=== PATIENT | female | born 2000 | race Caucasian/White ===

== ENCOUNTER 2024-10-23 00:52 | Emergency (ER) | payer SELFPAY ==
[2024-10-23] VITALS (8 sets, daily range): BP systolic 108–129; BP diastolic 62–83; PULSE 82–109; RESP 16–17; TEMP 37.4; O2SAT 95–100; BMI 38.4
--- NOTE | 2024-10-23 01:46 | CTR_ITS ---
PROCEDURE INFORMATION: Exam: CT Abdomen And Pelvis With Contrast Exam date and time: 10/23/2024 2:48 AM Age: 24 years old Clinical indication: Abdominal pain; Localized; Right lower quadrant (rlq); Additional info: Rlq pain TECHNIQUE: Imaging protocol: Computed tomography of the abdomen and pelvis with contrast. Radiation optimization: All CT scans at this facility use at least one of these dose optimization techniques: automated exposure control; mA and/or kV adjustment per patient size (includes targeted exams where dose is matched to clinical indication); or iterative reconstruction. Contrast material: OMNI 350; Contrast volume: 100 ml; Contrast route: INTRAVENOUS (IV); COMPARISON: No relevant prior studies available. RADIATION DOSE METRICS: Total DLP (mGy-cm): 1215.9 FINDINGS: Lungs: Mild probable atelectasis in the lower lungs. No pleural fluid. Liver: Unremarkable. Gallbladder and biliary ducts: Prior cholecystectomy, no significant biliary tree dilation. Pancreas: Unremarkable. Spleen: Unremarkable. Adrenal glands: Unremarkable. Kidneys and ureters: Several generally subcentimeter cysts suspected in the left kidney, although these are generally too small to accurately characterize by CT. If there is clinical concern for pyelonephritis, areas of focal infection might be considered. No hydronephrosis of either kidney. No visible ureteral calculus. No perinephric fluid. Stomach and bowel: Several proximal small bowel loops fluid-filled, but not abnormally distended. The overall appearance is not suggestive of significant small bowel obstruction at this time. This appearance could be secondary to some form of gastroenteritis. Please correlate clinically. However, if there is clinical suspicion for small bowel obstruction, follow-up may be helpful to exclude progression. No significant bowel distention. There are no CT findings to suggest diverticulitis. Appendix: The appendix is visualized and appears normal. Intraperitoneal space: No free intraperitoneal air, or ascites. Vasculature: No evidence for abdominal aortic aneurysm. Lymph nodes: No retroperitoneal adenopathy. Urinary bladder: No visible calculus in the bladder. Reproductive: Essentially unremarkable for age. Bones/joints: No significant acute finding. Soft tissues: No significant acute finding. CT/CT abdomen pelvis w con* [id number] IMPRESSION: 1. Normal appendix. 2. No free air or significant bowel distention. 3. Several proximal small bowel loops fluid-filled, but not abnormally distended. This appearance could be secondary to some form of gastroenteritis. See above discussion. 4. Several generally subcentimeter cysts suspected in the left kidney, see above discussion. 5. Other findings discussed above. COMMENTS: Consistent with the [employer]'s Incidental Findings Committee white paper (J Am Diann Radiol 2018): Any incidental renal lesion less than 1 cm or classified as too small to characterize, or any incidental cystic renal lesion characterized as simple-appearing, is likely benign. No follow-up imaging is recommended for these lesions per consensus recommendations based on imaging criteria.
[2024-10-23 01:53] LABS: Basophils # 0.1 10^3/uL (0.0-0.1); Basophils % 0.5 %; Eosinophils # 0.6 10^3/uL (0.0-0.8); Eosinophils % 5.6 %; Hematocrit 37.6 % (36-47); Lymphocytes # 1.8 10^3/uL (0.8-4.8); Lymphocytes % 15.9 %; Mean Corpuscular HGB Conc 31.9 g/dL (30-55); Mean Corpuscular Hemoglobin 28.2 pg (27-33); Mean Corpuscular Volume 88.5 fl (85-98); Mean Platelet Volume 10.4 fL (7.4-10.4); Monocytes # 0.8 10^3/uL (0.2-0.9); Monocytes % 7.1 %; Neutrophils % 70.6 %; Nucleated Red Blood Cells % 0 %; Platelet Count 343 10^3/cmm (157-399); Red Blood Count 4.25 10^6/uL (3.85-5.65); Red Cell Distribution Width 13.2 % (12.1-15.1); White Blood Count 11.35 10^3/uL (3.29-11.43)
[2024-10-23 01:58] LABS: HCG, Serum Qual Negative (Negative)
[2024-10-23] MEDS: iohexol 350 mg/mL 500 mL Btl (per mL) IV (02:00)
[2024-10-23 02:04] LABS: Alanine Aminotransferase 12 U/L (0-33); Albumin Level 3.5 g/dL (3.5-5.2); Alkaline Phosphatase 62 U/L (35-105); Aspartate Amino Transferase 25 U/L (0-32); Blood Urea Nitrogen 12 mg/dL (6-20); Calcium 8.4 mg/dL (8.5-10.5); Carbon Dioxide 22 mmol/L (22-29); Chloride 106 mmol/L (98-107); Creatinine Clr Calc Pharmacy 169.9942; Globulin 2.5 g/dL (1.3-4.6); Glomerular Filtration Rate 102.8 mL/min (90-130); Glucose 110 mg/dL (65-115); Osmolality Calculated 286 mOsm/kg (285-295); Sodium 138 mmol/L (136-145); Total Bilirubin 0.2 mg/dL (0.15-1.2)
[2024-10-23] MEDS: morphine 4 mg/mL SDV 1 mL IVP (02:10)
[2024-10-23] MEDS: levETIRAcetam 2,000 MG/200 ML PREMIX 400 MG IV (02:10)
[2024-10-23] MEDS: ondansetron 2 mg/ML SDV 2 mL 4 MG IVP (02:10)
[2024-10-23] MEDS: sodium chloride 0.9% 1,000 ML 999 ML IV (02:10)
[2024-10-23 02:19] LABS: Bilirubin Urine Negative (Negative); Blood Urine Negative (Negative); Glucose Urine UA Negative (Normal); Ketones Urine Negative (Negative); Leukocyte Esterase Urine Negative (Negative); Nitrate Urine Negative (Negative); Protein Urine Negative (Negative); Specific Gravity, Urine 1.019 (1.005-1.030); Urine Appearance Clear (CLEAR); Urine Color Yellow (Yellow)
[2024-10-23 02:24] LABS: Bacteria Urine None Seen /hpf; Hyaline Casts Urine 0.81 /lpf; RBC Urine 0-2 /hpf (0-2); Squamous Epithelial Cell Urine 0-5 /hpf (0-5); WBC Urine 0-5 /hpf (0-5)
[2024-10-23] MEDS: LORazepam 1 MG/0.5 ML injection 4 MG (02:37)
--- NOTE | 2024-10-23 02:51 | ED_ITS ---
HPI - Seizure 2 General: Chief Complaint: Seizure Stated Complaint: possible seizures Time Seen by Provider: 10/23/24 01:07 History of Present Illness: HPI Narrative: Pt with history of seizures presented after having a seizure while sleeping. Pt does not recall the onset but reports awakening with severe abdominal pain localized to the right lower quadrant and right ear pain. The abdominal pain began just before the seizure and has persisted since. Pt has a history of seizures diagnosed in [place], previously evaluated with EEG, and is prescribed Keppra 750 mg BID but has not taken it for about a month due to medications being left in [place]. Pt denies prior history of kidney stones or appendicitis. Fiance reports pt was unresponsive for nearly 20 minutes, with violent shaking starting about 10 minutes in, and noted abnormal breathing and perioral cyanosis. No mention of recent fever, trauma, or other acute symptoms. No known . Related Data Previous Rx's ?Medication ?Instructions ?Recorded levetiracetam 750 mg tablet 750 mg PO BID 2 weeks #180 tabs 10/23/24 (Keppra) Allergies Allergy/AdvReac Type Severity Reaction Status Date / Time No Known Allergies Allergy Verified 10/23/24 01:10 Physical Exam 2 Const: COMMON NORMALS: no acute distress, patient oriented x3 and alert HENMT: COMMON NORMALS: normocephalic and atraumatic HEAD & SCALP: n ormocephalic and atraumatic Eye: COMMON NORMALS: Equal, round and reactive pupils present, EOMs intact bilaterally and no scleral icterus PUPIL: Yes Equal, round and reactive pupils present Resp: COMMON NORMALS: normal respiratory effort and No retractions Cardio: COMMON NORMALS: regular rate, regular rhythm and No murmurs present (Cardio) RATE: regular rate RHYTHM: regular rhythm GI: OTHER: Mild right lower quadrant tenderness to palpation. Normal bowel sounds. Neuro: COMMON NORMALS: patient oriented x3 SENSORIUM/ORIENTATION: Yes alert Skin: COMMON NORMALS: no rashes or lesions noted GENERAL SKIN EXAM: no rashes or lesions noted Course 2 Vital Signs: Vital signs: Vital Signs Temperature 99.3 F 10/23/24 01:05 Pulse Rate 82 10/23/24 04:49 Respiratory Rate 16 10/23/24 04:49 Blood Pressure 114/83 10/23/24 04:49 Pulse Oximetry 97 10/23/24 04:49 Oxygen Delivery Me thod Room Air 10/23/24 01:05 MDM - Seizure MDM Narrative Medical decision making narrative: In summary, patient is a 24-year-old female seen for seizure-like activity. She states that she had EEG [place] epilepsy [place] and that she has not had her Keppra for at least several weeks. states that she shook for several minutes and was unresponsive for up to 20 minutes. Lactic acid is not elevated. CT abdomen does not show evidence of appendicitis or other acute abnormality. Laboratory evaluation is reassuring. She was given a loading dose of 2 g of Keppra as well as 4 mg of Ativan after which no further seizure activity was noted. She will be prescribed her 750 mg twice daily dosing Keppra and discharged in stable and improved condition with plans to establish care so that she can get her prescriptions filled on a more normal basis. Lab Data 10/23/24 01:16 10/23/24 01:16 Labs: Radiology Impressions Abdomen/Pelvis CT 10/23/24 01:46 IMPRESSION: 1. Normal appendix. 2. No free air or significant bowel distention. 3. Several proximal small bowel loops fluid-filled, but not abnormally distended. This appearance could be secondary to some form of gastroenteritis. See above discussion. 4. Several generally subcentimeter cysts suspected in the left kidney, see above discussion. 5. Other findings discussed above. COMMENTS: Consistent with the [employer]'s Incidental Findings Committee white paper (J Am Diann Radiol 2018): Any incidental renal lesion less than 1 cm or classified as too small to characterize, or any incidental cystic renal lesion characterized as simple-appearing, is likely benign. No follow-up imaging is recommended for these lesions per consensus recommendations based on imaging criteria. Laboratory Results WBC 11.35 10^3/uL (3.29-11.43) 10/23/24 01:16 RBC 4.25 10^6/uL (3.85-5.65) 10/23/24 01:16 Hgb 12.00 g/dL (11.27-16.99) 10/23/24 01:16 Hct 37.6 % (36-47) 10/23/24 01:16 MCV 88.5 fl (85-98) 10/23/24 01:16 MCH 28.2 pg (27-33) 10/23/24 01:16 MCHC 31.9 g/dL (30-55) 10/23/24 01:16 RDW 13.2 % (12.1-15.1) 10/23/24 01:16 Plt Count 343 10^3/cmm (157-399) 10/23/24 01:16 MPV 10.4 fL (7.4-10.4) 10/23/24 01:16 Neut % (Auto) 70.6 % 10/23/24 01:16 Lymph % (Auto) 15.9 % 10/23/24 01:16 Mccreary % (Auto) 7.1 % 10/23/24 01:16 Eos % (Auto) 5.6 % 10/23/24 01:16 Baso % (Auto) 0.5 % 10/23/24 01:16 Neut # (Auto) 8.00 10^3/uL (1.8-7.7) H 10/23/24 01:16 Lymph # (Auto) 1.8 10^3/uL (0.8-4.8) 10/23/24 01:16 Mccreary # (Auto) 0.8 10^3/uL (0.2-0.9) 10/23/24 01:16 Eos # (Auto) 0.6 10^3/uL (0.0-0.8) 10/23/24 01:16 Baso # (Auto) 0.1 10^3/uL (0.0-0.1) 10/23/24 01:16 Nucleated RBC % (auto) 0 % 10/23/24 01:16 Nucleated RBCs # 0.0 /100WBC 10/23/24 01:16 Sodium 138 mmol/L (136-145) 10/23/24 01:16 Potassium 4.0 mmol/L (3.5-5.1) 10/23/24 01:16 Chloride 106 mmol/L (98-107) 10/23/24 01:16 Carbon Dioxide 22 mmol/L (22-29) 10/23/24 01:16 Anion Gap 14.0 (5-19) 10/23/24 01:16 BUN 12 mg/dL (6-20) 10/23/24 01:16 Creatinine 0.7 mg/dL (0.5-0.9) 10/23/24 01:16 GFR Calculation 102.8 mL/min (90-130) 10/23/24 01:16 Glucose 110 mg/dL (65-115) 10/23/24 01:16 Calculated Osmolality 286 mOsm/kg (285-295) 10/23/24 01:16 Lactic Acid 1.4 mmol/L (0.5-2.2) 10/23/24 01:16 Calcium 8.4 mg/dL (8.5-10.5) L 10/23/24 01:16 Total Bilirubin 0.2 mg/dL (0.15-1.2) 10/23/24 01:16 AST 25 U/L (0-32) 10/23/24 01:16 ALT 12 U/L (0-33) 10/23/24 01:16 Alkaline Phosphatase 62 U/L (35-105) 10/23/24 01:16 Total Protein 6.0 g/dL (6.6-8.7) L 10/23/24 01:16 Albumin 3.5 g/dL (3.5-5.2) 10/23/24 01:16 Globulin 2.5 g/dL (1.3-4.6) 10/23/24 01:16 HCG, Qual Negative (Negative) 10/23/24 01:16 Urine Color Yellow (Yellow) 10/23/24 02:12 Urine Appearance Clear (CLEAR) 10/23/24 02:12 Urine pH 6.0 (5-7) 10/23/24 02:12 Ur Specific [place] 1.019 (1.005-1.030) 10/23/24 02:12 Urine Protein Negative (Negative) 10/23/24 02:12 Urine Glucose (UA) Negative (Normal) 10/23/24 02:12 Urine Ketones Negative (Negative) 10/23/24 02:12 Urine Blood Negative (Negative) 10/23/24 02:12 Urine Nitrate Negative (Negative) 10/23/24 02:12 Urine Bilirubin Negative (Negative) 10/23/24 02:12 Urine Urobilinogen 1.0 mg/dL (Negative) 10/23/24 02:12 Ur Leukocyte Esterase Negative (Negative) 10/23/24 02:12 Urine RBC 0-2 /hpf (0-2) 10/23/24 02:12 Urine WBC 0-5 /hpf (0-5) 10/23/24 02:12 Ur Squamous Epith Cells 0-5 /hpf (0-5) 10/23/24 02:12 Amorphous Sediment Not Reportable 10/23/24 02:12 Urine Bacteria None seen /hpf (NONE) 10/23/24 02:12 Hyaline Casts 0.81 /lpf 10/23/24 02:12 All radiology interpretation(s) finalized by discharge Discharge Plan Discharge Patient Disposition: Home Condition: Stable Prescriptions: New levetiracetam [Keppra] 750 mg tablet 750 mg PO BID 14 Days Qty: 180 0RF Discharge Orders: Discharge ED (Routine); Ordered 10/23/24 Ordered By: Erick Shankar Patient Instructions: Epilepsy (ED) Activity Restrictions/Additional Instructions: Please obtain a primary care doctor so that you can get further refills of your medications when needed. I prescribed a 3-month supply of your Keppra to hopefully keep you from having seizures before you can establish care here. Print Language: Croatian Coding Level of Care Code ED Public Health Program Manager for Shona Cody
[2024-10-23 03:32] LABS: Lactic Sepsis W/Reflex 1.4 mmol/L (0.5-2.2)
== END 2024-10-23 04:56 | disposition home or self-care (01) ==
PROVIDERS: Emergency Provider Student in an Organized Health Care Education/Training Program
DX: G40.909 Epilepsy, unspecified, not intractable, without status epilepticus (principal)
CPT/HCPCS: 36415; 74177; 80053; 81001; 83605; 84703; 85025; 96361; 96365; 96375; 99285; J1953; J2060; J2270; J2405; J7030

== ENCOUNTER 2024-11-17 22:07 | Emergency (ER) | payer SELFPAY ==
--- OUTSIDE RECORDS SUMMARY | 2024-11-13 00:54 | XMS_ITS | Encounter Summary ---
Author Organization [employer] Address [address] [place] [address] Care Team Providers Care Asw/Asuw Tactical Air Controller Name Role Phone Fantasma Brewer DO Primary Care Provider Reason for Visit * Reason Comments Seizures * Auth/Cert (Routine) Specialty Diagnoses / Procedures Referred By Ron zeng Referred To Contact Diagnoses ED Procedures ED Referral ID Status Reason Start Date Expiration Date Visits Re quested Visits Authorized [id number] 1 1 Encounter Details Date Type Department Care Team (Late st Contact Info) Description 11/13/2024 12:54 AM CDT - 11/13/2024 4:08 AM CDT Emergency [facility] [place] [address] [place] [address] Jose Eduardo Martinez, DO [address] [place] [address] Breakthrough seizure (Primary Dx) Discharge Disposition: Home or Self-Care Social History Tobacco Use Types Packs/Day Years Used Date Smoking Tobacco: Never Passive Smoke Exposure: Never Smokeless Tobacco: Never Alcohol Use Standard Drinks/Week Comments Never 0 (1 standard drink = 0.6 oz pur e alcohol) [facility] Utilities Answer Date Recorded In the past 12 months has e electric, gas, oil, or water company threatened to shut off services in your home? No 05/13/2024 PHQ-2 Answer Date Recorded PHQ-2 Total Score 0 07/08/2024 Hunger Vital Sign Answer Date Recorded Within the past 12 months, y ou worried that your food would run out before you got the money to buy more. Never true 05/13/20 24 Within the past 12 months, t he food you bought just didn't last and you didn't have money to get more. Never true 05/13/2024 [facility] - Transportation Answer Date Record ed In the past 12 months, has l ack of reliable transportation kept you from medical appointments, meetings, work or from getting things needed for daily living? No 05/13/2024 [facility] - Personal Safety Answer Date Recor ded How often does anyone, dennis bond family and friends, physically hurt you? Never 05/13/2024 How often does anyone, dennis bond family and friends, insult or talk down to you? Never 05/13/2024 How often does anyone, dennis bond family and friends, threaten you with harm? Never 05/13/2024 How often does anyone, dennis bond family and friends, scream or curse at you? Never 05/13/2024 [facility] - Inadequate Housing Answer Date Re corded What is your living situation today? I have a [facility] place to live 05/13/2024 Housing Problems Not on file 05/13/2024 Comments No Sex and Gender Information Value Date Recorded Sex Assigned at Not on file Legal Sex Female 9:57 AM TRANSMISSION REPAIRER Gender Identity Not on file Sexual Orientation Not on file documented as of this encounter Last Filed Vital Signs Vital Sign Reading Time Taken Comments Blood Pressure 116/69 11/13/2024 3:30 AM CDT Pulse 88 11/13/2024 3:30 AM CDT Temperature 37.4 C (99.3 F) 11/13/2024 1:00 AM CDT Respiratory Rate 27 11/13/2024 3:30 AM CDT Oxygen Saturation 99% 11/13/2024 3:30 AM CDT Inhaled Oxygen Concentration - - Weight 122 kg (268 lb) 11/13/2024 1:00 AM CDT Height 175.3 cm (5' 9 ) 11/13/2024 1:00 AM CDT Body Mass Index 39.58 11/13/2024 1:00 AM CDT documented in this encounter Functional Status * Is the person deaf or does he/she have serious difficulty hearing? Answer Date of Assessment Author No 05/13/2024 11:15 PM TRANSMISSION REPAIRER * Is this person blind or does he/she have serious difficulty seeing even when wearing glasses? Answer Date of Assessment Author No 05/13/2024 11:15 PM TRANSMISSION REPAIRER * Does this person have serious difficulty walking or climbing stairs? Answer Date of Assessment Author No 05/13/2024 11:15 PM TRANSMISSION REPAIRER * Does this person have difficulty dressing or bathing? Answer Date of Assessment Author No 05/13/2024 11:15 PM TRANSMISSION REPAIRER * Because of a physical, mental, or emotional condition, does this person have difficulty doing errands alone such as visiting a doctor's office or shopping? Answer Date of Assessment Author No 05/13/2024 11:15 PM TRANSMISSION REPAIRER documented as of this encounter Mental Status * Because of a physical, mental, or emotional condition, does this person have serious difficulty concentrating, remembering, or making decisions? Answer Entry Date Author No 05/13/2024 11:15 PM TRANSMISSION REPAIRER documented in this encounter Discharge Instructions * Discharge Instructions* Jose Eduardo Martinez DO - 11/13/2024 3:50 AM CDT Take your Topamax as prescribed by your neurologist. Please contact your neurologist to inform her of most recent ED visit. Thank you for choosing us for your emergency medical care. During your visit to the emergency department today, we have addressed emergency medical conditions. Each and every time you visit the emergency department we strongly encourage you to follow-up with your primary care physician at their next available appointment. Often times when visiting the emergency department your condition can worsen following discharge, if worsening occurs we ask that you return to immediately for reevaluation. Also, following an emergency department visit your symptoms can remain concerning, if your symptoms continue to be concerning please return for reevaluation. * Attachments The following attachments cannot be sent through Care Everywhere. * Epilepsy [id number] ([place] Island[place]) documented in this encounter Medications at Time of Discharge aluminum-magnesium hydroxide-simethicon e (Maalox) 200-200-20 MG/5ML suspension Take 30 mL by mouth. 07/05/2024 amitriptyline (Elavil) 25 MG tabletIndications:Ot her chronic pancreatitis Take 1 tablet (25 mg) by mouth nightly. 30 tablet 5 07/08/2024 HYDROcodone-acetamin ophen (Wellfleet) 10-325 MG per tablet Take 1 tablet by mouth every 4 (four) hours as needed. 07/03/2024 ondansetron ODT (Zofran-ODT) 4 MG disintegrating tablet 06/18/2024 oxyCODONE-acetaminop hen (Percocet) 5-325 MG per tablet Take 1 tablet by mouth every 6 (six) hours as needed. 05/26/2024 pantoprazole (Protonix) 20 MG EC tablet Take 1 tablet (20 mg) by mouth. 07/05/2024 polyethylene glycol (Miralax) 17 GM/SCOOP powderIndications:Ot her constipation Take 17 g by mouth daily. 30 packet 5 07/08/2024 Vit-Fe Fumarate-FA ( VITAMIN PO) Take by mouth. senna (Senokot) 8.6 MG tablet Take 1 tablet (8.6 mg) by mouth. 07/04/2024 documented as of this encounter ED Notes * Jose Eduardo Martinez DO - 11/13/2024 2:07 AM CDTAssociated Order(s): ECG 12 lead Assessment Assessment Final diagnoses: Breakthrough seizure Plan Emergency Department Decision Date/Time: 11/13/2024 3:50 AM Disposition: Discharge Comment: None ED Prescriptions None Fantasma Brewer DO [address] [facility] [address] [facility] [place] [address] [facility] [address] Go to If symptoms worsen Subjective Reason for Visit Chief Complaint Patient presents with Seizures HPI Patient is a 24-year-old female with past medical history of of epilepsy who presents to the ED accompanied by father and spouse for evaluation of seizures. Initially the patient's reports they were recently on their honeymoon in [place] and were driving back to [place] to pickler helper her father. He reports that on the way down here the patient told him she was getting sleepy so she was going to take a nap. He reports that upon arrival to her father's house the patient was not able to be aroused and her eyes seem like they are rolled into the back of her head. Patient reports this is what some of her seizures look like so he brought her to the ED for evaluation. He is unsure of how long the seizure activity went on for. Upon arrival to ED patient was unconscious sitting up in the front seat of their vehicle and myself and nursing staff had to assist her back to ER room on a gurney.Symptoms are severe in severity modified time. No other complaints Problem List does not have any pertinent problems on file. History History reviewed. No pertinent past medical history. Past Surgical History: Procedure Laterality Date SECTION - LD N/A 12/27/2021 Performed by Raghu Gayle MD at [facility] Social History Tobacco Use Smoking status: Never Passive exposure: Never Smokeless tobacco: Never Vaping Use Vaping status: Never Used Substance and Sexual Activity Alcohol use: Never Drug use: Never Sexual activity: Yes Partners: Male control/protection: None Family History Problem Relation Age of Onset No Known Problems Paternal Grandfather No Known Problems Paternal Grandmother No Known Problems Maternal Grandmother No Known Problems Maternal Grandfather Diabetes Father No Known Problems Mother No Known Problems Brother No Known Problems Sister No Known Problems Other Patient's Medications New Prescriptions No medications on file Previous Medications ALUMINUM-MAGNESIUM HYDROXIDE-SIMETHICONE (MAALOX) 200-200-20 MG/5ML SUSPENSION Take 30 mL by mouth. AMITRIPTYLINE (ELAVIL) 25 MG TABLET Take 1 tablet (25 mg) by mouth nightly. HYDROCODONE-ACETAMINOPHEN (NORCO) 10-325 MG PER TABLET Take 1 tablet by mouth every 4 (four) hours as needed. ONDANSETRON ODT (ZOFRAN-ODT) 4 MG DISINTEGRATING TABLET OXYCODONE-ACETAMINOPHEN (PERCOCET) 5-325 MG PER TABLET Take 1 tablet by mouth every 6 (six) hours as needed. PANTOPRAZOLE (PROTONIX) 20 MG EC TABLET Take 1 tablet (20 mg) by mouth. POLYETHYLENE GLYCOL (MIRALAX) 17 GM/SCOOP POWDER Take 17 g by mouth daily. VIT-FE FUMARATE-FA ( VITAMIN PO) Take by mouth. SENNA (SENOKOT) 8.6 MG TABLET Take 1 tablet (8.6 mg) by mouth. Modified Medications No medications on file Discontinued Medications No medications on file Review of Systems Review of Systems Unable to perform ROS: Patient unresponsive Objective Physical Exam ED Triage Vitals: Temp: 37.4 ??C (99.3 ??F) Pulse: 97 Resp: 18 BP: 130/86 SpO2: 98 % Temp src: Oral Heart Rate Source: Monitor Patient Position: (not recorded) BP Location: (not recorded) FiO2 (%): (not recorded) (11/13/24 0100) Physical Exam Vitals and nursing note reviewed. Constitutional: General: She is not in acute distress. HENT: Head: Normocephalic and atraumatic. Right Ear: Tympanic membrane, ear canal and external ear normal. Left Ear: Tympanic membrane, ear canal and external ear normal. Nose: Nose normal. Mouth/Throat: Mouth: Mucous membranes are moist. Pharynx: Oropharynx is clear. Comments: No oral lacerations or pooling of secretions noted, no perioral cyanosis Eyes: Pupils: Pupils are equal, round, and reactive to light. Cardiovascular: Rate and Rhythm: Normal rate and regular rhythm. Pulses: Normal pulses. Heart sounds: Normal heart sounds. Pulmonary: Effort: Pulmonary effort is normal. No respiratory distress. Breath sounds: Normal breath sounds. Abdominal: General: There is no distension. Palpations: Abdomen is soft. Hernia: No hernia is present. Musculoskeletal: General: No deformity or signs of injury. Cervical back: Normal range of motion and neck supple. Right lower leg: No edema. Left lower leg: No edema. Skin: General: Skin is warm and dry. Capillary Refill: Capillary refill takes less than 2 seconds. Findings: No bruising or rash. Neurological: Mental Status: She is unresponsive. GCS: GCS eye subscore is 3. GCS verbal subscore is 1. GCS motor subscore is 2. Orders Placed This Encounter Procedures Blood Culture SARS-CoV-2/FLU/RSV Cepheid RT-PCR Detection X-ray chest 1 view Urinalysis, Culture if Indicated Urine Urine Toxicology Screen Oxycodone Screen, Urine Fentanyl Screen, Urine CBC Blood gas, venous Comprehensive Metabolic Panel Lipase Lactic Acid, Plasma Ethanol, Serum Acetaminophen Level Lactic Acid, Plasma Non-Indwelling Urinary Catheter Insertion POC Glucometer Glucose ECG 12 lead Labs Reviewed URINE TOXICOLOGY SCREEN - Abnormal; Notable for the following components: Result Value Urine THC Screen Positive (*) All other components within normal limits Narrative: Urine Drug Screen specimen was not collected by any chain of custody procedure; The results have not been confirmed and are intended for medical use only. CBC - Abnormal; Notable for the following components: Absolute Eosinophils 0.655 (*) All other components within normal limits BLOOD GAS, VENOUS - Abnormal; Notable for the following components: Venous pO2 59.1 (*) All other components within normal limits COMPREHENSIVE METABOLIC PANEL - Abnormal; Notable for the following components: Glucose Level 114 (*) All other components within normal limits Narrative: Total Bilirubin: A metabolite of Naproxen, O-desmethylnaproxen, has been shown to interfere with the Faisal-Tarun method for measuring Total Bilirubin. Samples from patients who have taken Naproxen have shown spurious elevation in Total Bilirubin levels. (Alexa et al, J. Clin Biochem 42, 129-131). The eGFR is based on the CKD-EPI 1 equation. To calculate the new eGFR from previous Creatinine or Cystatin C results, go to https://www.kidney.org/professionals/kdoqi/gfr%5Fcalculator LACTIC ACID, PLASMA - Abnormal; Notable for the following components: Lactic Acid 2.94 (*) All other components within normal limits ACETAMINOPHEN LEVEL - Abnormal; Notable for the following components: Acetaminophen Level <3.0 (*) All other components within normal limits SARS-COV-2/FLU/RSV CEPHEID RT-PCR DETECTION - Normal Narrative: This test was performed using [employer] GeneXpert??. The Xpert Xpress SARS-CoV-2/Flu/RSV Plus test is a rapid, multiplexed real-time RT-PCR test intended for the simultaneous qualitative detection and differentiation of SARS-CoV-2, influenza A, influenza B, and respiratory syncytial virus (RSV) viral RNA in either nasopharyngeal swab or nasal swab spe cimens collected from individuals suspected of respiratory viral infection consistent with COVID-19by their healthcare provider. Clinical signs and symptoms of respiratory viral infection due to SARS-CoV-2, influenza, and RSV can be similar. Negative results do not preclude SARS-CoV-2, influenza A virus, influenza B virus and/or RSV infection and should not be used as the sole basis for treatment or other patient management decisions. Negative results must be combined with clinical observations, patient history, and/or epidemiological i nformation. URINE - Normal Narrative: hCG is not usually detected in healthy men and healthy non- women. However, hCG levels in will usually exceed 25 mIU/mL two to three days prior to the first missed menstrual period. OXYCODONE SCREEN, URINE - Normal Narrative: Urine Drug Screen specimen was not collected by any chain of custody procedure; The results have not been confirmed and are intended for medical use only. FENTANYL SCREEN, URINE - Normal Narrative: Urine Drug Screen specimen was not collected by any chain of custody procedure; The results have not been confirmed and are intended for medical use only. LIPASE - Normal ETHANOL - Normal Narrative: Ethanol Normal: Negative = 0 mg/dL Toxic: 50-100 mg/dL Depression of FOLLOW UP CLERK: Greater than 100 mg/dL Fatalities Reported: Greater than 400 mg/dL Interpret with caution. Elevated lactic acid concentration and lactate dehydrogenase activity may falsely elevate enzymatically determined ethanol levels. BLOOD CULTURE BLOOD CULTURE URINALYSIS PRN CULTURE IF INDICATED Narrative: Consider positive bilirubin results as presumptive positive. Consider confirmation by serum bilirubin if clinically indicated. LACTIC ACID, PLASMA POC GLUCOMETER GLUCOSE (RALS) Narrative: Reliability of glucose meter testing is questionable in patients with compromised peripheral blood flow. Examples include but are not limited to severe edema at collection site, heart failure, hypothermia, on two or more vasopressors, hematocrit <20% or >70%, peripheral circulatory disease, severe hypotension, shock, hyperosmolar-hyperglycemia (with or without ketosis), and severe dehydration. Venous glucose testing by the laboratory should be considered if clinically indicated Procedures ECG 12 lead Date/Time: 11/13/2024 2:15 AM Performed by: Jose Eduardo Martinez DO Authorized by: Jose Eduardo Martinez DO ECG interpreted by ED Physician in the absence of a burlap worker: yes Rate: ECG rate: 101 ECG rate assessment: tachycardic Rhythm: Rhythm: sinus tachycardia Comments: EKG was interpreted by me in the absence of a burlap worker. EKG reveals sinus tachycardia rhythm with a rate of 101. MT 149. QRS 77. QTC 468. No significant ST abnormalities. No evidence of delta wave or WPW. ED Course MDM Medical Decision Making Amount and/or Complexity of Data Reviewed Labs: ordered. Radiology: ordered and independent interpretation performed. ECG/medicine tests: ordered and independent interpretation performed. Risk Prescription drug management. Patient taken to exam room and a safety net was established. An appropriate safety net was put in place. Vital signs obtained and reviewed. Nursing notes reviewed. A detailed history and physical exam was performed by myself and documented above. I considered a broad differential diagnosis to include but is not limited to epileptic seizure, nonepileptic seizure, ingestion, electrolyte abnormality. Once patient was taken to room 11 she was placed on our monitors and was satting 100% with normal blood pressure and was afebrile. IV access was established and patient was still unresponsive with eyes rolling into the back of her head. Patient was then given 4 mg of IV Ativan. Fingerstick was obtained prior to this and was 99. Shortly after patient received the Ativan nursing staff was collecting labs and patient was swabbed for COVID, flu and RSV. Upon swabbing patient she immediately reached up and grabbed at the swab. I then said her name to which she responded to. I asked her what had happened inpatient immediately started talking about the events leading up to her seizure this evening. Reports that they are getting ready to drive to [place] to pickler helper her father. Reports she felt like she was going to have a seizure due to some flashing lights and then does not remember anythingelse. Patient also reports she was quite tired so she was planning on taking a nap. Patient has no obvious postictal period. She is alert and oriented and has no focal neurologic deficits. Lab work was obtained and CBC is unremarkable. Metabolic panel is unremarkable. Lipase is normal. Serum drug screen is negative. Urine toxicology screen is only positive for THC. Urinalysis is negative for any signs of infection or . She is negative for COVID, flu and RSV. VBG reveals a pH of 7.36 and a CO2 of 44. Chest x-ray interpreted by myself reveals no acute cardiopulmonary process. Lactic acid is 2.94 which is consistent with her seizure activity. Patient was given a liter of fluids. I asked patient what she is currently taking for seizure medications and she reports that she is currently not on any medications. Reports she had a seizure on the fourth of this month and was taken to an ER in [place] and believes that the IV Keppra put her back into a seizure. Reports that when she talked to her neurologist about this her neurologist wanted to discontinue the Keppra and only take Top amax. Patient reports that due to her honeymoon she has not been able to pickler helper the Topamax prescription. I reviewed several notes from patient's neurologist and it seems that patient has had several seizure workups in the past. There were several EEGs that were negative for any epileptic activityand there was also willing EEG that did confirm some epileptic activity. 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 I do have high suspicion that this was a nonepileptic seizure as patient immediately came to and couldremember all the events leading up to her presentation today. Patient has been observed in the ED for prolonged period of time and has not had any continued seizure-like activity. Reports she does have close follow-up with her neurologist. Her repeat lactic acid is down to 1.09. Patient has been observed in the ED for 3 hours with no continued seizure-like activity. At this time I do not believe further workup is necessary at this time. I have stressed the importance of patient picking up her Topamax prescription. I have discussed symptomatic treatment at home as well as the need for follow-up with PCP. Return precautions are given. The patient voices understanding and is agreeable to plan.They will be discharged in stable condition with strict return precautions. Total critical care time spent evaluating, managing and providing care to a critically ill patient was in the excess of greater than 30 minutes. This included direct patient care at bedside as well as reviewing test results, discussing the case with consultants, and documenting the patient's chart and excludes all separately billable procedures. The high probability of clinical significant, life threatening deterioration, the patient required my highest level of preparedness to intervene emergently and I personally spent this critical care time directly with and personally managing the patient. The critical care time included obtaining a history; examining the patient; pulse oximetry; ordering and reviewing studies; arranging urgent treatment with development of a management plan; evaluation of the patient's response to treatment; frequent reassessments; and discussion with other providers including several transfer centers. This critical care time was performed to assess and manage the high probability of imminent life-threatening deterioration that could result in multiorgan failure. It was exclusive of separately billable procedures and treating of other patients. Jose Eduardo Martinez DO 11/13/24 0352 documented in this encounter Plan of Treatment Pending Results Name Type Priority Associated Diagnoses Date /Time Blood Culture Microbiology STAT 1:14 AM CDT Blood Culture Microbiology STAT 3:05 AM CDT documented as of this encounter Procedures Procedure Name Priority Date/Time Associated Diagnosis Comments BLOOD CULTURE STAT 11/13/2024 3:05 AM CDT LACTIC ACID, PLASMA STAT 11/13/2024 3 :05 AM CDT XR CHEST 1 VW STAT 11/13/2024 1:30 AM CDT ECG 12-LEAD STAT 11/13/2024 1:19 AM CDT BLOOD CULTURE STAT 11/13/2024 1:14 AM CDT CBC STAT 11/13/2024 1:14 AM CDT LIPASE STAT 11/13/2024 1:14 AM CDT LACTIC ACID, PLASMA STAT 11/13/2024 1 :14 AM CDT BLOOD GAS, VENOUS STAT 11/13/2024 1:1 4 AM CDT ETHANOL STAT 11/13/2024 1:14 AM CDT ACETAMINOPHEN LEVEL STAT 11/13/2024 1 :14 AM CDT COMPREHENSIVE METABOLIC PANEL STAT 11/13/2024 1:14 AM CDT SARS-COV-2/FLU/RSV CEPHEID RT-PCR DETECTION STAT 11/13/2024 1:13 AM CDT FENTANYL SCREEN, URINE STAT 1:10 AM CDT OXYCODONE SCREEN, URINE STAT 11/13/2024 1:10 AM CDT URINALYSIS PRN CULTURE IF INDICATED STAT 11/13/2024 1:10 AM CDT URINE TOXICOLOGY SCREEN STAT 11/13/2024 1:10 AM CDT URINE STAT 11/13/2024 1:10 AM CDT POC GLUCOMETER GLUCOSE (RALS) STAT 11/13/2024 12:55 AM CDT documented in this encounter Results * Lactic Acid, Plasma (11/13/2024 3:05 AM CDT) Lactic Acid 1.09 0.50 - 2.20 mmol/L 11/13/2024 3:25 AM CDT [facility] Lactic Acid (Conv) 11/13/2024 3:25 AM CDT [facility] Blood Venous blood specimen / Unknown Venipuncture / Unknown 11/13/2024 3:05 AM CDT 11/13/2024 3:07 AM CDT us Jose Eduardo Martinez DO LAB BLOOD ORDERABLES Final Re sult [address], [place] [address] * X-ray chest 1 view (11/13/2024 1:30 AM CDT) Anatomical Region Laterality Modality Body, Chest, Lung Digital Radiog moustapha 11/13/2024 10:0 5 AM CDT Impressions 11/13/2024 10:08 AM CDT No acute cardiopulmonary findings. All reports both verbal and nonverbal are conducted in the Central Time zone unless otherwise specified. By Mariano Doe D.O. (Radiologist) Electronically signed by MARIANO DOE D.O. 11/13/2024 - 10:05:29 [id number] R:bxw: T:bxw ([id number]) Narrative 11/13/2024 10:08 AM CDT Date of Exam: 11/13/2024 (Received on: 11/13/2024 1:31:24 AM) Reason for Exam: Status epilepticus EXAM: CHEST ONE VIEW . AP Chest COMPARISON: None FINDINGS: Heart size and pulmonary vasculature are within normal limits. The lungs are clear and without evidence of pneumonia, atelectasis or effusions. No acute bony or soft tissue findings. Procedure Note Mariano Doe DO - 11/13/2024 Date of Exam: 11/13/2024 (Received on: 11/13/2024 1:31:24 AM) Reason for Exam: Status epilepticus EXAM: CHEST ONE VIEW . AP Chest COMPARISON: None FINDINGS: Heart size and pulmonary vasculature are within normal limits.The lungs are clear and without evidence of pneumonia, atelectasis or effusions. Noacute bony or soft tissue findings. IMPRESSION: No acute cardiopulmonary findings. All reports both verbal and nonverbal are conducted in the Central Time[place] unless otherwise specified. By Mariano Doe D.O. (Radiologist) Electronically signed by MARIANO DOE D.O. 11/13/2024 - 10:05:29 [id number] R:bxw: T:bxw ([id number]) Jose Eduardo Martinez DO IMG DIAGNOSTIC IMAGING ORDERA BLES Final Result * ECG 12 lead (11/13/2024 1:19 AM CDT) Heart Rate ECG 101 bpm TRACEMASTER RR Interval ECG 592 ms TRACEMASTER Atrial Rate ECG 102 ms TRACEMASTER MT Interval 149 ms TRACEMASTER P Duration 103 ms TRACEMASTER P Horizontal Second [place]a ECG 21 deg TRACEMASTER P Front Second [place]a ECG 22 deg TRACEMASTER Q Onset ECG 505 ms TRACEMASTER QRSD Interval 77 ms TRACEMASTER QT Interval 360 ms TRACEMASTER QTcB ECG 468 ms TRACEMASTER QTcF ECG 428 ms TRACEMASTER QRS Horizontal Second [place]a ECG -9 deg TRACEMASTER QRS Second [place]a ECG 63 deg TRACEMASTER I-40 Horizontal Second [place]a ECG 83 deg TRACEMASTER I-40 Front Second [place]a ECG -32 deg TRACEMASTER T-40 Horizontal Second [place]a ECG -16 deg TRACEMASTER T-40 Front Second [place] ECG 76 deg TRACEMASTER T Horizontal Second [place]a ECG 12 deg TRACEMASTER T Wave Second [place]a [address] Horizontal Second [place]a ECG [address] Front Second [place] ECG 39 deg TRACEMASTER 11/13/2024 1:19 AM CDT Impressions TRACEMASTER - 11/13/2024 7:51 AM CDT - OTHERWISE NORMAL ECG - Sinus tachycardia Narrative Procedure Note Sudhakar Guallpa MD - 11/13/2024 IMPRESSION: - OTHERWISE NORMAL ECG - Sinus tachycardia Jose Eduardo Martinez DO ECG ORDERABLES Final Result Performing Organization Address City/[facility]/ZIP Co de Phone Number TRACEMASTER * (ABNORMAL) Acetaminophen Level (11/13/2024 1:14 AM CDT) Acetaminophen Level <3.0(L) 10.0 - 30.0 mcg/mL 11/13/2024 1:42 AM CDT [facility] Blood Venous blood specimen / Unknown Venipuncture / Unknown 11/13/2024 1:14 AM CDT 11/13/2024 1:21 AM CDT Jose Eduardo Martinez DO LAB BLOOD [place] [address] * Ethanol, Serum (11/13/2024 1:14 AM CDT) Ethanol, Serum <10 <=10 mg/dL 11/13/2024 1:42 AM CDT [facility] Blood Venous blood specimen / Unknown Venipuncture / Unknown 11/13/2024 1:14 AM CDT 11/13/2024 1:21 AM CDT Narrative [facility] - 11/13/2024 1:42 AM CDT Ethanol Normal: Negative = 0 mg/dL Toxic: 50-100 mg/dL Depression of FOLLOW UP CLERK: Greater than 100 mg/dL Fatalities Reported: Greater than 400 mg/dL Interpret with caution. Elevated lactic acid concentration and lactate dehydrogenase activity may falsely elevate enzymatically determined ethanol levels. Jose Eduardo Martinez DO LAB BLOOD ORDERABLES Final Re sult Performing Organization Address [facility]/[place] [address] * (ABNORMAL) Lactic Acid, Plasma (11/13/2024 1:14 AM CDT) Lactic Acid 2.94(H) 0.50 - 2.20 mmol/L 11/13/2024 1:42 AM CDT [facility] Lactic Acid (Conv) 11/13/2024 1:42 AM CDT [facility] Blood Venous blood specimen / Unknown Venipuncture / Unknown 11/13/2024 1:14 AM CDT 11/13/2024 1:21 AM CDT Jose Eduardo Martinez DO LAB BLOOD ORDERABLES Final Re sult Performing Organization Address [facility] [place] [address] * Lipase (11/13/2024 1:14 AM CDT) Lipase Level 15 7 - 60 units/L 11/13/2024 1:42 AM CDT [facility] Blood Venous blood specimen / Unknown Venipuncture / Unknown 11/13/2024 1:14 AM CDT 11/13/2024 1:21 AM CDT Result [facility] Jose Eduardo Martinez DO LAB BLOOD ORDERABLES Final Re sult Performing Organization Address City/[facility] [place] [address] * (ABNORMAL) Comprehensive Metabolic Panel (11/13/2024 1:14 AM CDT) Glucose Level 114(H) 65 - 99 mg/dL 11/13/2024 1:42 AM CDT [facility] Sodium 139 135 - 146 mmol/L 11/13/2024 1:42 AM [facility] Potassium, Serum 3.6 3.5 - 5.3 mmol/L 11/13/2024 1:42 AM [facility] Chloride 108 98 - 110 mmol/L 11/13/2024 1:42 AM [facility] Carbon Dioxide Level 22 18 - 30 mmol/L 11/13/2024 1:42 AM [facility] Anion Gap-Calculated 9 4 - 16 mmol/L 11/13/2024 1:42 AM [facility] Calcium Level 8.7 8.5 - 10.4 mg/dL 11/13/2024 1:42 AM [facility] Blood Urea Nitrogen 11 7 - 25 mg/dL 11/13/2024 1:42 AM [facility] Creatinine 0.80 0.50 - 1.10 mg/dL 11/13/2024 1:42 AM [facility] eGFR (Lab Calc) >60 mL/min/1.73 m2 11/13/2024 1:42 AM [facility] BUN/Creatinine Ratio 13.8 6.0 - 25.0 (calc) 11/13/2024 1:42 AM [facility] Protein Total 6.5 6.0 - 8.3 g/dL 11/13/2024 1:42 AM [facility] Albumin Level 3.3 3.2 - 5.0 g/dL 11/13/2024 1:42 AM [facility] BKR ALBUMIN/GLOBULIN (G/G RATIO) IN SER/PLAS 1.0 0.8 - 2.0 ratio 11/13/2024 1:42 AM [facility] ALKALINE PHOSPHATASE (U/L) IN SER/PLAS 69 20 - 125 U/L 11/13/2024 1:42 AM [facility] AST (SGOT) 22 11 - 34 U/L 11/13/2024 1:42 AM [facility] Comment:Interpret results wi th caution. Hemolyzed samples may cause interference with the assay. ALT (SGPT) 11 7 - 34 U/L 11/13/2024 1:42 AM CDT [facility] Bilirubin, Total 0.3 0.2 - 1.3 mg/dL 11/13/2024 1:42 AM CDT [facility] MDRD GFR, Calculated 11/13/2024 1:42 AM T [facility] Osmolality (Calculated) 288.3 273.0 - 304.0 MOSMOL 11/13/2024 1:42 AM CDT [facility] Blood Venous blood specimen / Unknown Venipuncture / Unknown 11/13/2024 1:14 AM CDT 11/13/2024 1:21 AM CDT Narrative [facility] - 11/13/2024 1:42 AM CDT Total Bilirubin: A metabolite of Naproxen, O-desmethylnaproxen, has been shown to interfere with the Jendrassik-Grof method for measuring Total Bilirubin. Samples from patients who have taken Naproxen have shown spurious elevation in Total Bilirubin levels. (Alexa et al, J. Clin Biochem 42, 129-131). The eGFR is based on the CKD-EPI 2020 equation. To calculate the new eGFR from previous Creatinine or Cystatin C results, go to https://www.kidney.org/professionals/kdoqi/gfr%5Fcalculator us Jose Eduardo Martinez DO LAB BLOOD ORDERABLES Final Re sult [address] [address] * (ABNORMAL) Blood gas, venous (11/13/2024 1:14 AM CDT) Venous pH 7.36 7.36 - 7.46 pH 11/13/2024 1:27 AM CDT [facility] Venous pCO2 44 35 - 48 mmHg 11/13/2024 1:27 AM CDT [facility] Venous pO2 59.1(H) 30.0 - 50.0 mmHg 11/13/2024 1:27 AM CDT [facility] Venous HCO3 24 22 - 28 mEq/L 11/13/2024 1:27 AM CDT [facility] Venous TCO2 26 24 - 30 mEq/L 11/13/2024 1:27 AM T [facility] Venous Base Excess -0.7 -2.0 - 2.0 mmol/L 11/13/2024 1:27 AM [facility] Venous O2 Saturation 89.3 % 11/13/2024 1:27 AM T [facility] Patient Temperature 98.6 DegC 11/13/2024 1:27 AM T [facility] O2 Admin 21.0 11/13/2024 1:27 AM [facility] Blood Venous blood specimen / Unknown Venipuncture / Unknown 11/13/2024 1:14 AM CDT 11/13/2024 1:21 AM CDT us Jose Eduardo Martinez DO LAB BLOOD ORDERABLES Final Re sult [address], [place] [address] * (ABNORMAL) CBC (11/13/2024 1:14 AM CDT) WBC 10.5 3.8 - 10.8 X 10*3/uL 11/13/2024 1:28 AM [facility] Red Blood Cell Count 4.43 3.80 - 5.10 X 10*6/uL 11/13/2024 1:28 AM [facility] Hemoglobin 13.3 11.7 - 15.5 g/dL 11/13/2024 1:28 AM [facility] HEMATOCRIT 38.2 35.0 - 45.0 % 11/13/2024 1:28 AM [facility] Mean Cell Volume 86.1 80.0 - 100.0 fL 11/13/2024 1:28 AM [facility] MCH 29.9 27.0 - 33.0 pg 11/13/2024 1:28 AM [facility] MCHC 34.8 32.0 - 36.0 g/dL 11/13/2024 1:28 AM [facility] RDW 13.9 11.0 - 15.0 % 11/13/2024 1:28 AM [facility] PLT 305 140 - 400 X 10*3/uL 11/13/2024 1:28 AM [facility] Mean Platelet Volume 8.3 7.5 - 11.5 fL 11/13/2024 1:28 AM [facility] Reviewed Differential Not Indicated 11/13/2024 1:28 AM [facility] Neutrophils 61.0 % 11/13/2024 1:28 AM [facility] Lymphocytes 23.7 % 11/13/2024 1:28 AM [facility] Monocytes 8.3 % 11/13/2024 1:28 AM [facility] Eosinophils 6.2 % 11/13/2024 1:28 AM [facility] Basophils 0.8 % 11/13/2024 1:28 AM [facility] Nucleated RBC 11/13/2024 1:28 AM [facility] Absolute Neutrophils 6.426 1.500 - 7.800 X 10*3/uL 11/13/2024 1:28 AM [facility] Absolute Lymphocytes 2.502 0.850 - 3.900 X 10*3/uL 11/13/2024 1:28 AM [facility] Absolute Monocytes 0.879 0.200 - 0.950 X 10*3/uL 11/13/2024 1:28 AM [facility] Absolute Eosinophils 0.655(H) 0.015 - 0.500 X 10*3/uL 11/13/2024 1:28 AM [facility] Absolute Basophils 0.081 0.000 - 0.200 X 10*3/uL 11/13/2024 1:28 AM [facility] Absolute Nucleated RBC 11/13/2024 1:28 AM [facility] Blood Venous blood specimen / Unknown Venipuncture / Unknown 11/13/2024 1:14 AM CDT 11/13/2024 1:21 AM CDT Jose Eduardo Martinez DO LAB BLOOD ORDERABLES Final Re sult [facility] [address], [place] [address] * SARS-CoV-2/FLU/RSV Cepheid RT-PCR Detection (11/13/2024 1:13 AM CDT) SARS-CoV-2 Cepheid GeneXpert RT-PCR Detection Negative Negative 11/13/2024 2:01 AM CDT [facility] Flu A Cepheid RT PCR Detection Negative Negative 11/13/2024 2:01 AM CDT [facility] Flu B Cepheid RT PCR Detection Negative Negative 11/13/2024 2:01 AM CDT [facility] RSV Cepheid RT PCR Detection Negative Negative 11/13/2024 2:01 AM CDT [facility] Swab Nasal structure / Unknown 11/13/2024 1:13 AM CDT 11/13/2024 1:15 AM CDT Narrative [facility] - 11/13/2024 2:01 AM CDT This test was performed using Cepheid GeneXpert . The Xpert Xpress SARS-CoV-2/Flu/RSV Plus test is a rapid, multiplexed real-time RT-PCR test intended for the simultaneous qualitative detection and differentiation of SARS-CoV-2, influenza A, influenza B, and respiratory syncytial virus (RSV) viral RNA in either nasopharyngeal swab or nasal swab specimens collected from individuals suspected of respiratory viral infection consistent with COVID-19 by their healthcare provider. Clinical signs and symptoms of respiratory viral infection due to SARS-CoV-2, influenza, and RSV can be similar. Negative results do not preclude SARS-CoV-2, influenza A virus, influenza B virus and/or RSV infection and should not be used as the sole basis for treatment or other patient management decisions. Negative results must be combined with clinical observations, patient history, and/or epidemiological information. Jose Eduardo Martinez DO LAB MICROBIOLOGY - GENERAL OR DERABLES Final Result Performing Organization Address City/[facility]/ZIP Co de Phone Number [facility] [address], [place] [address] * Fentanyl Screen, Urine (11/13/2024 1:10 AM CDT) Urine Fentanyl Screen Negative Negative 11/13/2024 1:37 AM CDT [facility] Urine Entire urinary tract proper / Unknown Collection / Unknown 11/13/2024 1:10 AM CDT 11/13/2024 1:13 AM CDT [facility] [place] 11/13/2024 1:37 AM CDT Urine Drug Screen specimen was not collected by any chain of custody procedure; The results have not been confirmed and are intended for medical use only. Jose Eduardo Martinez DO LAB URINE ORDERABLES Final Re sult Performing Organization Address [facility] [place] [address] * Oxycodone Screen, Urine (11/13/2024 1:10 AM CDT) Urine Oxycodone Screen Negative Negative 11/13/2024 1:37 AM CDT [facility] Urine Entire urinary tract proper / Unknown Collection / Unknown 11/13/2024 1:10 AM CDT 11/13/2024 1:13 AM CDT [facility] [place] 11/13/2024 1:37 AM CDT Urine Drug Screen specimen was not collected by any chain of custody procedure; The results have not been confirmed and are intended for medical use only. Jose Eduardo Martinez DO LAB URINE ORDERABLES Final Re sult Performing Organization Address [facility] [place] [address] * (ABNORMAL) Urine Toxicology Screen (11/13/2024 1:10 AM CDT) Amphetamine Screen Urine Negative Negative 11/13/2024 1:34 AM CDT [facility] Urine Barbiturates Screen Negative Negative 11/13/2024 1:34 AM CDT [facility] Urine Benzodiazepine Screen Negative Negative 11/13/2024 1:34 AM CDT [facility] Urine Cocaine Screen Negative Negative 11/13/2024 1:34 AM CDT [facility] Urine Methadone Negative Negative 1:34 AM CDT [facility] Urine Opiates Screen Negative Negative 11/13/2024 1:34 AM CDT [facility] Urine Phencyclidine (PCP) Screen Negative Negative 11/13/2024 1:34 AM CDT [facility] Urine THC Screen Positive(A) Negative 025 1:34 AM CDT [facility] U Specific [place] 1.025 <=1.005 - 1.030 11/13/2024 1:34 AM CDT [facility] Entire urinary tract proper / Unknown 11/13/2024 1:10 AM CDT 11/13/2024 1:13 AM CDT [facility] [place] 11/13/2024 1:34 AM CDT Urine Drug Screen specimen was not collected by any chain of custody procedure; The results have not been confirmed and are intended for medical use only. Jose Eduardo Martinez DO LAB URINE ORDERABLES Final Re sult Performing Organization Address [facility] [place] [address] * Urine (11/13/2024 1:10 AM CDT) hCG, Qual Urine Negative Negative 11/13/2024 1:22 AM CDT [facility] Urine Entire urinary tract proper / Unknown Collection / Unknown 11/13/2024 1:10 AM CDT 11/13/2024 1:13 AM CDT [facility] [place] 11/13/2024 1:22 AM CDT hCG is not usually detected in healthy men and healthy non- women. However, hCG levels in will usually exceed 25 mIU/mL two to three days prior to the first missed menstrual period. Jose Eduardo Martinez DO LAB URINE ORDERABLES Final Re sult Performing Organization Address [facility] Co de Phone Number [place] [phone] * Urinalysis, Culture if Indicated (11/13/2024 1:10 AM CDT) Urine Color Straw Yellow, Light Yellow, Straw, Pale Yellow, Dark yellow, DKYELLOW, DARK YELLO 11/13/2024 1:27 AM CDT [facility] Urine Clarity Clear Clear 11/13/2024 1:27 AM T [facility] Urine pH 6.0 5.0, 5.5, 6.0, 6.5, 7.0, 7.5, 8.0 11/13/2024 1:27 AM T [facility] U Specific [place] 1.025 <=1.005 - 1.030 11/13/2024 1:27 AM T [facility] U Glucose Negative Negative 11/13/2024 1:27 AM T [facility] U Protein Negative Negative 11/13/2024 1:27 AM T [facility] U Bilirubin Negative Negative 11/13/2024 1:27 AM T [facility] U Leukocyte Esterase Negative Negative 11/13/2024 1:27 AM T [facility] U Ketone Negative Negative 11/13/2024 1:27 AM T [facility] U Blood Negative Negative 11/13/2024 1:27 AM T [facility] U Nitrite Negative Negative 11/13/2024 1:27 AM [facility] Urine Urobilinogen 0.2 0.2 mg/dL mg/dL 11/13/2024 1:27 AM [facility] Urine Comment 11/13/2024 1:27 AM [facility] Urine Entire urinary tract proper / Unknown Collection / Unknown 11/13/2024 1:10 AM CDT 11/13/2024 1:13 AM CDT [facility] [place] 11/13/2024 1:27 AM CDT Consider positive bilirubin results as presumptive positive. Consider confirmation by serum bilirubin if clinically indicated. us Jose Eduardo Martinez DO LAB URINE ORDERABLES Final Re sult [facility] [address], [place] [address] * POC Glucometer Glucose (11/13/2024 12:55 AM CDT) Glucometer Glucose 99 65-99 mg/dL mg/dL 11/13/2024 12:59 AM CDT [facility] POC Employee ID [id number] 12:59 AM CDT [facility] Location SAL-ED 11/13/2024 12:59 AM CDT [facility] Blood 11/13/2024 12:5 5 AM CDT 11/13/2024 12:59 AM CDT Narrative [facility] - 11/13/2024 12:59 AM CDT Reliability of glucose meter testing is questionable in patients with compromised peripheral blood flow. Examples include but are not limited to severe edema at collection site, heart failure, hypothermia, on two or more vasopressors, hematocrit <20% or >70%, peripheral circulatory disease, severe hypotension, shock, hyperosmolar-hyperglycemia (with or without ketosis), and severe dehydration. Venous glucose testing by the laboratory should be considered if clinically indicated Jose Eduardo Martinez DO LAB POINT OF CARE TEST ORDERA BLES Final Result [address], [place] [address] documented in this encounter Visit Diagnoses Diagnosis Breakthrough seizure- Primary documented in this encounter Administered Medications Inactive Administered Medications - up to 3 most recent administrations Medication Order MAR Action Action Date Dose Rate Site LORazepam (Ativan) 2 MG/ML injection - ADS Override Pull Starting on Mon11/13/24 at 0054, For 1 dose, Created by cabinet override LORazepam (Ativan) injection 4 mg 4 mg, Intravenous, Once, On Mon11/13/24 at 0115, For 1 dose, When using via IV route of administration, dilute with equal volume of compatible diluent. If giving by IV route, do not exceed 2 mg/min or 0.05 mg/kg over 2 to 5 minutes. Given 11/13/2024 12:58 AM CDT 4 mg sodium chloride 0.9 % bolus 1,000 mL 1,000 mL, Intravenous, at 999 mL/hr, Administer over 1.001 Hours, Once, On Mon11/13/24 at 0215, For 1 dose New Bag 11/13/2024 2:08 AM CDT 1,000 mL 999 mL/hr topiramate (Topamax) tablet 100 mg 100 mg, Oral, Once, On Mon11/13/24 at 0345, For 1 dose, RN Administration: Do not crush, split, or open on nursing unit. Contact pharmacy if patient unable to take solid oral dosage form without manipulation by nurse. RN Administration PPE: Single-glove RN Disposal PPE: Red bin/infectious waste Given 11/13/2024 3:58 AM CDT 100 mg documented in this encounter Active and Recently Administered Medications Times are shown in CDT. Scheduled Medication Order 11/11/2024 11/12/2024 11/13/2024 LORazepam (Ativan) injection 4 mg (COMPLETED) 4 mg, Intravenous, Once, On Mon11/13/24 at 0115, For 1 dose, When using via IV route of administration, dilute with equal volume of compatible diluent. If giving by IV route, do not exceed 2 mg/min or 0.05 mg/kg over 2 to 5 minutes. 0058 (Given - Provid er: Robina Cordova RN) sodium chloride 0.9 % bolus 1,000 mL (COMPLETED) 1,000 mL, Intravenous, at 999 mL/hr, Administer over 1.001 Hours, Once, On Mon11/13/24 at 0215, For 1 dose 0208 (New Bag - Prov ider: Nydia Grider RN)[id number] (Stopped - Provider: Nydia Grider RN) topiramate (Topamax) tablet 100 mg (COMPLETED) 100 mg, Oral, Once, On Mon11/13/24 at 0345, For 1 dose, RN Administration: Do not crush, split, or open on nursing unit. Contact pharmacy if patient unable to take solid oral dosage form without manipulation by nurse. RN Administration PPE: Single-glove RN Disposal PPE: Red bin/infectious waste [id number] (Given - Provid er: Robina Cordova RN) documented in this encounter Additional Health Concerns Infection Onset Date Last Indicated Resolved Time MRSA Comment:Added from external infection. Source: [facility]. 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
[2024-11-17 22:08] VITALS: BP 132/83; PULSE 80; RESP 16; TEMP 36.9; O2SAT 98; BMI 38.4
--- OUTSIDE RECORDS SUMMARY | 2024-11-17 22:17 | XMS_ITS | Encounter Summary ---
Author Organization [facility] [place] [address] [place] [address] Care Team Providers Care Supervisor Paint Department Name Role Phone Osman Fantasma Reeder DO Primary Care Provider Encounter Details Date Type Department Care Team (Late st Contact Info) Description 09/18/2023 Scanned Document [facility] [place] [address] [place] [address] [place] [id number] [address] [place] [address] Social History Tobacco Use Types Packs/Day Years Used Date Smoking Tobacco: Never Smokeless Tobacco: Never Alcohol Use Standard Drinks/Week Comments Never 0 (1 standard drink = 0.6 oz pur e alcohol) PHQ-2 Answer Date Recorded PHQ-9 Total Score 0 08/24/2023 Comments No Sex and Gender Information Value Date Recorded Sex Assigned at Not on file Legal Sex Female 9:57 AM [employer] Gender Identity Not on file Sexual Orientation Not on file documented as of this encounter Functional Status * Is the person deaf or does he/she have serious difficulty hearing? Answer Date of Assessment Author No 12/26/2021 8:15 PM CDT * Is this person blind or does he/she have serious difficulty seeing even when wearing glasses? Answer Date of Assessment Author No 12/26/2021 8:15 PM CDT * Does this person have serious difficulty walking or climbing stairs? Answer Date of Assessment Author No 12/26/2021 8:15 PM CDT * Does this person have difficulty dressing or bathing? Answer Date of Assessment Author No 12/26/2021 8:15 PM CDT * Because of a physical, mental, or emotional condition, does this person have difficulty doing errands alone such as visiting a doctor's office or shopping? Answer Date of Assessment Author No 12/26/2021 8:15 PM CDT documented as of this encounter Mental Status * Because of a physical, mental, or emotional condition, does this person have serious difficulty concentrating, remembering, or making decisions? Answer Entry Date Author No 12/26/2021 8:15 PM CDT documented in this encounter Plan of Treatment Not on file documented as of this encounter Visit Diagnoses Not on filedocumented in this encounter Additional Health Concerns Infection Onset Date Last Indicated Resolved Time MRSA Comment:Added from external infection. Source: [facility]. 05/15/2024 Novel Coronavirus (rule out) 05/27/2024 05/27/2024 05/27/2024 5:09 PM [employer] Novel Coronavirus (rule out) 11/13/2024 11/13/2024 11/13/2024 2:01 AM CDT documented as of this encounter Care Teams Supervisor Paint Department Relationship Specialty Start Date End Date Fantasma Brewer DO [address] [place] [id number] PCP - General Family Medicine 08/24/23 documented as of this encounter
--- OUTSIDE RECORDS SUMMARY | 2024-11-17 22:17 | XMS_ITS | Clinical Summary ---
Author Organization [facility] Address [address] [place] [address] Care Team Providers Care Medicaid Service Coordinator Name Role Phone Osman Fantasma Reeder DO Primary Care Provider Allergies Active Allergy Reactions Criticality Noted Date Comments Cinnamon Flavoring Agent (Non-Screening) Swelling Medium 12/26/2021 Patient states she does not have anaphylactic reaction, swells around the lips Medications Vit-Fe Fumarate-FA ( VITAMIN PO) Take by mouth. Active HYDROcodone-acetami nophen ([place]) 10-325 MG per tablet Take 1 tablet by mouth every 4 (four) hours as needed. 5 Active oxyCODONE-acetamino phen (Percocet) 5-325 MG per tablet Take 1 tablet by mouth every 6 (six) hours as needed. 5 Active aluminum-magnesium hydroxide-simethico ne (Maalox) 200-200-20 MG/5ML suspension Take 30 mL by mouth. 5 Active ondansetron ODT (Zofran-ODT) 4 MG disintegrating tablet 5 Active pantoprazole (Protonix) 20 MG EC tablet Take 1 tablet (20 mg) by mouth. 5 07/05/19 26 Active senna (Senokot) 8.6 MG tablet Take 1 tablet (8.6 mg) by mouth. 5 Active amitriptyline (Elavil) 25 MG tabletIndications:O ther chronic pancreatitis Take 1 tablet (25 mg) by mouth nightly. 30 tablet 5 5 Active polyethylene glycol (Miralax) 17 GM/SCOOP powderIndications:O ther constipation Take 17 g by mouth daily. 30 packet 5 5 Active Active Problems Problem Noted Date Diagnosed Date Marijuana use 11/13/2024 Convulsive disorder 11/13/2024 Pure hypercholesterolemia 08/25/2023 Resolved Problems Problem Noted Date Diagnosed Date Resolved Date Hypokalemia 05/14/2024 05/15/2024 Assessment & Plan (05/15/2024 3:45 PM SUPPLY CHAIN DIRECTOR): Replaced Assessment & Plan (05/15/2024 8:31 AM SUPPLY CHAIN DIRECTOR): Replaced Assessment & Plan (05/14/2024 1:35 PM SUPPLY CHAIN DIRECTOR): Replaced Chest pain 05/14/2024 05/15/2024 Assessment & Plan (05/15/2024 3:45 PM SUPPLY CHAIN DIRECTOR): Presumed referred pancreatitis pain EKG benign Serial trops negative + PPI Assessment & Plan (05/15/2024 8:32 AM SUPPLY CHAIN DIRECTOR): Presumed referred pancreatitis pain EKG benign Serial trops negative + PPI Assessment & Plan (05/14/2024 1:54 PM SUPPLY CHAIN DIRECTOR): Presumed referred pancreatitis pain EKG benign Serial trops + PPI S/P section 12/28/2021 022 Arrest of descent, delivered , current hospitalization 12/26/2021 01/19/2022 Overview (12/27/2021): Added automatically from request for surgery [id number] Rubella non-immune status, antepartum 2021 01/19/2022 Normal in third trimester 08/12/2021 01/19/2022 Maternal obesity affecting p regnancy, antepartum 08/12/2021 01/19/2022 Encounters Date Type Department Care Team Description 11/13/2024 12:54 AM CDT - 11/13/2024 4:08 AM CDT [facility] [place] [address] [place] [address] Jose Eduardo Martinez DO Breakthrough seizure (Primary Dx) Discharge Disposition: Home or Self-Care 11/13/2024 Travel from Last 3 Months Immunizations Immunization Administration Dates Next Due DTaP 10/14/2004, 2,03/16/2001,02/08,2000 FLUZONE, AFLURIA, FLUARIXA, FLUARIX 6MTHS & OLDER 07/07/2024 HPV 9-valent 03/21/2019,02/06/2019 Hep A, 2 Dose 04/10/2003,10/01/2002 Hep B / HiB 03/16/2001,2000 Hep B, Adolescent or Pediatric 2000 Hib (HbOC) 02/08/2001 Hib (PRP-OMP) 04/09/2002 IPV 10/14/2004, 1,02/08/2001,11/29 Influenza, Unspecified 04/11/2005,04/10/2003, MMR 10/14/2004,2001 Meningococcal B 03/21/2019,02/06/2019 Meningococcal Conjugate 02/06/2019 Pneumococcal Conjugate, 7-valent 2001,01/21 Tdap 03/22/2019,08/02/2013 Varicella 02/06/2019,2001 Family History Medical History Relation Name Comments No Known Problems Brother Diabetes Father No Known Problems Maternal Grandfather No Known Problems Maternal Grandmother No Known Problems Mother No Known Problems Other No Known Problems Paternal Grandfather No Known Problems Paternal Grandmother No Known Problems Sister Relation Name Status Comments Brother Father Maternal Grandfather Maternal Grandmother Mother Other Paternal Grandfather Paternal Grandmother Sister Social History Tobacco Use Types Packs/Day Years Used Date Smoking Tobacco: Never Passive Smoke Exposure: Never Smokeless Tobacco: Never Tobacco Cessation:Counseling Given: Not Answered Alcohol Use Standard Drinks/Week Comments Never 0 (1 standard drink = 0.6 oz pur e alcohol) [facility] Utilities Answer Date Recorded In the past 12 months has th e electric, gas, oil, or water [employer] threatened to shut off services in your [...] money to get more. Never true 05/13/2024 [facility] - Transportation Answer Date Record ed In the past 12 months, has l ack of reliable transportation kept you from medical appointments, meetings, work or from getting things needed for daily living? No 05/13/2024 [facility] - Personal Safety Answer Date Recor [...] scream or curse at you? Never 05/13/2024 [facility] - Inadequate Housing Answer Date Re corded What is your living situation today? I have a [facility] place to live 05/13/2024 Housing Problems Not on file 05/13/2024 Comments No Sex and Gender Information Value Date Recorded Sex Assigned at Not on file Legal Sex Female 9:57 AM SUPPLY CHAIN DIRECTOR Gender Identity Not on file Sexual Orientation Not on file Last Filed Vital Signs Vital Sign Reading [...] Mass Index 39.58 11/13/2024 1:00 AM CDT Plan of Treatment Health Maintenance Due Date Last Done Comments [facility] Screen Ages 17+ 05/22/2024 04/29/2024, 04/29/2024 Pap Smear Age 21+ 08/12/2024 08/12/2021 Pneumococcal Vaccine: Pediatrics (0-5 Years) and At-Risk Patients (6-64 Years) Aged Out 2001, 02/08/2001 No longer eligibl e based on patient's age to complete this topic Influenza Vaccine Completed 07/07/2024, , 04/10/2003, Additional history exists Procedures Procedure Name Priority Date/Time Associated Diagnosis Comments LACTIC ACID, PLASMA STAT 11/13/2024 3 :05 AM CDT BLOOD CULTURE STAT 11/13/2024 3:05 AM CDT XR CHEST 1 VW STAT 11/13/2024 1:30 AM CDT ECG 12-LEAD STAT 11/13/2024 1:19 AM CDT ACETAMINOPHEN LEVEL STAT 11/13/2024 1 :14 AM CDT ETHANOL STAT 11/13/2024 1:14 AM CDT LACTIC ACID, PLASMA STAT 11/13/2024 1 :14 AM CDT LIPASE STAT 11/13/2024 1:14 AM CDT COMPREHENSIVE METABOLIC PANEL STAT 11/13/2024 1:14 AM CDT BLOOD GAS, VENOUS STAT 11/13/2024 1:1 4 AM CDT CBC STAT 11/13/2024 1:14 AM CDT BLOOD CULTURE STAT 11/13/2024 1:14 AM CDT SARS-COV-2/FLU/RSV CEPHEID RT-PCR DETECTION STAT 11/13/2024 1:13 AM CDT FENTANYL SCREEN, URINE STAT 1:10 AM CDT OXYCODONE SCREEN, URINE STAT 11/13/2024 1:10 AM CDT URINE TOXICOLOGY SCREEN STAT 11/13/2024 1:10 AM CDT URINE STAT 11/13/2024 1:10 AM CDT URINALYSIS PRN CULTURE IF INDICATED STAT 11/13/2024 1:10 AM CDT POC GLUCOMETER GLUCOSE (RALS) STAT 11/13/2024 12:55 AM CDT [facility] SCREENING Routine 04/29/2024 2:35 PM SUPPLY CHAIN DIRECTOR THINPREP PAP Routine 08/12/2021 1:46 PM CDT from Last 3 Months or Most Recently Relevant to Health Maintenance Results * Lactic Acid, Plasma (11/13/2024 3:05 AM CDT) Lactic Acid 1.09 0.50 - 2.20 mmol/L 11/13/2024 3:25 AM CDT [facility] Lactic Acid (Conv) 11/13/2024 3:25 AM CDT [facility] Blood Venous blood specimen / Unknown Venipuncture / Unknown 11/13/2024 3:05 AM CDT 11/13/2024 3:07 AM CDT us Jose Eduardo Martinez DO LAB BLOOD ORDERABLES Final Re sult [facility] [address] [facility], [place] [address] * X-ray chest 1 view (11/13/2024 1:30 [...] D.O. 11/13/2024 - 10:05:29 L:521 R:bxw: T:bxw ([id number]) Narrative 11/13/2024 10:08 AM CDT Date of [...] D.O. 11/13/2024 - 10:05:29 L:521 R:bxw: T:bxw ([id number]) us Jose Eduardo Martinez DO IMG DIAGNOSTIC IMAGING ORDERA BLES Final Result * ECG 12 lead (11/13/2024 1:19 AM CDT) Heart Rate ECG 101 bpm TRACEMASTER RR Interval ECG 592 ms TRACEMASTER Atrial Rate ECG 102 ms TRACEMASTER DC Interval 149 ms TRACEMASTER P Duration 103 ms TRACEMASTER P Horizontal [place] ECG 21 deg TRACEMASTER P Front [place] ECG 22 deg TRACEMASTER Q Onset ECG 505 ms TRACEMASTER QRSD Interval 77 ms TRACEMASTER QT Interval 360 ms TRACEMASTER QTcB ECG 468 ms TRACEMASTER QTcF ECG 428 ms TRACEMASTER QRS Horizontal [place] ECG -9 deg TRACEMASTER QRS [place] ECG 63 deg TRACEMASTER I-40 Horizontal [place] ECG 83 deg TRACEMASTER I-40 Front [place] ECG -32 deg TRACEMASTER T-40 Horizontal [place] ECG -16 deg TRACEMASTER T-40 Front [place] ECG 76 deg TRACEMASTER T Horizontal [place] ECG 12 deg TRACEMASTER T Wave [place] [address] Horizontal [place] ECG [address] Front [place] ECG 39 deg TRACEMASTER 11/13/2024 1:19 AM CDT Impressions TRACEMASTER - 11/13/2024 7:51 AM CDT - OTHERWISE NORMAL ECG - Sinus tachycardia Narrative Procedure Note Sudhakar Guallpa MD - 11/13/2024 IMPRESSION: - OTHERWISE NORMAL ECG - Sinus tachycardia us Jose Eduardo Martinez DO ECG ORDERABLES Final Result TRACEMASTER * (ABNORMAL) CBC (11/13/2024 1:14 AM CDT) WBC 10.5 3.8 - 10.8 X 10*3/uL 11/13/2024 1:28 AM CDT [facility] Red Blood Cell Count 4.43 3.80 - 5.10 X 10*6/uL 11/13/2024 1:28 AM CDT [facility] Hemoglobin 13.3 11.7 - 15.5 g/dL 11/13/2024 1:28 AM CDT [facility] HEMATOCRIT 38.2 35.0 - 45.0 % 11/13/2024 1:28 AM CDT [facility] Mean Cell Volume 86.1 80.0 - 100.0 fL 11/13/2024 1:28 AM [facility] MCH 29.9 27.0 - 33.0 pg 11/13/2024 1:28 AM [facility] MCHC 34.8 32.0 - 36.0 g/dL 11/13/2024 1:28 AM [facility] RDW 13.9 11.0 - 15.0 % 11/13/2024 1:28 AM [facility] PLT 305 140 - 400 X 10*3/uL 11/13/2024 1:28 AM [facility] Mean Platelet Volume 8.3 7.5 - 11.5 fL 11/13/2024 1:28 AM [facility] Reviewed Differential Not Indicated 11/13/2024 1:28 AM [facility] Neutrophils 61.0 % 11/13/2024 1:28 AM [facility] Lymphocytes 23.7 % 11/13/2024 1:28 AM [facility] Monocytes 8.3 % 11/13/2024 1:28 AM [facility] Eosinophils 6.2 % 11/13/2024 1:28 AM [facility] Basophils 0.8 % 11/13/2024 1:28 AM [facility] Nucleated RBC 11/13/2024 1:28 AM [facility] Absolute Neutrophils 6.426 1.500 - 7.800 X 10*3/uL 11/13/2024 1:28 AM [facility] Absolute Lymphocytes 2.502 0.850 - 3.900 X 10*3/uL 11/13/2024 1:28 AM [facility] Absolute Monocytes 0.879 0.200 - 0.950 X 10*3/uL 11/13/2024 1:28 AM [facility] Absolute Eosinophils 0.655(H) 0.015 - 0.500 X 10*3/uL 11/13/2024 1:28 AM [facility] Absolute Basophils 0.081 0.000 - 0.200 X 10*3/uL 11/13/2024 1:28 AM [facility] Absolute Nucleated RBC 11/13/2024 1:28 AM [facility] Blood Venous blood specimen / Unknown Venipuncture / Unknown 11/13/2024 1:14 AM CDT 11/13/2024 1:21 AM CDT Jose Eduardo Martinez DO LAB BLOOD ORDERABLES Final Re sult Performing Organization Address [facility]/ZIP Co de Phone Number [facility] [address] [place] [address] * Lipase (11/13/2024 1:14 AM CDT) Lipase Level 15 7 - 60 units/L 11/13/2024 1:42 AM CDT [facility] Blood Venous blood specimen / Unknown Venipuncture / Unknown 11/13/2024 1:14 AM CDT 11/13/2024 1:21 AM CDT Jose Eduardo Martinez DO LAB BLOOD ORDERABLES Final Re sult Performing Organization Address [facility] Co de Phone Number [facility] [address] [place] [address] * (ABNORMAL) Lactic Acid, Plasma (11/13/2024 1:14 AM CDT) Lactic Acid 2.94(H) 0.50 - 2.20 mmol/L 11/13/2024 1:42 AM CDT [facility] Lactic Acid (Conv) 11/13/2024 1:42 AM CDT [facility] Blood Venous blood specimen / Unknown Venipuncture / Unknown 11/13/2024 1:14 AM CDT 11/13/2024 1:21 AM CDT us Jose Eduardo Martinez DO LAB BLOOD ORDERABLES Final Re sult Performing Organization Address City/[facility]/ZIP Co de Phone Number [facility] [address] [place] [address] * (ABNORMAL) Blood gas, venous (11/13/2024 1:14 AM CDT) Venous pH 7.36 7.36 - 7.46 pH 11/13/2024 1:27 AM CDT [facility] Venous pCO2 44 35 - 48 mmHg 11/13/2024 1:27 AM CDT [facility] Venous pO2 59.1(H) 30.0 - 50.0 mmHg 11/13/2024 1:27 AM CDT [facility] Venous HCO3 24 22 - 28 mEq/L 11/13/2024 1:27 AM CDT [facility] Venous TCO2 26 24 - 30 mEq/L 11/13/2024 1:27 AM CDT [facility] Venous Base Excess -0.7 -2.0 - 2.0 mmol/L 11/13/2024 1:27 AM CDT [facility] Venous O2 Saturation 89.3 % 11/13/2024 1:27 AM CDT [facility] Patient Temperature 98.6 DegC 11/13/2024 1:27 AM CDT [facility] O2 Admin 21.0 11/13/2024 1:27 AM CDT [facility] Blood Venous blood specimen / Unknown Venipuncture / Unknown 11/13/2024 1:14 AM CDT 11/13/2024 1:21 AM CDT us Jose Eduardo Martinez DO LAB BLOOD ORDERABLES Final Re sult [address] [address] * Ethanol, Serum (11/13/2024 1:14 AM CDT) Ethanol, Serum <10 <=10 mg/dL 11/13/2024 1:42 AM CDT [facility] Blood Venous blood specimen / Unknown Venipuncture / Unknown 11/13/2024 1:14 AM CDT 11/13/2024 1:21 AM CDT Narrative [facility] - 11/13/2024 1:42 AM CDT Ethanol Normal: Negative = 0 mg/dL Toxic: 50-100 mg/dL Depression of SUPERVISOR [employer]ODUCTION MANAGING: Greater than 100 mg/dL Fatalities Reported: Greater than 400 mg/dL Interpret with caution. Elevated lactic acid concentration and lactate dehydrogenase activity may falsely elevate enzymatically determined ethanol levels. Jose Eduardo Martinez DO LAB BLOOD ORDERABLES Final Re sult Performing Organization Address [facility] [place] [address] * (ABNORMAL) Acetaminophen Level (11/13/2024 1:14 AM CDT) Acetaminophen Level <3.0(L) 10.0 - 30.0 mcg/mL 11/13/2024 1:42 AM CDT [facility] Blood Venous blood specimen / Unknown Venipuncture / Unknown 11/13/2024 1:14 AM CDT 11/13/2024 1:21 AM CDT Jose Eduardo Matrinez DO LAB BLOOD ORDERABLES Final Re sult Performing Organization Address [facility] [place] [address] * (ABNORMAL) Comprehensive Metabolic Panel (11/13/2024 1:14 AM CDT) Glucose Level 114(H) 65 - 99 mg/dL 11/13/2024 1:42 AM T [facility] Sodium 139 135 - 146 mmol/L 11/13/2024 1:42 AM [facility] Potassium, Serum 3.6 3.5 - 5.3 mmol/L 11/13/2024 1:42 AM T [facility] Chloride 108 98 - 110 mmol/L 11/13/2024 1:42 AM T [facility] Carbon Dioxide Level 22 18 - 30 mmol/L 11/13/2024 1:42 AM [facility] Anion Gap-Calculated 9 4 - 16 mmol/L 11/13/2024 1:42 AM [facility] Calcium Level 8.7 8.5 - 10.4 mg/dL 11/13/2024 1:42 AM T [facility] Blood Urea Nitrogen 11 7 - 25 mg/dL 11/13/2024 1:42 AM [facility] Creatinine 0.80 0.50 - 1.10 mg/dL 11/13/2024 1:42 AM [facility] eGFR (Lab Calc) >60 mL/min/1.73 m2 11/13/2024 1:42 AM [facility] BUN/Creatinine Ratio 13.8 6.0 - 25.0 (calc) 11/13/2024 1:42 AM [facility] Protein Total 6.5 6.0 - 8.3 g/dL 11/13/2024 1:42 AM [facility] Albumin Level 3.3 3.2 - 5.0 g/dL 11/13/2024 1:42 AM [facility] BKR ALBUMIN/GLOBULIN (G/G RATIO) IN SER/PLAS 1.0 0.8 - 2.0 ratio 11/13/2024 1:42 AM [facility] ALKALINE PHOSPHATASE (U/L) IN SER/PLAS 69 20 - 125 U/L 11/13/2024 1:42 AM [facility] AST (SGOT) 22 11 - 34 U/L 11/13/2024 1:42 AM [facility] Comment:Interpret results wi th caution. Hemolyzed samples may cause interference with the assay. ALT (SGPT) 11 7 - 34 U/L 11/13/2024 1:42 AM [facility] Bilirubin, Total 0.3 0.2 - 1.3 mg/dL 11/13/2024 1:42 AM [facility] MDRD GFR, Calculated 11/13/2024 1:42 AM [facility] Osmolality (Calculated) 288.3 273.0 - 304.0 MOSMOL 11/13/2024 1:42 AM [facility] Blood Venous blood specimen / Unknown Venipuncture / Unknown 11/13/2024 1:14 AM CDT 11/13/2024 1:21 AM [facility] - 11/13/2024 1:42 AM [facility] Total Bilirubin: A metabolite of Naproxen, O-desmethylnaproxen, [...] DO LAB BLOOD ORDERABLES Final Re sult [address], [place] [address] * SARS-CoV-2/FLU/RSV Cepheid RT-PCR Detection (11/13/2024 1:13 AM CDT) [facility] SARS-CoV-2 Cepheid GeneXpert RT-PCR Detection Negative Negative 11/13/2024 2:01 AM CDT [facility] Flu A Cepheid RT PCR Detection Negative Negative 11/13/2024 2:01 AM CDT [facility] Flu B Cepheid RT PCR Detection Negative Negative 11/13/2024 2:01 AM CDT [facility] RSV Cepheid RT PCR Detection Negative Negative 11/13/2024 2:01 AM CDT [facility] Swab Nasal structure / Unknown 11/13/2024 1:13 AM CDT 11/13/2024 1:15 AM CDT [facility] [place] 11/13/2024 2:01 AM CDT This test was performed using CepAccentid GeneXpert . The Xpert Xpress SARS-CoV-2/Flu/RSV Plus [...] clinical observations, patient history, and/or epidemiological information. us Jose Eduardo Martinez DO LAB MICROBIOLOGY - GENERAL OR DERABLES Final Result Performing Organization Address [facility] [place] [address] * Fentanyl Screen, Urine (11/13/2024 1:10 AM CDT) Urine Fentanyl Screen Negative Negative 11/13/2024 1:37 AM CDT [facility] Urine Entire urinary tract proper / Unknown Collection / Unknown 11/13/2024 1:10 AM CDT 11/13/2024 1:13 AM CDT [facility] - 11/13/2024 1:37 AM CDT Urine Drug Screen specimen was not collected by any chain of custody procedure; The results have not been confirmed and are intended for medical use only. Jose Eduardo Martinez DO LAB URINE ORDERABLES Final Re sult Performing Organization Address [facility] [place] [address] * Oxycodone Screen, Urine (11/13/2024 1:10 AM CDT) Urine Oxycodone Screen Negative Negative 11/13/2024 1:37 AM CDT [facility] Urine Entire urinary tract proper / Unknown Collection / Unknown 11/13/2024 1:10 AM CDT 11/13/2024 1:13 AM CDT [facility] - 11/13/2024 1:37 AM CDT Urine Drug Screen specimen was not collected by any chain of custody procedure; The results have not been confirmed and are intended for medical use only. Jose Eduardo Martinez DO LAB URINE ORDERABLES Final Re sult [facility] [address], [place] [address] * Urinalysis, Culture if Indicated (11/13/2024 1:10 AM CDT) Urine Color Straw Yellow, Light Yellow, Straw, Pale Yellow, Dark yellow, DKYELLOW, DARK YELLO 11/13/2024 1:27 AM CDT [facility] Urine Clarity Clear Clear 11/13/2024 1:27 AM CDT [facility] Urine pH 6.0 5.0, 5.5, 6.0, 6.5, 7.0, 7.5, 8.0 11/13/2024 1:27 AM CDT [facility] U Specific [place] 1.025 <=1.005 - 1.030 11/13/2024 1:27 AM CDT [facility] U Glucose Negative Negative 11/13/2024 1:27 AM CDT [facility] U Protein Negative Negative 11/13/2024 1:27 AM T [facility] U Bilirubin Negative Negative 11/13/2024 1:27 AM CDT [facility] U Leukocyte Esterase Negative Negative 11/13/2024 1:27 AM T [facility] U Ketone Negative Negative 11/13/2024 1:27 AM CDT [facility] U Blood Negative Negative 11/13/2024 1:27 AM CDT [facility] U Nitrite Negative Negative 11/13/2024 1:27 AM T [facility] Urine Urobilinogen 0.2 0.2 mg/dL mg/dL 11/13/2024 1:27 AM T [facility] Urine Comment 11/13/2024 1:27 AM [facility] Urine Entire urinary tract proper / Unknown Collection / Unknown 11/13/2024 1:10 AM CDT 11/13/2024 1:13 AM CDT [facility] [place] 11/13/2024 1:27 AM CDT Consider positive bilirubin results as presumptive positive. Consider confirmation by serum bilirubin if clinically indicated. us Jose Eduardo Martinez DO LAB URINE ORDERABLES Final Re sult [facility] [address], [place] [address] * (ABNORMAL) Urine Toxicology Screen (11/13/2024 1:10 AM CDT) Amphetamine Screen Urine Negative Negative 11/13/2024 1:34 AM CDT [facility] Urine Barbiturates Screen Negative Negative 11/13/2024 1:34 AM CDT [facility] Urine Benzodiazepine Screen Negative Negative 11/13/2024 1:34 AM CDT [facility] Urine Cocaine Screen Negative Negative 11/13/2024 1:34 AM CDT [facility] Urine Methadone Negative Negative 1:34 AM CDT [facility] Urine Opiates Screen Negative Negative 11/13/2024 1:34 AM CDT [facility] Urine Phencyclidine (PCP) Screen Negative Negative 11/13/2024 1:34 AM CDT [facility] Urine THC Screen Positive(A) Negative 025 1:34 AM CDT [facility] U Specific [place] 1.025 <=1.005 - 1.030 11/13/2024 1:34 AM CDT [facility] Entire urinary tract proper / Unknown 11/13/2024 1:10 AM CDT 11/13/2024 1:13 AM CDT Narrative [facility] - 11/13/2024 1:34 AM CDT Urine Drug Screen specimen was not collected by any chain of custody procedure; The results have not been confirmed and are intended for medical use only. Jose Eduardo Martinez DO LAB URINE ORDERABLES Final Re sult [facility] [address] [place] [address] * Urine (11/13/2024 1:10 AM CDT) hCG, Qual Urine Negative Negative 11/13/2024 1:22 AM CDT [facility] Urine Entire urinary tract proper / Unknown Collection / Unknown 11/13/2024 1:10 AM CDT 11/13/2024 1:13 AM CDT [facility] - 11/13/2024 1:22 AM CDT hCG is not usually detected in healthy men and healthy non- women. However, hCG levels in will usually exceed 25 mIU/mL two to three days prior to the first missed menstrual period. us Jose Eduardo Martinez DO LAB URINE ORDERABLES Final Re sult Performing Organization Address [facility] [place] [address] * POC Glucometer Glucose (11/13/2024 12:55 AM CDT) [facility] Signature Glucometer Glucose 99 65-99 mg/dL mg/dL 11/13/2024 12:59 AM CDT [facility] POC Employee ID [id number] 12:59 AM CDT [facility] Location SAL-ED 11/13/2024 12:59 AM CDT [facility] Blood 11/13/2024 12:5 5 AM CDT 11/13/2024 12:59 AM CDT [facility] [place] 11/13/2024 12:59 AM CDT Reliability of [...] laboratory should be considered if clinically indicated us Jose Eduardo Martinez DO LAB POINT OF CARE TEST ORDERA BLES Final Result Performing Organization Address [facility] [place] [address] * [facility] [place]note 2] Adult Behavioral Health Screening (04/29/2024 2:35 PM SUPPLY CHAIN DIRECTOR) Fantasma Brewer [facility] al Result * Thinprep Pap (08/12/2021 1:46 PM CDT) Clinical Information: [facility] Comment:None given Lmp: [facility] Comment:[id number] Prev. Pap: [facility]osti [facility] Comment:None given Prev. Bx: [facility] Comment:None given Source [facility] Comment:Cervix Statement of Adequacy: [facility] Comment: Satisfactory for evaluation. Endocervical/transformation zone component present. PAP Interpretation D [facility] Comment:Negative for intraep ithelial lesion or malignancy. Comment [facility] Comment: This Pap test has been evaluated with computer assisted technology. Renal Case Manager: Di agnostic [facility] Comment: MAYITO TOVAR(ASCP) CT Screening Location: [facility] [address], [address] [place] [address] Review Renal Case Manager: [facility] Comment: CHRISTIANO, CT(ASCP) CT Screening Location: [facility] [address], Suite [facility], [place] [address] Comment [facility] Comment: EXPLANATORY NOTE: The Pap is a screening test for cervical cancer. It is not a diagnostic test and is subject to false negative and false positive results. It is most reliable when a satisfactory sample, regularly obtained, is submitted with relevant clinical findings and history, and when the Pap result is evaluated along with historic and current clinical information. 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 [facility]. 05/15/2024 Insurance CHOICE Advance Directives For more information, please contact: [phone] * Full Code (Latest Code Status on File) Date Activated Date Inactivated Comments 05/13/2024 11:24 PM 05/16/2024 2:35 AM Code stat us decision was made by the capacitated patient. The patient would want to be intubated to prevent arrest. The patient would want all resuscitative interventions in case of arrest. * Full Code Date Activated Date Inactivated Comments 12/26/2021 7:29 PM 12/30/2021 11:56 PM Care Teams Medicaid Service Coordinator Relationship Specialty Start Date End Date Fantasma Brewer DO [address] [place] [id number] PCP - General Family Medicine 08/24/23
--- OUTSIDE RECORDS SUMMARY | 2024-11-17 22:17 | XMS_ITS | Encounter Summary ---
Author Organization [employer] [facility] Address [address] [place] [address] Care Team Providers Care Acoustic Sensor Operator Name Role Phone Fantasma Brewer DO Primary Care Provider Encounter Details Date Type Department Care Team (Late st Contact Info) Description 06/14/2024 Scanned Document [facility] [address] [place] [phone] Fantasma Brewer DO [address] [place] [phone] Social History Tobacco Use Types Packs/Day Years Used Date Smoking Tobacco: Never Passive Smoke Exposure: Never Smokeless Tobacco: Never Alcohol Use Standard Drinks/Week Comments Never 0 (1 standard drink = 0.6 oz pur e alcohol) [facility] Utilities Answer Date Recorded In the past 12 months has e [employer], gas, oil, or water [employer] threatened to shut off services in your home? No 05/13/2024 PHQ-2 Answer Date Recorded PHQ-2 Total Score 0 04/29/2024 Hunger Vital Sign Answer Date Recorded Within the past 12 months, y ou worried that your food would run out before you got the money to buy more. Never true 05/13/20 24 Within the past 12 months, t he food you bought just didn't last and you didn't have money to get more. Never true 05/13/2024 [facility] - Transportation Answer Date Record ed In the past 12 months, has l ack of reliable transportation kept you from medical appointments, meetings, work or from getting things needed for daily living? No 05/13/2024 [facility] - Personal Safety Answer Date Recor ded [...] scream or curse at you? Never 05/13/2024 [facility] - Inadequate Housing Answer Date Re corded What is your living situation today? I have a [facility] place to live 05/13/2024 Housing Problems Not on file 05/13/2024 Comments No Sex and Gender Information Value Date Recorded Sex Assigned at Not on file Legal Sex Female 9:57 AM [employer]QU[employer]MENT Gender Identity Not on file Sexual Orientation Not on file documented as of this encounter Functional Status * Is the person deaf or does he/she have serious difficulty hearing? Answer Date of Assessment Author No 05/13/2024 11:15 PM [employer]QUIPMENT * Is this person blind or does he/she have serious difficulty seeing even when wearing glasses? Answer Date of Assessment Author No 05/13/2024 11:15 PM [employer] EQUIPMENT * Does this person have serious difficulty walking or climbing stairs? Answer Date of Assessment Author No 05/13/2024 11:15 PM [employer] EQU[employer]MENT * Does this person have difficulty dressing or bathing? Answer Date of Assessment Author No 05/13/2024 11:15 PM [employer] EQU[employer]MENT * Because of a physical, mental, or emotional condition, does this person have difficulty doing errands alone such as visiting a doctor's office or shopping? Answer Date of Assessment Author No 05/13/2024 11:15 PM [employer] EQU[employer]MENT documented as of this encounter Mental Status * Because of a physical, mental, or emotional condition, does this person have serious difficulty concentrating, remembering, or making decisions? Answer Entry Date Author No 05/13/2024 11:15 PM [employer]CH[employer] EQUIPMENT documented in this encounter Plan of Treatment Not on file documented as of this encounter Visit Diagnoses Not on filedocumented in this encounter Additional Health Concerns Infection Onset Date Last Indicated Resolved Time MRSA Comment:Added from external infection. Source: [facility]. 05/15/2024 Novel Coronavirus (rule out) 11/13/2024 11/13/2024 11/13/2024 2:01 AM CDT documented as of this encounter Care Teams Acoustic Sensor Operator Relationship Specialty Start Date End Date Fantasma Brewer DO [address] [place] [phone] PCP - General Family Medicine 08/24/23 documented as of this encounter
--- OUTSIDE RECORDS SUMMARY | 2024-11-17 22:17 | XMS_ITS | Encounter Summary ---
Author Organization [facility] Address [address] [place] [address] Care Team Providers Care Upper Cutter Name Role Phone Varinder Brewer DO Primary Care Provider Unava ilable Reason for Visit * Reason Onset Date Comments Medication Refill 09/20/2024 Encounter Details Date Type Department Care Team (Late st Contact Info) Description 09/20/2024 Refill [facility] [place] [address] [place] [id number] Kim Carbone, CHA Social History Tobacco Use Types Packs/Day Years Used Date Smoking Tobacco: Some Days Cigarettes Passive Smoke Exposure: Past Smokeless Tobacco: Never Comments:Smokes cigarettes, 1 pk every 2 weeks. Alcohol Use Standard Drinks/Week Comments Not Currently 0 (1 standard drink = 0.6 oz pur e alcohol) [facility] Utilities Answer Date Recorded In the past 12 months has [employer], gas, oil, or water [employer] threatened to shut off services in your home? No 08/06/2024 Hunger Vital Sign Answer Date Recorded Within the past 12 months, y ou worried that your food would run out before you got the money to buy more. Never true 08/07/19 25 Within the past 12 months, t he food you bought just didn't last and you didn't have money to get more. Never true 08/06/2024 [facility] - Transportation Answer Date Re corded In the past 12 months, has l ack of transportation kept you from medical appointments or from getting medications? No 07/20 In the past 12 months, has l ack of transportation kept you from meetings, work, or from getting things needed for daily living? No 08/06/2024 Housing Stability Vital Sign Answer Vicente e Recorded In the last 12 months, was t here a time when you were not able to pay the mortgage or rent on time? No 08/06/2024 In the past 12 months, how m any times have you moved where you were living? 0 08/06/2024 At any time in the past 12 m [facility], were you homeless or living in a [facility] (including now)? No 08/06/2024 Comments No Sex and Gender Information Value Date Recorded Sex Assigned at Not on file Legal Sex Female 8:11 AM CDT Gender Identity Not on file Sexual Orientation Not on file documented as of this encounter Plan of Treatment Not on file documented as of this encounter Goals Goal Patient Goal Type Associated Problems Recent Progress Patient-Stated? Author Blood Pressure - Daily Monitoring Care Plan HYPERTENSION No Marybeth Davis MD documented as of this encounter Visit Diagnoses Not on filedocumented in this encounter Additional Health Concerns Active Problems Noted Date Diagnosed Date HYPERTENSION 07/24/2024 documented as of this encounter Care Teams Upper Cutter Relationship Specialty Start Date End Date Varinder Brewer DO [address] [place], [place] [phone] PCP - General Surgery General 07/06/24 documented as of this encounter
--- OUTSIDE RECORDS SUMMARY | 2024-11-17 22:18 | XMS_ITS | Encounter Summary ---
Author Organization [facility] Address [address] [place] [address] Care Team Providers Care Garnett Mechanic Name Role Phone Varinder Brewer DO Primary Care Provider Unava ilable Reason for Visit * Reason Onset Date Comments Advice Only 07/04/2024 Needing to sched [facility] follow up Encounter Details Date Type Department Care Team (Late st Contact Info) Description 07/04/2024 Telephone [facility] [address], [address] [place] [address] Amber Dale MD [address] [facility], [address] [place] [address] Advice Only (Needing to schedule hospital follow up ) Social History Tobacco Use Types Packs/Day Years Used Date Smoking Tobacco: Former Cigarettes Smokeless Tobacco: Never Alcohol Use Standard Drinks/Week Comments Never 0 (1 standard drink = 0.6 oz pur e alcohol) [facility] Utilities Answer Date Recorded In the past 12 months has th e electric, gas, oil, or water company threatened to shut off services in your home? No 07/06/2024 Hunger Vital Sign Answer Date Recorded Within the past 12 months, y ou worried that your food would run out before you got the money to buy more. Never true 07/06/19 25 Within the past 12 months, t he food you bought just didn't last and you didn't have money to get more. Never true 07/06/2024 [facility] - Transportation Answer Date Re corded In the past 12 months, has l ack of transportation kept you from medical appointments or from getting medications? No 06/22 In the past 12 months, has l ack of transportation kept you from meetings, work, or from getting things needed for daily living? No 07/06/2024 Housing Stability Vital Sign Answer Vicente e Recorded In the last 12 months, was t here a time when you were not able to pay the mortgage or rent on time? No 07/06/2024 In the past 12 months, how m any times have you moved where you were living? 0 07/06/2024 At any time in the past [facility], were you homeless or living in a [facility] (including now)? No 07/06/2024 Comments No Sex and Gender Information Value Date Recorded Sex Assigned at Not on file Legal Sex Female 8:11 AM CDT Gender Identity Not on file Sexual Orientation Not on file documented as of this encounter Miscellaneous Notes * Telephone Encounter - Romi Shaffer - 07/04/2024 9:16 AM CST Patient called and is requesting to schedule hospital follow up appointment. PUNCHER documented in this encounter Plan of Treatment Not on file documented as of this encounter Visit Diagnoses Not on filedocumented in this encounter Additional Health Concerns Infection Onset Date Last Indicated Resolved Time COVID 07/08/2024 07/08/2024 07/08/2024 11:3 4 PM [facility] PUNCHER Potential Prion/CJD Comment:07/16/24: Dr. Rollins stated no concern for CJD. 07/15/2024 07/15/2024 07/17/2024 8:[address] documented as of this encounter Care Teams Garnett Mechanic Relationship Specialty Start Date End Date Varinder Brewer DO [address] [place], [place] [phone] PCP - General Surgery General 07/06/24 documented as of this encounter
--- OUTSIDE RECORDS SUMMARY | 2024-11-17 22:18 | XMS_ITS | Encounter Summary ---
Author Organization [employer] Address [address] [place] [address] Care Team Providers Care Podiatry Professor Name Role Phone Osman Fantasma Reeder DO Primary Care Provider Encounter Details Date Type Department Care Team (Latest Contact Info) Description 11/13/2024 Travel Social History Tobacco Use Types Packs/Day Years Used Date Smoking Tobacco: Never Passive Smoke Exposure: Never Smokeless Tobacco: Never Alcohol Use Standard Drinks/Week Comments Never 0 (1 standard drink = 0.6 oz pur e alcohol) [facility] Utilities Answer Date Recorded In the [...] money to get more. Never true 05/13/2024 [facility] - Transportation Answer Date Record ed In the past 12 months, has l ack of reliable transportation kept you from medical appointments, meetings, work or from getting things needed for daily living? No 05/13/2024 [facility] - Personal Safety Answer Date Recor ded How often does anyone, inclu ding family and friends, physically hurt you? Never 05/13/2024 How often does anyone, inclu ding family and friends, insult or talk down to you? Never 05/13/2024 How often does anyone, dennis bond family and friends, threaten you with harm? Never 05/13/2024 How often does anyone, dennis bond family and friends, scream or curse at you? Never 05/13/2024 [facility] - Inadequate Housing Answer Date Re corded What is your living situation today? I have a [facility] place to live 05/13/2024 Housing Problems Not on file 05/13/2024 Comments No Sex and Gender Information Value Date Recorded Sex Assigned at Not on file Legal Sex Female 9:57 AM MACHINE SNELLER Gender Identity Not on file Sexual Orientation Not on file documented as of this encounter Functional Status * Is the person deaf or does he/she have serious difficulty hearing? Answer Date of Assessment Author No 05/13/2024 11:15 PM MACHINE SNELLER * Is this person blind or does he/she have serious difficulty seeing even when wearing glasses? Answer Date of Assessment Author No 05/13/2024 11:15 PM MACHINE SNELLER * Does this person have serious difficulty walking or climbing stairs? Answer Date of Assessment Author No 05/13/2024 11:15 PM MACHINE SNELLER * Does this person have difficulty dressing or bathing? Answer Date of Assessment Author No 05/13/2024 11:15 PM MACHINE SNELLER * Because of a physical, mental, or emotional condition, does this person have difficulty doing errands alone such as visiting a doctor's office or shopping? Answer Date of Assessment Author No 05/13/2024 11:15 PM MACHINE SNELLER documented as of this encounter Mental Status * Because of a physical, mental, or emotional condition, does this person have serious difficulty concentrating, remembering, or making decisions? Answer Entry Date Author No 05/13/2024 11:15 PM MACHINE SNELLER documented in this encounter Plan of Treatment Not on file documented as of this encounter Visit Diagnoses Not on filedocumented in this encounter Additional Health Concerns Infection Onset Date Last Indicated Resolved Time MRSA Comment:Added from external infection. Source: [facility]. 05/15/2024 Novel Coronavirus (rule out) 11/13/2024 11/13/2024 11/13/2024 2:01 AM CDT documented as of this encounter Care Teams Podiatry Professor Relationship Specialty Start Date End Date Fantasma Brewer DO [address] [place] [address] [place] [id number] PCP - General Family Medicine 08/24/23 documented as of this encounter
--- OUTSIDE RECORDS SUMMARY | 2024-11-17 22:18 | XMS_ITS | Encounter Summary ---
Author Organization [facility] Address [address] [place] [address] Care Team Providers Care Barrel Scraper Name Role Phone Fantasma Brewer DO Primary Care Provider Encounter Details Date Type Department Care Team (Late st Contact Info) Description 08/08/2024 Telephone [facility] [place] [address] [place] [phone] Fantasma Brewer DO [address] [place] [phone] Social History Tobacco Use Types Packs/Day Years Used Date Smoking Tobacco: Never Passive Smoke Exposure: Never Smokeless Tobacco: Never Alcohol Use Standard Drinks/Week Comments Never 0 (1 standard drink = 0.6 oz pur e alcohol) [facility] Utilities Answer Date Recorded In the past 12 months has e [employer], gas, oil, or water [employer] threatened to shut off services in your [...] money to get more. Never true 05/13/[address] [facility] - Transportation Answer Date Record ed In the past 12 months, has l ack of reliable transportation kept you from medical appointments, meetings, work or from getting things needed for daily living? No 05/13/2024 [facility] - Personal Safety Answer Date Recor ded [...] scream or curse at you? Never 05/13/2024 [facility] - Inadequate Housing Answer Date Re corded What is your living situation today? I have a [facility] place to live 05/13/2024 Housing Problems Not on file 05/13/2024 Comments No Sex and Gender Information Value Date Recorded Sex Assigned at Not on file Legal Sex Female 9:57 AM SOCIAL WORK SUPERVISOR Gender Identity Not on file Sexual Orientation Not on file documented as of this encounter Functional Status * Is the person deaf or does he/she have serious difficulty hearing? Answer Date of Assessment Author No 05/13/2024 11:15 PM SOCIAL WORK SUPERVISOR * Is this person blind or does he/she have serious difficulty seeing even when wearing glasses? Answer Date of Assessment Author No 05/13/2024 11:15 PM SOCIAL WORK SUPERVISOR * Does this person have serious difficulty walking or climbing stairs? Answer Date of Assessment Author No 05/13/2024 11:15 PM SOCIAL WORK SUPERVISOR * Does this person have difficulty dressing or bathing? Answer Date of Assessment Author No 05/13/2024 11:15 PM SOCIAL WORK SUPERVISOR * Because of a physical, mental, or emotional condition, does this person have difficulty doing errands alone such as visiting a doctor's office or shopping? Answer Date of Assessment Author No 05/13/2024 11:15 PM SOCIAL WORK SUPERVISOR documented as of this encounter Mental Status * Because of a physical, mental, or emotional condition, does this person have serious difficulty concentrating, remembering, or making decisions? Answer Entry Date Author No 05/13/2024 11:15 PM SOCIAL WORK SUPERVISOR documented in this encounter Miscellaneous Notes * Telephone Encounter - Lupe Price - 08/08/2024 4:34 PM CDT Patient called stating that she can't come to the appointment on 08/13/2024. [facility]. She asked questions about her lab work from there and I explained that she would have to talk to them since they are the ones that done the orders. documented in this encounter Plan of Treatment Not on file documented as of this encounter Visit Diagnoses Not on filedocumented in this encounter Additional Health Concerns Infection Onset Date Last Indicated Resolved Time MRSA Comment:Added from external infection. Source: [facility]. 05/15/2024 Novel Coronavirus (rule out) 11/13/2024 11/13/2024 11/13/2024 2:01 AM CDT documented as of this encounter Care Teams Barrel Scraper Relationship Specialty Start Date End Date Fantasma Brewer DO [address] [place] [phone] PCP - General Family Medicine 08/24/23 documented as of this encounter
--- OUTSIDE RECORDS SUMMARY | 2024-11-17 22:18 | XMS_ITS | Clinical Summary ---
Author Organization [facility] Address [address] [place] [address] Care Team Providers Care Scrap Sorter Name Role Phone Varinder Brewer DO Primary Care Provider Unava ilable Allergies Active Allergy Reactions Criticality Noted Date Comments Cinnamon Flavoring Agent (Non-Screening) Swelling Medium 12/26/2021 Patient states she does not have anaphylactic reaction, swells around the lips Medications colestipol (COLESTID) 1 g tabletIndications:D iarrhea, unspecified type Take 1 tablet (1 g total) by mouth every 1 (one) day for 30 days 30 tablet 5 Active ketOROlac (TORADOL) 10 MG tablet Take 1 tablet (10 mg total) by mouth every 6 (six) hours as needed 15 tablet 5 Active ondansetron (ZOFRAN-ODT) 4 mg disintegrating tablet Take 1 tablet (4 mg total) by mouth every 8 (eight) hours as needed 12 tablet 5 Active Active Problems Problem Noted Date Diagnosed Date Respiratory failure ([facility], [facility]) Epigastric pain 07/10/2024 Resolved Problems Problem Noted Date Diagnosed Date Resolved Date Status epilepticus ([facility], [facility]) 07/25/2024 07/28/2024 Hypercalcemia 07/22/2024 07/24/2024 Hypoglycemic coma, non-diabetic ([facility]) 07/10/2024 07/19/2024 Seizure ([facility], HHS/HCC) 07/08/2024 0 07/19/2024 Altered mental status, unspe cified altered mental status type 07/06/2024 07/07/2024 Pancreatitis (HHS/HCC) 06/19/202407/10 Acute pancreatitis (HHS/HCC) 06/18/2024 07/10/2024 Encounters Date Type Department Care Team Description 10/20/2024 Results Follow-Up [facility] [address] [facility] [place] [address] Amber Dale MD NM Gastric Emptying Solid Phase 10/17/2024 8:17 AM CDT - 10/17/2024 11:59 PM CDT Hospital Encounter [facility] Nuclear Medicine [address] [place] [address] Amber Dale MD Discharge Disposition: Still a Patient 10/17/2024 8:17 AM CDT - 10/17/2024 11:59 PM CDT Hospital Encounter [facility] Nuclear Medicine [address] [place] [address] Amber Dale MD Discharge Disposition: Still a Patient 10/17/2024 8:17 AM CDT - 10/17/2024 11:59 PM CDT Hospital Encounter [facility] Nuclear Medicine [address] [place] [address] Amber Dale MD Discharge Disposition: Still a Patient 10/17/2024 8:17 AM CDT - 10/17/2024 11:59 PM CDT Hospital Encounter [facility] Nuclear Medicine [address] [place] [phone] Amber Dale MD Abdominal pain, unspecified abdominal location; Bloating Discharge Disposition: Still a Patient 10/14/2024 10:54 PM CDT - 10/15/2024 2:42 AM CDT Emergency [facility] Trauma Emergency [address] [place] [address] Marshal Davey DO Breakthrough seizure (CMS/HCC, HHS/HCC) (Primary Dx); Pancreatic cyst (HHS/HCC); Headache; Abdominal pain Discharge Disposition: Home or Self Care 10/07/2024 9:10 PM CDT - 10/08/2024 6:29 AM CDT Emergency [facility] Trauma Emergency [address] [place] [address] Discharge Disposition: LWBS 10/07/2024 Refill [facility] [address] [facility] [address], [address] [place] [address] [phone] [place] Diarrhea, unspecified type (Primary Dx) 10/01/2024 Results Follow-Up [facility] [address] [facility] [address], [address] [place] [address] [phone] Amber Dale MD Pancreatic Elastase, Fecal 09/30/2024 Telephone [facility] [address] [facility] [address], [address] [place] [address] [phone] [place] going to the ER 09/25/2024 Telephone [facility] [address] [facility] [address], [address] [place] [address] [phone] [place], [place] Bloated 09/25/2024 Refill [facility] [address] [facility], [address] [place] [address] [phone] [place] Abdominal pain, unspecified abdominal location (Primary Dx); Bloating 09/25/2024 Orders Only [facility] [address] [facility] [address], [address] [place] [address] [phone] [place], [place] Abdominal pain, unspecified abdominal location (Primary Dx); Bloating 09/20/2024 Refill [facility] [address] [facility] [address], [address] [place] [address] [phone] [place] 09/20/2024 Orders Only [facility] [address] [facility], [address] [place] [address] [phone] Kim Carbone, [place] Abdominal pain, unspecified abdominal location (Primary Dx) 09/20/2024 Results Follow-Up [facility] [address] [facility] [address], [address] [place] [address] Abdomen Pelvis With and Without Contrast 09/17/2024 Results Follow-Up [facility] [address] [facility] [address], [address] [place], [place] [phone] Amber Dale MD Amylase, Lipase, CMP 09/17/2024 Telephone [facility] [address] [phone] Yaneth Roque RN EUS report forwarded to GI physicians 09/16/2024 3:00 PM CDT - 09/16/2024 4:00 PM CDT Surgery [facility] Endoscopy [address] [place] [phone] Aly Tom MD ENDOSCOPIC ULTRASOUND (UPPER) 09/16/2024 1:52 PM CDT Anesthesia Event [facility] Endoscopy [address] [place] [phone] Dragan Parmar, Radha Garcia, PA 09/16/2024 11:54 AM CDT - 09/16/2024 3:26 PM CDT Hospital Encounter [facility] Endoscopy [address] [place] [phone] Aly Tom MD Nausea Discharge Disposition: Home or Self Care 09/10/2024 Telephone [facility] [address] [facility] [address] [place], [address] [place] [address] [phone] Kim Carbone [place] lab work 09/10/2024 Refill [facility] [address] [facility], [address] [place] [address] [phone] Kim Carbone [place] Nausea (Primary Dx) 09/06/2024 Telephone [facility] [address] [facility] [address] [place] [address] Stephani Layne Neurology Clearance 09/04/2024 2:00 PM CDT Pre-Admission Testing [facility] Pre-Op Clinic [address] [place] [phone] Aly Tom MD 08/30/2024 Results Follow-Up [facility] [address] [facility] [address], [address] [place] [address] [phone] Amber Dale MD CBC with Differential, CMP, Lipase 08/27/2024 Telephone [facility] [address] [facility], [address] [place] [address] [phone] Kim Carbone [place] lab work 08/27/2024 Telephone [facility] [address] [facility], [address] [place] [address] [phone] Melissa Preston [place] Chart Message 08/27/2024 Refill [facility] [place] [address] [facility], [address] [place] [address] [phone] Kim Carbone [place] Acute pancreatitis, unspecified complication status, unspecified pancreatitis type (HHS/HCC) (Primary Dx) 08/27/2024 Orders Only [facility] [address] [facility], [address] [place] [address] [phone] Kim Carbone [place] Acute pancreatitis, unspecified complication status, unspecified pancreatitis type (HHS/HCC) (Primary Dx) 08/26/2024 Telephone [facility] [address] [facility] [address], [address] [place] [address] [phone] Melissa Preston, CHA Phone Call 08/21/2024 Telephone [facility] [address] [facility], [address] [place] [address] [phone] Melissa Preston [place] EUS with Dr. Tom from Last 3 Months Immunizations Immunization Administration Dates Next Due DTaP 10/14/2004, 2,03/16/2001,02/08,2000 HIB (PRP-OMP) 04/09/2002 HIB / HEP B 03/16/2001,2000 HPV 9-VALENT 03/21/2019,02/06/2019 Hep A,ped/adol, 2 Dose 04/10/2003,10/01/2002 Hep B Ped/Adol 2000 Hib (HbOC) 02/08/2001 IPV 10/14/2004, 1,02/08/2001,11/29 Influenza, Split virus, Triv alent, Preservative Free 07/07/2024 Influenza, Unspecified 04/11/2005,04/10/2003, MMR 10/14/2004,2001 Meningococcal B, OMV 03/21/2019,02/06/2019 Meningococcal MCV4O 02/06/2019 Pneumococcal Conjugate PCV 7 2001,02/09/20 Tdap 03/22/2019,08/02/2013 Varicella 02/06/2019,2001 Social History Tobacco Use Types Packs/Day Years Used Date Smoking Tobacco: Some Days Cigarettes Passive Smoke Exposure: Past Smokeless Tobacco: Never Tobacco Cessation:Ready to Q uit: Not Asked; Counseling Given: Not Answered Comments:Smokes cigarettes, 1 pk every 2 weeks. Alcohol Use Standard Drinks/Week Comments Not Currently 0 (1 standard drink = 0.6 oz pur e alcohol) [facility] Utilities Answer Date Recorded In the past 12 months has th e [employer], gas, oil, or water [employer] threatened to shut off services in your [...] any time in the past 12 m [facility], were you homeless or living in a intermediate (including now)? No 08/06/2024 Comments No Sex and Gender Information Value Date Recorded Sex Assigned at Not on file Legal Sex Female 8:11 AM CDT Gender Identity Not on file Sexual Orientation Not on file Last Filed Vital Signs Vital Sign Reading Time Taken Comments Blood Pressure 135/66 10/15/2024 2:22 AM CDT Pulse 88 10/15/2024 2:22 AM CDT Temperature 36.3 C (97.3 F) 10/15/2024 2:22 AM CDT Respiratory Rate 15 10/15/2024 2:22 AM CDT Oxygen Saturation 98% 10/15/2024 2:22 AM CDT Inhaled Oxygen Concentration - - Weight 117.9 kg (260 lb) 10/14/2024 10:57 PM CDT Height 175.3 cm (5' 9 ) 10/14/2024 10:57 PM CDT Body Mass Index 38.4 10/14/2024 10:57 PM CDT Plan of Treatment Health Maintenance Due Date Last Done Comments Lipid Panel 2000 HIV Screening 09/15/2015 Adult Depression Screening 2018 Hepatitis C Screening 2018 HPV Vaccines (3 - 3-dose series) 08/07/2019 03/21/2019, 02/06/2019 Pneumococcal Vaccine: Pediatrics (0 to 5 Years) and At-Risk Patients (6 to 49 Years) (1 of 2 - PCV) 09/15/2019 2001, 02/08/2001 Pap Smear 2021 COVID-19 Vaccine (1 - season) 2024 DTaP/Tdap/Td Vaccines (8 - Td or Tdap) 03/22/2029 03/22/2019, 08/02/2013, 10/14/2004, Additional history exists Zoster Vaccine (1 of 2) 2050 02/06/2019, 09/14 Respiratory Syncytial Virus (RSV) or 60+ Years (1 - 1-dose 75+ series) 09/15/2075 Hepatitis B Vaccines Completed 03/16/2001, 2000, 2000 HIB Vaccines Completed 04/09/2002, 02/20, 02/08/2001, Additional history exists Hepatitis A Vaccines Completed 04/10/2003, 10/02/19 IPV Vaccines Completed 10/14/2004, 02/20, 02/08/2001, Additional history exists MMR Vaccines Completed 10/14/2004, 2001 Meningococcal Vaccine Completed 02/06/2019 Varicella Vaccines Completed 02/06/2019, 2001 Meningococcal B Vaccine Completed 03/21/2019, 02/06 Influenza Vaccine Completed 07/07/2024, , 04/10/2003, Additional history exists Rotavirus Vaccines Aged Out No longer eligible based on patient's age to complete this topic Goals Goal Patient Goal Type Associated Problems Recent Progress Patient-Stated? Author Blood Pressure - Daily Monitoring Care Plan HYPERTENSION No Marybeth Davis MD Procedures Procedure Name Priority Date/Time Associated Diagnosis Comments NM GASTRIC EMPTYING SOLID PHASE Routine 10/17/2024 1:00 PM CDT Abdominal pain, unspecified abdominal location Bloating DRUG SCREEN PANEL DRUGS OF ABUSE, URINE STAT 10/15/2024 12:[address] ABDOMEN PELVIS W CONTRAST STAT 10/14/2024 11:[address] HEAD WO CONTRAST STAT 10/14/2024 1 1:36 PM CDT WHOLE BLOOD CREATININE LEVEL STAT 10/14/2024 11:17 PM CDT POCT GLUCOSE LEVEL,BEDSIDE BY GLUCOMETER STAT 10/14/2024 11:14 PM CDT LIPASE STAT 10/14/2024 11:02 PM CDT CBC STAT 10/14/2024 11:02 PM CDT PROLACTIN LEVEL STAT 10/14/2024 11:02 PM CDT LEVETIRACETAM LEVEL STAT 10/14/2024 1 1:02 PM CDT MAGNESIUM LEVEL STAT 10/14/2024 11:02 PM CDT HCG, QUALITATIVE/QUANTITAT ISIDORO STAT 10/14/2024 11:02 PM CDT HOLD BLUE TUBE STAT 10/14/2024 11:02 PM CDT CMP STAT 10/14/2024 11:02 PM CDT CBC STAT 10/14/2024 11:02 PM CDT ALCOHOL LEVEL STAT 10/14/2024 11:02 PM CDT URINALYSIS W/CULTURE, IF INDICATED PANEL STAT 10/07/2024 9:59 PM CDT CBC STAT 10/07/2024 9:18 PM CDT LIPASE STAT 10/07/2024 9:18 PM CDT HOLD BLUE TUBE STAT 10/07/2024 9:18 PM CDT HCG, QUALITATIVE/QUANTITAT ISIDORO STAT 10/07/2024 9:18 PM CDT CMP STAT 10/07/2024 9:18 PM CDT CBC STAT 10/07/2024 9:18 PM CDT PANCREATIC ELASTASE, FECAL Routine 09/25/2024 2:21 PM CDT Abdominal pain, unspecified abdominal location Bloating SPECIMEN CONTAINER ISSUED TO PATIENT Routine 09/25/2024 2:10 PM CDT Stomach ache ENDOSCOPIC ULTRASOUND (UPPER) Routine 09/16/2024 1:58 PM CDT ENDOSCOPIC ULTRASOUND (UPPER) 09/16/2024 1:52 PM CDT Acute pancreatitis (HHS/HCC) POCT URINE STAT 09/16/2024 12:16 PM CDT CMP Routine 09/16/2024 11:15 AM CDT Nausea LIPASE Routine 09/16/2024 11:15 AM CDT Nausea AMYLASE Routine 09/16/2024 11:[address] ABDOMEN PELVIS W WO CONTRAST Routine 09/10/2024 10:03 AM CDT Acute pancreatitis, unspecified complication status, unspecified pancreatitis type (HHS/HCC) CBC Routine 08/30/2024 12:00 PM CDT Acute pancreatitis, unspecified complication status, unspecified pancreatitis type (HHS/HCC) LIPASE Routine 08/30/2024 12:00 PM CDT Acute pancreatitis, unspecified complication status, unspecified pancreatitis type (HHS/HCC) CMP Routine 08/30/2024 12:00 PM CDT Acute pancreatitis, unspecified complication status, unspecified pancreatitis type (HHS/HCC) CBC Routine 08/30/2024 12:00 PM CDT Acute pancreatitis, unspecified complication status, unspecified pancreatitis type (HHS/HCC) from Last 3 Months Results * NM Gastric Emptying Solid Phase (10/17/2024 1:00 PM CDT) Anatomical Region Laterality Modality Abdomen Nuclear Medicine 10/17/2024 1:40 PM CDT Impressions 10/17/2024 1:41 PM CDT 1. No significant delayed gastric emptying. [id number] Narrative 10/17/2024 1:41 PM CDT NM GASTRIC EMPTYING SOLID PHASE CLINICAL INFORMATION: abdominal pain, bloating TECHNIQUE: Gastric emptying exam performed with 1.0 mCi of technetium-99m sulfur colloid in Eggbeaters with toast and water. Images at one, two, and four hours were performed with anterior and posterior imaging of the abdomen. COMPARISON: CT abdomen and pelvis of 10/14/2024. FINDINGS: Percent Gastric Retention: One Hour: 73.1 % Two Hours: 46.1 % Four Hours: 5 % Normal Limits for Gastric Retention: One Hour: 30-90% Two Hours: <60% Four Hours: <10% Procedure Note Jamar Meredith MD - 10/17/2024 NM GASTRIC EMPTYING SOLID PHASE CLINICAL INFORMATION: abdominal pain, bloating TECHNIQUE: Gastric emptying exam performed with 1.0 mCi of technetium-99m sulfur colloid in Eggbeaters with toast and water. Images at one, two, and four hours were performed with anterior and posterior imaging of the abdomen. COMPARISON: CT abdomen and pelvis of 10/14/2024. FINDINGS: Percent Gastric Retention: One Hour: 73.1 % Two Hours: 46.1 % Four Hours: 5 % Normal Limits for Gastric Retention: One Hour: 30-90% Two Hours: <60% Four Hours: <10% IMPRESSION 1. No significant delayed gastric emptying. [id number] Amber Dale MD [facility] ORDERABLES Final Result * DRUG SCREEN PROFILE DRUGS OF ABUSE, URINE (10/15/2024 12:03 AM CDT) Amphetamines Qual Negative Negative 025 12:37 AM CDT [facility] Barbituates Qual Negative Negative 10/16/19 12:37 AM CDT [facility] Benzodiazepine Qual Negative Negative 10/15/2024 12:37 AM CDT [facility] Buprenorphine Qual Negative Negative 2024 12:37 AM CDT [facility] Cannabinoid Qual Negative Negative 10/16/19 12:37 AM CDT [facility] Cocaine Qual Negative Negative 10/15/2024 12:37 AM CDT [facility] Methadone Qual Negative Negative 10/15/2024 12:37 AM CDT [facility] Opiates Qual Negative Negative 10/15/2024 12:37 AM T [facility] Fentanyl Qual Negative Negative 10/15/2024 12:37 AM CDT [facility] Urine Collection / Unknown 10/15/2024 12:03 AM CDT 10/15/2024 12:09 AM CDT Narrative [facility] - 10/15/2024 12:37 AM CDT Results are unconfirmed and should be used for medical purposes only. Amphetamines: Results <500ng/mL are considered negative. Barbituates: Results <200ng/mL are considered negative. Benzodiazepines:Results <200ng/mL are considered negative. Buprenorphine: Results <5ng/mL are considered negative. Cannabinoids: Results <50ng/mL are considered negative. Cocaine: Results <300ng/mL are considered negative. Methadone: Results <300ng/mL are considered negative. Opiates: Results <300ng/mL are considered negative. Fentanyl: Results <1ng/mL are considered negative. [facility] URINE ORDERABLES Final Result Performing Organization Address City/State/[facility] Co de Phone Number [facility] [address] [place] [address], [place] [phone] * CT Abdomen Pelvis With Contrast (10/14/2024 11:37 PM CDT) Anatomical Region Laterality Modality Abdomen, Pelvis Computed Tomogra phy 10/14/2024 11:5 3 PM CDT Impressions 10/14/2024 11:55 PM CDT No evidence of an acute abnormality. [id number] Narrative 10/14/2024 11:[address] ABDOMEN PELVIS W CONTRAST 10/14/2024 11:26 PM INDICATION: Pancreatitis, acute, severe COMPARISON: 09/10/2024 TECHNIQUE: CT examination of the abdomen and pelvis was performed after IV contrast administration. This is a low-dose scan using automated exposure control and iterative reconstruction technique. FINDINGS: Lower chest: The lung bases are clear. Liver: Normal. Gallbladder: Absent. Pancreas: Stable small peripancreatic pseudocysts adjacent to the body and tail. No acute inflammatory changes Spleen: Normal. Adrenal glands: Normal. Kidneys: No renal or ureteral calculi. No hydronephrosis or hydroureter. Bowel/Peritoneum: No bowel obstruction. No evidence of acute bowel inflammation. Normal appendix. No intraperitoneal free fluid or free air. Vasculature: No aortic aneurysm. Lymph nodes: No enlarged lymph nodes. Bladder: Unremarkable. Reproductive organs: Unremarkable. Bones: Unremarkable. Procedure Note Bobby Yan MD - 10/14/2024 CT ABDOMEN PELVIS W CONTRAST 10/14/2024 11:26 PM INDICATION: Pancreatitis, acute, severe COMPARISON: 09/10/2024 TECHNIQUE: CT examination of the abdomen and pelvis was performed after IV contrast administration. This is a low-dose scan using automated exposure control and iterative reconstruction technique. FINDINGS: Lower chest: The lung bases are clear. Liver: Normal. Gallbladder: Absent. Pancreas: Stable small peripancreatic pseudocysts adjacent to the body and tail. No acute inflammatory changes Spleen: Normal. Adrenal glands: Normal. Kidneys: No renal or ureteral calculi. No hydronephrosis or hydroureter. Bowel/Peritoneum: No bowel obstruction. No evidence of acute bowel inflammation. Normal appendix. No intraperitoneal free fluid or free air. Vasculature: No aortic aneurysm. Lymph nodes: No enlarged lymph nodes. Bladder: Unremarkable. Reproductive organs: Unremarkable. Bones: Unremarkable. IMPRESSION No evidence of an acute abnormality. [id number] [facility] CT ORDERABLES Final Result * CT Head Without Contrast (10/14/2024 11:36 PM CDT) Anatomical Region Laterality Modality Head Computed Tomogra phy 10/14/2024 11:4 5 PM CDT Impressions 10/14/2024 11:46 PM CDT Unremarkable head CT. [id number] Narrative 10/14/2024 11:[address] HEAD WO CONTRAST 10/14/2024 11:26 PM INDICATION: Seizure COMPARISON: 08/04/2024. TECHNIQUE: Axial noncontrast images of the brain were performed from the base of the skull to the vertex without administration of intravenous contrast. Low dose optimization was performed using automated exposure control and iterative reconstruction technique. FINDINGS: There is no acute intracranial hemorrhage, midline shift, extraaxial fluid collection or mass effect. Snyder-white matter differentiation is maintained. The ventricles are normal in size. The basal cisterns are patent. The paranasal sinuses and mastoid air cells are well-aerated. Procedure Note Bobby Yan MD - 10/14/2024 CT HEAD WO CONTRAST 10/14/2024 11:26 PM INDICATION: Seizure COMPARISON: 08/04/2024. TECHNIQUE: Axial noncontrast images of the brain were performed from the base of the skull to the vertex without administration of intravenous contrast. Low dose optimization was performed using automated exposure control and iterative reconstruction technique. FINDINGS: There is no acute intracranial hemorrhage, midline shift, extraaxial fluid collection or mass effect. Snyder-white matter differentiation is maintained. The ventricles are normal in size. The basal cisterns are patent. The paranasal sinuses and mastoid air cells are well-aerated. IMPRESSION Unremarkable head CT. [id number] us Marshal Davey DO IMG CT ORDERABLES Final Result * Whole Blood Creatinine Level (10/14/2024 11:17 PM CDT) [facility] Creat 0.8 0.6 - 1.1 mg/dL 10/14/2024 11:20 PM CDT [facility] WB eGFRcr >90 >=60 10/14/2024 11:20 PM CDT [facility] Blood 10/14/2024 11:1 7 PM CDT 10/14/2024 11:20 PM CDT Narrative [facility] - 10/14/2024 11:20 PM CDT Testing performed and reviewed by nursing personnel. us Marshal Davey DO POCT ORDERABLES - DEVICE Final R esult [facility] [address] [facility] [place] [address], [place] [phone] * Glucose Level,Bedside by Glucometer (10/14/2024 11:14 PM CDT) [facility] Gluc Bedside 107 (70-110 mg/dL - expected results in non-diabetic, non- patients. <140 mg/dL - 2 hrs after 75g of glucose.) mg/dL 10/14/2024 11:15 PM CDT [facility] LORI [id number] 10/14/2024 11:15 PM CDT [facility] Blood 10/14/2024 11:1 4 PM CDT 10/14/2024 11:15 PM CDT [facility] POCT ORDERABLES - DEVICE Final R esult Performing Organization Address City/[facility]/ZIP Co de Phone Number [facility] [place] [address] [place] [address], [place] [phone] * Hold Blue Tube (10/14/2024 11:02 PM CDT) Only the most recent of2 resultswithin the time period is included. Comment This event is used to track the Hold Tube request. 10/15/2024 11:32 AM CDT [facility] Blood 10/14/2024 11:0 2 PM CDT 10/14/2024 11:08 PM CDT [facility] LAB BLOOD ORDERABLES Final Resul t Performing Organization Address [facility] Co de Phone Number [facility] [address] [place] [address], [place] [phone] * HCG, Qualitative/Quantitative (10/14/2024 11:02 PM CDT) Only the most recent of2 resultswithin the time period is included. HCG Quant <1.2 0.0 - 5.0 mIU/mL 10/14/2024 11:45 PM CDT [facility] HCG Qualitative Negative Negative 11:45 PM CDT [facility] Blood 10/14/2024 11:0 2 PM CDT 10/14/2024 11:10 PM CDT [facility] LAB BLOOD ORDERABLES Final Resul t [facility] [address] [place] [address], * (ABNORMAL) CBC with Differential (10/14/2024 11:02 PM CDT) Only the most recent of3 resultswithin the time period is included. WBC 14.1(H) 4.6 - 12.4 K/cmm 10/14/2024 11:12 PM CDT [facility] RBC 4.68 3.71 - 5.19 M/cmm 10/14/2024 11:12 PM CDT [facility] Hgb 13.5 11.9 - 15.0 g/dL 10/14/2024 11:12 PM CDT [facility] Hct 41.9 33.7 - 46.5 % 10/14/2024 11:12 PM CDT [facility] MCV 89.5 76.0 - 101.6 fL 10/14/2024 11:12 PM CDT [facility] MCHC 32.1 30.9 - 34.1 g/dL 10/14/2024 11:12 PM CDT [facility] RDW 14.0 12.0 - 15.7 % 10/14/2024 11:12 PM CDT [facility] Plt 396 150 - 440 K/cmm 10/14/2024 11:12 PM CDT [facility] MPV 10.5 8.90 - 12.56 fL 10/14/2024 11:12 PM CDT [facility] nRBCs 0 0 - 0 /100 10/14/2024 11:12 PM CDT [facility] Neutrophil (%) 59 38 - 73 % 10/14/2024 11:12 PM CDT [facility] Lymph (%) 26 15 - 48 % 10/14/2024 11:12 PM CDT [facility] Franklin (%) 8 5 - 14 % 10/14/2024 11:12 PM CDT [facility] Eos (%) 7 0 - 7 % 10/14/2024 11:12 PM CDT [facility] Baso (%) 1 0 - 2 % 10/14/2024 11:12 PM CDT [facility] Absolute Neutrophils 8.3(H) 1.8 - 7.1 K/cmm 10/14/2024 11:12 PM CDT [facility] Absolute Lymphocytes 3.6 1.0 - 4.1 K/cmm 10/14/2024 11:12 PM CDT [facility] Absolute Monocytes 1.2(H) 0.3 - 0.9 K/cmm 10/14/2024 11:12 PM CDT [facility] Absolute Eosinophils 0.9(H) 0.0 - 0.6 K/cmm 10/14/2024 11:12 PM CDT [facility] Absolute Basophils 0.1 0.0 - 0.2 K/cmm 10/14/2024 11:12 PM CDT [facility] IG (%) 0 0 - 1 % 10/14/2024 11:12 PM CDT [facility] IG ABS 0.1 0.0 - 0.2 K/cmm 10/14/2024 11:12 PM CDT [facility] ANC 8.4 10/14/2024 11:12 PM CDT [facility] Blood 10/14/2024 11:0 2 PM CDT 10/14/2024 11:08 PM CDT [employer] [facility] BLOOD ORDERABLES Final Resul t Performing Organization Address City/State/[facility] Co de Phone Number [facility] [address] [place] [address], * (ABNORMAL) Prolactin Level (10/14/2024 11:02 PM CDT) Prolactin 112.71(H) 1.20 - 29.93 ng/mL 10/15/2024 12:01 AM CDT [facility] Blood 10/14/2024 11:0 2 PM CDT 10/14/2024 11:10 PM CDT [facility] LAB BLOOD ORDERABLES Final Resul t Performing Organization Address [facility] Co de Phone Number [facility] [address] [place] [address], * (ABNORMAL) Levetiracetam Level (10/14/2024 11:02 PM CDT) Keppra <2(L) 6 - 46 ug/mL 10/15/2024 12:16 AM CDT [facility] Blood 10/14/2024 11:0 2 PM CDT 10/14/2024 11:10 PM CDT [facility] LAB BLOOD ORDERABLES Final Resul t Performing Organization Address [facility] Co de Phone Number [facility] [address] [place] [address], * Magnesium Level (10/14/2024 11:02 PM CDT) Mg 2.1 1.7 - 2.9 mg/dL 10/14/2024 11:36 PM CDT [facility] Blood 10/14/2024 11:0 2 PM CDT 10/14/2024 11:09 PM CDT [facility] LAB BLOOD ORDERABLES Final Resul t Performing Organization Address City/[facility] Co de Phone Number [facility] [address] [place] [address], * Lipase (10/14/2024 11:02 PM CDT) Only the most recent of4 resultswithin the time period is included. Lipase 24 8 - 78 U/L 10/14/2024 11:37 PM CDT [facility] Blood 10/14/2024 11:0 2 PM CDT 10/14/2024 11:10 PM CDT [facility] LAB BLOOD ORDERABLES Final Resul t [facility] [address] [place] [address], * Alcohol Level (10/14/2024 11:02 PM CDT) Alcohol Negative 0 - 12 mg/dL 10/15/2024 12:12 AM CDT [facility] Blood 10/14/2024 11:0 2 PM CDT 10/14/2024 11:10 PM CDT [employer] LAB BLOOD ORDERABLES Final Resul t Performing Organization Address City/[facility]/ZIP Co de Phone Number [facility] [address] [place] [address], [place] [phone] * (ABNORMAL) CMP (10/14/2024 11:02 PM CDT) Only the most recent of4 resultswithin the time period is included. Gluc 107 70 - 110 mg/dL 10/14/2024 11:37 PM CDT [facility] BUN 12 5 - 25 mg/dL 10/14/2024 11:37 PM CDT [facility] Creat 0.73 0.57 - 1.11 mg/dL 10/14/2024 11:37 PM CDT [facility] CO2 19(L) 21 - 32 mmol/L 10/14/2024 11:37 PM CDT [facility] Cl 110 96 - 112 mmol/L 10/14/2024 11:37 PM CDT [facility] Na 140 135 - 146 mmol/L 10/14/2024 11:37 PM CDT [facility] K 4.2 3.5 - 5.0 mmol/L 10/14/2024 11:37 PM CDT [facility] Ca 9.1 8.5 - 10.7 mg/dL 10/14/2024 11:37 PM CDT [facility] TP 7.3 6.2 - 8.2 g/dL 10/14/2024 11:37 PM CDT [facility] Alb 4.1 3.4 - 4.7 g/dL 10/14/2024 11:37 PM CDT [facility] T Bili 0.2 0.1 - 1.2 mg/dL 10/14/2024 11:37 PM CDT [facility] Alk Phos 70 39 - 139 U/L 10/14/2024 11:37 PM CDT [facility] AST (SGOT) 17 8 - 42 U/L 10/14/2024 11:37 PM CDT [facility] ALT (SGPT) 16 7 - 40 U/L 10/14/2024 11:37 PM CDT [facility] HEMOLYSIS Slight Hemolysis( A) No hemolysis detected 10/14/2024 11:37 PM CDT [facility] Anion Gap 11 5-17 mmol/L mmol/L 10/14/2024 11:37 PM CDT [facility] eGFRcr >90 >=60 10/14/2024 11:37 PM CDT [facility] Blood 10/14/2024 11:0 2 PM CDT 10/14/2024 11:10 PM CDT [facility] LAB BLOOD ORDERABLES Final Resul t [facility] [address] [place] [address], * (ABNORMAL) Urinalysis w/Culture, if Indicated (10/07/2024 9:59 PM CDT) Color, Urine Yellow 10/07/2024 10:11 PM CDT [facility] Clarity, Urine Slightly Cloudy 10/07/2024 10:11 PM CDT [facility] Glucose, Urine Negative Negative 10/07/2024 10:11 PM CDT [facility] pH, Urine 7.0 5 - 8.5 10/07/2024 10:11 PM CDT [facility] Ketones, Urine Negative Negative 10/07/2024 10:11 PM CDT [facility] Protein, Urine Negative Negative 10/07/2024 10:11 PM CDT [facility] Bilirubin, Urine Negative Negative 10/07/2024 10:11 PM CDT [facility] Blood, Urine Negative Negative 10/07/2024 10:11 PM CDT [facility] Urobilinogen, Urine Negative <0.2 - 1.0 10/07/2024 10:11 PM CDT [facility] Specific Garner, Urine 1.017 1.005 - 1.030 10/07/2024 10:11 PM CDT [facility] Leukocyte Esterase, Urine 3+(A) Negative 10/07/2024 10:11 PM CDT [facility] Nitrite, Urine Negative Negative 10/07/2024 10:11 PM CDT [facility] WBC, Urine 8(H) <5 avg/hpf 10/07/2024 10:11 PM CDT [facility] RBC, Urine 2 <5 avg/hpf 10/07/2024 10:11 PM CDT [facility] Squamous Epithelium 2+ /hpf 10/07/2024 10:11 PM CDT [facility] Urine URINE SPECIMEN OBTAINED BY CLEAN CATCH PROCEDURE / Unknown Collection / Unknown 10/07/2024 9:59 PM CDT 10/07/2024 10:03 PM CDT Loree Mckeon DO URINE ORDERABLES Final Resu lt Performing Organization Address City/State/[facility] Co de Phone Number [facility] [address] [place] [address], * Pancreatic Elastase, Fecal (09/25/2024 2:21 PM CDT) Pancreatic Elastase >800 >=100 ug/g 09/28/2024 3:20 PM CDT [employer] Comment: REFERENCE INTERVAL: Pancreatic Elastase Fecal by Immunoassay Less than 100 ug/g............Severe insufficiency 100 - 199 ug/g................Moderate insufficiency 200 ug/g or greater...........Normal INTERPRETIVE INFORMATION: Pancreatic Elastase Fecal by Immunoassay Reference intervals do not apply for infants less than one month old. Performed By: [facility] [address] [id number] Bookie: Bishop Sena MD, PhD CLIA Number: [id number] Stool STOOL SPECIMEN / Unknown 09/25/2024 2:21 PM CDT 09/25/2024 4:29 PM CDT us Amber Dale MD BODY FLUIDS AND STOOLS ORDERABLE S Final Result Performing Organization Address [facility] Phone Number [employer] [address] [place] [phone] * Specimen Container Issue to Patient Stool Container (09/25/2024 2:10 PM CDT) Specimen Container Issued A specimen container has been issue to the patient to be delivered to the Lab. 09/25/2024 3:32 PM CDT [facility] Stool 09/25/2024 2:10 PM CDT 09/25/2024 2:32 PM CDT us Amber Dale MD LAB BLOOD ORDERABLES Final Resul t Performing Organization Address [facility] de Phone Number [facility] [address] [place] [place] [address], [place] [phone] * Endoscopic Ultrasonography, GI (09/16/2024 1:58 PM CDT) Anatomical Region Laterality Modality Other 09/16/2024 1:58 PM CDT Narrative 09/16/2024 3:57 PM CDT Patient Name: Romi Hobson Visit Number: [id number] Date of : 2000 Admit Type: Outpatient Age: 24 Gender: Female Endoscopist: Aly Tom MD Procedure Date: 09/16/2024 Procedure: Upper EUS Indications: Acute pancreatitis Providers: Aly Tom MD (Doctor) Medicines: Monitored Anesthesia Care Complications: No immediate complications. Procedure: Pre-Anesthesia Assessment: - Prior to the procedure, a History and Physical was performed, and patient medications and allergies were reviewed. The patient is competent. The risks and benefits of the procedure and the sedation options and risks were discussed with the patient. All questions were answered and informed consent was obtained. Patient identification and proposed procedure were verified by the physician, the nurse and the anesthesiologist in the pre-procedure area in the endoscopy suite. Mental Status Examination: alert and oriented. Airway Examination: normal oropharyngeal airway and neck mobility. Respiratory Examination: clear to auscultation. CV Examination: normal. Prophylactic Antibiotics: The patient does not require prophylactic antibiotics. Prior Anticoagulants: The patient has taken no previous anticoagulant or antiplatelet agents. ASA Grade Assessment: III - A patient with severe systemic disease. After reviewing the risks and benefits, the patient was deemed in satisfactory condition to undergo the procedure. The anesthesia plan was to use monitored anesthesia care (MAC). Immediately prior to administration of medications, the patient was re-assessed for adequacy to receive sedatives. The heart rate, respiratory rate, oxygen saturations, blood pressure, adequacy of pulmonary ventilation, and response to care were monitored throughout the procedure. The physical status of the patient was re-assessed after the procedure. After obtaining informed consent, the endoscope was passed under direct vision. Throughout the procedure, the patient's blood pressure, pulse, and oxygen saturations were monitored continuously. The Endoscope was introduced through the mouth, and advanced to the second part of duodenum. The upper EUS was accomplished without difficulty. Findings: ENDOSONOGRAPHIC FINDING: : There was no sign of significant endosonographic abnormality in the entire pancreas. The pancreatic duct measured up to 3 mm in diameter. The pancreas was well visualized, no pathologic lymphadenopathy, no masses, no cysts, no calcifications, the pancreatic duct was well visualized from ampulla to tail, the pancreatic duct was thin in caliber, the pancreatic duct was regular in contour. There was no sign of significant endosonographic abnormality in the entire main bile duct. No stones, no biliary sludge, ducts of normal caliber and ducts with regular contour were identified. No lymphadenopathy seen. Impression: - There was no sign of significant pathology in the entire pancreas. - There was no sign of significant pathology in the entire main bile duct. - No specimens collected. Recommendation: - Patient has a contact number available for emergencies. The signs and symptoms of potential delayed complications were discussed with the patient. Return to normal activities tomorrow. Written discharge instructions were provided to the patient. - Return to referring physician as previously scheduled. Aly Tom MD 09/16/2024 3:45:15 PM Number of Addenda: 0 Note Initiated On: 09/16/2024 1:58 PM Scope In: Scope Out: Aly Tom MD GI PROCEDURE ORDERABLES Edited R esult - Final * POCT , urine (09/16/2024 12:16 PM CDT) HCG Qualitative Negative Negative 12:16 PM CDT [facility] LORI [id number] 09/16/2024 12:16 PM CDT [facility] [place] [id number] 09/16/2024 12:16 PM CDT [facility] Urine 09/16/2024 12: 08 PM CDT Radha RUIZ POINT OF CARE TEST ORDERABLE S Final Result Performing Organization Address City/[facility]/ZIP Co de Phone Number [facility] [address] [place] [address], * Amylase (09/16/2024 11:15 AM CDT) Amylase 58 20 - 160 U/L 09/16/2024 11:43 AM CDT [facility] Blood Venipuncture / Unknown 09/16/2024 11:15 AM CDT 09/16/2024 11:16 AM CDT Amber Dale MD LAB BLOOD ORDERABLES Final Resul t Performing Organization Address City/[facility]/ZIP Co de Phone Number [facility] [address] [place] [address], * CT Abdomen Pelvis With and Without Contrast (09/10/2024 10:03 AM CDT) Anatomical Region Laterality Modality Abdomen, Pelvis Computed Tomogra phy 09/10/2024 10:3 0 AM CDT Narrative 09/10/2024 10:30 AM CDT Reason for EXAM: Mid abdominal pain, history of pancreatitis EXAM: CT ABDOMEN AND PELVIS WITH AND WITHOUT CONTRAST. COMPARISON: None TECHNIQUE: Serial axial images obtained from the lung bases through the femoral heads before and after administration of 125 mL of Omnipaque 350 IV contrast. Sagittal and coronal reformatted images reviewed. A dose reduction technique was used. FINDINGS: LOWER CHEST: Heart is normal size. Imaged lung bases are clear. HEPATOBILIARY: Liver demonstrates homogeneous parenchymal attenuation. Gallbladder is surgically absent. No intrahepatic or extrahepatic ductal dilation is present. SPLEEN: Normal size without discrete mass. PANCREAS: Multiple intermediate density collections are identified surrounding the pancreas. A 2.1 x 1.7 x 2.7 cm collection (between 45-50 HU) is noted along the anterior margin of the pancreatic head (axial image 36 of 109). A 4 x 2 x 3.4 cm collection (between 25-30 HU) is present along the posterior margin of the pancreatic body/tail (axial image 22 of 109). Multiple additional peripancreatic collections are identified adjacent to the pancreatic tail, largest of which measures 2.1 x 1.3 x 3.8 cm with internal density between 50-55 HU (coronal image 60 of 106). No gross pancreatic duct dilation. ADRENAL GLANDS: No discrete nodule or thickening. GENITOURINARY: No hydronephrosis or radiopaque stones. Bladder is incompletely distended. The 1.8 cm rim-enhancing structure along the right adnexa favors corpus luteum. LYMPH NODES/PERITONEUM: No enlarged lymph nodes are identified in the abdomen and pelvis. Trace pelvic free fluid is noted. BOWEL: No evidence of bowel obstruction. Enteric contrast is noted. Appendix is unremarkable. VASCULAR: Abdominal aorta is normal size. Portal vein is patent. MUSCULOSKELETAL: No acute osseous findings are identified. All CT scans at this facility use dose modulation, iterative reconstructions and/or weight-based dosing when appropriate to reduce radiation dose to as low as reasonably achievable. IMPRESSION: Multiple intermediate density peripancreatic collections may represent pseudocysts given provided history of pancreatitis. Recommend short-term follow-up dedicated pancreas CT or MRI in 3 months to assess for resolution. All reports both verbal and nonverbal are conducted in the Central Time zone unless otherwise specified. By Brennan Junior D.O. (Radiologist) Procedure Note Vernon Brennan Law, DO - 09/19/2024 Reason for EXAM: Mid abdominal pain, history of pancreatitis EXAM: CT ABDOMEN AND PELVIS WITH AND WITHOUT CONTRAST. COMPARISON: None TECHNIQUE: Serial axial images obtained from the lung bases through thefemoral heads before and after administration of 125 mL of Omnipaque 350 IVcontrast. Sagittal and coronal reformatted images reviewed. A dose reductiontechnique was used. FINDINGS: LOWER CHEST: Heart is normal size. Imaged lung bases are clear. HEPATOBILIARY: Liver demonstrates homogeneous parenchymal attenuation. Gallbladder is surgically absent. No intrahepatic or extrahepatic ductaldilation is present. SPLEEN: Normal size without discrete mass. PANCREAS: Multiple intermediate density collections are identifiedsurrounding the pancreas. A 2.1 x 1.7 x 2.7 cm collection (between 45-50 HU) is noted along theanterior margin of the pancreatic head (axial image 36 of 109). A 4 x 2 x 3.4 cm collection (between 25-30 HU) is present along theposterior margin of the pancreatic body/tail (axial image 22 of 109). Multiple additional peripancreatic collections are identified adjacent tothe pancreatic tail, largest of which measures 2.1 x 1.3 x 3.8 cm with internal densitybetween 50-55 HU (coronal image 60 of 106). No gross pancreatic duct dilation. ADRENAL GLANDS: No discrete nodule or thickening. GENITOURINARY: No hydronephrosis or radiopaque stones. Bladder is incompletely distended. The 1.8 cm rim-enhancing structure along theright adnexa favors corpus luteum. LYMPH NODES/PERITONEUM: No enlarged lymph nodes are identified in the abdomen and pelvis. Trace pelvic free fluid is noted. BOWEL: No evidence of bowel obstruction. Enteric contrast is noted.Appendix is unremarkable. VASCULAR: Abdominal aorta is normal size. Portal vein is patent. MUSCULOSKELETAL: No acute osseous findings are identified. All CT scans at this facility use dose modulation, iterativereconstructions and/or weight-based dosing when appropriate to reduceradiation dose to as low as reasonably achievable. IMPRESSION: Multiple intermediate density peripancreatic collections may representpseudocysts given provided history of pancreatitis. Recommend [id number] dedicated pancreas CT or MRI in 3 months to assess forresolution. All reports both verbal and nonverbal are conducted in the Central Timezone unless otherwise specified. By Brennan Junior D.O. (Radiologist) Amber Dale MD IMG CT ORDERABLES Final Result from Last 3 Months Additional Health Concerns Active Problems Noted Date Diagnosed Date HYPERTENSION 07/24/2024 Insurance [employer] Advance Directives * Full Code (Latest Code Status on File) Date Activated Date Inactivated Comments 08/07/2024 1:04 PM 09/16/2024 11:55 AM * Full Code Date Activated Date Inactivated Comments 08/04/2024 11:08 PM 08/07/2024 1:04 PM * Full Code Date Activated Date Inactivated Comments 07/28/2024 10:46 AM 08/04/2024 7:37 PM * Full Code Date Activated Date Inactivated Comments 07/25/2024 1:40 AM 07/28/2024 10:46 AM * Full Code Date Activated Date Inactivated Comments 07/23/2024 12:45 AM 07/25/2024 12:12 AM Care Teams Scrap Sorter Relationship Specialty Start Date End Date Varinder Brewer DO [address] [place], [place] [id number] PCP - General Surgery General 07/06/24
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
[2024-11-17 22:32] LABS: Basophils # 0.1 10^3/uL (0.0-0.1); Basophils % 0.5 %; Eosinophils # 0.3 10^3/uL (0.0-0.8); Eosinophils % 3.2 %; Lymphocytes # 1.4 10^3/uL (0.8-4.8); Lymphocytes % 13.2 %; Mean Corpuscular HGB Conc 32.5 g/dL (30-55); Mean Corpuscular Hemoglobin 28.1 pg (27-33); Mean Corpuscular Volume 86.4 fl (85-98); Mean Platelet Volume 9.8 fL (7.4-10.4); Monocytes # 0.8 10^3/uL (0.2-0.9); Monocytes % 7.1 %; Neutrophils # 8.13 10^3/uL (1.8-7.7); Neutrophils % 75.7 %; Nucleated Red Blood Cells % 0 %; Platelet Count 352 10^3/cmm (157-399); Red Blood Count 4.63 10^6/uL (3.85-5.65); White Blood Count 10.73 10^3/uL (3.29-11.43)
[2024-11-17 22:51] LABS: Lactic Sepsis W/Reflex 0.9 mmol/L (0.5-2.2)
--- NOTE | 2024-11-17 22:55 | ED_ITS ---
HPI - Seizure 2 General: Chief Complaint: Seizure Stated Complaint: SEIZURE Time Seen by Provider: 11/17/24 22:08 History of Present Illness: HPI Narrative: Patient is a 24-year-old female with epilepsy that reports to the ER via EMS due to seizure. Family relates that she has had a absence and shaking seizure and not responding correctly. Family is not present at time of my interview. EMS relates 3 days of general illness with multiple seizures today. No recent cold, or illness. Patient states compliance to her topiramate 100 mg twice daily. She did not have incontinence. She did not have any tongue biting. Seizure History: Yes Place: Home Associated symptoms: Deny chest pain, chills or fever(s) Related Data Previous Rx's ?Medication ?Instructions ?Recorded cefdinir 300 mg capsule 300 mg PO BID 10 days #20 ca ps 11/18/24 Allergies Allergy/AdvReac Type Severity Reaction Status Date / Time No Known Allergies Allergy Verified 10/23/24 01:10 Review of Systems 2 General: Reports: 10 or more systems reviewed and unremarkable except in HPI and below Const: Denies: fever(s) or chills Eyes: Denies: change in vision or blurry vision ENMT: Denies: throat pain or mouth pain Card: Denies: chest pain or palpitations Resp: Denies: dyspnea or non-productive cough GI: Denies: abdominal pain, nausea or vomiting : Denies: flank pain Musc: Denies: neck pain or extremity pain Skin/Breast: Denies: rash or pruritus Neuro: Reports: seizure-like activity; Denies: headache(s) or numbness in extremities Psych: Denies: sleeping less or sleeping more Physical Exam 2 Const: COMMON NORMALS: patient oriented x3 and alert HENMT: COMMON NORMALS: normocephalic and atraumatic HEAD & SCALP: n ormocephalic and atraumatic Neck/C-Spine: COMMON NORMALS: full ROM and no lymphadenopathy Lymph: LYMPHATIC: no lymphadenopathy noted Chest: COMMONS NORMALS: normal inspection of the chest and normal palpation of the breasts BREAST/AXILLA PALPATION: Yes normal palpation of the breasts Resp: COMMON NORMALS: normal respiratory effort and clear to auscultation bilaterally AUSCULTATION: clear to auscultation bilaterally Cardio: COMMON NORMALS: regular rate and regular rhythm RATE: regular rate RHYTHM: regular rhythm : COMMON NORMALS: Yes no CVA tenderness BLADDER/KIDNEY EXAM: Yes no CVA tenderness Back/Pelvis: COMMON NORMALS: no CVA tenderness Extremity: COMMON NORMALS: normal to inspection, full ROM and capillary refill normal Neuro: COMMON NORMALS: patient oriented x3, CN's II-XII intact bilaterally and moves all extremities SENSORIUM/ORIENTATION: Yes alert Psych: COMMON NORMALS: mental status grossly normal and Normal thought process present THOUGHT PROCESS: Normal thought process present Course 2 Vital Signs: Vital signs: Vital Signs Temperature 98.4 F 11/17/24 22:08 Pulse Rate 87 11/17/24 23:15 Respiratory Rate 16 11/17/24 23:15 Blood Pressure 95/49 11/17/24 23:15 Pulse Oximetry 98 11/17/24 23:15 Oxygen Delivery Me thod Room Air 11/17/24 23:15 MDM - Seizure MDM Narrative Medical decision making narrative: Patient is a 24-year-old female with known epilepsy, on topiramate that reports to ED with seizure-like activity. This was unfounded on this evaluation. She did have association of pyuria, however there was no elevation in WBCs, CPK. Findings included a decrease in CO2, and pyuria. I suspect this is secondary to hypovolemia in light of UTI. Urine culture is pending. Rocephin was given x 1, and will treat with cefdinir. Medical Records Attestation: I reviewed the patient's medical records. Lab Data Attestation: I reviewed the patient's lab results. 11/17/24 22:27 11/17/24 22:27 Labs: Laboratory Results WBC 10.73 10^3/uL (3.29-11.43) 11/17/24 22: RBC 4.63 10^6/uL (3.85-5.65) 11/17/24 22: Hgb 13.00 g/dL (11.27-16.99) 11/17/24 22: Hct 40.0 % (36-47) 11/17/24 22: MCV 86.4 fl (85-98) 11/17/24 22: MCH 28.1 pg (27-33) 11/17/24 22: MCHC 32.5 g/dL (30-55) 11/17/24 22: RDW 13.0 % (12.1-15.1) 11/17/24: Plt Count 352 10^3/cmm (157-399) 11/17/24: MPV 9.8 fL (7.4-10.4) 11/17/24: Neut % (Auto) 75.7 % 11/17/24: Lymph % (Auto) 13.2 % 11/17/24: [place] % (Auto) 7.1 % 11/17/24 22: Eos % (Auto) 3.2 % 11/17/24: Baso % (Auto) 0.5 % 11/17/24: Neut # (Auto) 8.13 10^3/uL (1.8-7.7) H 11/17/24: Lymph # (Auto) 1.4 10^3/uL (0.8-4.8) 11/17/24: [place] # (Auto) 0.8 10^3/uL (0.2-0.9) 11/17/24: Eos # (Auto) 0.3 10^3/uL (0.0-0.8) 11/17/24: Baso # (Auto) 0.1 10^3/uL (0.0-0.1) 11/17/24: Nucleated RBC % (auto) 0 % 11/17/24: Nucleated RBCs # 0.0 /100WBC 11/17/24: Sodium 136 mmol/L (136-145) 11/17/24: Potassium 3.7 mmol/L (3.5-5.1) 11/17/24: Chloride 104 mmol/L (98-107) 11/17/24: Carbon Dioxide 20 mmol/L (22-29) L 11/17/24: Anion Gap 15.7 (5-19) 11/17/24: BUN 14 mg/dL (6-20) 11/17/24: Creatinine 0.8 mg/dL (0.5-0.9) 11/17/24: GFR Calculation 88.1 mL/min (90-130) L 06/29/25 22:27 Glucose 96 mg/dL (65-115) 11/17/24 22:27 Calculated Osmolality 282 mOsm/kg (285-295) L 11/17/24 22: Lactic Acid 0.9 mmol/L (0.5-2.2) 11/17/24 22:27 Calcium 8.6 mg/dL (8.5-10.5) 11/17/24 22: Magnesium 2.1 mg/dL (1.7-2.3) 11/17/24 22:27 Total Bilirubin 0.5 mg/dL (0.15-1.2) 11/17/24 22:27 AST 11 U/L (0-32) 11/17/24 22: ALT 10 U/L (0-33) 11/17/24 22: Alkaline Phosphatase 78 U/L (35-105) 11/17/24 22: Creatine Kinase 83 U/L (26-192) 11/17/24 22:27 Total Protein 6.7 g/dL (6.6-8.7) 11/17/24 22:27 Albumin 4.0 g/dL (3.5-5.2) 11/17/24 22: Globulin 2.7 g/dL (1.3-4.6) 11/17/24 22: TSH 5.70 uIU/mL (0.27-4.20) H 11/17/24 22:27 HCG, Qual Negative (Negative) 11/17/24 23:36 Urine Color Yellow (Yellow) 11/17/24 23:36 Urine Appearance Cloudy (CLEAR) A 11/17/24 23:36 Urine pH 6.5 (5-7) 11/17/24 23:36 Ur Specific [place] 1.023 (1.005-1.030) 11/17/24 23:36 Urine Protein Negative (Negative) 11/17/24 23:36 Urine Glucose (UA) Negative (Normal) 11/17/24 23:36 Urine Ketones Trace (Negative) 11/17/24 23:36 Urine Blood Negative (Negative) 11/17/24 23:36 Urine Nitrate Negative (Negative) 11/17/24 23:36 Urine Bilirubin Negative (Negative) 11/17/24 23:36 Urine Urobilinogen 1.0 mg/dL (Negative) 11/17/24 23:36 Ur Leukocyte Esterase 2+ (Negative) A 11/17/24 23:36 Urine RBC 0-2 /hpf (0-2) 11/17/24 23:36 Urine WBC 21-50 /hpf (0-5) H 11/17/24 23:36 Ur Squamous Epith Cells 6-10 /hpf (0-5) 11/17/24 23:36 Amorphous Sediment Not Reportable 11/17/24 23:36 Urine Bacteria 1+ /hpf (NONE) H 11/17/24 23:36 Hyaline Casts 0.40 /lpf 11/17/24 23:36 Urine Opiates Screen Negative ng/mL (Negative) 11/17/24 23:36 Ur Barbiturates Screen Negative ng/mL (Negative) 11/17/24 23:36 Ur Phencyclidine Scrn Negative ng/mL (Negative) 11/17/24 23:36 Ur Amphetamines Screen Negative ng/mL (Negative) 11/17/24 23:36 U Benzodiazepines Scrn Negative ng/mL (Negative) 11/17/24 23:36 Urine Cocaine Screen Negative ng/mL (Negative) 11/17/24 23:36 U Marijuana (THC) Screen Positive ng/mL (Negative) H 11/17/24 23:36 No radiology studies performed this visit Discharge Plan Discharge Patient Disposition: Home Clinical Impression: Pyuria, Metabolic acidosis, Elevated TSH Condition: Stable Prescriptions: New cefdinir 300 mg capsule 300 mg PO BID 10 Days Qty: 20 0RF Discharge Orders: Discharge ED (Routine); Ordered 11/18/24 Ordered By: Mariposa Courtney Discharge Diet: Usual diet Discharge Activity: Resume usual activity Patient Instructions: Dehydration (ED), Dysuria (ED), Patient Portal & Selena Instructions Activity Restrictions/Additional Instructions: Increase noncaffeinated beverage intake. You are dehydrated. No seizure was detected today. It appears to be secondary to a UTI. Antibiotics have been sent to the pharmacy, you will need probiotic or active culture yogurt to avoid infectious diarrhea. You will need to follow-up with your doctor in 1 week. Call tomorrow a.m. for an appointment to follow-up at the end of this week. Return to ED for change in symptoms, seizures, fevers, altered mentation. Print Language: Korean Coding Level of Care Code ED Overlock Elastic Attacher for Shona Cody
[2024-11-17 23:01] LABS: Alanine Aminotransferase 10 U/L (0-33); Alkaline Phosphatase 78 U/L (35-105); Anion Gap 15.7 (5-19); Aspartate Amino Transferase 11 U/L (0-32); Blood Urea Nitrogen 14 mg/dL (6-20); Calcium 8.6 mg/dL (8.5-10.5); Carbon Dioxide 20 mmol/L (22-29); Chloride 104 mmol/L (98-107); Creatine Phosphokinase 83 U/L (26-192); Creatinine Clr Calc Pharmacy 148.7449; Globulin 2.7 g/dL (1.3-4.6); Glomerular Filtration Rate 88.1 mL/min (90-130); Glucose 96 mg/dL (65-115); Magnesium 2.1 mg/dL (1.7-2.3); Osmolality Calculated 282 mOsm/kg (285-295); Potassium 3.7 mmol/L (3.5-5.1); Sodium 136 mmol/L (136-145); Total Bilirubin 0.5 mg/dL (0.15-1.2); Total Protein 6.7 g/dL (6.6-8.7)
[2024-11-17 23:15] VITALS: BP 95/49; PULSE 87; RESP 16; O2SAT 98
[2024-11-17] MEDS: sodium chloride 0.9% 1,000 ML 999 ML IV (23:30)
[2024-11-17 23:46] LABS: Bilirubin Urine Negative (Negative); Blood Urine Negative (Negative); Glucose Urine UA Negative (Normal); HCG Qualitative Urine. Negative (Negative); Ketones Urine Trace (Negative); Leukocyte Esterase Urine 2+ (Negative); Nitrate Urine Negative (Negative); Protein Urine Negative (Negative); Specific Gravity, Urine 1.023 (1.005-1.030); Urine Appearance Cloudy (CLEAR); Urine Color Yellow (Yellow); pH Urine 6.5 (5-7)
[2024-11-17 23:51] LABS: Add Urine Microscopic? YES; Bacteria Urine 1+ /hpf; RBC Urine 0-2 /hpf (0-2); WBC Urine 21-50 /hpf (0-5)
[2024-11-17 23:52] LABS: Amphetamines Screen Urine Negative (Negative); Barbiturates Screen Urine Negative (Negative); Benzodiazepines Screen Urine Negative (Negative); Cocaine Screen Urine Negative (Negative); Opiate Screen Urine Negative (Negative); PCP Screen Urine Negative (Negative); THC Screen Urine Positive (Negative)
[2024-11-18 00:01] LABS: Add Urine Culture? Yes
[2024-11-18] MEDS: cefTRIAXone 1,000 mg SDV 1000 MG IVP (00:17)
[2024-11-18 00:30] VITALS: BP 124/66; PULSE 84; RESP 16; O2SAT 97
== END 2024-11-18 00:32 | disposition home or self-care (01) ==
PROVIDERS: Emergency Provider Physician Assistant
DX: R82.81 Pyuria (principal); E87.20 Acidosis, unspecified; R94.6 Abnormal results of thyroid function studies
CPT/HCPCS: 36415; 80053; 80306; 81001; 81025; 82550; 83605; 83735; 84443; 85025; 87086; 96374; 99284; J0696; J7030

== ENCOUNTER 2024-11-24 21:54 | Emergency (ER) | payer SELFPAY ==
[2024-11-24 21:57] VITALS: BP 111/89; PULSE 96; RESP 24; TEMP 36.9; O2SAT 100; BMI 38.4
--- OUTSIDE RECORDS SUMMARY | 2024-11-24 22:03 | XMS_ITS | Clinical Summary ---
Author Organization [facility] [place] Address [address] [phone] Phone Care Team Providers Care Watch Electrician Name Role Phone Unavailable Primary Care Provider Unavailabl e Encounters Date Type Department Care Team Description 11/19/2024 External Device Data STL ABSTRACTION Provider, Abstract 11/19/2024 External Device Data ST[facility] ABSTRACTION Provider, Abstract 11/19/2024 External Device Data STL ABSTRACTION Provider, Abstract 10/22/2024 12:15 AM CDT - 10/22/2024 11:59 PM CDT Hospital Encounter [facility] [address] [phone] Ambulance, [facility] Discharge Disposition: Short [facility] from Last 3 Months Social History Tobacco Use Types Packs/Day Years Used Date Smoking Tobacco: Never Assessed Comments Unknown Sex and Gender Information Value Date Recorded Sex Assigned at Not on file Legal Sex Female 10:22 AM CDT Gender Identity Not on file Sexual Orientation Not on file Plan of Treatment Health Maintenance Due Date Last Done Comments DTAP/TDAP/TD VACCINES (6 - Tdap) 09/15/2011 10/14/2004, 04/09/2002, 03/16/2001, Additional history exists HPV VACCINES (1 - 3-dose series) 09/15/2015 HEPATITIS B VACCINES (1 of 3 - 19+ 3-dose series) 09/15/2019 CERVICAL CANCER SCREENING 2021 HPV/Cotest (21-29) 2021 PAP SMEAR 2021 INFLUENZA VACCINE (#1) 2024
--- OUTSIDE RECORDS SUMMARY | 2024-11-24 22:03 | XMS_ITS | Encounter Summary ---
Author Organization [facility] Address [address] [place] [address] Care Team Providers Care Headwaiter/Headwaitress Name Role Phone Osman Fantasma Reeder DO Primary Care Provider Encounter Details Date Type Department Care Team (Late st Contact Info) Description 09/18/2023 Scanned Document [facility] [address] [place] [address] [place] [address] [address] [place] [address] Social History Tobacco Use Types Packs/Day Years Used Date Smoking Tobacco: Never Smokeless Tobacco: Never Alcohol Use Standard Drinks/Week Comments Never 0 (1 standard drink = 0.6 oz pur e alcohol) PHQ-2 Answer Date Recorded PHQ-9 Total Score 0 08/24/2023 Comments No Sex and Gender Information Value Date Recorded Sex Assigned at Not on file Legal Sex Female 9:57 AM DIETETICS TEACHER Gender Identity Not on file Sexual Orientation [...] Time MRSA Comment:Added from external infection. Source: [facility] and [facility] Practices. 05/15/2024 Novel Coronavirus (rule out) 05/27/2024 05/27/2024 05/27/2024 5:09 PM DIETETICS TEACHER Novel Coronavirus (rule out) 11/13/2024 11/13/2024 11/13/2024 2:01 AM CDT documented as of this encounter Care Teams Headwaiter/Headwaitress Relationship Specialty Start Date End Date Fantasma Brewer DO [address] [place] [phone] PCP - General Family Medicine 08/24/23 documented as of this encounter
--- OUTSIDE RECORDS SUMMARY | 2024-11-24 22:03 | XMS_ITS | Encounter Summary ---
Author Organization [facility] Address [address] [place] [address] Care Team Providers Care Food Consultant Name Role Phone Unavailable Primary Care Provider Unavailabl e Encounter Details Date Type Department Care Team (Late st Contact Info) Description 11/19/2024 External Device Data ST[facility] ABSTRACTION Provider, Abstract NO ADDRESS ON FILE Social History Tobacco Use Types Packs/Day Years [...]
--- OUTSIDE RECORDS SUMMARY | 2024-11-24 22:03 | XMS_ITS | Encounter Summary ---
Author Organization [facility] Address [address] [place] [address] Care Team Providers Care Residential Roofer Helper Name Role Phone Fantasma Brewer DO Primary Care Provider Encounter Details Date Type Department Care Team (Late st Contact Info) Description 08/08/2024 Telephone [facility] [address] [place] [phone] Fantasma Brewer DO [address] [place] [phone] Social History Tobacco Use Types Packs/Day Years Used Date Smoking Tobacco: Never Passive Smoke Exposure: Never Smokeless Tobacco: Never Alcohol Use Standard Drinks/Week Comments Never 0 (1 standard drink = 0.6 oz pur e alcohol) [facility] Utilities Answer Date Recorded In the past 12 months has e [employer], gas, oil, or water [employer] threatened to shut off services in your [...] money to get more. Never true 05/13/2024 [facility] - Transportation Answer Date Record ed In [...] your living situation today? I have a [facility] place to live 05/13/2024 Housing Problems Not on file 05/13/2024 Comments No Sex and Gender Information Value Date Recorded Sex Assigned at Not on file Legal Sex Female 9:57 AM STAFF NURSE ICU RESOURCE TEAM Gender Identity Not on file Sexual Orientation Not on file documented as of this encounter Functional Status * Is the person deaf or does he/she have serious difficulty hearing? Answer Date of Assessment Author No 05/13/2024 11:15 PM STAFF NURSE ICU RESOURCE TEAM * Is this person blind or does he/she have serious difficulty seeing even when wearing glasses? Answer Date of Assessment Author No 05/13/2024 11:15 PM STAFF NURSE ICU RESOURCE TEAM * Does this person have serious difficulty walking or climbing stairs? Answer Date of Assessment Author No 05/13/2024 11:15 PM STAFF NURSE ICU RESOURCE TEAM * Does this person have difficulty dressing or bathing? Answer Date of Assessment Author No 05/13/2024 11:15 PM STAFF NURSE ICU RESOURCE TEAM * Because of a physical, mental, or emotional condition, does this person have difficulty doing errands alone such as visiting a doctor's office or shopping? Answer Date of Assessment Author No 05/13/2024 11:15 PM STAFF NURSE ICU RESOURCE TEAM documented as of this encounter Mental Status * Because of a physical, mental, or emotional condition, does this person have serious difficulty concentrating, remembering, or making decisions? Answer Entry Date Author No 05/13/2024 11:15 PM STAFF NURSE ICU RESOURCE TEAM documented in this encounter Miscellaneous Notes * Telephone Encounter - Lupe Price - 08/08/2024 4:34 PM CDT Patient called stating that she can't come to the appointment on 08/13/2024. [facility]. She asked questions about her lab work [...] Time MRSA Comment:Added from external infection. Source: [facility] and [facility] Practices. 05/15/2024 Novel Coronavirus (rule out) 11/13/2024 11/13/2024 11/13/2024 2:01 AM CDT documented as of this encounter Care Teams Residential Roofer Helper Relationship Specialty Start Date End Date Fantasma Brewer DO [address] [place] [phone] PCP - General Family Medicine 08/24/23 documented as of this encounter
--- OUTSIDE RECORDS SUMMARY | 2024-11-24 22:03 | XMS_ITS | Encounter Summary ---
Author Organization [facility] Address [address] [place] [address] Care Team Providers Care Master Fire Control Technician Name Role Phone Fantasma Brewer DO Primary Care Provider Encounter Details Date Type Department Care Team (Late st Contact Info) Description 06/14/2024 Scanned Document [facility] [address] [place] [address] Fantasma Brewer DO [address] [place] [phone] Social History Tobacco Use Types Packs/Day Years Used Date Smoking Tobacco: Never Passive Smoke Exposure: Never Smokeless Tobacco: Never Alcohol Use Standard Drinks/Week Comments Never 0 (1 standard drink = 0.6 oz pur e alcohol) [facility] Utilities Answer Date Recorded In the past 12 months has e [employer], gas, oil, or water [employer] threatened to shut off services in your [...] money to get more. Never true 05/13/2024 [facility] - Transportation Answer Date Record ed [...] your living situation today? I have a [facility] place to live 05/13/2024 Housing Problems Not on file 05/13/2024 Comments No Sex and Gender Information Value Date Recorded Sex Assigned at Not on file Legal Sex Female 9:57 AM SUPERVISOR POLICY CHANGE CLERKS Gender Identity Not on file Sexual Orientation Not on file documented as of this encounter Functional Status * Is the person deaf or does he/she have serious difficulty hearing? Answer Date of Assessment Author No 05/13/2024 11:15 PM SUPERVISOR POLICY CHANGE CLERKS * Is this person blind or does he/she have serious difficulty seeing even when wearing glasses? Answer Date of Assessment Author No 05/13/2024 11:15 PM SUPERVISOR POLICY CHANGE CLERKS * Does this person have serious difficulty walking or climbing stairs? Answer Date of Assessment Author No 05/13/2024 11:15 PM SUPERVISOR POLICY CHANGE CLERKS * Does this person have difficulty dressing or bathing? Answer Date of Assessment Author No 05/13/2024 11:15 PM SUPERVISOR POLICY CHANGE CLERKS * Because of a physical, mental, or emotional condition, does this person have difficulty doing errands alone such as visiting a doctor's office or shopping? Answer Date of Assessment Author No 05/13/2024 11:15 PM SUPERVISOR POLICY CHANGE CLERKS documented as of this encounter Mental Status * Because of a physical, mental, or emotional condition, does this person have serious difficulty concentrating, remembering, or making decisions? Answer Entry Date Author No 05/13/2024 11:15 PM SUPERVISOR POLICY CHANGE CLERKS documented in this encounter Plan of Treatment Not on file documented as of this encounter Visit Diagnoses Not on filedocumented in this encounter Additional Health Concerns Infection Onset Date Last Indicated Resolved Time MRSA Comment:Added from external infection. Source: [facility] and [facility] Practices. 05/15/2024 Novel Coronavirus (rule out) 11/13/2024 11/13/2024 11/13/2024 2:01 AM CDT documented as of this encounter Care Teams Master Fire Control Technician Relationship Specialty Start Date End Date Fantasma Brewer DO [address] [place] [phone] PCP - General Family Medicine 08/24/23 documented as of this encounter
--- OUTSIDE RECORDS SUMMARY | 2024-11-24 22:03 | XMS_ITS | Encounter Summary ---
Author Organization [facility] Address [address] [place] [address] Care Team Providers Care Geographic Information System Analyst Name Role Phone Unavailable Primary Care Provider [...]
--- OUTSIDE RECORDS SUMMARY | 2024-11-24 22:03 | XMS_ITS | Encounter Summary ---
Author Organization [facility] Address [address] [place] [address] Care Team Providers Care Mixer Diamond Powder Name Role Phone Unavailable Primary Care Provider [...]
--- OUTSIDE RECORDS SUMMARY | 2024-11-24 22:03 | XMS_ITS | Clinical Summary ---
Author Organization [email or web address] Address [address] [place] [address] Care Team Providers Care Veterinary Medicine Doctor Name Role Phone Osman Fantasma Reeder DO Primary Care Provider Allergies Active Allergy Reactions Criticality Noted Date Comments Cinnamon Flavoring Agent (Non-Screening) Swelling Medium 12/26/2021 Patient states she does not have anaphylactic reaction, swells around the lips Medications Vit-Fe Fumarate-FA ( VITAMIN PO) Take by mouth. Active HYDROcodone-acetami nophen ([place]) 10-325 MG per tablet Take 1 tablet [...] 05/15/2024 Assessment & Plan (05/15/2024 3:45 PM PROTOCOL OFFICER): Replaced Assessment & Plan (05/15/2024 8:31 AM PROTOCOL OFFICER): Replaced Assessment & Plan (05/14/2024 1:35 PM PROTOCOL OFFICER): Replaced Chest pain 05/14/2024 05/15/2024 Assessment & Plan (05/15/2024 3:45 PM PROTOCOL OFFICER): Presumed referred pancreatitis pain EKG benign Serial trops negative + PPI Assessment & Plan (05/15/2024 8:32 AM PROTOCOL OFFICER): Presumed referred pancreatitis pain EKG benign Serial trops negative + PPI Assessment & Plan (05/14/2024 1:54 PM PROTOCOL OFFICER): Presumed referred pancreatitis pain EKG benign Serial trops + PPI S/P section 12/28/2021 022 Arrest of descent, delivered , current hospitalization 12/26/2021 01/19/2022 Overview (12/27/2021): Added automatically from request for surgery [id number] Rubella non-immune status, antepartum 2021 01/19/2022 Normal in third trimester 08/12/2021 01/19/2022 Maternal obesity affecting p regnancy, antepartum 08/12/2021 01/19/2022 Encounters Date Type Department Care Team Description 11/18/2024 Patient Outreach [facility] [place] [place] [address] [place] [address] Fantasma Brewer, Emergency Department Follow-Up 11/13/2024 12:54 AM CDT - 11/13/2024 4:08 AM CDT Emergency [facility] - Emergency Department [address] [place] [address] Jose Eduardo Martinez DO Breakthrough seizure (Primary [...] 0.6 oz pur e alcohol) [facility] Utilities Answer Date Recorded In the past [...] get more. Never true 05/13/2024 [facility] - Transportation Answer Date Record ed In the past 12 months, has l ack of reliable transportation kept you from medical appointments, meetings, work or from getting things needed for daily living? No 05/13/2024 [facility] - Personal Safety Answer Date Recor ded [...] scream or curse at you? Never 05/13/2024 [facility] - Inadequate Housing Answer Date Re corded What is your living situation today? I have a [facility] place to live 05/13/2024 Housing Problems Not on file 05/13/2024 Comments No Sex and Gender Information Value Date Recorded Sex Assigned at Not on file Legal Sex Female 9:57 AM PROTOCOL OFFICER Gender Identity Not on file Sexual Orientation [...] 04/29/2024 Pap Smear Age 21+ 08/12/2024 08/12/2021 Influenza Vaccine (#1) 2025 , 04/11/2005, 04/10/2003, Additional history exists Pneumococcal Vaccine: Pediatrics (0-5 Years) and At-Risk Patients (6-64 Years) Aged Out 2001, 02/08/2001 No longer eligibl e based on patient's age to complete this topic Procedures Procedure Name Priority Date/Time Associated Diagnosis [...] GLUCOSE (RALS) STAT 11/13/2024 12:55 AM CDT [facility] SCREENING Routine 04/29/2024 2:35 PM PROTOCOL OFFICER THINPREP PAP Routine 08/12/2021 1:46 PM CDT from Last 3 Months or Most Recently Relevant to Health Maintenance Results * Blood Culture (11/13/2024 3:05 AM CDT) Blood Culture No growth at 120 hours 11/18/2024 4:28 AM CDT [facility] Blood Venipuncture / Unknown 11/13/2024 3:05 AM CDT 11/13/2024 3:07 AM CDT us Jose Eduardo Martinez DO LAB MICROBIOLOGY - GENERAL OR DERABLES Final Result [facility] [address], [place] [address] * Lactic Acid, Plasma (11/13/2024 3:05 AM CDT) Lactic Acid 1.09 0.50 - 2.20 mmol/L 11/13/2024 3:25 AM CDT [facility] Lactic Acid (Conv) 11/13/2024 3:25 AM CDT [facility] Blood Venous blood specimen / Unknown Venipuncture / Unknown 11/13/2024 3:05 AM CDT 11/13/2024 3:07 AM CDT us Jose Eduardo Martinez DO LAB BLOOD ORDERABLES Final Re sult [facility] [address], [place] [address] * X-ray chest 1 view (11/13/2024 1:30 [...] D.O. 11/13/2024 - 10:05:29 L:521 R:bxw: T:bxw ([id number]) Narrative 11/13/2024 10:08 AM CDT Date of [...] D.O. 11/13/2024 - 10:05:29 L:521 R:bxw: T:bxw ([id number]) us Jose Eduardo Martinez DO IMG DIAGNOSTIC IMAGING ORDERA BLES Final Result * ECG 12 lead (11/13/2024 1:19 AM CDT) Heart Rate ECG 101 bpm TRACEMASTER RR Interval ECG 592 ms TRACEMASTER Atrial Rate ECG 102 ms TRACEMASTER PA Interval 149 ms TRACEMASTER P Duration 103 ms TRACEMASTER P Horizontal [place] ECG 21 deg TRACEMASTER P Front [place] ECG 22 deg TRACEMASTER Q Onset ECG 505 ms TRACEMASTER QRSD Interval 77 ms TRACEMASTER QT Interval 360 ms TRACEMASTER QTcB ECG 468 ms TRACEMASTER QTcF ECG 428 ms TRACEMASTER QRS Horizontal [place] ECG -9 deg TRACEMASTER QRS [place] ECG 63 deg TRACEMASTER I-40 Horizontal [place] ECG 83 deg TRACEMASTER I-40 Front [place] ECG -32 deg TRACEMASTER T-40 Horizontal [place] ECG -16 deg TRACEMASTER T-40 Front [place] ECG 76 deg TRACEMASTER T Horizontal [place] ECG 12 deg TRACEMASTER T Wave [place] [address] Horizontal [place] ECG [address] Front [place] ECG 39 deg TRACEMASTER 11/13/2024 1:19 AM CDT Impressions TRACEMASTER - 11/13/2024 7:51 AM CDT - OTHERWISE NORMAL ECG - Sinus tachycardia Narrative Procedure Note Sudhakar Guallpa MD - 11/13/2024 IMPRESSION: - OTHERWISE NORMAL ECG - Sinus tachycardia us Jose Eduardo Martinez DO ECG ORDERABLES Final Result TRACEMASTER * Blood Culture (11/13/2024 1:14 AM CDT) Blood Culture No growth at 120 hours 11/18/2024 2:01 AM CDT [facility] Blood Venipuncture / Unknown 11/13/2024 1:14 AM CDT 11/13/2024 1:21 AM CDT Jose Eduardo Martinez DO LAB MICROBIOLOGY - GENERAL OR DERABLES Final Result Performing Organization Address City/[facility]/ZIP Co de Phone Number [address] [address] * (ABNORMAL) CBC (11/13/2024 1:14 AM CDT) WBC 10.5 3.8 - 10.8 X 10*3/uL 11/13/2024 1:28 AM [facility] Red Blood Cell Count 4.43 3.80 - 5.10 X 10*6/uL 11/13/2024 1:28 AM [facility] Hemoglobin 13.3 11.7 - 15.5 g/dL 11/13/2024 1:28 AM [facility] HEMATOCRIT 38.2 35.0 - 45.0 % 11/13/2024 1:28 AM [facility] Mean Cell Volume 86.1 80.0 - 100.0 fL 11/13/2024 1:28 AM [facility] MCH 29.9 27.0 - 33.0 pg 11/13/2024 1:28 AM [facility] MCHC 34.8 32.0 - 36.0 g/dL 11/13/2024 1:28 AM [facility] RDW 13.9 11.0 - 15.0 % 11/13/2024 1:28 AM [facility] PLT 305 140 - 400 X 10*3/uL 11/13/2024 1:28 AM [facility] Mean Platelet Volume 8.3 7.5 - 11.5 fL 11/13/2024 1:28 AM [facility] Reviewed Differential Not Indicated 11/13/2024 1:28 AM [facility] Neutrophils 61.0 % 11/13/2024 1:28 AM [facility] Lymphocytes 23.7 % 11/13/2024 1:28 AM [facility] Monocytes 8.3 % 11/13/2024 1:28 AM [facility] Eosinophils 6.2 % 11/13/2024 1:28 AM [facility] Basophils 0.8 % 11/13/2024 1:28 AM [facility] Nucleated RBC 11/13/2024 1:28 AM [facility] Absolute Neutrophils 6.426 1.500 - 7.800 X 10*3/uL 11/13/2024 1:28 AM [facility] Absolute Lymphocytes 2.502 0.850 - 3.900 X 10*3/uL 11/13/2024 1:28 AM [facility] Absolute Monocytes 0.879 0.200 - 0.950 X 10*3/uL 11/13/2024 1:28 AM [facility] Absolute Eosinophils 0.655(H) 0.015 - 0.500 X 10*3/uL 11/13/2024 1:28 AM [facility] Absolute Basophils 0.081 0.000 - 0.200 X 10*3/uL 11/13/2024 1:28 AM [facility] Absolute Nucleated RBC 11/13/2024 1:28 AM [facility] Blood Venous blood specimen / Unknown Venipuncture / Unknown 11/13/2024 1:14 AM T 11/13/2024 1:21 AM T us Jose Eduardo Martinez DO LAB BLOOD ORDERABLES Final Re sult [facility] [address], [place] [address] * Lipase (11/13/2024 1:14 AM CDT) Lipase Level 15 7 - 60 units/L 11/13/2024 1:42 AM CDT [facility] Blood Venous blood specimen / Unknown Venipuncture / Unknown 11/13/2024 1:14 AM CDT 11/13/2024 1:21 AM CDT Jose Eduardo Martinez DO LAB BLOOD ORDERABLES Final Re sult Performing Organization Address [facility] [[email or web address]] [place] [address] * (ABNORMAL) Lactic Acid, Plasma (11/13/2024 1:14 AM CDT) Lactic Acid 2.94(H) 0.50 - 2.20 mmol/L 11/13/2024 1:42 AM CDT [facility] Lactic Acid (Conv) 11/13/2024 1:42 AM CDT [facility] Blood Venous blood specimen / Unknown Venipuncture / Unknown 11/13/2024 1:14 AM CDT 11/13/2024 1:21 AM CDT Jose Eduardo Martinez DO LAB BLOOD ORDERABLES Final Re sult Performing Organization Address [facility] [[email or web address]] [place] [address] * (ABNORMAL) Blood gas, venous (11/13/2024 1:14 AM CDT) Venous pH 7.36 7.36 - 7.46 pH 11/13/2024 1:27 AM CDT [facility] Venous pCO2 44 35 - 48 mmHg 11/13/2024 1:27 AM CDT [facility] Venous pO2 59.1(H) 30.0 - 50.0 mmHg 11/13/2024 1:27 AM CDT [facility] Venous HCO3 24 22 - 28 mEq/L 11/13/2024 1:27 AM CDT [facility] Venous TCO2 26 24 - 30 mEq/L 11/13/2024 1:27 AM CDT [facility] Venous Base Excess -0.7 -2.0 - 2.0 mmol/L 11/13/2024 1:27 AM CDT [facility] Venous O2 Saturation 89.3 % 11/13/2024 1:27 AM CDT [facility] Patient Temperature 98.6 DegC 11/13/2024 1:27 AM CDT [facility] O2 Admin 21.0 11/13/2024 1:27 AM CDT [facility] Blood Venous blood specimen / Unknown Venipuncture / Unknown 11/13/2024 1:14 AM CDT 11/13/2024 1:21 AM CDT Jose Eduardo Martinez DO LAB BLOOD ORDERABLES Final Re sult Performing Organization Address [facility] [[email or web address]] [place] [address] * Ethanol, Serum (11/13/2024 1:14 AM CDT) Ethanol, Serum <10 <=10 mg/dL 11/13/2024 1:42 AM CDT [facility] Blood Venous blood specimen / Unknown Venipuncture / Unknown 11/13/2024 1:14 AM CDT 11/13/2024 1:21 AM CDT Narrative [facility] - 11/13/2024 1:42 AM CDT Ethanol Normal: Negative = 0 mg/dL Toxic: 50-100 mg/dL Depression of TAXONOMY TEACHER: Greater than 100 mg/dL Fatalities Reported: Greater than 400 mg/dL Interpret with caution. Elevated lactic acid concentration and lactate dehydrogenase activity may falsely elevate enzymatically determined ethanol levels. us Jose Eduardo Martinez DO LAB BLOOD ORDERABLES Final Re sult Performing Organization Address [facility]/[place] [address] * (ABNORMAL) Acetaminophen Level (11/13/2024 1:14 AM CDT) Acetaminophen Level <3.0(L) 10.0 - 30.0 mcg/mL 11/13/2024 1:42 AM [facility] Blood Venous blood specimen / Unknown Venipuncture / Unknown 11/13/2024 1:14 AM CDT 11/13/2024 1:21 AM CDT us Jose Eduardo Martinez DO LAB BLOOD ORDERABLES Final Re sult [facility] [address] [place] [address] * (ABNORMAL) Comprehensive Metabolic Panel (11/13/2024 1:14 AM CDT) Glucose Level 114(H) 65 - 99 mg/dL 11/13/2024 1:42 AM [facility] Sodium 139 135 - 146 mmol/L 11/13/2024 1:42 AM [facility] Potassium, Serum 3.6 3.5 - 5.3 mmol/L 11/13/2024 1:42 AM [facility] Chloride 108 98 - 110 mmol/L 11/13/2024 1:42 AM [facility] Carbon Dioxide Level 22 18 - 30 mmol/L 11/13/2024 1:42 AM [facility] Anion Gap-Calculated 9 4 - 16 mmol/L 11/13/2024 1:42 AM [facility] Calcium Level 8.7 8.5 - 10.4 mg/dL 11/13/2024 1:42 AM [facility] Blood Urea Nitrogen 11 7 - 25 mg/dL 11/13/2024 1:42 AM [facility] Creatinine 0.80 0.50 - 1.10 mg/dL 11/13/2024 1:42 AM [facility] eGFR (Lab Calc) >60 mL/min/1.73 m2 11/13/2024 1:42 AM [facility] BUN/Creatinine Ratio 13.8 6.0 - 25.0 (calc) 11/13/2024 1:42 AM [facility] Protein Total 6.5 6.0 - 8.3 g/dL 11/13/2024 1:42 AM [facility] Albumin Level 3.3 3.2 - 5.0 g/dL 11/13/2024 1:42 AM [facility] BKR ALBUMIN/GLOBULIN (G/G RATIO) IN SER/PLAS 1.0 0.8 - 2.0 ratio 11/13/2024 1:42 AM [facility] ALKALINE PHOSPHATASE (U/L) IN SER/PLAS 69 20 - 125 U/L 11/13/2024 1:42 AM [facility] AST (SGOT) 22 11 - 34 U/L 11/13/2024 1:42 AM [facility] Comment:Interpret results wi th caution. Hemolyzed samples may cause interference with the assay. ALT (SGPT) 11 7 - 34 U/L 11/13/2024 1:42 AM [facility] Bilirubin, Total 0.3 0.2 - 1.3 mg/dL 11/13/2024 1:42 AM [facility] MDRD GFR, Calculated 11/13/2024 1:42 AM [facility] Osmolality (Calculated) 288.3 273.0 - 304.0 MOSMOL 11/13/2024 1:42 AM [facility] Blood Venous blood specimen / Unknown Venipuncture / Unknown 11/13/2024 1:14 AM T 11/13/2024 1:21 AM T Narrative [facility] - 11/13/2024 1:42 AM [facility] Total Bilirubin: A metabolite of Naproxen, O-desmethylnaproxen, has been shown to interfere with the Jenernstik-Tarun method for measuring Total Bilirubin. Samples from patients who have taken Naproxen have shown spurious elevation in Total Bilirubin levels. (Alexa et al, J. Clin Biochem 42, 129-131). The eGFR is based on the CKD-EPI 202 equation. To calculate the new eGFR from previous Creatinine or Cystatin C results, go to https://www.kidney.org/professionals/kdoqi/gfr%5Fcalculator Jose Eduardo Martinez DO LAB BLOOD ORDERABLES Final Re sult Performing Organization Address [facility]/ZIP Co de Phone Number [facility] [address] [place] [address] * SARS-CoV-2/FLU/RSV Cepheid RT-PCR Detection (11/13/2024 1:13 AM CDT) SARS-CoV-2 Cepheid GeneXpert RT-PCR Detection Negative Negative 11/13/2024 2:01 AM CDT [facility] Flu A Cepheid RT PCR Detection Negative Negative 11/13/2024 2:01 AM CDT [facility] Flu B Cepheid RT PCR Detection Negative Negative 11/13/2024 2:01 AM CDT [facility] RSV Cepheid RT PCR Detection Negative Negative 11/13/2024 2:01 AM CDT [facility] Swab Nasal structure / Unknown 11/13/2024 1:13 AM CDT 11/13/2024 1:15 AM CDT Narrative [facility] - 11/13/2024 2:01 AM CDT This test was performed using [employer] GeneXpert . The Xpert Xpress SARS-CoV-2/Flu/RSV Plus [...] OR DERABLES Final Result Performing Organization Address [facility]/ZIP Co de Phone Number [facility] [address] [place] [address] * Fentanyl Screen, Urine (11/13/2024 1:10 AM CDT) Urine Fentanyl Screen Negative Negative 11/13/2024 1:37 AM CDT [facility] Urine Entire urinary tract proper / Unknown Collection / Unknown 11/13/2024 1:10 AM CDT 11/13/2024 1:13 AM CDT [facility] - 11/13/2024 1:37 AM CDT Urine Drug Screen specimen was not collected by any chain of custody procedure; The results have not been confirmed and are intended for medical use only. Jose Eduardo Martinez DO LAB URINE ORDERABLES Final Re sult Performing Organization Address [facility] [[email or web address]] Co de Phone Number [address] [address] * Oxycodone Screen, Urine (11/13/2024 1:10 AM CDT) Urine Oxycodone Screen Negative Negative 11/13/2024 1:37 AM CDT [facility] Urine Entire urinary tract proper / Unknown Collection / Unknown 11/13/2024 1:10 AM CDT 11/13/2024 1:13 AM CDT [facility] - 11/13/2024 1:37 AM CDT Urine Drug Screen specimen was not collected by any chain of custody procedure; The results have not been confirmed and are intended for medical use only. Jose Eduardo Martinez DO LAB URINE ORDERABLES Final Re sult Performing Organization Address City/[facility]/ZIP Co de Phone Number [facility] [address], [place] [address] * Urinalysis, Culture if Indicated (11/13/2024 1:10 AM CDT) Urine Color Straw Yellow, Light Yellow, Straw, Pale Yellow, Dark yellow, DKYELLOW, DARK YELLO 11/13/2024 1:27 AM CDT [facility] Urine Clarity Clear Clear 11/13/2024 1:27 AM CDT [facility] Urine pH 6.0 5.0, 5.5, 6.0, 6.5, 7.0, 7.5, 8.0 11/13/2024 1:27 AM CDT [facility] U Specific [place] 1.025 <=1.005 - 1.030 11/13/2024 1:27 AM CDT [facility] U Glucose Negative Negative 11/13/2024 1:27 AM CDT [facility] U Protein Negative Negative 11/13/2024 1:27 AM CDT [facility] U Bilirubin Negative Negative 11/13/2024 1:27 AM CDT [facility] U Leukocyte Esterase Negative Negative 11/13/2024 1:27 AM CDT [facility] U Ketone Negative Negative 11/13/2024 1:27 AM CDT [facility] U Blood Negative Negative 11/13/2024 1:27 AM CDT [facility] U Nitrite Negative Negative 11/13/2024 1:27 AM T [facility] Urine Urobilinogen 0.2 0.2 mg/dL mg/dL 11/13/2024 1:27 AM T [facility] Urine Comment 11/13/2024 1:27 AM T [facility] Urine Entire urinary tract proper / Unknown Collection / Unknown 11/13/2024 1:10 AM CDT 11/13/2024 1:13 AM CDT Narrative [facility] - 11/13/2024 1:27 AM CDT Consider positive bilirubin results as presumptive positive. Consider confirmation by serum bilirubin if clinically indicated. us Jose Eduardo Martinez DO LAB URINE ORDERABLES Final Re sult [address] [address] * (ABNORMAL) Urine Toxicology Screen (11/13/2024 1:10 AM CDT) Amphetamine Screen Urine Negative Negative 11/13/2024 1:34 AM CDT [facility] Urine Barbiturates Screen Negative Negative 11/13/2024 1:34 AM CDT [facility] Urine Benzodiazepine Screen Negative Negative 11/13/2024 1:34 AM CDT [facility] Urine Cocaine Screen Negative Negative 11/13/2024 1:34 AM CDT [facility] Urine Methadone Negative Negative 1:34 AM CDT [facility] Urine Opiates Screen Negative Negative 11/13/2024 1:34 AM CDT [facility] Urine Phencyclidine (PCP) Screen Negative Negative 11/13/2024 1:34 AM CDT [facility] Urine THC Screen Positive(A) Negative 025 1:34 AM CDT [facility] U Specific [place] 1.025 <=1.005 - 1.030 11/13/2024 1:34 AM CDT [facility] Entire urinary tract proper / Unknown 11/13/2024 1:10 AM CDT 11/13/2024 1:13 AM CDT [facility] - 11/13/2024 1:34 AM CDT Urine Drug Screen specimen was not collected by any chain of custody procedure; The results have not been confirmed and are intended for medical use only. Jose Eduardo Martinez DO LAB URINE [place] [address] * Urine (11/13/2024 1:10 AM CDT) hCG, Qual Urine Negative Negative 11/13/2024 1:22 AM CDT [facility] Urine Entire urinary tract proper / Unknown Collection / Unknown 11/13/2024 1:10 AM CDT 11/13/2024 1:13 AM CDT [facility] - 11/13/2024 1:22 AM CDT hCG is not usually detected in healthy men and healthy non- women. However, hCG levels in will usually exceed 25 mIU/mL two to three days prior to the first missed menstrual period. us Jose Eduardo Martinez DO LAB URINE ORDERABLES Final Re sult Performing Organization Address [facility]/ZIP Co de Phone Number [address] [address] * POC Glucometer Glucose (11/13/2024 12:55 AM CDT) Glucometer Glucose 99 65-99 mg/dL mg/dL 11/13/2024 12:59 AM CDT [facility] POC Employee ID [id number] 12:59 AM CDT [facility] Location SAL-ED 11/13/2024 12:59 AM CDT [facility] Blood 11/13/2024 12:5 5 AM CDT 11/13/2024 12:59 AM CDT Narrative [facility] - 11/13/2024 12:59 AM CDT Reliability of [...] ORDERA BLES Final Result Performing Organization Address [facility] [[email or web address]] Co de Phone Number [address] [address] * [facility] Screening (04/29/2024 2:35 PM PROTOCOL OFFICER) Fantasma Brewer DO HEALTH MAINTENANCE Fin al Result * Thinprep Pap (08/12/2021 1:46 PM CDT) Clinical Information: [facility] Comment:None given Lmp: [facility] Comment:[id number] Prev. Pap: Diagnosti c Laboratory [facility] Comment:None given Prev. Bx: [facility] Comment:None given Source [facility] Comment:Cervix Statement of Adequacy: [facility] Comment: Satisfactory for evaluation. Endocervical/transformation zone component present. PAP Interpretation D [facility] Comment:Negative for intraep ithelial lesion or malignancy. Comment [facility] Comment: This Pap test has been evaluated with computer assisted technology. Medical Device Sales: Di [facility] Comment: JDT, CT(ASCP) CT Screening Location: [facility] [address], [facility] [address], [place] [address] Review Medical Device Sales: [facility] Comment: WN, CT(ASCP) CT Screening Location: [facility] [address], [facility] [address], [place] [address] Comment [facility] Comment: EXPLANATORY NOTE: The Pap is a [...] ORDERABLE S Final Result [facility] [address] [place] [address], [facility] [address], [address] [place] [address] from Last 3 Months or Most Recently Relevant to Health Maintenance Additional Health Concerns Infection Onset Date Last Indicated MRSA Comment:Added from external infection. Source: [facility] and Count Includes [facility] Practices. 05/15/[address] [facility] CHOICE Advance Directives For more information, please contact: [phone] * Full Code (Latest Code Status on [...] 7:29 PM 12/30/2021 11:56 PM Care Teams Veterinary Medicine Doctor Relationship Specialty Start Date End Date Fantasma Brewer DO [address] [place] [id number] PCP - General Family Medicine 08/24/23
--- OUTSIDE RECORDS SUMMARY | 2024-11-24 22:04 | XMS_ITS | Encounter Summary ---
Author Organization [employer] Address [address] [place] [address] Care Team Providers Care Insulation Blower Name Role Phone Fantasma Brewer DO Primary Care Provider Encounter Details Date Type Department Care Team (Late st Contact Info) Description 11/18/2024 Patient Outreach [facility] [address] [place] [phone] Fantasma Brewer DO [address] [place] [phone] Emergency Department Follow-Up Social History Tobacco Use Types Packs/Day Years Used Date Smoking Tobacco: Never Passive Smoke Exposure: Never Smokeless Tobacco: Never Alcohol Use Standard Drinks/Week Comments Never 0 (1 standard drink = 0.6 oz pur e alcohol) [facility] Utilities Answer Date Recorded In the past 12 months has [employer], gas, oil, or water [employer] [place] threatened to shut off services in your [...] money to get more. Never true 05/13/2024 [facility] - Transportation Answer Date Record ed [...] your living situation today? I have a [facility] place to live 05/13/2024 Housing Problems Not on file 05/13/2024 Comments No Sex and Gender Information Value Date Recorded Sex Assigned at Not on file Legal Sex Female 9:57 AM EXPLORATION DRILLER Gender Identity Not on file Sexual Orientation Not on file documented as of this encounter Functional Status * Is the person deaf or does he/she have serious difficulty hearing? Answer Date of Assessment Author No 05/13/2024 11:15 PM EXPLORATION DRILLER * Is this person blind or does he/she have serious difficulty seeing even when wearing glasses? Answer Date of Assessment Author No 05/13/2024 11:15 PM EXPLORATION DRILLER * Does this person have serious difficulty walking or climbing stairs? Answer Date of Assessment Author No 05/13/2024 11:15 PM EXPLORATION DRILLER * Does this person have difficulty dressing or bathing? Answer Date of Assessment Author No 05/13/2024 11:15 PM EXPLORATION DRILLER * Because of a physical, mental, or emotional condition, does this person have difficulty doing errands alone such as visiting a doctor's office or shopping? Answer Date of Assessment Author No 05/13/2024 11:15 PM EXPLORATION DRILLER documented as of this encounter Mental Status * Because of a physical, mental, or emotional condition, does this person have serious difficulty concentrating, remembering, or making decisions? Answer Entry Date Author No 05/13/2024 11:15 PM EXPLORATION DRILLER documented in this encounter Plan of Treatment Not on file documented as of this encounter Visit Diagnoses Not on filedocumented in this encounter Additional Health Concerns Infection Onset Date Last Indicated Resolved Time MRSA Comment:Added from external infection. Source: [facility] Practices. 05/15/2024 documented as of this encounter Care Teams Insulation Blower Relationship Specialty Start Date End Date Fantasma Brewer DO [address] [place] [id number] PCP - General Family Medicine 08/24/23 documented as of this encounter
--- OUTSIDE RECORDS SUMMARY | 2024-11-24 22:04 | XMS_ITS | Encounter Summary ---
Author Organization [facility] Address [address] [place] [address] Care Team Providers Care Phys Asst Name Role Phone Varinder Brewer DO Primary Care Provider Unava ilable Reason for Visit * Reason Onset Date Comments Medication Refill 09/20/2024 Encounter Details Date Type Department Care Team (Late st Contact Info) Description 09/20/2024 Refill [facility] [place] [address] [facility], 1[address] [place] [phone] Kim Carbone, CHA Social History Tobacco Use Types Packs/Day Years Used Date Smoking Tobacco: Some Days Cigarettes Passive Smoke Exposure: Past Smokeless Tobacco: Never Comments:Smokes cigarettes, 1 pk every 2 weeks. Alcohol Use Standard Drinks/Week Comments Not Currently 0 (1 standard drink = 0.6 oz pur e alcohol) [facility] Utilities Answer Date Recorded In the past 12 months has [employer], gas, oil, or water [employer] threatened to shut off services in your [...] any time in the past 12 m [facility], were you homeless or living in [...] documented as of this encounter Care Teams Phys Asst Relationship Specialty Start Date End Date Varinder Brewer DO [address] [place], [place] [phone] PCP - General Surgery General 07/06/24 documented as of this encounter
--- OUTSIDE RECORDS SUMMARY | 2024-11-24 22:04 | XMS_ITS | Encounter Summary ---
Author Organization [facility] Address [address] [place] [address] Care Team Providers Care Wildlife Enforcement Major Name Role Phone Varinder Brewer DO Primary Care Provider Unava ilable Reason for Visit * Reason Onset Date Comments Advice Only 07/04/2024 Needing to sched [facility] follow up Encounter Details Date Type Department Care Team (Late st Contact Info) Description 07/04/2024 Telephone [facility] [address] [place] [address] Amber Dale MD [address] [facility], [address] [place] [address] Advice Only (Needing to schedule hospital follow up ) Social History Tobacco Use Types Packs/Day Years Used Date Smoking Tobacco: Former Cigarettes Smokeless Tobacco: Never Alcohol Use Standard Drinks/Week Comments Never 0 (1 standard drink = 0.6 oz pur e alcohol) [facility] Utilities Answer Date Recorded In the [...] any time in the past 12 m [facility], were you homeless or living in a custodial (including now)? No 07/06/2024 Comments No Sex [...] requesting to schedule hospital follow up appointment. T LINER HELPER documented in this encounter Plan of Treatment Not on file documented as of this encounter Visit Diagnoses Not on filedocumented in this encounter Additional Health Concerns Infection Onset Date Last Indicated Resolved Time COVID 07/08/2024 07/08/2024 07/08/2024 11:3 4 PM SPOUT LINER HELPER Potential Prion/CJD Comment:07/16/24: Dr. Rollins stated no concern for CJD. 07/15/2024 07/15/2024 07/17/2024 8:[address] documented as of this encounter Care Teams Wildlife Enforcement Major Relationship Specialty Start Date End Date Varinder Brewer DO [address] [place], [place] [phone] PCP - General Surgery General 07/06/24 documented as of this encounter
--- OUTSIDE RECORDS SUMMARY | 2024-11-24 22:04 | XMS_ITS | Encounter Summary ---
Author Organization [facility] Address [address] [place] [address] Care Team Providers Care Delivery Lead Name Role Phone Varinder Brewer DO Primary [...] Fantasma Brewer DO [address] [place] [address] Phone: tel: fax: [facility] [address] [address] Phone: tel: fax: Referral ID Status Reason Start Date Expiration Date V isits Requested Visits Authorized [id number] Closed Eval and Treat 09/01/2023 08/31/2024 17 17 Encounter Details Date Type Department Care Team (Latest Contact Info) Description 09/01/2023 Transcribe Orders [facility] [address] [phone] Fantasma Brewer DO [address] [place] [phone] Strain of lumbar region (Primary Dx); Strain [...] COVID 07/08/2024 07/08/2024 07/08/2024 11:3 4 PM INTEGRITY ENGINEER Potential Prion/CJD Comment:07/16/24: Dr. Rollins stated no concern for CJD. 07/15/2024 07/15/2024 07/17/2024 8:[address] documented as of this encounter Care Teams Delivery Lead Relationship Specialty Start Date End Date Varinder Brewer DO [address] [place], [place] [phone] PCP - General Surgery General 07/06/24 documented as of this encounter
--- OUTSIDE RECORDS SUMMARY | 2024-11-24 22:04 | XMS_ITS | Clinical Summary ---
Author Organization [facility] Address [address] [place] [address] Care Team Providers Care Tax Audit Manager Name Role Phone Varinder Brewer DO Primary [...] Problem Noted Date Diagnosed Date Respiratory failure ([facility], [facility]) Epigastric pain 07/10/2024 Resolved Problems Problem Noted Date Diagnosed Date Resolved Date Status epilepticus ([facility], [facility]) 07/25/2024 07/28/2024 Hypercalcemia 07/22/2024 07/24/2024 Hypoglycemic coma, non-diabetic ([facility]) 07/10/2024 07/19/2024 Seizure ([facility], HHS/HCC) 07/08/2024 0 07/19/2024 Altered mental status, unspe cified altered mental status type 07/06/2024 07/07/2024 Pancreatitis (HHS/HCC) 06/19/202407/10 Acute pancreatitis (HHS/HCC) 06/18/2024 07/10/2024 Encounters Date Type Department Care Team Description 10/20/2024 Results Follow-Up [facility] [place] [address] [facility] [place] [address] Amber Dale MD [place] Gastric Emptying Solid Phase 10/17/2024 8:17 AM CDT - 10/17/2024 11:59 PM CDT Hospital Encounter [facility] Nuclear Medicine [address] [place] [phone] Amber Dale MD Discharge Disposition: Still a Patient 10/17/2024 8:17 AM CDT - 10/17/2024 11:59 PM CDT Hospital Encounter [facility] Nuclear Medicine [address] [place] [phone] Amber Dale MD Discharge Disposition: Still a Patient 10/17/2024 8:17 AM CDT - 10/17/2024 11:59 PM CDT Hospital Encounter [facility] Nuclear Medicine [address] [place] [phone] Amber Dale MD Discharge Disposition: Still a Patient 10/17/2024 8:17 AM CDT - 10/17/2024 11:59 PM CDT Hospital Encounter [facility] Nuclear Medicine [address] [place] [phone] Amber Dale MD Abdominal pain, unspecified abdominal location; Bloating Discharge Disposition: Still a Patient 10/14/2024 10:54 PM CDT - 10/15/2024 2:42 AM CDT Emergency [facility] Trauma Emergency [address] [place] [phone] Marshal Davey DO Breakthrough seizure (CMS/HCC, HHS/HCC) (Primary Dx); Pancreatic cyst (HHS/HCC); Headache; Abdominal pain Discharge Disposition: Home or Self Care 10/07/2024 9:10 PM CDT - 10/08/2024 6:29 AM CDT Emergency [facility] Trauma Emergency [address] [place] [address] Discharge Disposition: LWBS 10/07/[address] [facility] [place] [address] [facility] [place], [address] [place] [address] [phone] AshcampCherrichelle N, [place] Diarrhea, unspecified type (Primary Dx) 10/01/2024 Results [facility]-Up [facility] [place] [address] [facility] [place], [address] [place] [phone] Amber Dale MD Pancreatic Elastase, Fecal 09/30/[address] [facility] [place] [address] [facility] [place], [address] [place] [address] [phone] AshcampVeena hickmane N, [place] going to the ER 09/25/[address] [facility] [place] [address] [facility] [place], [address] [place] [address] [phone] Ashcamp Nychelle N, [place] Bloated 09/25/[address] [facility] [place] [address] [facility] [place], [address] [place] [address] [phone] AshcampCherrichelle N, [place] Abdominal pain, unspecified abdominal location (Primary Dx); Bloating 09/25/[address] [facility] [place] [address] [facility] [place], [address] [place] [address] [phone] Ashcamp Nychelle N, [place] Abdominal pain, unspecified abdominal location (Primary Dx); Bloating 09/20/[address] [facility] [place] [address] [facility] [place], [address] [place] [address] [phone] AshcampCherrichelle N, [place] 09/20/[address] [facility] [place] [address] [facility] [place], [address] [place] [address] [phone] Kim Carbone, [place] Abdominal pain, unspecified abdominal location (Primary Dx) 09/20/2024 Results Follow-Up [facility] [place] [address] [facility] [place], [address] [place] [phone] Abdomen Pelvis With and Without Contrast 09/17/2024 Results Follow-Up [facility] [place] [address] [facility] [place], [address] [place], [place] [phone] Amber Dale MD Amylase, Lipase, CMP 09/17/[address] [facility] General Surgery [address] [phone] Yaneth Roque RN EUS report forwarded to GI physicians 09/16/2024 3:00 PM CDT - 09/16/2024 4:00 PM CDT Surgery [facility] Endoscopy [address] [place] [phone] Aly Tom MD ENDOSCOPIC ULTRASOUND (UPPER) 09/16/2024 1:52 PM CDT Anesthesia Event [facility] Endoscopy [address] [place] [phone] Dragan Parmar, Radha Garcia, PA 09/16/2024 11:54 AM CDT - 09/16/2024 3:26 PM CDT Hospital Encounter [facility] Endoscopy [address] [place] [phone] Aly Tom MD Nausea Discharge Disposition: Home or Self Care 09/10/[address] [facility] [place] [address] [facility] [place], [address] [place] [address] [phone] Kim Carbone [place] lab work 09/10/[address] [facility] [place] [address] [facility] [place], [address] [place] [address] [phone] Kim Carbone [place] Nausea (Primary Dx) 09/06/[address] [facility] General Surgery [address] [facility] [address] [place] [phone] Stephani Layne Neurology Clearance 09/04/2024 2:00 PM CDT Pre-Admission Testing [facility] Pre-Op Clinic [address] [place] [phone] Aly Tom MD 08/30/2024 Results Follow-Up [facility] [place] [address] [facility] [place], [address] [place] [phone] Amber Dale MD CBC with Differential, CMP, Lipase 08/27/[address] [facility] [place] [address] [facility], [address] [place] [address] [phone] Kim Carbone [place] lab work 08/27/[address] [facility] [place] [address] [facility], [address] [place], [place] [phone] Melissa Preston [place] Chart Message 08/27/2024 [facility] [place] [address] [facility], [address] [place] [address] [phone] Kim Carbone [place] Acute pancreatitis, unspecified complication status, unspecified pancreatitis type (HHS/HCC) (Primary Dx) 08/27/[address] [facility] [place] [address] [facility] [address], [address] [place] [phone] Kim Carbone [place] Acute pancreatitis, unspecified complication status, unspecified pancreatitis type (HHS/HCC) (Primary Dx) 08/26/[address] [facility] [place] [phone] [facility], [address] [place] [phone] Melissa Preston, CHA Phone Call from Last 3 Months Immunizations Immunization Administration [...] [id number] 02/06/2019 Pneumococcal Conjugate PCV 7 2001,02/09/20 01 Tdap 03/22/2019,08/02/2013 Varicella 02/06/2019,2001 Social History Tobacco Use Types Packs/Day Years Used Date Smoking Tobacco: Some Days Cigarettes Passive Smoke Exposure: Past Smokeless Tobacco: Never Tobacco Cessation:Ready to Q uit: Not Asked; Counseling Given: Not Answered Comments:Smokes cigarettes, 1 pk every 2 weeks. Alcohol Use Standard Drinks/Week Comments Not Currently 0 (1 standard drink = 0.6 oz pur e alcohol) [facility] Utilities Answer Date Recorded In the past 12 months has th e readeo, gas, oil, or water [employer] threatened to shut off services in your [...] any time in the past 12 m [facility], were you homeless or living in a longterm (including now)? No 08/06/2024 Comments No Sex [...] 2021 COVID-19 Vaccine (1 - season) 2024 Influenza Vaccine (#1) 2024 5, 04/11/2005, 04/10/2003, Additional history exists DTaP/Tdap/Td Vaccines (8 - Td or Tdap) 03/22/2029 03/22/2019, 08/02/2013, 10/14/2004, Additional history exists Zoster Vaccine (1 of 2) 2050 02/06/2019, 09/14 Respiratory Syncytial Virus (RSV) or 60+ Years (1 - 1-dose 75+ series) 09/15/2075 Hepatitis B Vaccines Completed 03/16/2001, 2000, 2000 HIB Vaccines Completed 04/09/2002, 02/20, 02/08/2001, Additional history exists Hepatitis A Vaccines Completed 04/10/2003, 10/02/19 03 IPV Vaccines Completed 10/14/2004, 02/20, 02/08/2001, Additional history exists MMR Vaccines Completed 10/14/2004, 2001 Meningococcal Vaccine Completed 02/06/2019 Varicella Vaccines Completed 02/06/2019, 2001 Meningococcal B Vaccine Completed 03/21/2019, 02/06 Rotavirus Vaccines Aged Out No longer eligible based on patient's age to complete this topic Goals Goal Patient Goal Type Associated Problems Recent Progress Patient-Stated? Author Blood Pressure - Daily Monitoring Care Plan HYPERTENSION No Marbyeth Davis MD Procedures Procedure Name Priority Date/Time [...] CDT 1. No significant delayed gastric emptying. [id number] Narrative 10/17/2024 1:41 PM CDT NM GASTRIC [...] IMPRESSION 1. No significant delayed gastric emptying. [id number] Amber Dale MD [facility] ORDERABLES Final Result * DRUG SCREEN PROFILE DRUGS OF ABUSE, URINE (10/15/2024 12:03 AM CDT) Pathologist [facility] Amphetamines Qual Negative Negative 025 12:37 AM T [facility] Barbituates Qual Negative Negative 10/16/19 25 12:37 AM CDT [facility] Benzodiazepine Qual Negative Negative 10/15/2024 12:37 AM T [facility] Buprenorphine Qual Negative Negative 2024 12:37 AM T [facility] Cannabinoid Qual Negative Negative 10/16/19 25 12:37 AM CDT [facility] Cocaine Qual Negative Negative 10/15/2024 12:37 AM T [facility] Methadone Qual Negative Negative 10/15/2024 12:37 AM T [facility] Opiates Qual Negative Negative 10/15/2024 12:37 AM T [facility] Fentanyl Qual Negative Negative 10/15/2024 12:37 AM [facility] Urine Collection / Unknown 10/15/2024 12:03 AM CDT 10/15/2024 12:09 AM CDT Narrative [facility] - 10/15/2024 12:37 AM CDT Results [...] negative. Fentanyl: Results <1ng/mL are considered negative. Marshal Davey DO URINE ORDERABLES Final Result [facility] [address] [facility] [place] [address], * CT Abdomen Pelvis With Contrast (10/14/2024 11:37 PM CDT) Anatomical Region Laterality Modality Abdomen, Pelvis Computed Tomogra phy 10/14/2024 11:5 3 PM CDT Impressions 10/14/2024 11:55 PM CDT No evidence of an acute abnormality. [id number] Narrative 10/14/2024 11:[address] ABDOMEN [...] IMPRESSION No evidence of an acute abnormality. [id number] [facility] CT ORDERABLES Final Result * CT Head Without Contrast (10/14/2024 11:36 PM CDT) Anatomical Region Laterality Modality Head Computed Tomogra phy 10/14/2024 11:4 5 PM CDT Impressions 10/14/2024 11:46 PM CDT Unremarkable head CT. [id number] Narrative 10/14/2024 11:[address] HEAD [...] cells are well-aerated. IMPRESSION Unremarkable head CT. [id number] [facility] IMG CT ORDERABLES Final Result * Whole Blood Creatinine Level (10/14/2024 11:17 PM CDT) [facility] Creat 0.8 0.6 - 1.1 mg/dL 10/14/2024 11:20 PM CDT [facility] WB eGFRcr >90 >=60 10/14/2024 11:20 PM CDT [facility] Blood 10/14/2024 11:1 7 PM CDT 10/14/2024 11:20 PM CDT Narrative [facility] - 10/14/2024 11:20 PM CDT Testing performed and reviewed by nursing personnel. [facility] POCT ORDERABLES - DEVICE Final R esult Performing Organization Address City/State/[facility] Co de Phone Number [facility] [address] [facility] [place] [address], * Glucose Level,Bedside by Glucometer (10/14/2024 11:14 PM CDT) Pathologist [facility] Gluc Bedside 107 (70-110 mg/dL - expected results in non-diabetic, non- patients. <140 mg/dL - 2 hrs after 75g of glucose.) mg/dL 10/14/2024 11:15 PM CDT [facility] LORI [id number] 10/14/2024 11:15 PM CDT [facility] Blood 10/14/2024 11:1 4 PM CDT 10/14/2024 11:15 PM CDT [facility] POCT ORDERABLES - DEVICE Final R esult Performing Organization Address [facility] Co de Phone Number [facility] [address] [place] [address], * Hold Blue Tube (10/14/2024 11:02 PM CDT) Only the most recent of2 resultswithin the time period is included. Comment This event is used to track the Hold Tube request. 10/15/2024 11:32 AM CDT [facility] Blood 10/14/2024 11:0 2 PM CDT 10/14/2024 11:08 PM CDT [facility] LAB BLOOD ORDERABLES Final Resul t Performing Organization Address [facility] Co de Phone Number [facility] [address] [place] [address], [place] [phone] * HCG, Qualitative/Quantitative (10/14/2024 11:02 PM CDT) Only the most recent of2 resultswithin the time period is included. HCG Quant <1.2 0.0 - 5.0 mIU/mL 10/14/2024 11:45 PM CDT [facility] HCG Qualitative Negative Negative 11:45 PM CDT [facility] Blood 10/14/2024 11:0 2 PM CDT 10/14/2024 11:10 PM CDT [facility] LAB BLOOD ORDERABLES Final Resul t Performing Organization Address [facility] Co de Phone Number [facility] [address] [place] [address] [place] [address], [place] [phone] * (ABNORMAL) CBC with Differential (10/14/2024 11:02 PM CDT) Only the most recent of3 resultswithin the time period is included. WBC 14.1(H) 4.6 - 12.4 K/cmm 10/14/2024 11:12 PM T [facility] RBC 4.68 3.71 - 5.19 M/cmm 10/14/2024 11:12 PM T [facility] Hgb 13.5 11.9 - 15.0 g/dL 10/14/2024 11:12 PM T [facility] Hct 41.9 33.7 - 46.5 % 10/14/2024 11:12 PM T [facility] MCV 89.5 76.0 - 101.6 fL 10/14/2024 11:12 PM T [facility] MCHC 32.1 30.9 - 34.1 g/dL 10/14/2024 11:12 PM [facility] RDW 14.0 12.0 - 15.7 % 10/14/2024 11:12 PM T [facility] Plt 396 150 - 440 K/cmm 10/14/2024 11:12 PM T [facility] MPV 10.5 8.90 - 12.56 fL 10/14/2024 11:12 PM T [facility] nRBCs 0 0 - 0 /100 10/14/2024 11:12 PM T [facility] Neutrophil (%) 59 38 - 73 % 10/14/2024 11:12 PM T [facility] Lymph (%) 26 15 - 48 % 10/14/2024 11:12 PM CDT [facility] [place] (%) 8 5 - 14 % 10/14/2024 11:12 PM T [facility] Eos (%) 7 0 - 7 % 10/14/2024 11:12 PM T [facility] Baso (%) 1 0 - 2 % 10/14/2024 11:12 PM T [facility] Absolute Neutrophils 8.3(H) 1.8 - 7.1 K/cmm 10/14/2024 11:12 PM CDT [facility] Absolute Lymphocytes 3.6 1.0 - 4.1 K/cmm 10/14/2024 11:12 PM CDT [facility] Absolute Monocytes 1.2(H) 0.3 - 0.9 K/cmm 10/14/2024 11:12 PM CDT [facility] Absolute Eosinophils 0.9(H) 0.0 - 0.6 K/cmm 10/14/2024 11:12 PM CDT [facility] Absolute Basophils 0.1 0.0 - 0.2 K/cmm 10/14/2024 11:12 PM CDT [facility] IG (%) 0 0 - 1 % 10/14/2024 11:12 PM CDT [facility] IG ABS 0.1 0.0 - 0.2 K/cmm 10/14/2024 11:12 PM CDT [facility] ANC 8.4 10/14/2024 11:12 PM CDT [facility] Blood 10/14/2024 11:0 2 PM CDT 10/14/2024 11:08 PM CDT [facility] LAB BLOOD ORDERABLES Final Resul t Performing Organization Address [facility] Co de Phone Number [facility] [address] [facility] [place] [address], [place] [phone] * (ABNORMAL) Prolactin Level (10/14/2024 11:02 PM CDT) Prolactin 112.71(H) 1.20 - 29.93 ng/mL 10/15/2024 12:01 AM CDT [facility] Blood 10/14/2024 11:0 2 PM CDT 10/14/2024 11:10 PM CDT [facility] LAB BLOOD ORDERABLES Final Resul t Performing Organization Address City/[facility]/ZIP Co de Phone Number [facility] [address] [facility] [address] [place] [address], [place] [phone] * (ABNORMAL) Levetiracetam Level (10/14/2024 11:02 PM CDT) Keppra <2(L) 6 - 46 ug/mL 10/15/2024 12:16 AM CDT [facility] Blood 10/14/2024 11:0 2 PM CDT 10/14/2024 11:10 PM CDT [facility] LAB BLOOD ORDERABLES Final Resul t Performing Organization Address [facility]/ZIP Co de Phone Number [facility] [address] [place] [address], * Magnesium Level (10/14/2024 11:02 PM CDT) Mg 2.1 1.7 - 2.9 mg/dL 10/14/2024 11:36 PM CDT [facility] Blood 10/14/2024 11:0 2 PM CDT 10/14/2024 11:09 PM CDT [facility] LAB BLOOD ORDERABLES Final Resul t Performing Organization Address [facility] Co de Phone Number [facility] [address] [place] [address], * Lipase (10/14/2024 11:02 PM CDT) Only the most recent of4 resultswithin the time period is included. Lipase 24 8 - 78 U/L 10/14/2024 11:37 PM CDT [facility] Blood 10/14/2024 11:0 2 PM CDT 10/14/2024 11:10 PM CDT [facility] LAB BLOOD ORDERABLES Final Resul t Performing Organization Address City/[facility]/ZIP Co de Phone Number [facility] [address] [place] [address], [place] [phone] * Alcohol Level (10/14/2024 11:02 PM CDT) Alcohol Negative 0 - 12 mg/dL 10/15/2024 12:12 AM CDT [facility] Blood 10/14/2024 11:0 2 PM CDT 10/14/2024 11:10 PM CDT [facility] LAB BLOOD ORDERABLES Final Resul t [facility] [address] [place] [address], * (ABNORMAL) CMP (10/14/2024 11:02 PM CDT) Only the most recent of4 resultswithin the time period is included. Gluc 107 70 - 110 mg/dL 10/14/2024 11:37 PM CDT [facility] BUN 12 5 - 25 mg/dL 10/14/2024 11:37 PM CDT [facility] Creat 0.73 0.57 - 1.11 mg/dL 10/14/2024 11:37 PM CDT [facility] CO2 19(L) 21 - 32 mmol/L 10/14/2024 11:37 PM CDT [facility] Cl 110 96 - 112 mmol/L 10/14/2024 11:37 PM CDT [facility] Na 140 135 - 146 mmol/L 10/14/2024 11:37 PM CDT [facility] K 4.2 3.5 - 5.0 mmol/L 10/14/2024 11:37 PM CDT [facility] Ca 9.1 8.5 - 10.7 mg/dL 10/14/2024 11:37 PM CDT [facility] TP 7.3 6.2 - 8.2 g/dL 10/14/2024 11:37 PM CDT [facility] Alb 4.1 3.4 - 4.7 g/dL 10/14/2024 11:37 PM CDT [facility] T Bili 0.2 0.1 - 1.2 mg/dL 10/14/2024 11:37 PM CDT [facility] Alk Phos 70 39 - 139 U/L 10/14/2024 11:37 PM CDT [facility] AST (SGOT) 17 8 - 42 U/L 10/14/2024 11:37 PM CDT [facility] ALT (SGPT) 16 7 - 40 U/L 10/14/2024 11:37 PM CDT [facility] HEMOLYSIS Slight Hemolysis( A) No hemolysis detected 10/14/2024 11:37 PM CDT [facility] Anion Gap 11 5-17 mmol/L mmol/L 10/14/2024 11:37 PM CDT [facility] eGFRcr >90 >=60 10/14/2024 11:37 PM CDT [facility] Blood 10/14/2024 11:0 2 PM CDT 10/14/2024 11:10 PM CDT us [facility] LAB BLOOD ORDERABLES Final Resul t [facility] [address] [place] [address], * (ABNORMAL) Urinalysis w/Culture, if Indicated (10/07/2024 9:59 PM CDT) Color, Urine Yellow 10/07/2024 10:11 PM CDT [facility] Clarity, Urine Slightly Cloudy 10/07/2024 10:11 PM CDT [facility] Glucose, Urine Negative Negative 10/07/2024 10:11 PM CDT [facility] pH, Urine 7.0 5 - 8.5 10/07/2024 10:11 PM CDT [facility] Ketones, Urine Negative Negative 10/07/2024 10:11 PM CDT [facility] Protein, Urine Negative Negative 10/07/2024 10:11 PM CDT [facility] Bilirubin, Urine Negative Negative 10/07/2024 10:11 PM CDT [facility] Blood, Urine Negative Negative 10/07/2024 10:11 PM CDT [facility] Urobilinogen, Urine Negative <0.2 - 1.0 10/07/2024 10:11 PM CDT [facility] Specific [place], Urine 1.017 1.005 - 1.030 10/07/2024 10:11 PM CDT [facility] Leukocyte Esterase, Urine 3+(A) Negative 10/07/2024 10:11 PM CDT [facility] Nitrite, Urine Negative Negative 10/07/2024 10:11 PM CDT [facility] WBC, Urine 8(H) <5 avg/hpf 10/07/2024 10:11 PM CDT [facility] RBC, Urine 2 <5 avg/hpf 10/07/2024 10:11 PM CDT [facility] Squamous Epithelium 2+ /hpf 10/07/2024 10:11 PM CDT [facility] Urine URINE SPECIMEN OBTAINED BY CLEAN CATCH PROCEDURE / Unknown Collection / Unknown 10/07/2024 9:59 PM CDT 10/07/2024 10:03 PM CDT Loree Mckeon DO URINE ORDERABLES Final Resu lt Performing Organization Address City/State/[facility] Co de Phone Number [facility] [address] [place] [address], * Pancreatic Elastase, Fecal (09/25/2024 2:21 PM CDT) Pancreatic Elastase >800 >=100 ug/g 09/28/2024 3:20 PM CDT [facility] Comment: REFERENCE INTERVAL: Pancreatic Elastase Fecal by Immunoassay Less than 100 ug/g............Severe insufficiency 100 - 199 ug/g................Moderate insufficiency 200 ug/g or greater...........Normal INTERPRETIVE INFORMATION: Pancreatic Elastase Fecal by Immunoassay Reference intervals do not apply for infants less than one month old. Performed By: [facility] [address] [place] [address] Compliance Representative Dealer: Bishop Sena MD, PhD CLIA Number: [id number] Stool STOOL SPECIMEN / Unknown 09/25/2024 2:21 PM CDT 09/25/2024 4:29 PM CDT us Amber Dale MD BODY FLUIDS AND STOOLS ORDERABLE S Final Result Performing Organization Address [facility] de Phone Number [employer] [address] [place] [address] * Specimen Container Issue to Patient Stool Container (09/25/2024 2:10 PM CDT) Specimen Container Issued A specimen container has been issue to the patient to be delivered to the Lab. 09/25/2024 3:32 PM CDT [facility] Stool 09/25/2024 2:10 PM CDT 09/25/2024 2:32 PM CDT us Amber Dale MD LAB BLOOD ORDERABLES Final Resul t Performing Organization Address [facility] de Phone Number [facility] [address] [place] [address], * Endoscopic Ultrasonography, GI (09/16/2024 1:58 PM CDT) Anatomical Region Laterality Modality Other 09/16/2024 1:58 PM CDT Narrative 09/16/2024 3:57 PM CDT Patient Name: Romi Hobson Visit Number: [id number] Date of : 2000 Admit Type: Outpatient [...] HCG Qualitative Negative Negative 12:16 PM CDT [facility] LORI [id number] 09/16/2024 12:16 PM CDT [facility] SN [id number] 09/16/2024 12:16 PM CDT [facility] Urine 09/16/2024 12: 08 PM CDT Radha RUIZ POINT OF CARE TEST ORDERABLE S Final Result Performing Organization Address City/[facility]/ZIP Co de Phone Number [facility] [address] [place] [address], * Amylase (09/16/2024 11:15 AM CDT) Amylase 58 20 - 160 U/L 09/16/2024 11:43 AM CDT [facility] Blood Venipuncture / Unknown 09/16/2024 11:15 AM CDT 09/16/2024 11:16 AM CDT Amber Dale MD LAB BLOOD ORDERABLES Final Resul t [facility] [address] [place] [address], * CT Abdomen Pelvis With and Without [...] Time zone unless otherwise specified. By Brennan uJnior D.O. (Radiologist) Procedure Note Brennan Junior, DO - 09/19/2024 Reason for EXAM: Mid [...] representpseudocysts given provided history of pancreatitis. Recommend [id number] dedicated pancreas CT or MRI in 3 [...] 12:45 AM 07/25/2024 12:12 AM Care Teams Tax Audit Manager Relationship Specialty Start Date End Date Varinder Brewer DO [address] [place], [place] [phone] PCP - General Surgery General 07/06/24
--- NOTE | 2024-11-24 22:06 | XRR_ITS ---
PROCEDURE INFORMATION: Exam: XR Chest Exam date and time: 11/24/2024 10:11 PM Age: 24 years old Clinical indication: EMS arrival for seizure. Patient still in post ictal state. ; Additional info: Mir TECHNIQUE: Imaging protocol: Radiologic exam of the chest. Views: 1 view. COMPARISON: CT abdomen pelvis w con* [id number] 10/23/2024 2:48 AM FINDINGS: Lungs: Unremarkable. No consolidation. Pleural spaces: Unremarkable. No pleural effusion. No pneumothorax. Heart/Mediastinum: Unremarkable. No cardiomegaly. Bones/joints: Unremarkable. XR/XR chest 1V portable [id number] IMPRESSION: No acute findings.
--- NOTE | 2024-11-24 22:06 | CTR_ITS ---
PROCEDURE INFORMATION: Exam: CT Head Without Contrast Exam date and time: 11/24/2024 10:27 PM Age: 24 years old Clinical indication: EMS arrival for seizure. ; Additional info: Mir TECHNIQUE: Imaging protocol: Computed tomography of the head without contrast. Radiation optimization: All CT scans at this facility use at least one of these dose optimization techniques: automated exposure control; mA and/or kV adjustment per patient size (includes targeted exams where dose is matched to clinical indication); or iterative reconstruction. COMPARISON: No relevant prior studies available. RADIATION DOSE METRICS: Total DLP (mGy-cm): 3251.29 FINDINGS: Brain: Normal. No hemorrhage. Unremarkable white matter. No mass effect. Cerebral ventricles: No ventriculomegaly. Paranasal sinuses: Visualized sinuses are unremarkable. No fluid levels. Mastoid air cells: Visualized mastoid air cells are well aerated. Bones: Unremarkable. No acute fracture. Soft tissues: Unremarkable. CT/CT head wo con* [id number] IMPRESSION: No acute intracranial abnormality.
--- NOTE | 2024-11-24 22:10 | PC.NURSE ---
Pt unable to answer suicidal assessment questions due to being post ictal and sedated with versed.
[2024-11-24] MEDS: LORazepam 1 MG/0.5 ML injection 2 MG IVP (22:15)
[2024-11-24] MEDS: haloperidol inj 5 mg/mL INJ 1 mL IVP (22:15)
--- NOTE | 2024-11-24 22:15 | PC.NURSE ---
seizure pads placed on rails.
[2024-11-24] MEDS: levETIRAcetam 1,500 MG/100 ML PREMIX 400 MG IV (22:20)
--- NOTE | 2024-11-24 22:30 | W.ED.SEIZURE ---
HPI - Seizure General: Chief Complaint: Seizure Stated Complaint: SEIZURE Time Seen by Provider: 11/24/24 22:02 History of Present Illness: HPI Narrative: 24-year-old female brought in by EMS. Report called and EMS was for a seizure. This young lady evidently has a history of epilepsy, is on Keppra. On EMS arrival, she was not responding to stimuli in a truck, and was shaking. She was given 5 midazolam, and 5 more en route. She did not respond to anything but noxious stimuli on the way. She arrives nonresponsive, with mild tremulous shaking that is generalized, eyes rolled, and eyelids fluttering. We are unaware of this is a normal type of seizure for this patient. She had been seen a month ago for a seizure like episode. She also was seen a week ago for multiple seizure-like episodes, was found to have a urinary tract infection and given cefdinir. It is unknown if the patient is taking either her antibiotics or her seizure medication appropriately. Seizure History: Yes Related Data Previous Rx's ?Medication ?Instructions ?Recorded cefdinir 300 mg capsule 300 mg PO BID 10 days #20 caps 11/18/24 Allergies Allergy/AdvReac Type Severity Reaction Status Date / Time No Known Allergies Allergy Verified 10/23/24 01:10 Physical Exam Const: EXAM LIMITATIONS: altered mental status GENERAL APPEARANCE: ill appearing NUTRITIONAL APPEARANCE: obese ORIENTATION/CONSCIOUSNESS: Yes Other orientation findings (Not responsive) HENMT: COMMON NORMALS: normocephalic and Normal external nose present HEAD & SCALP: normocephalic FACE & SINUS: face symmetric NOSE: Normal external nose present and Normal nares present Eye: COMMON NORMALS: Equal, round and reactive pupils present and EOMs intact bilaterally PUPIL: Yes Equal, round and reactive pupils present Chest: CHEST: Yes Symmetrical chest wall rise Resp: COMMON NORMALS: No use of accessory muscles and clear to auscultation bilaterally AUSCULTATION: clear to auscultation bilaterally Cardio: COMMON NORMALS: regular rate and regular rhythm RATE: regular rate RHYTHM: regular rhythm GI: COMMON NORMALS: Soft to palpation PALPATION: Yes Soft to palpation Extremity: COMMON NORMALS: no pedal edema Neuro: ESTEBAN COMA SCALE: document GCS findings Esteban coma scale eye opening: Spontaneous Esteban coma scale verbal response: Sounds Esteban coma scale motor response: None Esteban coma scale total score: 7 SENSORIUM/ORIENTATION: Yes obtunded Course Vital Signs: Vital signs: Vital Signs Temperature 98.4 F 11/24/24 21:57 Pulse Rate 60 11/25/24 01:00 Respiratory Rate 14 11/25/24 01:00 Blood Pressure 103/65 11/25/24 01:00 Pulse Oximetry 96 11/25/24 01:00 Oxygen Delivery Me thod Room Air 11/25/24 00:00 MDM - Seizure MDM Narrative Medical decision making narrative: Patient was given 2 mg of Ativan, 5 mg of haloperidol, and 1500 mg of Keppra IV on arrival. Seizure is stopped. She is responsive to noxious stimuli now. She appears postictal. Patient has been up and walk in the ER. No signs of repeated seizure. Family states she has an appointment with her neurologist in [place] on 11/29. She does not like to take her seizure medicine that she is currently on, as it makes her feel groggy. Since she is returned to baseline, should be allowed discharge for outpatient follow-up. To return for any repeated episodes of seizure, etc. Lab Data 11/24/24 22:40 11/24/24 22:40 Labs: Radiology Impressions Chest X-Ray 11/24/24 22:06 IMPRESSION: No acute findings. Head CT 11/24/24 22:06 IMPRESSION: No acute intracranial abnormality. Laboratory Results WBC 6.29 10^3/uL (3.29-11.43) 11/24/24 22:40 RBC 4.48 10^6/uL (3.85-5.65) 11/24/24 22:40 Hgb 12.50 g/dL (11.27-16.99) 11/24/24 22:40 Hct 39.0 % (36-47) 11/24/24 22:40 MCV 87.1 fl (85-98) 11/24/24 22:40 MCH 27.9 pg (27-33) 11/24/24 22:40 MCHC 32.1 g/dL (30-55) 11/24/24 22:40 RDW 13.2 % (12.1-15.1) 11/24/24 22:40 Plt Count 288 10^3/cmm (157-399) 11/24/24 22:40 MPV 9.7 fL (7.4-10.4) 11/24/24 22:40 Neut % (Auto) 63.5 % 11/24/24 22:40 Lymph % (Auto) 21.8 % 11/24/24 22:40 [place] % (Auto) 10.2 % 11/24/24 22:40 Eos % (Auto) 3.7 % 11/24/24 22:40 Baso % (Auto) 0.5 % 11/24/24 22:40 Neut # (Auto) 4.00 10^3/uL (1.8-7.7) 11/24/24 22:40 Lymph # (Auto) 1.4 10^3/uL (0.8-4.8) 11/24/24 22:40 [place] # (Auto) 0.6 10^3/uL (0.2-0.9) 11/24/24 22:40 Eos # (Auto) 0.2 10^3/uL (0.0-0.8) 11/24/24 22:40 Baso # (Auto) 0.0 10^3/uL (0.0-0.1) 11/24/24 22:40 Nucleated RBC % (auto) 0 % 11/24/24: Nucleated RBCs # 0.0 /100WBC 11/24/24 22:40 Specimen Type Arterial 11/24/24 22:31 Sample Site Radial, right 11/24/24 22:31 ABG pH 7.38 (7.35-7.45) 11/24/24 22:31 ABG pCO2 35.3 mmHg (35-45) 11/24/24 22:31 ABG pO2 83.2 mmHg (80.0-100.0) 11/24/24 22:31 ABG HCO3 21.0 mmol/L (22-26) L 11/24/24 22:31 ABG Base Excess -3.5 mmol/L (-2.0-2.0) L 11/24/24 22:31 Masoud Test Pos 11/24/24 22:31 Hematocrit 41.0 % (37-47) 11/24/24 22:31 O2 Delivery Device Room air 11/24/24 22:31 Senior Qa Automation Engineer ID [email or web address] 11/24/24 22:31 Sodium 138 mmol/L (136-145) 11/24/24 22:40 Potassium 3.3 mmol/L (3.5-5.1) L 11/24/24 22:40 Chloride 105 mmol/L (98-107) 11/24/24 22:40 Carbon Dioxide 22 mmol/L (22-29) 11/24/24 22:40 Anion Gap 14.3 (5-19) 11/24/24 22:40 BUN 8 mg/dL (6-20) 11/24/24 22:40 Creatinine 0.7 mg/dL (0.5-0.9) 11/24/24 22:40 GFR Calculation 102.8 mL/min (90-130) 11/24/24 22:40 Glucose 106 mg/dL (65-115) 11/24/24 22:40 POC Glucose 73 mg/dL (70-110) 11/25/24 01:24 Calculated Osmolality 285 mOsm/kg (285-295) 11/24/24 22:40 Lactic Acid 1.0 mmol/L (0.5-2.2) 11/24/24 22:40 Calcium 8.8 mg/dL (8.5-10.5) 11/24/24 22:40 Phosphorus 2.5 mg/dL (2.5-4.5) 11/24/24 22:40 Magnesium 2.2 mg/dL (1.7-2.3) 11/24/24 22:40 Total Bilirubin 0.2 mg/dL (0.15-1.2) 11/24/24 22:40 AST 16 U/L (0-32) 11/24/24 22:40 ALT 14 U/L (0-33) 11/24/24 22:40 Alkaline Phosphatase 67 U/L (35-105) 11/24/24 22:40 Creatine Kinase 81 U/L (26-192) 11/24/24 22:40 C-Reactive Protein 3.0 mg/L (0.0-4.9) 11/24/24 22:40 Total Protein 6.6 g/dL (6.6-8.7) 11/24/24 22:40 Albumin 3.9 g/dL (3.5-5.2) 11/24/24 22:40 Globulin 2.7 g/dL (1.3-4.6) 11/24/24 22:40 HCG, Qual Negative (Negative) 11/24/24 22:40 Ethyl Alcohol < 10 mg/dL (0-10) 11/24/24 22:40 All radiology interpretation(s) finalized by discharge Discharge Plan Discharge Patient Disposition: Home Clinical Impression: Generalized seizure Condition: Stable Prescriptions: No Action cefdinir 300 mg capsule 300 mg PO BID 10 Days Qty: 20 0RF Discharge Orders: Discharge ED (Routine); Ordered 11/25/24 Ordered By: Varun Nagy Patient Instructions: Recurrent Seizures in Adults (ED), Opioid Safety, Pain Management, Patient Portal & Selena Instructions Activity Restrictions/Additional Instructions: Follow-up with your doctor as scheduled. Return for problems. Stay hydrated. Print Language: Arabic Coding Level of Care Code ED Fire Chief Deputy for Shona Cody
[2024-11-24 22:40] VITALS: PULSE 65; RESP 13; O2SAT 95
[2024-11-24 22:41] LABS: ABG PCO2 35.3 mmHg (35-45); ABG PH Result 7.38 (7.35-7.45); Arterial Blood Gas Hematocrit 41.0 % (37-47); Blood Gas Allen Test Pos; Blood Gas Sample Site Radial, right; Blood Gas Sample Type Arterial; HCO3 ABG 21.0 mmol/L (22-26); PO2 ABG 83.2 mmHg (80.0-100.0)
[2024-11-24 22:47] LABS: Hematocrit 39.0 % (36-47); Hemoglobin 12.50 g/dL (11.27-16.99); Mean Corpuscular HGB Conc 32.1 g/dL (30-55); Mean Corpuscular Hemoglobin 27.9 pg (27-33); Mean Corpuscular Volume 87.1 fl (85-98); Nucleated Red Blood Cells % 0 %; Platelet Count 288 10^3/cmm (157-399); Red Blood Count 4.48 10^6/uL (3.85-5.65); White Blood Count 6.29 10^3/uL (3.29-11.43)
[2024-11-24 23:03] LABS: Lactic Sepsis W/Reflex 1.0 mmol/L (0.5-2.2)
[2024-11-24 23:04] LABS: Alanine Aminotransferase 14 U/L (0-33); Albumin Level 3.9 g/dL (3.5-5.2); Alkaline Phosphatase 67 U/L (35-105); Anion Gap 14.3 (5-19); Aspartate Amino Transferase 16 U/L (0-32); Blood Urea Nitrogen 8 mg/dL (6-20); Calcium 8.8 mg/dL (8.5-10.5); Carbon Dioxide 22 mmol/L (22-29); Chloride 105 mmol/L (98-107); Creatinine Clr Calc Pharmacy 170.1007; Globulin 2.7 g/dL (1.3-4.6); Glucose 106 mg/dL (65-115); Magnesium 2.2 mg/dL (1.7-2.3); Osmolality Calculated 285 mOsm/kg (285-295); Potassium 3.3 mmol/L (3.5-5.1); Sodium 138 mmol/L (136-145); Total Protein 6.6 g/dL (6.6-8.7)
[2024-11-24 23:05] LABS: HCG, Serum Qual Negative (Negative)
[2024-11-24 23:06] LABS: Alcohol Level < 10 mg/dL (0-10)
[2024-11-24 23:10] VITALS: BP 110/70; PULSE 59; RESP 13; O2SAT 98
--- NOTE | 2024-11-24 23:37 | ECG_ITS ---
[employer] Test Date: 2024-11-24 Pat Name: Romi Hobson Department: Room: Gender: Female Director Of Intelligence: : 2000 Requested By: Varun Dale Order Number: [id number] Reading MD: Measurements Intervals [place] Rate: 61 P: 8 ME: 164 QRS: 25 QRSD: 92 T: 22 QT: 421 QTc: 427 Interpretive Statements SINUS RHYTHM No previous ECG available for comparison [email or web address]
[2024-11-25] VITALS: BP 111/65; PULSE 69; RESP 16; O2SAT 98
[2024-11-25 00:30] VITALS: BP 111/64; PULSE 62; RESP 14; O2SAT 96
[2024-11-25 01:00] VITALS: BP 103/65; PULSE 60; RESP 14; O2SAT 96
[2024-11-25 01:40] VITALS: BP 103/66; PULSE 65; RESP 13; O2SAT 95
== END 2024-11-25 01:42 | disposition home or self-care (01) ==
PROVIDERS: Emergency Provider Emergency Medicine
DX: G40.89 Other seizures (principal)
CPT/HCPCS: 36416; 70450; 71045; 80053; 80307; 82550; 82803; 82962; 83605; 83735; 84100; 84703; 85025; 86140; 93005; 93010; 96374; 96375; 99285; J1630; J1953; J2060

== ENCOUNTER 2024-11-30 10:44 | Emergency (ER) | payer SELFPAY ==
--- OUTSIDE RECORDS SUMMARY | 2024-11-26 21:06 | XMS_ITS | Encounter Summary ---
Author Organization [employer] Address [address] [place] [address] Care Team Providers Care Retail Attendant Name Role Phone OsmanFantasma Varinder SANTIAGO Primary Care Provider Reason for Visit * Reason Comments Abdominal Pain Pt states she has be en having lower right abdominal pain for last few weeks. She states she has been nauseated and has not been able to keep food down. * Auth/Cert (Routine) Specialty Diagnoses / Procedures Referred By Ron t Referred To Contact Diagnoses ED Procedures ED Referral ID Status Reason Start Date Expiration Date Visits Re quested Visits Authorized [id number] 1 1 Encounter Details Date Type Department Care Team (Late st Contact Info) Description 11/26/2024 9:06 PM CDT - 11/27/2024 12:26 AM CDT Emergency [facility] - Emergency Department [address] [place] [address] Lashae Rocha PA-C [address] [place] [address] Abdominal pain (Primary Dx); Nausea and vomiting; Mesenteric adenitis; Ovarian cyst Discharge Disposition: Home or Self-Care Social History Tobacco Use Types Packs/Day Years Used Date Smoking Tobacco: Never Passive Smoke Exposure: Never Smokeless Tobacco: Former Tobacco Cessation:Counseling Given: Not Answered Alcohol Use Standard Drinks/Week Comments Never 0 (1 standard drink = 0.6 oz pur e alcohol) [facility] Utilities Answer Date Recorded In the past 12 months has th e electric, gas, oil, or water [employer] threatened to shut off services in your [...] money to get more. Never true 05/13/2024 [facility] - Transportation Answer Date Record ed In the past 12 months, has l ack of reliable transportation kept you from medical appointments, meetings, work or from getting things needed for daily living? No 05/13/2024 [facility] - Personal Safety Answer Date Recor ded [...] scream or curse at you? Never 05/13/2024 [facility] - Inadequate Housing Answer Date Re corded What is your living situation today? I have a [facility] place to live 05/13/2024 Housing Problems Not on file 05/13/2024 Comments No Sex and Gender Information Value Date Recorded Sex Assigned at Not on file Legal Sex Female 9:57 AM BLOCK CLEANER Gender Identity Not on file Sexual Orientation Not on file documented as of this encounter Last Filed Vital Signs Vital Sign Reading Time Taken Comments Blood Pressure 102/59 11/26/2024 11:15 PM CDT Pulse 67 11/26/2024 11:15 PM CDT Temperature 37.2 C (98.9 F) 11/26/2024 9:12 PM CDT Respiratory Rate 20 11/26/2024 9:12 PM CDT Oxygen Saturation 99% 11/26/2024 11:15 PM CDT Inhaled Oxygen Concentration - - Weight 122 kg (268 lb) 11/26/2024 9:12 PM CDT Height 175.3 cm (5' 9 ) 11/26/2024 9:12 PM CDT Body Mass Index 39.58 11/26/2024 9:12 PM CDT documented in this encounter Functional Status * Is the person deaf or does he/she have serious difficulty hearing? Answer Date of Assessment Author No 05/13/2024 11:15 PM BLOCK CLEANER * Is this person blind or does he/she have serious difficulty seeing even when wearing glasses? Answer Date of Assessment Author No 05/13/2024 11:15 PM BLOCK CLEANER * Does this person have serious difficulty walking or climbing stairs? Answer Date of Assessment Author No 05/13/2024 11:15 PM BLOCK CLEANER * Does this person have difficulty dressing or bathing? Answer Date of Assessment Author No 05/13/2024 11:15 PM BLOCK CLEANER * Because of a physical, mental, or emotional condition, does this person have difficulty doing errands alone such as visiting a doctor's office or shopping? Answer Date of Assessment Author No 05/13/2024 11:15 PM BLOCK CLEANER documented as of this encounter Mental Status * Because of a physical, mental, or emotional condition, does this person have serious difficulty concentrating, remembering, or making decisions? Answer Entry Date Author No 05/13/2024 11:15 PM BLOCK CLEANER documented in this encounter Discharge Instructions * Discharge Instructions* Chelle Yin DO - 11/27/2024 12:17 AM CDT Thank you for choosing [facility] for your emergency medical care. During your visit [facility] emergency department today, we have addressed emergency medical conditions. Each and every timeyou visit the emergency department, we strongly encourage you to follow-up with your primary care physician at their next available appointment. Often times when visiting the emergency department your condition can worsen following discharge, if worsening occurs we ask you to return immediately forreevaluation. Also, following an emergency department visit your symptoms can remain concerning, ifyour symptoms continue to be concerning please return for reevaluation. A visit to the emergency department is often very stressful and provokes many questions, if you have any questions that were not answered prior to discharge please call or come back so we may address those. * Attachments The following attachments cannot be sent through Care Everywhere. * Abdominal Pain Adult (Irish) documented in this encounter Medications at Time of Discharge hyoscyamine (Anaspaz,Levsin) 0.125 MG tablet Take 1 tablet (0.125 mg) by mouth every 4 (four) hours as needed for cramping for up to 10 days. 30 tablet 11/27/2024 5 ondansetron (Zofran) 4 MG tablet 09/10/2024 SUMAtriptan (Imitrex) 50 MG tablet 09/05/2024 topiramate (Topamax) 100 MG tablet Take 1 tablet (100 mg) by mouth 2 (two) times a day. TAKE 1 TABLET BY MOUTH IN THE MORNING AND AT BEDTIME 11/12/2024 aluminum-magnesium hydroxide-simethicon e (Maalox) 200-200-20 MG/5ML suspension Take 30 mL by mouth. 07/05/2024 5 amitriptyline (Elavil) 25 MG tabletIndications:Ot her chronic pancreatitis Take 1 tablet (25 mg) by mouth nightly. 30 tablet 5 07/08/2024 5 colestipol (Colestid) 1 g tablet 10/07/2024 5 HYDROcodone-acetamin ophen ([place]) 10-325 MG per tablet Take 1 tablet by mouth every 4 (four) hours as needed. 07/03/2024 5 ondansetron ODT (Zofran-ODT) 4 MG disintegrating tablet 06/18/2024 5 ondansetron ODT (Zofran-ODT) 4 MG disintegrating tablet Take 1 tablet (4 mg) by mouth every 8 (eight) hours as needed for nausea or vomiting for up to 7 days. 20 tablet 11/27/2024 5 oxyCODONE-acetaminop hen (Percocet) 5-325 MG per tablet Take 1 tablet by mouth every 6 (six) hours as needed. 05/26/2024 5 pantoprazole (Protonix) 20 MG EC tablet Take 1 tablet (20 mg) by mouth. 07/05/2024 5 polyethylene glycol (Miralax) 17 GM/SCOOP powderIndications:Ot her constipation Take 17 g by mouth daily. 30 packet 5 07/08/2024 5 Vit-Fe Fumarate-FA ( VITAMIN PO) Take by mouth. 5 senna (Senokot) 8.6 MG tablet Take 1 tablet (8.6 mg) by mouth. 07/04/2024 5 documented as of this encounter ED Notes * Chelle Yin DO - 11/26/2024 9:18 PM CDT Assessment Assessment Final diagnoses: Abdominal pain Nausea and vomiting Mesenteric adenitis Ovarian cyst Plan Emergency Department Decision Date/Time: Disposition: Comment: None ED Prescriptions Medication Sig Dispense Auth. Provider ondansetron ODT (Zofran-ODT) 4 MG disintegrating tablet Take 1 tablet (4 mg) by mouth every 8 (eight) hours as needed for nausea or vomiting for up to 7 days. 20 tablet Chelle Yin DO hyoscyamine (Anaspaz,Levsin) 0.125 MG tablet Take 1 tablet (0.125 mg) by mouth every 4 (four) hoursas needed for cramping for up to 10 days. 30 tablet DO Fantasma Payton DO [address] [place] [address] [address] [place] [address] Follow-up from ER visit [facility] - Emergency Department [address] [place] [address] Go to If symptoms worsen Raghu Gayle MD [address] [place] [address] [address] [place] [address] Follow-up from ER visit Subjective Reason for Visit Chief Complaint Patient presents with Abdominal Pain Pt states she has been having lower right abdominal pain for last few weeks. She states she has been nauseated and has not been able to keep food down. HPI Patient is a 24-year-old female who presents the emergency department with complaint of right-sidedabdominal pain. Initially patient says that she has had right-sided abdominal pain for the last couple weeks. She then said that she has had right sided abdominal pain since her last seizure which was 9 days ago. She describes it as a constant, sharp, nonradiating sensation that has worsened since onset. She rates the pain 10/10. She has not take any medications. She endorses nausea, diarrhea, chills, subjective fever. She denies any vomiting, dysuria, hematuria, blood in stool, melena. PSHx significant for cholecystectomy, . Pt is accompanied in the exam room by her male partner who is an additional historian. History provided by: Patient Problem List does not have any pertinent problems on file. History No past medical history on file. Past Surgical History: Procedure Laterality Date SECTION - LD N/A 12/27/2021 Performed by Raghu Gayle MD at [facility] OR Social History Tobacco Use Smoking status: Never Passive exposure: Never Smokeless tobacco: Former Vaping Use Vaping status: Every Day Substances: THC Substance and Sexual Activity Alcohol use: Never Drug use: Never Sexual activity: Yes Partners: Male control/protection: None Family History Problem Relation Age of Onset No Known Problems Paternal Grandfather No Known Problems Paternal Grandmother No Known Problems Maternal Grandmother No Known Problems Maternal Grandfather Diabetes Father No Known Problems Mother No Known Problems Brother No Known Problems Sister No Known Problems Other Discharge Medication List as of 11/27/2024 12:18 AM START taking these medications Details hyoscyamine (Anaspaz,Levsin) 0.125 MG tablet Take 1 tablet (0.125 mg) by mouth every 4 (four) hoursas needed for cramping for up to 10 days., Starting 11/27/2024, Until 12/07/2024 at 2359, Normal !! ondansetron ODT (Zofran-ODT) 4 MG disintegrating tablet Take 1 tablet (4 mg) by mouth every 8 (eight) hours as needed for nausea or vomiting for up to 7 days., Starting Mon11/27/2024, Until 12/04/2024 at 2359, Normal !! - Potential duplicate medications found. Please discuss with provider. CONTINUE these medications which have NOT CHANGED Details aluminum-magnesium hydroxide-simethicone (Maalox) 200-200-20 MG/5ML suspension Take 30 mL by mouth., Starting Mon07/05/2024, Historical Med amitriptyline (Elavil) 25 MG tablet Take 1 tablet (25 mg) by mouth nightly., Starting 07/08/2024, Normal HYDROcodone-acetaminophen ([place]) 10-325 MG per tablet Take 1 tablet by mouth every 4 (four) hours as needed., Starting 07/03/2024, Historical Med !! ondansetron ODT (Zofran-ODT) 4 MG disintegrating tablet Historical Med oxyCODONE-acetaminophen (Percocet) 5-325 MG per tablet Take 1 tablet by mouth every 6 (six) hours as needed., Starting 05/26/2024, Historical Med pantoprazole (Protonix) 20 MG EC tablet Take 1 tablet (20 mg) by mouth., Starting 07/05/2024, Until 07/05/2025 at 2359, Historical Med polyethylene glycol (Miralax) 17 GM/SCOOP powder Take 17 g by mouth daily., Starting 07/08/2024,Normal Vit-Fe Fumarate-FA ( VITAMIN PO) Take by mouth., Historical Med senna (Senokot) 8.6 MG tablet Take 1 tablet (8.6 mg) by mouth., Starting Rhonda 07/04/2024, Historical Med !! - Potential duplicate medications found. Please discuss with provider. Review of Systems Review of Systems Constitutional: Positive for chills and fever. Gastrointestinal: Positive for abdominal pain, diarrhea and nausea. Negative for blood in stool andvomiting. Genitourinary: Negative for dysuria and hematuria. Objective Physical Exam ED Triage Vitals: Temp: 37.2 ??C (98.9 ??F) Pulse: 83 Resp: 20 BP: 126/73 SpO2: 99 % Temp src: Oral Heart Rate Source: Monitor Patient Position: (not recorded) BP Location: (not recorded) FiO2 (%): (not recorded) (11/26/242111) Physical Exam Vitals reviewed. Constitutional: General: She is not in acute distress. Appearance: Normal appearance. She is not ill-appearing, toxic-appearing or diaphoretic. HENT: Head: Normocephalic and atraumatic. Nose: Nose normal. Eyes: General: No scleral icterus. Extraocular Movements: Extraocular movements intact. Conjunctiva/sclera: Conjunctivae normal. Cardiovascular: Rate and Rhythm: Normal rate and regular rhythm. Heart sounds: Normal heart sounds. No murmur heard. No friction rub. No gallop. Pulmonary: Effort: Pulmonary effort is normal. No respiratory distress. Breath sounds: Normal breath sounds. No stridor. No wheezing, rhonchi or rales. Abdominal: General: Abdomen is flat. There is no distension. Palpations: Abdomen is soft. There is no mass. Tenderness: There is abdominal tenderness in the right lower quadrant and suprapubic area. There isno right CVA tenderness, left CVA tenderness, guarding or rebound. Musculoskeletal: General: Normal range of motion. Cervical back: Normal range of motion. Skin: General: Skin is warm and dry. Neurological: Mental Status: She is alert. Orders Placed This Encounter Procedures CT abdomen pelvis with contrast Urinalysis, Culture if Indicated CBC Comprehensive Metabolic Panel Lipase HCG, Serum, Qualitative Insert peripheral IV / Saline Lock Labs Reviewed URINALYSIS PRN CULTURE IF INDICATED - Abnormal; Notable for the following components: Result Value U Bilirubin 1+ (*) U Ketone Trace (*) All other components within normal limits Narrative: Consider positive bilirubin results as presumptive positive. Consider confirmation by serum bilirubin if clinically indicated. CBC - Abnormal; Notable for the following components: Absolute Eosinophils 0.534 (*) All other components within normal limits COMPREHENSIVE METABOLIC PANEL - Abnormal; Notable for the following components: Chloride 114 (*) All other components within normal limits Narrative: Total Bilirubin: A metabolite of Naproxen, O-desmethylnaproxen, has been shown to interfere with the Jendrassik-Grof method for measuring Total Bilirubin. Samples from patients who have taken Naproxen have shown spurious elevation in Total Bilirubin levels. (Ricyndymi et al, J. Clin Biochem 42, 129-131). The eGFR is based on the CKD-EPI 2021 equation. To calculate the new eGFR from previous Creatinine or Cystatin C results, go to https://www.kidney.org/professionals/kdoqi/gfr%5Fcalculator LIPASE - Normal HCG, SERUM, QUALITATIVE - Normal Narrative: hCG is not usually detected in healthy men and healthy non- women. However, hCG levels in will usually exceed 25 mIU/mL two to three days prior to the first missed menstrual period. Procedures Procedures ED Course MDM Medical Decision Making The patient was seen and evaluated in the emergency department. Differential diagnoses were considered and include but are not limited to: abdominal pain, bowel obstruction, appendicitis, pancreatitis, colitis. The patient is non-toxic and in no acute distress. Physical exam findings are listed above. Labs were ordered and showed CBC WNL with the exception of absolute eosinophils 0.534. hCG Qual negative. Lipase, CMP pending. UA and urine ordered. Patient was given Toradol, Zofran, NS. A CT Abd/Pelvis w/contrast was ordered. It is the end of my shift. I have discussed this patient with Dr. Yin, attending physician, whohas graciously accepted taking over care of this patient at 2200. Pt is stable at this time. This is Dr. Yin. Patient was taken over at shift change. A separate history and physical exam were performed by myself. Blood work reveals chloride 114, trace ketones in urine. CT scan revealed mesenteric adenitis, left ovarian cyst, renal cyst, concern for [place]. Patient has no dysuria, no flank pain on the left side, no signs of infection in her urine. I have discussed following up with her primary care doctor regarding CT findings as well as her OB doctor for left ovarian cyst. The patient's pain is on her right side. Discussed that her appendix is normal. She is having some vomiting and diarrhea. Discussed could be gastritis. We discussed supportive care at home as well as the importance of following up with her primary care doctor and returning here with any new or worsening symptoms. The patient verbalized understanding. All questions were answered. Patient will be discharged in stable condition. Amount and/or Complexity of Data Reviewed Labs: ordered. Radiology: ordered. Risk Prescription drug management. Lashae Rocha PA-C 11/26/24 2157 Chelle Yin DO 11/27/24 0231 documented in this encounter Plan of Treatment Upcoming Encounters Date Type Department Care Team (Late st Contact Info) Description 03/04/2025 3:00 PM CDT Office Visit [facility] OBGYN [address] [address] Raghu Gayle MD [address] [address] documented as of this encounter Procedures Procedure Name Priority Date/Time Associated Diagnosis Comments URINALYSIS PRN CULTURE IF INDICATED STAT 11/26/2024 9:[address] ABDOMEN PELVIS W CONTRAST STAT 11/26/2024 9:49 PM CDT CBC STAT 11/26/2024 9:30 PM CDT HCG, SERUM, QUALITATIVE STAT 11/26/2024 9:30 PM CDT LIPASE STAT 11/26/2024 9:30 PM CDT COMPREHENSIVE METABOLIC PANEL STAT 11/26/2024 9:30 PM CDT documented in this encounter Results * (ABNORMAL) Urinalysis, Culture if Indicated (11/26/2024 9:58 PM CDT) Urine Color Yellow Yellow, Light Yellow, Straw, Pale Yellow, Dark yellow, DKYELLOW, DARK YELLO 11/26/2024 10:05 PM CDT [facility] Urine Clarity Clear Clear 11/26/2024 10:05 PM CDT [facility] Urine pH 6.0 5.0, 5.5, 6.0, 6.5, 7.0, 7.5, 8.0 11/26/2024 10:05 PM CDT [facility] U Specific [place] 1.025 <=1.005 - 1.030 11/26/2024 10:05 PM CDT [facility] U Glucose Negative Negative 11/26/2024 10:05 PM CDT [facility] U Protein Negative Negative 11/26/2024 10:05 PM T [facility] U Bilirubin 1+(A) Negative 11/26/2024 10:05 PM CDT [facility] U Leukocyte Esterase Negative Negative 11/26/2024 10:05 PM CDT [facility] U Ketone Trace(A) Negative 11/26/2024 10:05 PM CDT [facility] U Blood Negative Negative 11/26/2024 10:05 PM CDT [facility] U Nitrite Negative Negative 11/26/2024 10:05 PM CDT [facility] Urine Urobilinogen 0.2 0.2 mg/dL mg/dL 11/26/2024 10:05 PM CDT [facility] Urine Comment 11/26/2024 10:05 PM CDT [facility] Urine Entire urinary tract proper / Unknown Collection / Unknown 11/26/2024 9:58 PM CDT 11/26/2024 9:59 PM CDT Narrative [facility] - 11/26/2024 10:05 PM CDT Consider positive bilirubin results as presumptive positive. Consider confirmation by serum bilirubin if clinically indicated. us Lashae Rocha PA-C LAB URINE ORDERABLES [place] [address] * CT abdomen pelvis with contrast (11/26/2024 9:49 PM CDT) Anatomical Region Laterality Modality Body, Abdomen, Pelvis N/A Computed T omography 11/26/2024 11:5 5 PM CDT Impressions 11/26/2024 11:59 PM CDT Enlarged mesenteric lymph nodes within the mid abdomen, more prominent on todays study. Query mesenteric adenitis Query left pyelonephritis versus a simple renal cyst that is better visualized on todays study. Correlate with UA recommended Additional hypodense cystic structures within the left kidney that are visual visualized on todays study No appendicitis Involuting left ovarian cyst, may be cause of patients. All reports both verbal and nonverbal are conducted in the Central Time zone unless otherwise specified. By Teresa Lyons M.D. (Radiologist) Electronically signed by TERESA LYONS M.D. 11/26/2024 - 23:54:52 L:595 R:mmp: T:mmp ([id number]) Narrative 11/26/2024 11:59 PM CDT Date of Exam: 11/26/2024 (Received on: 11/26/2024 9:47:08 PM) Reason for Exam: Right lower quadrant abdominal pain EXAM: CT ABDOMEN AND PELVIS WITH CONTRAST. COMPARISON: 09/10/2024 TECHNIQUE: Axial computed tomographic images of the abdomen and pelvis were obtained with intravenous contrast. A dose reduction technique was used. Reformatted sagittal and coronal images were performed the workstation. 100 cc Isovue 370 was administered intravenously. FINDINGS: LIMITED CHEST: No pericardial effusion. Visualized lungs are clear. SOLID VISCERA: The liver is normal in size and homogeneous in appearance. There is a focal area of fatty infiltration near the interlobar fissure. Mild intrahepatic ductal dilatation. Gallbladder is surgically absent. Adrenal glands are within normal limits. Spleen and pancreas are homogeneous. Symmetric enhancement of the kidneys without hydronephrosis or hydroureter. There are multiple well-defined hypodense structures within the left kidney that are more prominent on todays study. The largest is within the mid left kidney measuring 2.0 cm. Some of the borders are slightly blurred. No renal or ureteral calcifications identified. HOLLOW VISCERA: There is a nonspecific, nonobstructive bowel gas pattern. The duodenum and small bowel are normal in caliber and appearance. The appendix is normal in caliber. The large bowel is unremarkable. PELVIS: The bladder is decompressed. The uterus is present. Both ovaries are visualized. The left ovary demonstrates a irregular serpiginously enhancing involuting left ovarian cyst. Best seen on image 81. PERITONEAL CAVITY/RETROPERITONEUM: No messenteric inflammatory process, pneumoperitoneum, ascites or retroperitoneal adenopathy. There are multiple mesenteric lymph nodes throughout the mid abdomen that are larger on todays study VASCULAR STRUCTURES: Normal enhancing vasculature within the abdomen. Normal aortic diameter. EXTRA CAVITARY SOFT TISSUES: Grossly unremarkable. OSSEOUS STRUCTURES: No acute osseous abnormality identified. All CT scans at this facility use dose modulation, iterative reconstructions and/or weight-based dosing when appropriate to reduce radiation dose to as low as reasonably achievable. Procedure Note Teresa Lyons MD - 11/27/2024 Date of Exam: 11/26/2024 (Received on: 11/26/2024 9:47:08 PM) Reason for Exam: Right lower quadrant abdominal pain EXAM: CT ABDOMEN AND PELVIS WITH CONTRAST. COMPARISON: 09/10/2024 TECHNIQUE: Axial computed tomographic images of the abdomen and pelvis were obtained with intravenous contrast. A dose reduction technique was used. Reformatted sagittal and coronal images were performed the workstation.100 cc Isovue 370 was administered intravenously. FINDINGS: LIMITED CHEST: No pericardial effusion. Visualized lungs are clear. SOLID VISCERA: The liver is normal in size and homogeneous in appearance. There is a focal area of fatty infiltration near the interlobar fissure. Mildintrahepatic ductal dilatation. Gallbladder is surgically absent. Adrenal glands are withinnormal limits. Spleen and pancreas are homogeneous. Symmetric enhancement of thekidneys without hydronephrosis or hydroureter. There are multiple well-defined hypodense structures within the left kidney that are more prominent on todays study.The largest is within the mid left kidney measuring 2.0 cm. Some of the borders areslightly blurred. No renal or ureteral calcifications identified. HOLLOW VISCERA: There is a nonspecific, nonobstructive bowel gas pattern.The duodenum and small bowel are normal in caliber and appearance. Theappendix is normal in caliber. The large bowel is unremarkable. PELVIS: The bladder is decompressed. The uterus is present. Both ovariesare visualized. The left ovary demonstrates a irregular serpiginouslyenhancing involuting left ovarian cyst. Best seen on image 81. PERITONEAL CAVITY/RETROPERITONEUM: No messenteric inflammatory process, pneumoperitoneum, ascites or retroperitoneal adenopathy. Thereare multiple mesenteric lymph nodes throughout the mid abdomen that are largeron todays study VASCULAR STRUCTURES: Normal enhancing vasculature within the abdomen. Normal aortic diameter. EXTRA CAVITARY SOFT TISSUES: Grossly unremarkable. OSSEOUS STRUCTURES: No acute osseous abnormality identified. All CT scans at this facility use dose modulation, iterativereconstructions and/or weight-based dosing when appropriate to reduce radiation dose to as low as reasonably achievable. IMPRESSION: Enlarged mesenteric lymph nodes within the mid abdomen, more prominent on todays study. Query mesenteric adenitis Query left pyelonephritis versus a simple renal cyst that is bettervisualized on todays study. Correlate with UA recommended Additional hypodense cystic structures within the left kidney that arevisual visualized on todays study No appendicitis Involuting left ovarian cyst, may be cause of patients. All reports both verbal and nonverbal are conducted in the Central Time[place] unless otherwise specified. By Teresa Lyons M.D. (Radiologist) Electronically signed by TERESA LYONS M.D. 11/26/2024 -23:54:52 L:595 R:mmp: T:mmp ([id number]) Lashae Rocha PA-C IMG CT ORDERABLES Final Resu lt * HCG, Serum, Qualitative (11/26/2024 9:30 PM CDT) HCG, Qual Serum Negative Negative 11/26/2024 9:55 PM CDT [facility] Blood Venous blood specimen / Unknown Venipuncture / Unknown 11/26/2024 9:30 PM CDT 11/26/2024 9:33 PM CDT Narrative [facility] - 11/26/2024 9:55 PM CDT hCG is not usually detected in healthy men and healthy non- women. However, hCG levels in will usually exceed 25 mIU/mL two to three days prior to the first missed menstrual period. Lashae Rocha PA-C LAB BLOOD ORDERABLES Final R esult Performing Organization Address City/[facility]/[place] [address] * Lipase (11/26/2024 9:30 PM CDT) Lipase Level 15 7 - 60 units/L 11/26/2024 9:57 PM CDT [facility] Blood Venous blood specimen / Unknown Venipuncture / Unknown 11/26/2024 9:30 PM CDT 11/26/2024 9:33 PM CDT Lashae Rocha PA-C LAB BLOOD [place]AB[place] [address] * (ABNORMAL) Comprehensive Metabolic Panel (11/26/2024 9:30 PM CDT) Glucose Level 98 65 - 99 mg/dL 11/26/2024 9:57 PM [facility] Sodium 140 135 - 146 mmol/L 11/26/2024 9:57 PM [facility] Potassium, Serum 3.6 3.5 - 5.3 mmol/L 11/26/2024 9:57 PM [facility] Chloride 114(H) 98 - 110 mmol/L 11/26/2024 9:57 PM [facility] Carbon Dioxide Level 19 18 - 30 mmol/L 11/26/2024 9:57 PM [facility] Anion Gap-Calculated 7 4 - 16 mmol/L 11/26/2024 9:57 PM [facility] Calcium Level 9.0 8.5 - 10.4 mg/dL 11/26/2024 9:57 PM [facility] Blood Urea Nitrogen 13 7 - 25 mg/dL 11/26/2024 9:57 PM [facility] Creatinine 0.81 0.50 - 1.10 mg/dL 11/26/2024 9:57 PM [facility] eGFR (Lab Calc) >60 mL/min/1.73 m2 11/26/2024 9:57 PM [facility] BUN/Creatinine Ratio 16.0 6.0 - 25.0 (calc) 11/26/2024 9:57 PM [facility] Protein Total 7.2 6.0 - 8.3 g/dL 11/26/2024 9:57 PM [facility] Albumin Level 3.8 3.2 - 5.0 g/dL 11/26/2024 9:57 PM [facility] BKR ALBUMIN/GLOBULIN (G/G RATIO) IN SER/PLAS 1.1 0.8 - 2.0 ratio 11/26/2024 9:57 PM [facility] ALKALINE PHOSPHATASE (U/L) IN SER/PLAS 61 20 - 125 U/L 11/26/2024 9:57 PM [facility] AST (SGOT) 33 11 - 34 U/L 11/26/2024 9:57 PM [facility] ALT (SGPT) 13 7 - 34 U/L 11/26/2024 9:57 PM [facility] Bilirubin, Total 0.3 0.2 - 1.3 mg/dL 11/26/2024 9:57 PM CDT [facility] MDRD GFR, Calculated 11/26/2024 9:57 PM CDT [facility] Osmolality (Calculated) 290.1 273.0 - 304.0 MOSMOL 11/26/2024 9:57 PM CDT [facility] Blood Venous blood specimen / Unknown Venipuncture / Unknown 11/26/2024 9:30 PM CDT 11/26/2024 9:33 PM CDT Narrative [facility] - 11/26/2024 9:57 PM CDT Total Bilirubin: A metabolite of Naproxen, O-desmethylnaproxen, has been shown to interfere with the Jendrassik-Grof method for measuring Total Bilirubin. Samples from patients who have taken Naproxen have shown spurious elevation in Total Bilirubin levels. (Ridebbi et al, J. Clin Biochem 42, 129-131). The eGFR is based on the CKD-EPI 2020 equation. To calculate the new eGFR from previous Creatinine or Cystatin C results, go to https://www.kidney.org/professionals/kdoqi/gfr%5Fcalculator Lashae Rocha PA-C LAB BLOOD ORDERABLES Final R esult [address] [address] * (ABNORMAL) CBC (11/26/2024 9:30 PM CDT) WBC 8.2 3.8 - 10.8 X 10*3/uL 11/26/2024 9:39 PM CDT [facility] Red Blood Cell Count 4.77 3.80 - 5.10 X 10*6/uL 11/26/2024 9:39 PM T [facility] Hemoglobin 14.0 11.7 - 15.5 g/dL 11/26/2024 9:39 PM CDT [facility] HEMATOCRIT 40.3 35.0 - 45.0 % 11/26/2024 9:39 PM T [facility] Mean Cell Volume 84.6 80.0 - 100.0 fL 11/26/2024 9:39 PM [facility] MCH 29.4 27.0 - 33.0 pg 11/26/2024 9:39 PM [facility] MCHC 34.8 32.0 - 36.0 g/dL 11/26/2024 9:39 PM [facility] RDW 13.5 11.0 - 15.0 % 11/26/2024 9:39 PM [facility] PLT 335 140 - 400 X 10*3/uL 11/26/2024 9:39 PM [facility] Mean Platelet Volume 8.0 7.5 - 11.5 fL 11/26/2024 9:39 PM [facility] Reviewed Differential Not Indicated 11/26/2024 9:39 PM [facility] Neutrophils 53.0 % 11/26/2024 9:39 PM [facility] Lymphocytes 30.7 % 11/26/2024 9:39 PM [facility] Monocytes 9.1 % 11/26/2024 9:39 PM [facility] Eosinophils 6.5 % 11/26/2024 9:39 PM [facility] Basophils 0.7 % 11/26/2024 9:39 PM [facility] Nucleated RBC 11/26/2024 9:39 PM [facility] Absolute Neutrophils 4.368 1.500 - 7.800 X 10*3/uL 11/26/2024 9:39 PM [facility] Absolute Lymphocytes 2.529 0.850 - 3.900 X 10*3/uL 11/26/2024 9:39 PM [facility] Absolute Monocytes 0.750 0.200 - 0.950 X 10*3/uL 11/26/2024 9:39 PM [facility] Absolute Eosinophils 0.534(H) 0.015 - 0.500 X 10*3/uL 11/26/2024 9:39 PM [facility] Absolute Basophils 0.055 0.000 - 0.200 X 10*3/uL 11/26/2024 9:39 PM CDT [facility] Absolute Nucleated RBC 11/26/2024 9:39 PM CDT [facility] Blood Venous blood specimen / Unknown Venipuncture / Unknown 11/26/2024 9:30 PM CDT 11/26/2024 9:33 PM CDT Lashae Rocha PA-C LAB BLOOD ORDERABLES Final R esult [facility] [address], [place] [address] documented in this encounter Visit Diagnoses Diagnosis Abdominal pain- Primary Abdominal pain, unspecified site Nausea and vomiting Nausea with vomiting Mesenteric adenitis Nonspecific mesenteric lymphadenitis Ovarian cyst Other and unspecified ovarian cyst documented in this encounter Administered Medications Inactive Administered Medications - up to 3 most recent administrations Medication Order MAR Action Action Date Dose Rate Site iopamidol (Isovue-370) 76 % injection 100 mL 100 mL, Intravenous, Once in imaging, contrast, Starting on Mon11/26/24 at 8, For 1 dose Given 11/26/2024 9:39 PM CDT 100 mL ketorolac (Toradol) injection 15 mg 15 mg, Intravenous, Once, On Mon11/26/24 at 2130, For 1 dose, NOTE: 60mg doses are IM route ONLY Given 11/26/2024 9:29 PM CDT 15 mg morphine (PF) injection 4 mg 4 mg, Intravenous, Once, On Mon11/26/24 at 2330, For 1 dose Given 11/26/2024 11:32 PM CDT 4 mg ondansetron (Zofran) injection 4 mg 4 mg, Intravenous, Once, On Mon11/26/24 at 2130, For 1 dose Given 11/26/2024 9:30 PM CDT 4 mg ondansetron (Zofran) injection 4 mg 4 mg, Intravenous, Once, On Mon11/26/24 at 2330, For 1 dose Given 11/26/2024 11:32 PM CDT 4 mg sodium chloride 0.9 % flush 10 mL 10 mL, Intravenous, Once in imaging, line care, Starting on Mon11/26/24 at 8, For 1 dose sodium chloride 0.9 % rapid bolus 1,000 mL 1,000 mL, Intravenous, at 1,800 mL/hr, Once, On Mon11/26/24 at 2130, For 1 dose, Administer to gravity. For boluses running > 999 mL/hr. New Bag 11/26/2024 9:30 PM CDT 1,000 mL 1800 mL/hr documented in this encounter Active and Recently Administered Medications Times are shown in CDT. Scheduled Medication Order 11/25/2024 11/26/2024 11/27/2024 ketorolac (Toradol) injection 15 mg (COMPLETED) 15 mg, Intravenous, Once, On Mon11/26/24 at 2130, For 1 dose, NOTE: 60mg doses are IM route ONLY 2128 (Given - Provider: Liliam Isabel RN) morphine (PF) injection 4 mg (COMPLETED) 4 mg, Intravenous, Once, On Mon11/26/24 at 2330, For 1 dose 2331 (Given - Provider: Liliam Isabel RN) ondansetron (Zofran) injection 4 mg (COMPLETED) 4 mg, Intravenous, Once, On Mon11/26/24 at 2130, For 1 dose 2129 (Given - Provider: Liliam Isabel RN) ondansetron (Zofran) injection 4 mg (COMPLETED) 4 mg, Intravenous, Once, On 11/26/24 at 2330, For 1 dose 2331 (Given - Provider: Liliam Isabel RN) sodium chloride 0.9 % rapid bolus 1,000 mL (COMPLETED) 1,000 mL, Intravenous, at 1,800 mL/hr, Once, On Mon11/26/24 at 2130, For 1 dose, Administer to gravity. For boluses running > 999 mL/hr. 2129 (New Bag - Provider: Sa case Isabel RN)[id number] (Stopped - Provider: Diane Isabel RN) PRN Medication Order 11/25/2024 11/26/2024 11/27/2024 iopamidol (Isovue-370) 76 % injection 100 mL (COMPLETED) 100 mL, Intravenous, Once in imaging, contrast, Starting on Mon11/26/24 at 2117, For 1 dose 2138 (Given - Provider: Lion Aquino) sodium chloride 0.9 % flush 10 mL 10 mL, Intravenous, Once in imaging, line care, Starting on Mon11/26/24 at 2118, For 1 dose documented in this encounter Additional Health Concerns Infection Onset Date Last Indicated Resolved Time MRSA Comment:Added from external infection. Source: [facility]. 05/15/2024 025 1:23 PM CDT documented as of this encounter Care Teams Retail Attendant Relationship Specialty Start Date End Date Fantasma Brewer DO [address] [place] [id number] PCP - General Family Medicine 08/24/23 documented as of this encounter
--- OUTSIDE RECORDS SUMMARY | 2024-11-28 12:49 | XMS_ITS | Encounter Summary ---
Author Organization [employer] Address [address] [place] [address] Care Team Providers Care Rn Anesthesiology Name Role Phone Fantasma Brewer DO Primary Care Provider Reason for Visit * Reason Comments Abdominal Pain Nausea Patient states was d x with cyst on her ovaries several days ago today the pain is worse and is very nauseated * Auth/Cert (Routine) Specialty Diagnoses / Procedures Referred By Ron zeng Referred To Contact Diagnoses ED Procedures ED Referral ID Status Reason Start Date Expiration Date Visits Re quested Visits Authorized [id number] 1 1 Encounter Details Date Type Department Care Team (Late st Contact Info) Description 11/28/2024 12:49 PM CDT - 11/28/2024 2:37 PM CDT Emergency [facility] - Emergency Department [address] [place] [address] Edith South T, DO [address] [place] [address] Abdominal pain (Primary Dx); Nausea; Diarrhea Discharge Disposition: Home or Self-Care Social History Tobacco Use Types Packs/Day Years Used Date Smoking Tobacco: Never Passive Smoke Exposure: Never Smokeless Tobacco: Former Alcohol Use Standard Drinks/Week Comments Never 0 (1 standard drink = 0.6 oz pur e alcohol) [facility] Utilities Answer Date Recorded In the past 12 months has [employer], gas, oil, or water company threatened to shut off services in your home? No 05/13/2024 PHQ-2 Answer Date Recorded PHQ-2 Total Score 0 11/29/2024 Hunger Vital Sign Answer Date Recorded Within the past 12 months, y ou worried that your food would run out before you got the money to buy more. Never true 05/13/20 24 Within the past 12 months, t he food you bought just didn't last and you didn't have money to get more. Never true 05/13/2024 [facility] - Transportation Answer Date Record ed In the past 12 months, has l ack of reliable transportation kept you from medical appointments, meetings, work or from getting things needed for daily living? No 05/13/2024 [facility] - Personal Safety Answer Date Recor [...] scream or curse at you? Never 05/13/2024 [facility] - Inadequate Housing Answer Date Re corded What is your living situation today? 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 Gender Identity Not on file Sexual Orientation Not on file documented as of this encounter Last Filed Vital Signs Vital Sign Reading Time Taken Comments Blood Pressure 120/55 11/28/2024 2:20 PM CDT Pulse 63 11/28/2024 2:20 PM CDT Temperature 36.7 C (98.1 F) 11/28/2024 12:54 PM CDT Respiratory Rate 19 11/28/2024 12:54 PM CDT Oxygen Saturation 100% 11/28/2024 2:20 PM CDT Inhaled Oxygen Concentration - - Weight 121 kg (266 lb) 11/28/2024 12:54 PM CDT Height 175.3 cm (5' 9 ) 11/28/2024 12:54 PM CDT Body Mass Index 39.28 11/28/2024 12:54 PM CDT documented in this encounter Functional Status * Is the person deaf or does he/she have serious difficulty hearing? Answer Date of Assessment Author No 05/13/2024 11:15 PM DATA MINER * Is this person blind or does he/she have serious difficulty seeing even when wearing glasses? Answer Date of Assessment Author No 05/13/2024 11:15 PM DATA MINER * Does this person have serious difficulty walking or climbing stairs? Answer Date of Assessment Author No 05/13/2024 11:15 PM DATA MINER * Does this person have difficulty dressing or bathing? Answer Date of Assessment Author No 05/13/2024 11:15 PM DATA MINER * Because of a physical, mental, or emotional condition, does this person have difficulty doing errands alone such as visiting a doctor's office or shopping? Answer Date of Assessment Author No 05/13/2024 11:15 PM DATA MINER documented as of this encounter Mental Status * Because of a physical, mental, or emotional condition, does this person have serious difficulty concentrating, remembering, or making decisions? Answer Entry Date Author No 05/13/2024 11:15 PM DATA MINER documented in this encounter Discharge Instructions * Attachments The following attachments cannot be sent through Care Everywhere. * Food Choices to Help Relieve Diarrhea Adult ([place]) * Nausea and Vomiting Adult Nosf-kv-Nirm ([place]) * Abdominal Pain Adult Wzot-cq-Tivl ([place]) documented in this encounter Medications at Time of Discharge hyoscyamine (Anaspaz,Levsin) 0.125 MG tablet Take 1 tablet (0.125 mg) by mouth every 4 (four) hours as needed for cramping for up to 10 days. 30 tablet 11/27/2024 topiramate (Topamax) 100 MG tablet Take 1 tablet (100 mg) by mouth 2 (two) times a day. TAKE 1 TABLET BY MOUTH IN THE MORNING AND AT BEDTIME 11/12/2024 meloxicam (Mobic) 15 MG tablet Take 1 tablet (15 mg) by mouth daily as needed (pain) for up to 5 doses. 5 tablet 11/28/2024 ondansetron (Zofran) 4 MG tablet 09/10/2024 SUMAtriptan (Imitrex) 50 MG tablet 09/05/2024 aluminum-magnesium hydroxide-simethicon e (Maalox) 200-200-20 MG/5ML suspension Take 30 mL by mouth. 07/05/2024 5 amitriptyline (Elavil) 25 MG tabletIndications:Ot her chronic pancreatitis Take 1 tablet (25 mg) by mouth nightly. 30 tablet 5 07/08/2024 5 levETIRAcetam (Keppra) 750 MG immediate release tablet Take 1 tablet (750 mg) by mouth every 12 (twelve) hours. 5 ondansetron ODT (Zofran-ODT) 4 MG disintegrating tablet 06/18/2024 5 ondansetron ODT (Zofran-ODT) 4 MG disintegrating tablet Take 1 tablet (4 mg) by mouth every 8 (eight) hours as needed for nausea or vomiting for up to 7 days. 20 tablet 11/27/2024 5 pantoprazole (Protonix) 20 MG EC tablet Take 1 tablet (20 mg) by mouth. 07/05/2024 5 senna (Senokot) 8.6 MG tablet Take 1 tablet (8.6 mg) by mouth. 07/04/2024 5 colestipol (Colestid) 1 g tablet 10/07/2024 5 HYDROcodone-acetamin ophen ([place]) 10-325 MG per tablet Take 1 tablet by mouth every 4 (four) hours as needed. 07/03/2024 5 oxyCODONE-acetaminop hen (Percocet) 5-325 MG per tablet Take 1 tablet by mouth every 6 (six) hours as needed. 05/26/2024 5 polyethylene glycol (Miralax) 17 GM/SCOOP powderIndications:Ot her constipation Take 17 g by mouth daily. 30 packet 5 07/08/2024 5 Vit-Fe Fumarate-FA ( VITAMIN PO) Take by mouth. 5 documented as of this encounter Plan of Treatment Upcoming Encounters Date Type Department Care Team (Late st Contact Info) Description 03/04/2025 3:00 PM CDT Office Visit [facility] - OBGYN [address] [facility] [address] [place] [address] Raghu Gayle MD [address] [place] [address] documented as of this encounter Procedures Procedure Name Priority Date/Time Associated Diagnosis Comments URINALYSIS PRN CULTURE IF INDICATED STAT 11/28/2024 1:48 PM CDT #UMICRO STAT 11/28/2024 1:48 PM CDT URINE STAT 11/28/2024 1:48 PM CDT documented in this encounter Results * (ABNORMAL) #UMICRO (11/28/2024 1:48 PM CDT) U WBC/hpf 0-5 /hpf None Seen, 0-5 /hpf 11/28/2024 2:05 PM CDT [facility] [place] RBC/hpf None Seen None Seen, 0-3 /hpf 11/28/2024 2:05 PM CDT [facility] U Bacteria Few(A) None Seen 11/28/2024 2:05 PM CDT [facility] U Epithelial Cells 0-5 /hpf None Seen, 0-5 /hpf 11/28/2024 2:05 PM CDT [facility] Urine Entire urinary tract proper / Unknown Collection / Unknown 11/28/2024 1:48 PM CDT 11/28/2024 1:51 PM CDT us Edith South DO LAB URINE ORDERABLES Final Result [facility] [address], [place] [address] * Urine (11/28/2024 1:48 PM CDT) hCG, Qual Urine Negative Negative 11/28/2024 1:56 PM CDT [facility] Urine Entire urinary tract proper / Unknown Collection / Unknown 11/28/2024 1:48 PM CDT 11/28/2024 1:51 PM CDT Narrative [facility] - 11/28/2024 1:56 PM CDT hCG is not usually detected in healthy men and healthy non- women. However, hCG levels in will usually exceed 25 mIU/mL two to three days prior to the first missed menstrual period. Edith Suoth DO LAB URINE ORDERABLES Final Result [address], [place] [address] * (ABNORMAL) Urinalysis, Culture if Indicated (11/28/2024 1:48 PM CDT) Urine Color Yellow Yellow, Light Yellow, Straw, Pale Yellow, Dark yellow, DKYELLOW, DARK YELLO 11/28/2024 1:56 PM CDT [facility] Urine Clarity Clear Clear 11/28/2024 1:56 PM T [facility] Urine pH 6.5 5.0, 5.5, 6.0, 6.5, 7.0, 7.5, 8.0 11/28/2024 1:56 PM T [facility] U Specific [place] 1.020 <=1.005 - 1.030 11/28/2024 1:56 PM CDT [facility] U Glucose Negative Negative 11/28/2024 1:56 PM CDT [facility] U Protein Negative Negative 11/28/2024 1:56 PM CDT [facility] U Bilirubin Negative Negative 11/28/2024 1:56 PM T [facility] U Leukocyte Esterase Trace(A) Negative 11/28/2024 1:56 PM T [facility] U Ketone 1+(A) Negative 11/28/2024 1:56 PM T [facility] U Blood Negative Negative 11/28/2024 1:56 PM CDT [facility] U Nitrite Negative Negative 11/28/2024 1:56 PM T [facility] Urine Urobilinogen 1.0 0.2 mg/dL mg/dL 11/28/2024 1:56 PM CDT [facility] Urine Comment 11/28/2024 1:56 PM CDT [facility] Urine Entire urinary tract proper / Unknown Collection / Unknown 11/28/2024 1:48 PM CDT 11/28/2024 1:51 PM CDT Narrative [facility] - 11/28/2024 1:56 PM CDT Consider positive bilirubin results as presumptive positive. Consider confirmation by serum bilirubin if clinically indicated. us Edith South DO LAB URINE ORDERABLES Final Result [facility] [address] [facility], [place] [address] documented in this encounter Visit Diagnoses Diagnosis Abdominal pain- Primary Abdominal pain, unspecified site Nausea Nausea alone Diarrhea documented in this encounter Administered Medications Inactive Administered Medications - up to 3 most recent administrations Medication Order MAR Action Action Date Dose Rate Site ketorolac (Toradol) injection 30 mg 30 mg, Intramuscular, Once, On Rhonda 11/28/24 at 1345, For 1 dose, NOTE: 60mg doses are IM route ONLY Given 11/28/2024 1:45 PM CDT 30 mg Left Deltoid morphine (PF) injection 4 mg 4 mg, Intramuscular, Once, On Rhonda 11/28/24 at 1345, For 1 dose Given 11/28/2024 1:45 PM CDT 4 mg Right Deltoid documented in this encounter Active and Recently Administered Medications Times are shown in CDT. Scheduled Medication Order 11/26/2024 11/27/2024 11/28/2024 ketorolac (Toradol) injection 30 mg (COMPLETED) 30 mg, Intramuscular, Once, On Rhonda 11/28/24 at 1345, For 1 dose, NOTE: 60mg doses are IM route ONLY 1345 (Given - Provid er: Jessica Wild RN) morphine (PF) injection 4 mg (COMPLETED) 4 mg, Intramuscular, Once, On Rhonda 11/28/24 at 1345, For 1 dose 1345 (Given - Provid er: Jessica Wild RN) documented in this encounter Additional Health Concerns Infection Onset Date Last Indicated Resolved Time MRSA Comment:Added from external infection. Source: [facility] Practices. 05/15/2024 025 1:23 PM CDT documented as of this encounter Care Teams Rn Anesthesiology Relationship Specialty Start Date End Date Fantasma Brewer DO [address] [place] [id number] PCP - General Family Medicine 08/24/23 documented as of this encounter
--- OUTSIDE RECORDS SUMMARY | 2024-11-29 08:45 | XMS_ITS | Encounter Summary ---
Author Organization [employer] [facility] Address [address] [place] [address] Care Team Providers Care Vehicle Painter Name Role Phone Fantasma Brewer DO Primary Care Provider Reason for Referral * Diagnostic Imaging (Routine) - Pending Review Specialty Diagnoses / Procedures Referred By Ron zeng Referred To Contact Radiology Diagnoses Generalized abdominal pain Procedures Ultrasound abdomen complete Fantasma Brewer DO [address] [place] [id number] Phone: tel: fax: Referral ID Status Reason Start Date Expiration Date V isits Requested Visits Authorized [id number] Pending Review 11/29/2024 11/29/2025 1 1 Reason for Visit * Reason Comments Follow-up ER Encounter Details Date Type Department Care Team (Late st Contact Info) Description 11/29/2024 8:45 AM CDT Office Visit [facility] [address], [place] [id number] Fantasma Brewer DO [address] [place] [phone] Generalized abdominal pain (Primary Dx); Encounter for behavioral health screening Social History Tobacco Use Types Packs/Day Years Used Date Smoking Tobacco: Never Passive Smoke Exposure: Never Smokeless Tobacco: Former Alcohol Use Standard Drinks/Week Comments Never 0 (1 standard drink = 0.6 oz pur e alcohol) [facility] Utilities Answer Date Recorded In [...] money to get more. Never true 05/13/2024 [facility] - Transportation Answer Date Record ed In the past 12 months, has l ack of reliable transportation kept you from medical appointments, meetings, work or from getting things needed for daily living? No 05/13/2024 [facility] - Personal Safety Answer Date Recor [...] scream or curse at you? Never 05/13/2024 [facility] - Inadequate Housing Answer Date Re corded What is your living situation today? I have a [facility] place to live 05/13/2024 Housing Problems Not on file 05/13/2024 Comments No Sex and Gender Information Value Date Recorded Sex Assigned at Not on file Legal Sex Female 9:57 AM TRIPPER Gender Identity Not on file Sexual Orientation Not on file documented as of this encounter Last Filed Vital Signs Vital Sign Reading Time Taken Comments Blood Pressure 148/74 11/29/2024 8:25 AM CDT Pulse 73 11/29/2024 8:25 AM CDT Temperature 36.3 C (97.3 F) 11/29/2024 8:25 AM CDT Respiratory Rate 14 11/29/2024 8:25 AM CDT Oxygen Saturation 97% 11/29/2024 8:25 AM CDT Inhaled Oxygen Concentration - - Weight 121 kg (266 lb 9.6 oz) 11/29/2024 8:25 AM CDT Height 175.3 cm (5' 9.02 ) 11/29/2024 8:25 AM CD T Body Mass Index 39.35 11/29/2024 8:25 AM CDT documented in this encounter Functional Status * Is the person deaf or does he/she have serious difficulty hearing? Answer Date of Assessment Author No 05/13/2024 11:15 PM TRIPPER * Is this person blind or does he/she have serious difficulty seeing even when wearing glasses? Answer Date of Assessment Author No 05/13/2024 11:15 PM TRIPPER * Does this person have serious difficulty walking or climbing stairs? Answer Date of Assessment Author No 05/13/2024 11:15 PM TRIPPER * Does this person have difficulty dressing or bathing? Answer Date of Assessment Author No 05/13/2024 11:15 PM TRIPPER * Because of a physical, mental, or emotional condition, does this person have difficulty doing errands alone such as visiting a doctor's office or shopping? Answer Date of Assessment Author No 05/13/2024 11:15 PM TRIPPER documented as of this encounter Mental Status * Because of a physical, mental, or emotional condition, does this person have serious difficulty concentrating, remembering, or making decisions? Answer Entry Date Author No 05/13/2024 11:15 PM TRIPPER documented in this encounter Progress Notes * Fantasma Brewer, DO - 11/29/2024 8:45 AM CDT Patient ID: Romi Hobson is a 24 y.o. female. Assessment/Plan: Problem List Items Addressed This Visit None Visit Diagnoses Generalized abdominal pain - Primary Relevant Medications triamcinolone acetonide (Kenalog-40) injection 40 mg (Completed) dexAMETHasone (Decadron) injection 4 mg (Completed) Other Relevant Orders Ultrasound abdomen complete CBC Comprehensive Metabolic Panel Lipase Urine culture POCT Urinalysis without Microscopy (Completed) Encounter for behavioral health screening [facility] ([facility]) Elif is afebrile and appears nontoxic. She has mild generalized abdominal tenderness on exam. Planned point of care workup including UA w/ culture but she was unable to provide a specimen. This was changed to a lab collect order and serology was ordered as well. However, staff later reported Elif didprovide a urine specimen as she was leaving the office. The UA appears within normal limits. Will await her culture. Completed abdominal ultrasound was also ordered to follow up on the various abnormalities identified on abdominal CT. Counseling was done on supportive care for mesenteric adenitis. A steroid injection was also given for additional symptomatic relief of her inflammatory changes while she was in the office today. Indications to seek further medical evaluation were discussed. Romi Hobson is to return as scheduled or sooner if needed for any concern. Subjective: Chief Complaint Patient presents with Follow-up ER Elif presents for ER follow up. She presented to the ER on 11/26 and again on 11/28 for abdominal pain.The 11/28 ER note is not complete at the time of her visit. She had workup including labs and abdominal CT at her visit visit. Several potential etiologies were present on the abdominal CT including mesenteric adenitis, possible left pyelonephritis, possible left renal cysts and a possible left ovarian cyst. She was given Mobic and Levsin for pain. I don't see any additional diagnostic workup associated with the second ER visit. Today she reports a roughly one week history of generalized abdominal pain that is worse in the right lower quadrant. The pain is constant. She reports nausea and diarrhea but no other associated symptoms. The listed medications have not been helpful. She also reports using edibles without relief. No other concerns are voiced. The following portions of the patient's history were reviewed and updated as appropriate: vitals, allergies, current medications, past family history, past medical history, past social history, past surgical history, and problem list. Review of Systems Constitutional: Negative for fever. Respiratory: Negative for cough. Cardiovascular: Negative for chest pain. Objective: Physical Exam Vitals reviewed. Constitutional: General: She is not in acute distress. Appearance: She is well-developed. She is not toxic-appearing or diaphoretic. HENT: Head: Normocephalic and atraumatic. Right Ear: External ear normal. Left Ear: External ear normal. Nose: Nose normal. Eyes: General: Lids are normal. No scleral icterus. Right eye: No discharge. Left eye: No discharge. Conjunctiva/sclera: Conjunctivae normal. Cardiovascular: Rate and Rhythm: Normal rate and regular rhythm. Heart sounds: Normal heart sounds. No murmur heard. No friction rub. No gallop. Pulmonary: Effort: Pulmonary effort is normal. No respiratory distress. Breath sounds: Normal breath sounds. No stridor. No wheezing or rales. Abdominal: Palpations: Abdomen is soft. Tenderness: There is generalized abdominal tenderness. There is no guarding or rebound. Musculoskeletal: General: Normal range of motion. Cervical back: Normal range of motion and neck supple. Skin: General: Skin is warm and dry. Findings: No erythema or rash. Neurological: Mental Status: She is alert and oriented to person, place, and time. Psychiatric: Behavior: Behavior normal. Thought Content: Thought content normal. Judgment: Judgment normal. Results for orders placed or performed in visit on 11/29/24 (from the past 24 hours) POCT Urinalysis without Microscopy Collection Time: 11/29/24 9:20 AM Result Value Ref Range Clarity, UA Clear Clear, Hazy, SL CLOUDY Color, UA Yellow Yellow, Straw, Pale Yellow, Dark yellow, Bloody, Cloudy, Bloody, Blue, Green, GrayWhite, DKYELLOW, DARK YELLO Spec Grav, UA 1.030 1.001 - 1.035 Leukocytes, UA Negative Negative Nitrite, UA Negative Negative, Detected, Not Detected, Inconclusive, Indeterminant, Not Indicated, Not Tested pH, UA 5.5 4.6 - 8.0 Protein, UA Negative Negative Glucose, UA Negative Negative Ketones, UA Negative Negative Blood, UA Negative Negative Bilirubin, UA Negative Negative Urobilinogen, UA 0.2 0.2 - 1.0 documented in this encounter Plan of Treatment Upcoming Encounters Date Type Department Care Team (Late st Contact Info) Description 03/04/2025 3:00 PM CDT Office Visit [facility] [address] [id number] Raghu Gayle MD [address] [phone] Scheduled Orders Name Type Priority Associated Diagnoses Orde r Schedule Ultrasound abdomen complete Imaging Routine Generalized abdominal pain Expected: 11/29/2024, Expires: 11/29/2025 CBC Lab Routine Generalized abdominal pain Ordered: 11/29/2024 Comprehensive Metabolic Panel Lab Routine Generalized abdominal pain Ordered: 11/29/2024 Lipase Lab Routine Generalized abdominal pain Ordered: 11/29/2024 Urine culture Microbiology Routine Generalized abdominal pain Ordered: 11/29/2024 documented as of this encounter Procedures Procedure Name Priority Date/Time Associated Diagnosis Comments POCT URINALYSIS W/O MICRO (AMB) Routine 11/29/2024 9:20 AM CDT Generalized abdominal pain documented in this encounter Results * POCT Urinalysis without Microscopy (11/29/2024 9:20 AM CDT) Clarity, UA Clear Clear, Hazy, SL CLOUDY Color, UA Yellow Yellow, Straw, Pale Yellow, Dark yellow, Bloody, Cloudy, Bloody, Blue, Green, Snyder White, DKYELLOW, DARK YELLO Spec Grav, UA 1.030 1.001 - 1.035 Leukocytes, UA Negative Negative Nitrite, UA Negative Negative, Detected, Not Detected, Inconclusive , Indeterminan t, Not Indicated, Not Tested pH, UA 5.5 4.6 - 8.0 Protein, UA Negative Negative Glucose, UA Negative Negative Ketones, UA Negative Negative Blood, UA Negative Negative Bilirubin, UA Negative Negative Urobilinogen, UA 0.2 0.2 - 1.0 Urine Entire urinary tract proper / Unknown 11/29/2024 9:20 AM CDT Fantasma Brewer DO LAB POINT OF CARE TEST ORDERABLES Final Result documented in this encounter Visit Diagnoses Diagnosis Generalized abdominal pain- Primary Abdominal pain, generalized Encounter for behavioral health screening documented in this encounter Administered Medications Inactive Administered Medications - up to 3 most recent administrations Medication Order MAR Action Action Date Dose Rate Site dexAMETHasone (Decadron) injection 4 mg 4 mg, Intramuscular, Once, On Mon11/29/24 at 0900, For 1 doseIndications:General ized abdominal pain Given 11/29/2024 8:30 AM CDT 4 mg Right Upper Outer Quadrant triamcinolone acetonide (Kenalog-40) injection 40 mg 40 mg, Intramuscular, Once, On 7/11/25 at 0900, For 1 doseIndications:General ized abdominal pain Given 11/29/2024 8:30 AM CDT 40 mg Right Upper Outer Quadrant documented in this encounter Care Teams Vehicle Painter Relationship Specialty Start Date End Date Fantasma Brewer DO [address] [place] [id number] PCP - General Family Medicine 08/24/23 documented as of this encounter
--- OUTSIDE RECORDS SUMMARY | 2024-11-29 22:50 | XMS_ITS | Encounter Summary ---
Author Organization [employer] Address [address] [place] [address] Care Team Providers Care Circular Distributor Name Role Phone Unavailable Primary Care Provider Unavailabl e Reason for Visit * Reason Comments Abdominal Pain RLQ pain x 1-2 weeks . + nausea. Unable to tolerate PO. Encounter Details Date Type Department Care Team (Late st Contact Info) Description 11/29/2024 10:50 PM CDT - 11/29/2024 10:52 PM CDT Emergency [facility] Emergency [facility] [address] [address] Discharge Disposition: Left without being seen Social History Tobacco Use Types Packs/Day Years Used Date Smoking Tobacco: Never Assessed Feeling Safe Answer Date Recorded Are you in a relationship wi th someone who hurts you emotionally and/or physically? No 11/29/2024 Comments Unknown Sex and Gender Information Value Date Recorded Sex Assigned at Not on file Legal Sex Female 10:22 AM CDT Gender Identity Not on file Sexual Orientation Not on file Travel History Travel Start Travel End [place] 10/30/2024 11/09/2024 documented as of this encounter Last Filed Vital Signs Vital Sign Reading Time Taken Comments Blood Pressure 125/84 11/29/2024 7:01 PM CDT Pulse 110 11/29/2024 7:01 PM CDT Temperature 36.8 C (98.2 F) 11/29/2024 7:01 PM CDT Respiratory Rate - - Oxygen Saturation 98% 11/29/2024 7:01 PM CDT Inhaled Oxygen Concentration - - Weight 117.9 kg (260 lb) 11/29/2024 7:01 PM CDT Height 175.3 cm (5' 9 ) 11/29/2024 7:01 PM CDT Body Mass Index 38.4 11/29/2024 7:01 PM CDT documented in this encounter ED Notes * Diony Castillo, RN - 11/29/2024 10:52 PM CDT Patient approached desk and asked to leave. Encouraged patient to stay and be seen by a provider. Patient elects to leave regardless. Patient signed refusal of services form. Pt is AOx4 * Aleyda Bettencourt RN - 11/29/2024 7:45 PM CDT Romi Hobson is a 24 y.o. female who came into ETC complaining of Chief Complaint Patient presents with Abdominal Pain RLQ pain x 1-2 weeks. + nausea. Unable to tolerate PO. ED triage protocol initiated and no active vomiting or diarrhea. S/S: right lower quadrant pain that radiates across abd to left side. Pt states it is ovary pain .Pain for last 2 weeks, states unable to tolerate it anymore. Nausea and dizziness. LMP last month per pt. Pain: 10/10 Pt is Awake and alert and oriented to person, place, time, and general circumstances with behavior appropriate to circumstance. Airway patent and self- maintained and respirations are WDL, with no respiratory symptoms. Perfusion is within normal limits for age. Skin color Skin color, texture, turgornormal. No rashes or lesions. No high risk factors, complaints or symptoms assessed or identified during triage screening. Patient in no acute distress and advised that no appropriate treatment room is available. RN explains the triage process and apologizes about the wait times. Appropriate triage protocols initiated. Updated on plan of care and what the next steps are. Patient to Waiting Room with instructions to return to Triage desk for worsening symptoms or other concerns. documented in this encounter Plan of Treatment Not on file documented as of this encounter Procedures Procedure Name Priority Date/Time Associated Diagnosis Comments CBC WITH DIFFERENTIAL Stat 11/29/2024 8:04 PM CDT COMPREHENSIVE METABOLIC PANEL Stat 11/29/2024 8:04 PM CDT documented in this encounter Results * (ABNORMAL) COMPREHENSIVE METABOLIC PANEL (11/29/2024 8:04 PM CDT) [facility] SODIUM 140 136 - 145 mmol/L 11/29/2024 8:59 PM [facility] POTASSIUM 3.8 3.5 - 5.1 mmol/L 11/29/2024 8:59 PM [facility] CHLORIDE 110(H) 98 - 107 mmol/L 11/29/2024 8:59 PM [facility] CO2 16(L) 22 - 29 mmol/L 11/29/2024 8:59 PM [facility] CALCIUM 9.5 8.6 - 10.0 mg/dL 11/29/2024 8:59 PM [facility] BUN 12 6 - 20 mg/dL 11/29/2024 8:59 PM [facility] CREATININE 0.72 0.51 - 0.95 mg/dL 11/29/2024 8:59 PM [facility] GLUCOSE 114(H) 74 - 99 mg/dL 11/29/2024 8:59 PM [facility] TOTAL PROTEIN 7.4 6.4 - 8.3 g/dL 11/29/2024 8:59 PM [facility] ALBUMIN 4.3 3.5 - 5.2 g/dL 11/29/2024 8:59 PM [facility] BILIRUBIN TOTAL 0.3 0.0 - 1.0 mg/dL 11/29/2024 8:59 PM [facility] ALKALINE PHOSPHATASE 79 35 - 104 U/L 11/29/2024 8:59 PM [facility] AST 18 10 - 35 U/L 11/29/2024 8:59 PM [facility] ALT 20 <=35 U/L 11/29/2024 8:59 PM [facility] GFR >60 >=60 mL/min/1.7 3 sq meter 11/29/2024 8:59 PM [facility] Comment:eGFR calculated with 2020 CKD-EPI equation. Vegetarian diet, extremely high or low muscle mass, and may affect results. Cystatin C with Glomerular Filtration Rate is a suitable alternative for these patients. ANION GAP 14 9 - 20 mmol/L 11/29/2024 8:59 PM CDT [facility] Blood Venipuncture / Unknown 11/29/2024 8:04 PM CDT 11/29/2024 8:19 PM CDT us Protocol [facility] Emergency MD CHEMISTRY ORDERABLES F inal Result [facility] CLIA # [id number] [facility] [address] * (ABNORMAL) CBC WITH DIFFERENTIAL (11/29/2024 8:04 PM CDT) WBC 13.6(H) 4.5 - 11.0 K/uL 11/29/2024 8:23 PM CDT [facility] RBC 4.84 4.20 - 5.40 M/uL 11/29/2024 8:23 PM CDT [facility] HEMOGLOBIN 13.6 12.0 - 16.0 g/dL 11/29/2024 8:23 PM CDT [facility] HEMATOCRIT 40.9 36.0 - 46.0 % 11/29/2024 8:23 PM CDT [facility] MCV 84.5 84.0 - 103.0 fL 11/29/2024 8:23 PM CDT [facility] MCH 28.1 27.0 - 34.0 pg 11/29/2024 8:23 PM CDT [facility] MCHC 33.3 30.0 - 35.0 g/dL 11/29/2024 8:23 PM CDT [facility] PLATELETS 435 140 - 440 K/uL 11/29/2024 8:23 PM CDT [facility] MPV 10.3 8.9 - 12.8 fL 11/29/2024 8:23 PM CDT [facility] RDW 13.3 11.0 - 14.5 % 11/29/2024 8:23 PM T [facility] RDW-STDEV 41.1 37.0 - 54.0 fL 11/29/2024 8:23 PM CDT [facility] NEUTROPHILS 86(H) 42 - 75 % 11/29/2024 8:23 PM CDT [facility] LYMPHOCYTES 10(L) 24 - 44 % 11/29/2024 8:23 PM [facility] MONOCYTES 4 2 - 10 % 11/29/2024 8:23 PM [facility]S 0 0 - 7 % 11/29/2024 8:23 PM [facility] BASOPHILS 0 0 - 1 % 11/29/2024 8:23 PM [facility] IMMATURE GRANULOCYTES 0 0 - 2 % 11/29/2024 8:23 PM [facility] NEUTROPHIL ABSOLUTE 11.64(H) 2.00 - 8.00 K/uL 11/29/2024 8:23 PM [facility] LYMPHOCYTE ABSOLUTE 1.29 1.20 - 4.00 K/uL 11/29/2024 8:23 PM [facility] MONOCYTE ABSOLUTE 0.57 0.10 - 0.60 K/uL 11/29/2024 8:23 PM [facility]IL ABSOLUTE 0.01 0.00 - 0.70 K/uL 11/29/2024 8:23 PM [facility] BASOPHILS ABSOLUTE 0.03 0.00 - 0.20 K/uL 11/29/2024 8:23 PM [facility] IMMATURE GRANULOCYTES ABSOLUTE 0.05 0.00 - 0.10 K/uL 11/29/2024 8:23 PM [facility] SMEAR REVIEWED: NA - Not Applicable 11/29/2024 8:23 PM [facility] Blood Venipuncture / Unknown 11/29/2024 8:04 PM CDT 11/29/2024 8:14 PM CDT us Protocol [facility] Emergency HEMATOLOGY ORDERABLES Final Result Performing Organization Address City/[facility]/ZIP Co de Phone Number [facility] # [id number] [address] [address] [place] [address] documented in this encounter Visit Diagnoses Not on filedocumented in this encounter Administered Medications Inactive Administered Medications - up to 3 most recent administrations Medication Order MAR Action Action Date Dose Rate Site dextrose 5 % in water 250 mL flush bag 25 mL 25 mL, IV, SEE ADMIN INSTRUCTIONS, Starting on Mon11/29/24 at 1947, Until 11/30/24 at 0052, Routine sodium chloride 0.9 % flush bag 25 mL 25 mL, IV, SEE ADMIN INSTRUCTIONS, Starting on Mon11/29/24 at 1947, Until 11/30/24 at 0052, Routine sodium chloride flush injection 10 mL 10 mL, IV, EVERY 12 HOURS (BlD), First dose on Mon11/29/24 at 2100, Until Discontinued, Routine sodium chloride flush injection 10 mL 10 mL, IV, SEE ADMIN INSTRUCTIONS, Starting on Mon11/29/24 at 1947, Until 11/30/24 at 0052, Routine documented in this encounter Active and Recently Administered Medications Times are shown in CDT. Scheduled Medication Order 11/27/2024 11/28/2024 11/29/2024 dextrose 5 % in water 250 mL flush bag 25 mL 25 mL, IV, SEE ADMIN INSTRUCTIONS, Starting on Mon11/29/24 at 1947, Until 11/30/24 at 0052, Routine sodium chloride 0.9 % flush bag 25 mL 25 mL, IV, SEE ADMIN INSTRUCTIONS, Starting on Mon11/29/24 at 1947, Until 11/30/24 at 0052, Routine sodium chloride flush injection 10 mL 10 mL, IV, EVERY 12 HOURS (BlD), First dose on Mon11/29/24 at 2100, Until Discontinued, Routine 2100 (Due) sodium chloride flush injection 10 mL 10 mL, IV, SEE ADMIN INSTRUCTIONS, Starting on Mon11/29/24 at 1947, Until 11/30/24 at 0052, Routine documented in this encounter
[2024-11-30 10:51] VITALS: BP 116/70; PULSE 89; RESP 15; TEMP 36.4; O2SAT 98; BMI 38.4
--- OUTSIDE RECORDS SUMMARY | 2024-11-30 10:51 | XMS_ITS | Clinical Summary ---
Author Organization [facility] [place] Address [address] [address] Phone Care Team Providers Care Truck Driver'S Offsider Name Role Phone Unavailable Primary Care Provider Unavailabl e Encounters Date Type Department Care Team Description 11/29/2024 10:50 PM CDT - 11/29/2024 10:52 PM CDT Emergency [facility] Emergency Department [address] [place] [phone] Discharge Disposition: Left without being seen 11/29/2024 Travel 11/19/2024 External Device Data [facility] ABSTRACTION Provider, Abstract 11/19/2024 External Device Data [facility]STRACTION Provider, Abstract 11/19/2024 External Device Data [facility] ABSTRACTION Provider, Abstract 10/22/2024 12:15 AM CDT - 10/22/2024 11:59 PM CDT Hospital Encounter [facility] Emergency Medical Services [address] [phone] Ambulance, [facility] Discharge Disposition: Short term general hospital from Last 3 Months Social History [...] file Travel History Travel Start Travel End [place] 10/30/2024 11/09/2024 Last Filed Vital Signs Vital Sign Reading [...] Mass Index 38.4 11/29/2024 7:01 PM CDT Plan of Treatment Health Maintenance Due Date Last Done Comments DTAP/TDAP/TD VACCINES (6 - Tdap) 09/15/2011 10/14/2004, 04/09/2002, 03/16/2001, Additional history exists HPV VACCINES (1 - 3-dose series) 09/15/2015 HEPATITIS B VACCINES (1 of 3 - 19+ 3-dose series) 09/15/2019 CERVICAL CANCER SCREENING 2021 HPV/Cotest (21-29) 2021 PAP SMEAR 2021 INFLUENZA VACCINE (#1) 2024 Procedures Procedure Name Priority Date/Time Associated Diagnosis Comments COMPREHENSIVE METABOLIC PANEL Stat 11/29/2024 8:04 PM CDT CBC WITH DIFFERENTIAL Stat 11/29/2024 8:04 PM CDT from Last 3 Months Results * (ABNORMAL) CBC WITH DIFFERENTIAL (11/29/2024 8:04 PM CDT) WBC 13.6(H) 4.5 - 11.0 K/uL 11/29/2024 8:23 PM CDT [facility] RBC 4.84 4.20 - 5.40 M/uL 11/29/2024 8:23 PM CDT [facility] HEMOGLOBIN 13.6 12.0 - 16.0 g/dL 11/29/2024 8:23 PM CDT [facility] HEMATOCRIT 40.9 36.0 - 46.0 % 11/29/2024 8:23 PM CDT [facility] MCV 84.5 84.0 - 103.0 fL 11/29/2024 8:23 PM CDT [facility] MCH 28.1 27.0 - 34.0 pg 11/29/2024 8:23 PM [facility] MCHC 33.3 30.0 - 35.0 g/dL 11/29/2024 8:23 PM [facility] PLATELETS 435 140 - 440 K/uL 11/29/2024 8:23 PM [facility] MPV 10.3 8.9 - 12.8 fL 11/29/2024 8:23 PM [facility] RDW 13.3 11.0 - 14.5 % 11/29/2024 8:23 PM [facility] RDW-STDEV 41.1 37.0 - 54.0 fL 11/29/2024 8:23 PM [facility] NEUTROPHILS 86(H) 42 - 75 % 11/29/2024 8:23 PM [facility] LYMPHOCYTES 10(L) 24 - 44 % 11/29/2024 8:23 PM [facility] MONOCYTES 4 2 - 10 % 11/29/2024 8:23 PM [facility] EOSINOPHILS 0 0 - 7 % 11/29/2024 8:23 PM [facility] BASOPHILS 0 0 - 1 % 11/29/2024 8:23 PM [facility] IMMATURE GRANULOCYTES 0 0 - 2 % 11/29/2024 8:23 PM [facility] NEUTROPHIL ABSOLUTE 11.64(H) 2.00 - 8.00 K/uL 11/29/2024 8:23 PM [facility] LYMPHOCYTE ABSOLUTE 1.29 1.20 - 4.00 K/uL 11/29/2024 8:23 PM [facility] MONOCYTE ABSOLUTE 0.57 0.10 - 0.60 K/uL 11/29/2024 8:23 PM [facility] EOSINOPHIL ABSOLUTE 0.01 0.00 - 0.70 K/uL 11/29/2024 8:23 PM [facility] BASOPHILS ABSOLUTE 0.03 0.00 - 0.20 K/uL 11/29/2024 8:23 PM [facility] IMMATURE GRANULOCYTES ABSOLUTE 0.05 0.00 - 0.10 K/uL 11/29/2024 8:23 PM CDT [facility] SMEAR REVIEWED: NA - Not Applicable 11/29/2024 8:23 PM T [facility] Blood Venipuncture / Unknown 11/29/2024 8:04 PM CDT 11/29/2024 8:14 PM CDT us Protocol [facility] Emergency MD HEMATOLOGY ORDERABLES Final Result [facility] CLIA # [id number] [address] [place] [id number] * (ABNORMAL) COMPREHENSIVE METABOLIC PANEL (11/29/2024 8:04 PM CDT) SODIUM 140 136 - 145 mmol/L 11/29/2024 8:59 PM CDT [facility] POTASSIUM 3.8 3.5 - 5.1 mmol/L 11/29/2024 8:59 PM CDT [facility] CHLORIDE 110(H) 98 - 107 mmol/L 11/29/2024 8:59 PM T [facility] CO2 16(L) 22 - 29 mmol/L 11/29/2024 8:59 PM T [facility] CALCIUM 9.5 8.6 - 10.0 mg/dL 11/29/2024 8:59 PM CDT [facility] BUN 12 6 - 20 mg/dL 11/29/2024 8:59 PM CDT [facility] CREATININE 0.72 0.51 - 0.95 mg/dL 11/29/2024 8:59 PM CDT [facility] GLUCOSE 114(H) 74 - 99 mg/dL 11/29/2024 8:59 PM CDT [facility] TOTAL PROTEIN 7.4 6.4 - 8.3 g/dL 11/29/2024 8:59 PM T [facility] ALBUMIN 4.3 3.5 - 5.2 g/dL 11/29/2024 8:59 PM CDT [facility] BILIRUBIN TOTAL 0.3 0.0 - 1.0 mg/dL 11/29/2024 8:59 PM CDT [facility] ALKALINE PHOSPHATASE 79 35 - 104 U/L 11/29/2024 8:59 PM CDT [facility] AST 18 10 - 35 U/L 11/29/2024 8:59 PM CDT [facility] ALT 20 <=35 U/L 11/29/2024 8:59 PM CDT [facility] GFR >60 >=60 mL/min/1.7 3 sq meter 11/29/2024 8:59 PM T [facility] Comment:eGFR calculated with 2020 CKD-EPI equation. Vegetarian diet, extremely high or low muscle mass, and may affect results. Cystatin C with Glomerular Filtration Rate is a suitable alternative for these patients. ANION GAP 14 9 - 20 mmol/L 11/29/2024 8:59 PM T [facility] Blood Venipuncture / Unknown 11/29/2024 8:04 PM CDT 11/29/2024 8:19 PM CDT us Protocol [facility] Emergency MD CHEMISTRY ORDERABLES F inal Result [facility] # [id number] [address] [place] [address] [place] [address] from Last 3 Months
--- OUTSIDE RECORDS SUMMARY | 2024-11-30 10:51 | XMS_ITS | Encounter Summary ---
Author Organization [employer] [facility] Address [address] [place] [address] Care Team Providers Care Engineer Systems Name Role Phone Fantasma Brewer DO Primary Care Provider Encounter Details Date Type Department Care Team (Late st Contact Info) Description 06/14/2024 Scanned Document [facility] [address] [place] [id number] Fantasma Brewer DO [address] [place] [phone] Social History Tobacco Use Types Packs/Day Years Used Date Smoking Tobacco: Never Passive Smoke Exposure: Never Smokeless Tobacco: Never Alcohol Use Standard Drinks/Week Comments Never 0 (1 standard drink = 0.6 oz pur e alcohol) [facility] Utilities Answer Date Recorded In the past 12 months has e [employer], gas, oil, or water [employer] threatened to shut off services in your [...] money to get more. Never true 05/13/2024 [facility] - Transportation Answer Date Record ed In [...] your living situation today? 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 Answer Date of Assessment Author No 05/13/2024 11:15 PM MEDICAL INSURANCE CLAIMS PROCESSOR * Is this person blind or does he/she have serious difficulty seeing even when wearing glasses? Answer Date of Assessment Author No 05/13/2024 11:15 PM MEDICAL INSURANCE CLAIMS PROCESSOR * Does this person have serious difficulty walking or climbing stairs? Answer Date of Assessment Author No 05/13/2024 11:15 PM MEDICAL INSURANCE CLAIMS PROCESSOR * Does this person have difficulty dressing or bathing? Answer Date of Assessment Author No 05/13/2024 11:15 PM MEDICAL INSURANCE CLAIMS PROCESSOR * Because of a physical, mental, or emotional condition, does this person have difficulty doing errands alone such as visiting a doctor's office or shopping? Answer Date of Assessment Author No 05/13/2024 11:15 PM MEDICAL INSURANCE CLAIMS PROCESSOR documented as of this encounter Mental Status * Because of a physical, mental, or emotional condition, does this person have serious difficulty concentrating, remembering, or making decisions? Answer Entry Date Author No 05/13/2024 11:15 PM MEDICAL INSURANCE CLAIMS PROCESSOR documented in this encounter Plan of Treatment Upcoming Encounters Date Type Department Care Team (Late st Contact Info) Description 03/04/2025 3:00 PM CDT Office Visit [facility] [address] [place] [address] Raghu Gayle MD [address] [place] [address] documented as of this encounter Visit Diagnoses Not on filedocumented in this encounter Additional Health Concerns Infection Onset Date Last Indicated Resolved Time MRSA Comment:Added from external infection. Source: [facility] Practices. 05/15/2024 025 1:23 PM CDT Novel Coronavirus (rule out) 11/13/2024 11/13/2024 11/13/2024 2:01 AM CDT documented as of this encounter Care Teams Engineer Systems Relationship Specialty Start Date End Date Fantasma Brewer DO [address] [place] [address] PCP - General Family Medicine 08/24/23 documented as of this encounter
--- OUTSIDE RECORDS SUMMARY | 2024-11-30 10:51 | XMS_ITS | Encounter Summary ---
Author Organization [employer] [facility] Address [address] [place] [address] Care Team Providers Care Streetcar Dispatcher Name Role Phone Osman Fantasma Reeder DO Primary Care Provider Encounter Details Date Type Department Care Team (Late st Contact Info) Description 09/18/2023 Scanned Document [facility] [address] [place] [address] [place] [address] [place] [address] Social History Tobacco Use Types Packs/Day Years Used Date Smoking Tobacco: Never Smokeless Tobacco: Never Alcohol Use Standard Drinks/Week Comments Never 0 (1 standard drink = 0.6 oz pur e alcohol) PHQ-2 Answer Date Recorded PHQ-9 Total Score 0 08/24/2023 Comments No Sex and Gender Information Value Date Recorded Sex Assigned at Not on file Legal Sex Female 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 Source: [facility] Practices. 05/15/2024 025 1:23 PM CDT Novel Coronavirus (rule out) 05/27/2024 05/27/2024 05/27/2024 5:09 PM FORMULA TECHNICIAN Novel Coronavirus (rule out) 11/13/2024 11/13/2024 11/13/2024 2:01 AM CDT documented as of this encounter Care Teams Streetcar Dispatcher Relationship Specialty Start Date End Date Fantasma Brewer DO [address] [facility] [address] [place], [place] [phone] PCP - General Family Medicine 08/24/23 documented as of this encounter
--- OUTSIDE RECORDS SUMMARY | 2024-11-30 10:52 | XMS_ITS | Clinical Summary ---
Author Organization [facility] Address [address] [place] [address] Care Team Providers Care Awning Erector Name Role Phone Varinder Brewer DO Primary [...] Problem Noted Date Diagnosed Date Respiratory failure ([facility], [facility]) Epigastric pain 07/10/2024 Resolved Problems Problem Noted Date Diagnosed Date Resolved Date Status epilepticus ([facility], [facility]) 07/25/2024 07/28/2024 Hypercalcemia 07/22/2024 07/24/2024 Hypoglycemic coma, non-diabetic ([facility]) 07/10/2024 07/19/2024 Seizure ([facility], HHS/HCC) 07/08/2024 0 07/19/2024 Altered mental status, unspe cified altered mental status type 07/06/2024 07/07/2024 Pancreatitis (HHS/HCC) 06/19/202407/10 Acute pancreatitis (HHS/HCC) 06/18/2024 07/10/2024 Encounters Date Type Department Care Team Description 10/20/2024 Results Follow-Up [facility] Gastroenterology [place] [address] [facility], 1st [place] [address] Amber Dale MD [place] Gastric Emptying Solid Phase 10/17/2024 8:17 AM CDT - 10/17/2024 11:59 PM CDT Hospital Encounter [facility] Nuclear Medicine [address] [place] [phone] Amber Dale MD Discharge Disposition: Still a Patient 10/17/2024 8:17 AM CDT - 10/17/2024 11:59 PM CDT Hospital Encounter [facility] Nuclear Medicine [address] [place] [phone] Amber Dale MD Discharge Disposition: Still a Patient 10/17/2024 8:17 AM CDT - 10/17/2024 11:59 PM CDT Hospital Encounter [facility] Nuclear Medicine [address] [place] [phone] Amber Dale MD Discharge Disposition: Still a Patient 10/17/2024 8:17 AM CDT - 10/17/2024 11:59 PM CDT Hospital Encounter [facility] Nuclear Medicine [address] [place] [phone] Amber Dale MD Abdominal pain, unspecified abdominal location; Bloating Discharge Disposition: Still a Patient 10/14/2024 10:54 PM CDT - 10/15/2024 2:[address] [facility] Trauma Emergency [address] [place] [address] Marshal Davey DO Breakthrough seizure (CMS/HCC, HHS/HCC) (Primary Dx); Pancreatic cyst (HHS/HCC); Headache; Abdominal pain Discharge Disposition: Home or Self Care 10/07/2024 9:10 PM CDT - 10/08/2024 6:[address] [facility] Tra[facility] Emergency [address] [place] [address] Discharge Disposition: LWBS 10/07/2024 Refill [facility] Gastroenter[facility] [place] [address] [facility] [place], [address] [place] [address] [phone] [place] Diarrhea, unspecified type (Primary Dx) 10/01/2024 Results Follow-Up [facility] Gastroenterology [place] [address] [facility] [place], [address] [place] [address] [phone] Amber Dale MD Pancreatic Elastase, Fecal 09/30/2024 Telephone [facility] Gastroenter[facility] [place] [address] [facility] [place], [address] [place] [address] [phone] [place] going to the ER 09/25/2024 Telephone [facility] G[facility]enter[facility] [place] [address] [facility] [place], [address] [place] [address] [phone] [place], [place] Bloated 09/25/2024 Refill [facility] G[facility]enter[facility] [place] [address] [facility] [place], [address] [place] [address] [phone] [place] Abdominal pain, unspecified abdominal location (Primary Dx); Bloating 09/25/2024 Orders Only [facility] Gastroenterology [place] [address] [facility] [place], [address] [place] [address] [phone] [place], [place] Abdominal pain, unspecified abdominal location (Primary Dx); Bloating 09/20/2024 Refill [facility] G[facility]enter[facility] [place] [address] [facility] [place], [address] [place] [address] [phone] [place] 09/20/2024 Orders Only [facility] Gastroenterology [place] [address] [facility] [place], [address] [place] [address] [phone] Kim Carbone, [place] Abdominal pain, unspecified abdominal location (Primary Dx) 09/20/2024 Results Follow-Up [facility] Gastroenter[facility] [place] [address] [facility] [place], [address] [place] [address] Abdomen Pelvis With and Without Contrast 09/17/2024 Results Follow-Up [facility] Gastroenterology [place] [address] [facility] Victor Manuel, [address] [place], [place] [phone] Amber Dale MD Amylase, Lipase, CMP 09/17/2024 Telephone [facility] General Surgery [address] [phone] Yaneth Roque RN EUS report forwarded to GI physicians 09/16/2024 3:00 PM CDT - 09/16/2024 4:[address] [facility] Endoscopy [address] [place] [phone] Aly Tom MD ENDOSCOPIC ULTRASOUND (UPPER) 09/16/2024 1:52 PM CDT Anesthesia Event [facility] Endoscopy [address] [place] [phone] Dragan Parmar, Radha Garcia, PA 09/16/2024 11:54 AM CDT - 09/16/2024 3:26 PM CDT Hospital Encounter [facility] Endoscopy [address] [place] [phone] Aly Tom MD Nausea Discharge Disposition: Home or Self Care 09/10/2024 Telephone [facility] Gastroenterology [place] [address] [facility] Victor Manuele, [address] [place] [address] [phone] Kim Carbone [place] lab work 09/10/2024 Refill [facility] Gastroenter[facility] [place] [address] [facility] [place], [address] [place] [address] [phone] Kim Carbone [place] Nausea (Primary Dx) 09/06/2024 Telephone [facility] General Surgery [address] [facility] [address] [place] [address] Stephani Layne Neurology Clearance 09/04/2024 2:00 PM CDT Pre-Admission Testing [facility] Pre-Op Clinic [address] [place] [address] Aly Tom MD from Last 3 Months Immunizations Immunization Administration [...] drink = 0.6 oz pur e alcohol) [facility] Utilities Answer Date Recorded In the past 12 months has e [employer], gas, oil, or water [employer] threatened to shut off services in your [...] time in the past 12 m [facility], were you homeless or living in a fpc (including now)? No 08/06/2024 Comments No Sex [...] 2001, 02/08/2001 Pap Smear 2021 COVID-19 Vaccine ( season) 2024 Influenza Vaccine (#1) 2024 , 04/11/2005, 04/10/2003, Additional history exists DTaP/Tdap/Td Vaccines [...] CDT 1. No significant delayed gastric emptying. [id number] Narrative 10/17/2024 1:41 PM CDT NM GASTRIC [...] IMPRESSION 1. No significant delayed gastric emptying. [id number] Amber Dale MD [facility] [place] ORDERABLES Final Result * DRUG SCREEN PROFILE DRUGS OF ABUSE, URINE (10/15/2024 12:03 AM CDT) Pathologist [facility] Amphetamines Qual Negative Negative 025 12:37 AM T [facility] Barbituates Qual Negative Negative 10/16/19 25 12:37 AM T [facility] Benzodiazepine Qual Negative Negative 10/15/2024 12:37 AM T [facility] Buprenorphine Qual Negative Negative 2024 12:37 AM T [facility] Cannabinoid Qual Negative Negative 10/16/19 25 12:37 AM T [facility] Cocaine Qual Negative Negative 10/15/2024 12:37 AM T [facility] Methadone Qual Negative Negative 10/15/2024 12:37 AM T [facility] Opiates Qual Negative Negative 10/15/2024 12:37 AM T [facility] Fentanyl Qual Negative Negative 10/15/2024 12:37 AM [facility] Urine Collection / Unknown 10/15/2024 12:03 AM CDT 10/15/2024 12:09 AM CDT Narrative [facility] - 10/15/2024 12:37 AM CDT Results [...] negative. Fentanyl: Results <1ng/mL are considered negative. [facility] URINE ORDERABLES Final Result [facility] [address] [place] [address], * CT Abdomen Pelvis With Contrast (10/14/2024 11:37 PM CDT) Anatomical Region Laterality Modality Abdomen, Pelvis Computed Tomogra phy 10/14/2024 11:5 3 PM CDT Impressions 10/14/2024 11:55 PM CDT No evidence of an acute abnormality. [id number] Narrative 10/14/2024 11:[address] ABDOMEN [...] IMPRESSION No evidence of an acute abnormality. [id number] [facility] CT ORDERABLES Final Result * CT Head Without Contrast (10/14/2024 11:36 PM CDT) Anatomical Region Laterality Modality Head Computed Tomogra phy 10/14/2024 11:4 5 PM CDT Impressions 10/14/2024 11:46 PM CDT Unremarkable head CT. [id number] Narrative 10/14/2024 11:[address] HEAD [...] cells are well-aerated. IMPRESSION Unremarkable head CT. [id number] [facility] IMG CT ORDERABLES Final Result * Whole Blood Creatinine Level (10/14/2024 11:17 PM CDT) [facility] Creat 0.8 0.6 - 1.1 mg/dL 10/14/2024 11:20 PM CDT [facility] WB eGFRcr >90 >=60 10/14/2024 11:20 PM CDT [facility] Blood 10/14/2024 11:1 7 PM CDT 10/14/2024 11:20 PM CDT Narrative [facility] - 10/14/2024 11:20 PM CDT Testing performed and reviewed by nursing personnel. [facility] POCT ORDERABLES - DEVICE Final R esult Performing Organization Address City/State/[facility] Co de Phone Number [facility] [address] [place] [address], [place] [phone] * Glucose Level,Bedside by Glucometer (10/14/2024 11:14 PM CDT) [facility] Gluc Bedside 107 (70-110 mg/dL - expected results in non-diabetic, non- patients. <140 mg/dL - 2 hrs after 75g of glucose.) mg/dL 10/14/2024 11:15 PM CDT [facility] LORI [id number] 10/14/2024 11:15 PM CDT [facility] Blood 10/14/2024 11:1 4 PM CDT 10/14/2024 11:15 PM CDT Marshal [facility] POCT ORDERABLES - DEVICE Final R esult Performing Organization Address City/[facility] Co de Phone Number [facility] [address] [place] [address], [place] [phone] * Hold [employer] (10/14/2024 11:02 PM CDT) Only the most recent of2 resultswithin the time period is included. Comment This event is used to track the Hold Tube request. 10/15/2024 11:32 AM CDT [facility] Blood 10/14/2024 11:0 2 PM CDT 10/14/2024 11:08 PM CDT [facility] LAB BLOOD ORDERABLES Final Resul t Performing Organization Address [facility] Phone Number [facility] [address] [place] [address], [place] [phone] * HCG, Qualitative/Quantitative (10/14/2024 11:02 PM CDT) Only the most recent of2 resultswithin the time period is included. Pathologist [facility] HCG Quant <1.2 0.0 - 5.0 mIU/mL 10/14/2024 11:45 PM CDT [facility] HCG Qualitative Negative Negative 11:45 PM CDT [facility] Blood 10/14/2024 11:0 2 PM CDT 10/14/2024 11:10 PM CDT [facility] LAB BLOOD ORDERABLES Final Resul t Performing Organization Address City/[facility] Co de Phone Number [facility] [address] [place] [address]. [place] [address], [place] [phone] * (ABNORMAL) CBC with Differential (10/14/2024 11:02 PM CDT) Only the most recent of2 resultswithin the time period is included. WBC 14.1(H) 4.6 - 12.4 K/cmm 10/14/2024 11:12 PM [facility] RBC 4.68 3.71 - 5.19 M/cmm 10/14/2024 11:12 PM [facility] Hgb 13.5 11.9 - 15.0 g/dL 10/14/2024 11:12 PM [facility] Hct 41.9 33.7 - 46.5 % 10/14/2024 11:12 PM [facility] MCV 89.5 76.0 - 101.6 fL 10/14/2024 11:12 PM [facility] MCHC 32.1 30.9 - 34.1 g/dL 10/14/2024 11:12 PM [facility] RDW 14.0 12.0 - 15.7 % 10/14/2024 11:12 PM [facility] Plt 396 150 - 440 K/cmm 10/14/2024 11:12 PM [facility] MPV 10.5 8.90 - 12.56 fL 10/14/2024 11:12 PM [facility] nRBCs 0 0 - 0 /100 10/14/2024 11:12 PM [facility] Neutrophil (%) 59 38 - 73 % 10/14/2024 11:12 PM [facility] Lymph (%) 26 15 - 48 % 10/14/2024 11:12 PM [facility] Woodruff (%) 8 5 - 14 % 10/14/2024 11:12 PM [facility] Eos (%) 7 0 - 7 % 10/14/2024 11:12 PM [facility] Baso (%) 1 0 - 2 % 10/14/2024 11:12 PM [facility] Absolute Neutrophils 8.3(H) 1.8 - 7.1 K/cmm 10/14/2024 11:12 PM [facility] Absolute Lymphocytes 3.6 1.0 - 4.1 K/cmm 10/14/2024 11:12 PM CDT [facility] Absolute Monocytes 1.2(H) 0.3 - 0.9 K/cmm 10/14/2024 11:12 PM CDT [facility] Absolute Eosinophils 0.9(H) 0.0 - 0.6 K/cmm 10/14/2024 11:12 PM CDT [facility] Absolute Basophils 0.1 0.0 - 0.2 K/cmm 10/14/2024 11:12 PM CDT [facility] IG (%) 0 0 - 1 % 10/14/2024 11:12 PM CDT [facility] IG ABS 0.1 0.0 - 0.2 K/cmm 10/14/2024 11:12 PM CDT [facility] ANC 8.4 10/14/2024 11:12 PM CDT [facility] Blood 10/14/2024 11:0 2 PM CDT 10/14/2024 11:08 PM CDT [facility] LAB BLOOD ORDERABLES Final Resul t Performing Organization Address [facility]/ZIP Co de Phone Number [facility] [address] [facility] [place] [place] [address], * (ABNORMAL) Prolactin Level (10/14/2024 11:02 PM CDT) Prolactin 112.71(H) 1.20 - 29.93 ng/mL 10/15/2024 12:01 AM CDT [facility] Blood 10/14/2024 11:0 2 PM CDT 10/14/2024 11:10 PM CDT [facility] LAB BLOOD ORDERABLES Final Resul t Performing Organization Address [facility]/ZIP Co de Phone Number [facility] [address] [place] [address], * (ABNORMAL) Levetiracetam Level (10/14/2024 11:02 PM CDT) Keppra <2(L) 6 - 46 ug/mL 10/15/2024 12:16 AM CDT [facility] Blood 10/14/2024 11:0 2 PM CDT 10/14/2024 11:10 PM CDT [facility] LAB BLOOD ORDERABLES Final Resul t [facility] [address] [place] [place] [address], [place] [phone] * Magnesium Level (10/14/2024 11:02 PM CDT) Mg 2.1 1.7 - 2.9 mg/dL 10/14/2024 11:36 PM CDT [facility] Blood 10/14/2024 11:0 2 PM CDT 10/14/2024 11:09 PM CDT [facility] LAB BLOOD ORDERABLES Final Resul t Performing Organization Address [facility] Co de Phone Number [facility] [address] [place] [place] [address], [place] [phone] * Lipase (10/14/2024 11:02 PM CDT) Only the most recent of3 resultswithin the time period is included. Lipase 24 8 - 78 U/L 10/14/2024 11:37 PM CDT [facility] Blood 10/14/2024 11:0 2 PM CDT 10/14/2024 11:10 PM CDT [facility] LAB BLOOD ORDERABLES Final Resul t Performing Organization Address City/[facility]/ZIP Co de Phone Number [facility] [address] [place] [address], [place] [phone] * Alcohol Level (10/14/2024 11:02 PM CDT) Alcohol Negative 0 - 12 mg/dL 10/15/2024 12:12 AM CDT [facility] Blood 10/14/2024 11:0 2 PM CDT 10/14/2024 11:10 PM CDT [facility] LAB BLOOD ORDERABLES Final Resul t [facility] [address] [place] [place] [address], * (ABNORMAL) CMP (10/14/2024 11:02 PM CDT) Only the most recent of3 resultswithin the time period is included. Gluc 107 70 - 110 mg/dL 10/14/2024 11:37 PM CDT [facility] BUN 12 5 - 25 mg/dL 10/14/2024 11:37 PM CDT [facility] Creat 0.73 0.57 - 1.11 mg/dL 10/14/2024 11:37 PM CDT [facility] CO2 19(L) 21 - 32 mmol/L 10/14/2024 11:37 PM CDT [facility] Cl 110 96 - 112 mmol/L 10/14/2024 11:37 PM CDT [facility] Na 140 135 - 146 mmol/L 10/14/2024 11:37 PM CDT [facility] K 4.2 3.5 - 5.0 mmol/L 10/14/2024 11:37 PM CDT [facility] Ca 9.1 8.5 - 10.7 mg/dL 10/14/2024 11:37 PM CDT [facility] TP 7.3 6.2 - 8.2 g/dL 10/14/2024 11:37 PM CDT [facility] Alb 4.1 3.4 - 4.7 g/dL 10/14/2024 11:37 PM CDT [facility] T Bili 0.2 0.1 - 1.2 mg/dL 10/14/2024 11:37 PM CDT [facility] Alk Phos 70 39 - 139 U/L 10/14/2024 11:37 PM CDT [facility] AST (SGOT) 17 8 - 42 U/L 10/14/2024 11:37 PM CDT [facility] ALT (SGPT) 16 7 - 40 U/L 10/14/2024 11:37 PM CDT [facility] HEMOLYSIS Slight Hemolysis( A) No hemolysis detected 10/14/2024 11:37 PM CDT [facility] Anion Gap 11 5-17 mmol/L mmol/L 10/14/2024 11:37 PM CDT [facility] eGFRcr >90 >=60 10/14/2024 11:37 PM CDT [facility] Blood 10/14/2024 11:0 2 PM CDT 10/14/2024 11:10 PM CDT [facility] LAB BLOOD ORDERABLES Final Resul t [facility] [address] [place] [place] [address], * (ABNORMAL) Urinalysis w/Culture, if Indicated (10/07/2024 9:59 PM CDT) Color, Urine Yellow 10/07/2024 10:11 PM CDT [facility] Clarity, Urine Slightly Cloudy 10/07/2024 10:11 PM CDT [facility] Glucose, Urine Negative Negative 10/07/2024 10:11 PM CDT [facility] pH, Urine 7.0 5 - 8.5 10/07/2024 10:11 PM CDT [facility] Ketones, Urine Negative Negative 10/07/2024 10:11 PM CDT [facility] Protein, Urine Negative Negative 10/07/2024 10:11 PM CDT [facility] Bilirubin, Urine Negative Negative 10/07/2024 10:11 PM CDT [facility] Blood, Urine Negative Negative 10/07/2024 10:11 PM CDT [facility] Urobilinogen, Urine Negative <0.2 - 1.0 10/07/2024 10:11 PM CDT [facility] Specific [place], Urine 1.017 1.005 - 1.030 10/07/2024 10:11 PM CDT [facility] Leukocyte Esterase, Urine 3+(A) Negative 10/07/2024 10:11 PM CDT [facility] Nitrite, Urine Negative Negative 10/07/2024 10:11 PM CDT [facility] WBC, Urine 8(H) <5 avg/hpf 10/07/2024 10:11 PM CDT [facility] RBC, Urine 2 <5 avg/hpf 10/07/2024 10:11 PM CDT [facility] Squamous Epithelium 2+ /hpf 10/07/2024 10:11 PM CDT [facility] Urine URINE SPECIMEN OBTAINED BY CLEAN CATCH PROCEDURE / Unknown Collection / Unknown 10/07/2024 9:59 PM CDT 10/07/2024 10:03 PM CDT Loree Mckeon DO URINE ORDERABLES Final Resu lt Performing Organization Address City/State/[facility] Co de Phone Number [facility] [address] [place] [address], * Pancreatic Elastase, Fecal (09/25/2024 2:21 PM CDT) Pancreatic Elastase >800 >=100 ug/g 09/28/2024 3:20 PM CDT [id number] Comment: REFERENCE INTERVAL: Pancreatic Elastase Fecal by Immunoassay Less than 100 ug/g............Severe insufficiency 100 - 199 ug/g................Moderate insufficiency 200 ug/g or greater...........Normal INTERPRETIVE INFORMATION: Pancreatic Elastase Fecal by Immunoassay Reference intervals do not apply for infants less than one month old. Performed By: [employer] [address] [place] [address] Application Architect Manager: Bishop Sena MD, PhD CLIA Number: [id number] Stool STOOL SPECIMEN / Unknown 09/25/2024 2:21 PM CDT 09/25/2024 4:29 PM CDT Amber Dale MD BODY FLUIDS AND STOOLS ORDERABLE S Final Result Performing Organization Address [facility] Co de Phone Number [id number] [address] [place] [address] * Specimen Container Issue to Patient Stool Container (09/25/2024 2:10 PM CDT) Specimen Container Issued A specimen container has been issue to the patient to be delivered to the Lab. 09/25/2024 3:32 PM CDT [facility] Stool 09/25/2024 2:10 PM CDT 09/25/2024 2:32 PM CDT Amber Dale MD LAB BLOOD ORDERABLES Final Resul t Performing Organization Address [facility] Co de Phone Number [facility] [phone] [place] [address], * Endoscopic Ultrasonography, GI (09/16/2024 1:58 PM CDT) Anatomical Region Laterality Modality Other 09/16/2024 1:58 PM CDT Narrative 09/16/2024 3:57 PM CDT Patient Name: Romi Hobson Visit Number: [id number] Date of : 2000 Admit Type: Outpatient [...] HCG Qualitative Negative Negative 12:16 PM CDT [facility] LORI [id number] 09/16/2024 12:16 PM CDT [facility] SN [id number] 09/16/2024 12:16 PM CDT [facility] Urine 09/16/2024 12: 08 PM CDT Radha RUIZ POINT OF CARE TEST ORDERABLE S Final Result Performing Organization Address [facility]/ZIP Co de Phone Number [facility] [address] [place] [place] [address], * Amylase (09/16/2024 11:15 AM CDT) Amylase 58 20 - 160 U/L 09/16/2024 11:43 AM CDT [facility] Blood Venipuncture / Unknown 09/16/2024 11:15 AM CDT 09/16/2024 11:16 AM CDT Amber Dale MD LAB BLOOD ORDERABLES Final Resul t [facility] [address] [place] [place] [address], * CT Abdomen Pelvis With and Without [...] By Brennan Junior D.O. (Radiologist) Procedure Note Brennan Junior, DO [...] representpseudocysts given provided history of pancreatitis. Recommend [id number] dedicated pancreas CT or MRI in 3 months to assess forresolution. All reports both verbal and nonverbal are conducted in the Central Timezone unless otherwise specified. By Brennan Junior D.O. (Radiologist) us Amber Dale MD IMG CT ORDERABLES Final [...] 12:45 AM 07/25/2024 12:12 AM Care Teams Awning Erector Relationship Specialty Start Date End Date Varinder Brewer DO [address] [place], [place] [id number] PCP - General Surgery General 07/06/24
--- OUTSIDE RECORDS SUMMARY | 2024-11-30 10:52 | XMS_ITS | Encounter Summary ---
Author Organization [facility] Address [address] [place] [address] Care Team Providers Care Accounting Teacher Name Role Phone Fantasma Brewer DO Primary Care Provider Encounter Details Date Type Department Care Team (Late st Contact Info) Description 11/29/2024 Scanned Document [facility] [address] [place] [phone] Fantasma Brewer DO [address] [place] [id number] Social History Tobacco Use Types Packs/Day Years Used Date Smoking Tobacco: Never Passive Smoke Exposure: Never Smokeless Tobacco: Former Alcohol Use Standard Drinks/Week Comments Never 0 (1 standard drink = 0.6 oz pur e alcohol) [facility] Utilities Answer Date Recorded In the past 12 months has e [employer], gas, oil, or water [employer] threatened to shut off services in your [...] to get more. Never true 05/13/2024 [facility] - Transportation Answer Date Record [...] your living situation today? I have a [facility] place to live 05/13/2024 Housing Problems Not on file 05/13/2024 Comments No Sex and Gender Information Value Date Recorded Sex Assigned at Not on file Legal Sex Female 9:57 AM FPGA DESIGN ENGINEER Gender Identity Not on file Sexual Orientation Not on file documented as of this encounter Functional Status * Is the person deaf or does he/she have serious difficulty hearing? Answer Date of Assessment Author No 05/13/2024 11:15 PM FPGA DESIGN ENGINEER * Is this person blind or does he/she have serious difficulty seeing even when wearing glasses? Answer Date of Assessment Author No 05/13/2024 11:15 PM FPGA DESIGN ENGINEER * Does this person have serious difficulty walking or climbing stairs? Answer Date of Assessment Author No 05/13/2024 11:15 PM FPGA DESIGN ENGINEER * Does this person have difficulty dressing or bathing? Answer Date of Assessment Author No 05/13/2024 11:15 PM FPGA DESIGN ENGINEER * Because of a physical, mental, or emotional condition, does this person have difficulty doing errands alone such as visiting a doctor's office or shopping? Answer Date of Assessment Author No 05/13/2024 11:15 PM FPGA DESIGN ENGINEER documented as of this encounter Mental Status * Because of a physical, mental, or emotional condition, does this person have serious difficulty concentrating, remembering, or making decisions? Answer Entry Date Author No 05/13/2024 11:15 PM FPGA DESIGN ENGINEER documented in this encounter Plan of Treatment Upcoming Encounters Date Type Department Care Team (Late st Contact Info) Description 03/04/2025 3:00 PM CDT Office Visit [facility] [address] [facility] [address] [place] [address] Raghu Gayle MD [address] [facility] [address] [place] [address] documented as of this encounter Visit Diagnoses Not on filedocumented in this encounter Care Teams Accounting Teacher Relationship Specialty Start Date End Date Fantasma Brewer DO [address] [facility] [address] [place] [address] PCP - General Family Medicine 08/24/23 documented as of this encounter
--- OUTSIDE RECORDS SUMMARY | 2024-11-30 10:52 | XMS_ITS | Encounter Summary ---
Author Organization [facility] Address [address] [place]: Epic Prelude ADT [place] [phone] Care Team Providers Care Director Digital Catalogue Name Role Phone Unavailable Primary Care Provider Unavailabl e Encounter Details Date Type Department Care Team (Latest Contact Info) Description 11/29/2024 Travel Social History Tobacco Use Types Packs/Day [...] file Travel History Travel Start Travel End [place] 10/30/2024 11/09/2024 documented as of this encounter Plan of Treatment Not on file documented as of this encounter Visit Diagnoses Not on filedocumented in this encounter
--- OUTSIDE RECORDS SUMMARY | 2024-11-30 10:52 | XMS_ITS | Encounter Summary ---
Author Organization [facility] Address [address] [place] [address] Care Team Providers Care Sql Server Consultant Name Role Phone Fantasma Brewer DO Primary Care Provider Encounter Details Date Type Department Care Team (Late st Contact Info) Description 08/08/2024 Telephone [facility] [address] [place] [phone] Fantasma Brewer DO [address] [place] [address] Social History Tobacco Use Types Packs/Day Years Used Date Smoking Tobacco: Never Passive Smoke Exposure: Never Smokeless Tobacco: Never Alcohol Use Standard Drinks/Week Comments Never 0 (1 standard drink = 0.6 oz pur e alcohol) [facility] Utilities Answer Date Recorded In the past 12 months has e [employer], gas, oil, or water [employer] threatened to shut off services in your [...] money to get more. Never true 05/13/2024 [facility] - Transportation Answer Date Record ed [...] on file Legal Sex Female 9:57 AM UNLOADING CHECKER Gender Identity Not on file Sexual Orientation Not on file documented as of this encounter Functional Status * Is the person deaf or does he/she have serious difficulty hearing? Answer Date of Assessment Author No 05/13/2024 11:15 PM UNLOADING CHECKER * Is this person blind or does he/she have serious difficulty seeing even when wearing glasses? Answer Date of Assessment Author No 05/13/2024 11:15 PM UNLOADING CHECKER * Does this person have serious difficulty walking or climbing stairs? Answer Date of Assessment Author No 05/13/2024 11:15 PM UNLOADING CHECKER * Does this person have difficulty dressing or bathing? Answer Date of Assessment Author No 05/13/2024 11:15 PM UNLOADING CHECKER * Because of a physical, mental, or emotional condition, does this person have difficulty doing errands alone such as visiting a doctor's office or shopping? Answer Date of Assessment Author No 05/13/2024 11:15 PM UNLOADING CHECKER documented as of this encounter Mental Status * Because of a physical, mental, or emotional condition, does this person have serious difficulty concentrating, remembering, or making decisions? Answer Entry Date Author No 05/13/2024 11:15 PM UNLOADING CHECKER documented in this encounter Miscellaneous Notes * Telephone Encounter - Lupe Price - 08/08/2024 4:34 PM CDT Patient called stating that she can't come to the appointment on 08/13/2024. [facility]. She asked questions about her lab work from there and I explained that she would have to talk to them since they are the ones that done the orders. documented in this encounter Plan of Treatment Upcoming Encounters Date Type Department Care Team (Late st Contact Info) Description 03/04/2025 3:00 PM CDT Office Visit [facility] - [facility]YN [address] [facility] [address] [place], [place] [address] Raghu Gayle MD [address] [place], [place] [address] documented as of this encounter Visit Diagnoses Not on filedocumented in this encounter Additional Health Concerns Infection Onset Date Last Indicated Resolved Time MRSA Comment:Added from external infection. Source: [facility]. 05/15/2024 025 1:23 PM CDT Novel Coronavirus (rule out) 11/13/2024 11/13/2024 11/13/2024 2:01 AM CDT documented as of this encounter Care Teams Sql Server Consultant Relationship Specialty Start Date End Date Fantasma Brewer DO [address] [place] [address] PCP - General Family Medicine 08/24/23 documented as of this encounter
--- OUTSIDE RECORDS SUMMARY | 2024-11-30 10:52 | XMS_ITS | Encounter Summary ---
Author Organization [facility] Address [address] [place] [address] Care Team Providers Care Weight Reducing Technician Name Role Phone Osman Fantasma Reeder DO Primary Care Provider Encounter Details Date Type Department Care Team (Latest Contact Info) Description 11/28/2024 Travel Social History Tobacco Use Types Packs/Day Years Used Date Smoking Tobacco: Never Passive Smoke Exposure: Never Smokeless Tobacco: Former Alcohol Use Standard Drinks/Week Comments Never 0 (1 standard drink = 0.6 oz pur e alcohol) [facility] Utilities Answer Date Recorded In the past [...] money to get more. Never true 05/13/2024 [facility] - Transportation Answer Date Record ed In the past 12 months, has l ack of reliable transportation kept you from medical appointments, meetings, work or from getting things needed for daily living? No 05/13/2024 [facility] - Personal Safety Answer Date Recor ded [...] your living situation today? I have a [facility] place to live 05/13/2024 Housing Problems Not on file 05/13/2024 Comments No Sex and Gender Information Value Date Recorded Sex Assigned at Not on file Legal Sex Female 9:57 AM TRANSPORTATION AIDE Gender Identity Not on file Sexual Orientation Not on file documented as of this encounter Functional Status * Is the person deaf or does he/she have serious difficulty hearing? Answer Date of Assessment Author No 05/13/2024 11:15 PM TRANSPORTATION AIDE * Is this person blind or does he/she have serious difficulty seeing even when wearing glasses? Answer Date of Assessment Author No 05/13/2024 11:15 PM TRANSPORTATION AIDE * Does this person have serious difficulty walking or climbing stairs? Answer Date of Assessment Author No 05/13/2024 11:15 PM TRANSPORTATION AIDE * Does this person have difficulty dressing or bathing? Answer Date of Assessment Author No 05/13/2024 11:15 PM TRANSPORTATION AIDE * Because of a physical, mental, or emotional condition, does this person have difficulty doing errands alone such as visiting a doctor's office or shopping? Answer Date of Assessment Author No 05/13/2024 11:15 PM TRANSPORTATION AIDE documented as of this encounter Mental Status * Because of a physical, mental, or emotional condition, does this person have serious difficulty concentrating, remembering, or making decisions? Answer Entry Date Author No 05/13/2024 11:15 PM TRANSPORTATION AIDE documented in this encounter Plan of Treatment Upcoming Encounters Date Type Department Care Team (Late st Contact Info) Description 03/04/2025 3:00 PM CDT Office Visit [facility] - [facility]YN [address] [place], [place] [address] Raghu Gayle MD [address] [place], [place] [address] documented as of this encounter Visit Diagnoses Not on filedocumented in this encounter Additional Health Concerns Infection Onset Date Last Indicated Resolved Time MRSA Comment:Added from external infection. Source: [facility]. 05/15/2024 025 1:23 PM CDT documented as of this encounter Care Teams Weight Reducing Technician Relationship Specialty Start Date End Date Fantasma Brewer DO [address] [place] [id number] PCP - General Family Medicine 08/24/23 documented as of this encounter
--- OUTSIDE RECORDS SUMMARY | 2024-11-30 10:52 | XMS_ITS | Encounter Summary ---
Author Organization [facility] Address [address] [place] [address] Care Team Providers Care Forest Fire Fighter Name Role Phone Varinder Brewer DO Primary Care Provider Unava ilable Reason for Visit * Reason Onset Date Comments Medication Refill 09/20/2024 Encounter Details Date Type Department Care Team (Late st Contact Info) Description 09/20/[address] [facility] [place] [address] [facility] [place] [phone] Kim Carbone, CHA Social History Tobacco Use Types Packs/Day Years Used Date Smoking Tobacco: Some Days Cigarettes Passive Smoke Exposure: Past Smokeless Tobacco: Never Comments:Smokes cigarettes, 1 pk every 2 weeks. Alcohol Use Standard Drinks/Week Comments Not Currently 0 (1 standard drink = 0.6 oz pur e alcohol) [facility] Utilities Answer Date Recorded In the past 12 months has [employer], gas, oil, or water [employer] threatened to shut off services in your [...] any time in the past 12 m [facility], were you homeless or living in a usp (including now)? No 08/06/2024 Comments No Sex [...] documented as of this encounter Care Teams Forest Fire Fighter Relationship Specialty Start Date End Date Varinder Brewer DO [address] [place], [place] [phone] PCP - General Surgery General 07/06/24 documented as of this encounter
--- OUTSIDE RECORDS SUMMARY | 2024-11-30 10:52 | XMS_ITS | Encounter Summary ---
Author Organization [facility] Address [address] [place] [address] Care Team Providers Care Milk Wagon Driver Name Role Phone Varinder Brewer DO Primary [...] Brewer DO [address] [place] [address] Phone: tel: fax: [facility] [address] [address] Phone: tel: fax: Referral ID Status Reason Start Date Expiration Date V isits Requested Visits Authorized [id number] Closed Eval and Treat 09/01/2023 08/31/2024 17 17 Encounter Details Date Type Department Care Team (Latest Contact Info) Description 09/01/2023 Transcribe Orders [facility] [address] [phone] Fantasma Brewer DO [address] [place] [phone] Strain of lumbar region (Primary Dx); Strain [...] COVID 07/08/2024 07/08/2024 07/08/2024 11:3 4 PM SPOT WASHER Potential Prion/CJD Comment:07/16/24: Dr. Rollins stated no concern for CJD. 07/15/2024 07/15/2024 07/17/2024 8:[address] documented as of this encounter Care Teams Milk Wagon Driver Relationship Specialty Start Date End Date Varinder Brewer DO [address] [place], [place] [phone] PCP - General Surgery General 07/06/24 documented as of this encounter
--- OUTSIDE RECORDS SUMMARY | 2024-11-30 10:52 | XMS_ITS | Encounter Summary ---
Author Organization [facility] Address [address] [place] [address] Care Team Providers Care Stem Cutter Name Role Phone Osman Fantasma Reeder DO Primary Care Provider Encounter Details Date Type Department Care Team (Latest Contact Info) Description 11/26/2024 Travel Social History Tobacco Use Types Packs/Day [...] your living situation today? I have a [facility] place to live 05/13/2024 Housing Problems Not on file 05/13/2024 Comments No Sex and Gender Information Value Date Recorded Sex Assigned at Not on file Legal Sex Female 9:57 AM WET FINISHER WOOL Gender Identity Not on file Sexual Orientation Not on file documented as of this encounter Functional Status * Is the person deaf or does he/she have serious difficulty hearing? Answer Date of Assessment Author No 05/13/2024 11:15 PM WET FINISHER WOOL * Is this person blind or does he/she have serious difficulty seeing even when wearing glasses? Answer Date of Assessment Author No 05/13/2024 11:15 PM WET FINISHER WOOL * Does this person have serious difficulty walking or climbing stairs? Answer Date of Assessment Author No 05/13/2024 11:15 PM WET FINISHER WOOL * Does this person have difficulty dressing or bathing? Answer Date of Assessment Author No 05/13/2024 11:15 PM WET FINISHER WOOL * Because of a physical, mental, or emotional condition, does this person have difficulty doing errands alone such as visiting a doctor's office or shopping? Answer Date of Assessment Author No 05/13/2024 11:15 PM WET FINISHER WOOL documented as of this encounter Mental Status * Because of a physical, mental, or emotional condition, does this person have serious difficulty concentrating, remembering, or making decisions? Answer Entry Date Author No 05/13/2024 11:15 PM WET FINISHER WOOL documented in this encounter Plan of Treatment Upcoming Encounters Date Type Department Care Team (Late st Contact Info) Description 03/04/2025 3:00 PM CDT Office Visit [facility] - OBGYN [address] [place], [place] [phone] Raghu Gayle MD [address] [place], [place] [phone] documented as of this encounter Visit Diagnoses Not on filedocumented in this encounter Additional Health Concerns Infection Onset Date Last Indicated Resolved Time MRSA Comment:Added from external infection. Source: [facility]. 05/15/2024 025 1:23 PM CDT documented as of this encounter Care Teams Stem Cutter Relationship Specialty Start Date End Date Fantasma Brewer DO [address] [place] [phone] PCP - General Family Medicine 08/24/23 documented as of this encounter
--- OUTSIDE RECORDS SUMMARY | 2024-11-30 10:52 | XMS_ITS | Clinical Summary ---
Author Organization [employer] Address [address] [place] [address] Care Team Providers Care Welder Gas Name Role Phone Osman Fantasma Reeder DO Primary Care Provider Allergies Active Allergy Reactions Criticality Noted Date Comments Cinnamon Flavoring Agent (Non-Screening) Swelling Medium 12/26/2021 Patient states she does not have anaphylactic reaction, swells around the lips Medications hyoscyamine (Anaspaz,Levsin) 0.125 MG tablet Take 1 tablet (0.125 mg) by mouth every 4 (four) hours as needed for cramping for up to 10 days. 30 tablet 025 2024 Active topiramate (Topamax) 100 MG tablet Take 1 tablet (100 mg) by mouth 2 (two) times a day. TAKE 1 TABLET BY MOUTH IN THE MORNING AND AT BEDTIME 025 Active meloxicam (Mobic) 15 MG tablet Take 1 tablet (15 mg) by mouth daily as needed (pain) for up to 5 doses. 5 tablet 025 Active ondansetron (Zofran) 4 MG tablet 025 Active SUMAtriptan (Imitrex) 50 MG tablet 025 Active medical cannabis for active license rao Take by mouth as needed for other. THIS ENTRY IS FOR DOCUMENTATION PURPOSES ONLY AND DOES NOT INDICATE THE PROVIDER OF NOTE PRESCRIBED THIS MEDICATION. THIS ENTRY MAY NOT BE USED TO PRESCRIBE THIS PRODUCT. Dose is (cigarette/vape cartridge) Active Vit-Fe Fumarate-FA ( VITAMIN PO) Take by mouth. 2024 Discontinued(P atient reported medication discontinued) HYDROcodone-aceta minophen (Hewlett) 10-325 MG per tablet Take 1 tablet by mouth every 4 (four) hours as needed. 2024 Discontinued(T herapy completed) oxyCODONE-acetami nophen (Percocet) 5-325 MG per tablet Take 1 tablet by mouth every 6 (six) hours as needed. 2024 Discontinued(T herapy completed) aluminum-magnesiu m hydroxide-simethi cone (Maalox) 200-200-20 MG/5ML suspension Take 30 mL by mouth. 2024 Discontinued(P atient reported medication discontinued) ondansetron ODT (Zofran-ODT) 4 MG disintegrating tablet 2024 Discontinued pantoprazole (Protonix) 20 MG EC tablet Take 1 tablet (20 mg) by mouth. 2024 Discontinued(P atient reported medication discontinued) senna (Senokot) 8.6 MG tablet Take 1 tablet (8.6 mg) by mouth. 2024 Discontinued(P atient reported medication discontinued) amitriptyline (Elavil) 25 MG tabletIndications :Other chronic pancreatitis Take 1 tablet (25 mg) by mouth nightly. 30 tablet 5 2024 Discontinued(P atient reported medication discontinued) polyethylene glycol (Miralax) 17 GM/SCOOP powderIndications :Other constipation Take 17 g by mouth daily. 30 packet 5 2024 Discontinued(P atient reported medication discontinued) ondansetron ODT (Zofran-ODT) 4 MG disintegrating tablet Take 1 tablet (4 mg) by mouth every 8 (eight) hours as needed for nausea or vomiting for up to 7 days. 20 tablet 2024 Discontinued levETIRAcetam (Keppra) 750 MG immediate release tablet Take 1 tablet (750 mg) by mouth every 12 (twelve) hours. 2024 Discontinued(P atient reported medication discontinued) colestipol (Colestid) 1 g tablet 025 2024 Discontinued(P atient reported medication discontinued) Hospital, Clinic, or Other Facility Administered Medication Ordered Dose Route Frequency Start Date End Date Status triamcinolone acetonide (Kenalog-40) injection 40 mgIndications:Generalized abdominal pain 40 mg IM Once 11/29/2024 11/29/2024 Ended dexAMETHasone (Decadron) injection 4 mgIndications:Generalized abdominal pain 4 mg IM Once 11/29/2024 11/29/2024 Ended Active Problems Problem Noted Date Diagnosed Date Marijuana use 11/13/2024 Convulsive disorder 11/13/2024 Pure hypercholesterolemia 08/25/2023 Resolved Problems Problem Noted Date Diagnosed Date Resolved Date Hypokalemia 05/14/2024 05/15/2024 Assessment & Plan (05/15/2024 3:45 PM [employer]): Replaced Assessment & Plan (05/15/2024 8:31 AM [employer]): Replaced Assessment & Plan (05/14/2024 1:35 PM [employer]): Replaced Chest pain 05/14/2024 05/15/2024 Assessment & Plan (05/15/2024 3:45 PM [employer]): Presumed referred pancreatitis pain EKG benign Serial trops negative + PPI Assessment & Plan (05/15/2024 8:32 AM [employer]): Presumed referred pancreatitis pain EKG benign Serial trops negative + PPI Assessment & Plan (05/14/2024 1:54 PM [employer]): Presumed referred pancreatitis pain EKG benign Serial trops + PPI S/P section 12/28/2021 022 Arrest of descent, delivered , current hospitalization 12/26/2021 01/19/2022 Overview (12/27/2021): Added automatically from request for surgery [id number] Rubella non-immune status, antepartum 2021 01/19/2022 Normal in third trimester 08/12/2021 01/19/2022 Maternal obesity affecting p regnancy, antepartum 08/12/2021 01/19/2022 Encounters Date Type Department Care Team Description 11/29/2024 8:45 AM CDT Office Visit [facility] [facility] [address] [place] [phone] Fantasma Brewer DO Generalized abdominal pain (Primary Dx); Encounter for behavioral health screening 11/29/2024 Scanned Document [facility] [facility] [address] [place] [phone] Fantasma Brewer DO 11/29/2024 Travel 11/28/2024 12:49 PM CDT - 11/28/2024 2:[address] [facility] Emergency Department [address] [place] [address] Edith South DO Abdominal pain (Primary Dx); Nausea; Diarrhea Discharge Disposition: Home or Self-Care 11/28/2024 Travel 11/27/2024 Patient Outreach [place] [address] [place] [phone] Fantasma Brewer DO Emergency Department Follow-Up 11/27/2024 Telephone [place] [address] [place] [phone] Fantasma Brewer DO 11/26/2024 9:06 PM CDT - 11/27/2024 12:[address] [facility] Emergency Department [address] [place] [address] Lashae Rocha PA-C Abdominal pain (Primary Dx); Nausea and vomiting; Mesenteric adenitis; Ovarian cyst Discharge Disposition: Home or Self-Care 11/26/2024 Travel 11/18/2024 Patient Outreach [facility] [address] [place] [phone] Fantasma Brewer DO Emergency Department Follow-Up 11/13/2024 12:54 AM CDT - 11/13/2024 4:08 AM CDT Emergency [facility] - Emergency Department [address] [place] [address] Jose Eduardo Martinez DO Breakthrough seizure (Primary [...] drink = 0.6 oz pur e alcohol) [facility] Utilities Answer Date Recorded In the [...] money to get more. Never true 05/13/2024 [facility] - Transportation Answer Date Record ed In the past 12 months, has l ack of reliable transportation kept you from medical appointments, meetings, work or from getting things needed for daily living? No 05/13/2024 [facility] - Personal Safety Answer Date Recor [...] scream or curse at you? Never 05/13/2024 [facility] - Inadequate Housing Answer Date Re corded What is your living situation today? I have a [facility] place to live 05/13/2024 Housing Problems Not on file 05/13/2024 Comments No Sex and Gender Information Value Date Recorded Sex Assigned at Not on file Legal Sex Female 9:57 AM [employer] Gender Identity Not on file Sexual Orientation [...] Mass Index 39.35 11/29/2024 8:25 AM CDT Plan of Treatment Upcoming Encounters Date Type Department Care Team (Late st Contact Info) Description 03/04/2025 3:00 PM CDT Office Visit [facility] - OBGYN [address] [place] [address] Raghu Gayle MD [address] [place] [address] Health Maintenance Due Date Last Done Comments Pap Smear Age 21+ 08/12/2024 08/12/2021 Influenza Vaccine (#1) 2025 , 04/11/2005, 04/10/2003, Additional history exists Pneumococcal Vaccine: Pediatrics (0-5 Years) and At-Risk Patients (6-64 Years) Aged Out 2001, 02/08/2001 No longer eligibl e based on patient's age to complete this topic [facility] Adult [facility]al Health Screen Ages 17+ Completed 11/29/2024, 04/29/2024, 04/29/2024 Procedures Procedure Name Priority Date/Time Associated Diagnosis Comments POCT URINALYSIS W/O MICRO (AMB) Routine 11/29/2024 9:20 AM CDT Generalized abdominal pain #UMICRO STAT 11/28/2024 1:48 PM CDT URINE STAT 11/28/2024 1:48 PM CDT URINALYSIS PRN CULTURE IF INDICATED STAT 11/28/2024 1:48 PM CDT URINALYSIS PRN CULTURE IF INDICATED STAT 11/26/2024 9:[address] ABDOMEN PELVIS W CONTRAST STAT 11/26/2024 9:49 PM CDT HCG, SERUM, QUALITATIVE STAT 11/26/2024 9:30 PM CDT LIPASE STAT 11/26/2024 9:30 PM CDT COMPREHENSIVE METABOLIC PANEL STAT 11/26/2024 9:30 PM CDT CBC STAT 11/26/2024 9:30 PM CDT LACTIC ACID, PLASMA STAT 11/13/2024 3 [...] GLUCOSE (RALS) STAT 11/13/2024 12:[address] [facility] Routine 04/29/2024 2:35 PM [employer] THINPREP PAP Routine 08/12/2021 1:46 PM CDT from Last 3 Months or Most Recently Relevant to Health Maintenance Results * POCT Urinalysis without Microscopy (11/29/2024 [...] POINT OF CARE TEST ORDERABLES Final Result * (ABNORMAL) Urinalysis, Culture if Indicated (11/28/2024 1:48 PM CDT) Urine Color Yellow Yellow, Light Yellow, Straw, Pale Yellow, Dark yellow, DKYELLOW, DARK YELLO 11/28/2024 1:[address] [facility] Urine Clarity Clear Clear 11/28/2024 1:[address] [facility] Urine pH 6.5 5.0, 5.5, 6.0, 6.5, 7.0, 7.5, 8.0 11/28/2024 1:[address] [facility] U Specific [place] 1.020 <=1.005 - 1.030 11/28/2024 1:[address] [facility] U Glucose Negative Negative 11/28/2024 1:[address] [facility] U Protein Negative Negative 11/28/2024 1:[address] [facility] U Bilirubin Negative Negative 11/28/2024 1:[address] [facility] U Leukocyte Esterase Trace(A) Negative 11/28/2024 1:[address] [facility] U Ketone 1+(A) Negative 11/28/2024 1:[address] [facility] U Blood Negative Negative 11/28/2024 1:[address] [facility] U Nitrite Negative Negative 11/28/2024 1:[address] [facility] Urine Urobilinogen 1.0 0.2 mg/dL mg/dL 11/28/2024 1:[address] [facility] Urine Comment 11/28/2024 1:[address] [facility] Urine Entire urinary tract proper / Unknown Collection / Unknown 11/28/2024 1:48 PM CDT 11/28/2024 1:[address] [facility] - 11/28/2024 1:56 PM CDT Consider positive bilirubin results as presumptive positive. Consider confirmation by serum bilirubin if clinically indicated. us Edith South DO LAB URINE ORDERABLES Final Result [facility] [address] [facility], [place] [address] * (ABNORMAL) #UMICRO (11/28/2024 1:48 PM CDT) U WBC/hpf 0-5 /hpf None Seen, 0-5 /hpf 11/28/2024 2:[address] [facility] U RBC/hpf None Seen None Seen, 0-3 /hpf 11/28/2024 2:[address] [facility] U Bacteria Few(A) None Seen 11/28/2024 2:[address] [facility] U Epithelial Cells 0-5 /hpf None Seen, 0-5 /hpf 11/28/2024 2:[address] [facility] Urine Entire urinary tract proper / Unknown Collection / Unknown 11/28/2024 1:48 PM CDT 11/28/2024 1:51 PM CDT [facility] Brannon DO LAB URINE ORDERABLES Final Result Performing Organization Address [facility] [place] [address] * Urine (11/28/2024 1:48 PM CDT) hCG, Qual Urine Negative Negative 11/28/2024 1:[address] [facility] Urine Entire urinary tract proper / Unknown Collection / Unknown 11/28/2024 1:48 PM CDT 11/28/2024 1:[address] [facility] - 11/28/2024 1:56 PM CDT hCG is not usually detected in healthy men and healthy non- women. However, hCG levels in will usually exceed 25 mIU/mL two to three days prior to the first missed menstrual period. [facility] [employer] LAB URINE ORDERABLES Final Result Performing Organization Address [facility] [place] [address] * (ABNORMAL) Urinalysis, Culture if Indicated (11/26/2024 9:58 PM CDT) Urine Color Yellow Yellow, Light Yellow, Straw, Pale Yellow, Dark yellow, DKYELLOW, DARK YELLO 11/26/2024 10:[address] [facility] Urine Clarity Clear Clear 11/26/2024 10:05 PM [facility] Urine pH 6.0 5.0, 5.5, 6.0, 6.5, 7.0, 7.5, 8.0 11/26/2024 10:05 PM [facility] U Specific [place] 1.025 <=1.005 - 1.030 11/26/2024 10:05 PM [facility] U Glucose Negative Negative 11/26/2024 10:05 PM [facility] U Protein Negative Negative 11/26/2024 10:05 PM [facility] U Bilirubin 1+(A) Negative 11/26/2024 10:05 PM [facility] U Leukocyte Esterase Negative Negative 11/26/2024 10:05 PM [facility] U Ketone Trace(A) Negative 11/26/2024 10:05 PM [facility] U Blood Negative Negative 11/26/2024 10:05 PM [facility] U Nitrite Negative Negative 11/26/2024 10:05 PM [facility] Urine Urobilinogen 0.2 0.2 mg/dL mg/dL 11/26/2024 10:05 PM [facility] Urine Comment 11/26/2024 10:05 PM [facility] Urine Entire urinary tract proper / Unknown Collection / Unknown 11/26/2024 9:58 PM CDT 11/26/2024 9:[address] [facility] - 11/26/2024 10:05 PM CDT Consider positive bilirubin results as presumptive positive. Consider confirmation by serum bilirubin if clinically indicated. us Lashae Rocha PA-C LAB URINE ORDERABLES Final R esult [facility] [address] [facility], [place] [address] * CT abdomen pelvis with contrast (11/26/2024 [...] Time zone unless otherwise specified. By Teresa Deluca M.D. (Radiologist) Electronically signed by TERESA DELUCA M.D. 11/26/2024 - 23:54:52 L:595 R:mmp: T:mmp ([id number]) Narrative 11/26/2024 11:59 PM CDT Date of [...] low as reasonably achievable. Procedure Note Teresa Deluca MD - 11/27/2024 Date of Exam: 11/26/2024 [...] Central Timezone unless otherwise specified. By Teresa Deluca M.D. (Radiologist) Electronically signed by TERESA DELUCA M.D. 11/26/2024 -23:54:52 L:595 R:mmp: T:mmp ([id number]) Lashae Rocha PA-C IM CT ORDERABLES Final Resu lt * (ABNORMAL) CBC (11/26/2024 9:30 PM CDT) WBC 8.2 3.8 - 10.8 X 10*3/uL 11/26/2024 9:[address] [facility] Red Blood Cell Count 4.77 3.80 - 5.10 X 10*6/uL 11/26/2024 9:[address] [facility] Hemoglobin 14.0 11.7 - 15.5 g/dL 11/26/2024 9:[address] [facility] HEMATOCRIT 40.3 35.0 - 45.0 % 11/26/2024 9:[address] [facility] Mean Cell Volume 84.6 80.0 - 100.0 fL 11/26/2024 9:[address] [facility] MCH 29.4 27.0 - 33.0 pg 11/26/2024 9:39 PM [facility] MCHC 34.8 32.0 - 36.0 g/dL 11/26/2024 9:39 PM [facility] RDW 13.5 11.0 - 15.0 % 11/26/2024 9:39 PM [facility] PLT 335 140 - 400 X 10*3/uL 11/26/2024 9:39 PM [facility] Mean Platelet Volume 8.0 7.5 - 11.5 fL 11/26/2024 9:39 PM [facility] Reviewed Differential Not Indicated 11/26/2024 9:39 PM [facility] Neutrophils 53.0 % 11/26/2024 9:39 PM [facility] Lymphocytes 30.7 % 11/26/2024 9:39 PM [facility] Monocytes 9.1 % 11/26/2024 9:39 PM [facility] Eosinophils 6.5 % 11/26/2024 9:39 PM [facility] Basophils 0.7 % 11/26/2024 9:39 PM [facility] Nucleated RBC 11/26/2024 9:39 PM [facility] Absolute Neutrophils 4.368 1.500 - 7.800 X 10*3/uL 11/26/2024 9:39 PM [facility] Absolute Lymphocytes 2.529 0.850 - 3.900 X 10*3/uL 11/26/2024 9:39 PM [facility] Absolute Monocytes 0.750 0.200 - 0.950 X 10*3/uL 11/26/2024 9:39 PM [facility] Absolute Eosinophils 0.534(H) 0.015 - 0.500 X 10*3/uL 11/26/2024 9:39 PM [facility] Absolute Basophils 0.055 0.000 - 0.200 X 10*3/uL 11/26/2024 9:39 PM [facility] Absolute Nucleated RBC 11/26/2024 9:39 PM [facility] Blood Venous blood specimen / Unknown Venipuncture / Unknown 11/26/2024 9:30 PM CDT 11/26/2024 9:33 PM CDT Lashae RUIZ-C LAB BLOOD ORDERABLES Final R esult Performing Organization Address [facility]/[place] [address] * HCG, Serum, Qualitative (11/26/2024 9:30 PM CDT) HCG, Qual Serum Negative Negative 11/26/2024 9:[address] [facility] Blood Venous blood specimen / Unknown Venipuncture / Unknown 11/26/2024 9:30 PM CDT 11/26/2024 9:[address] [facility] - 11/26/2024 9:55 PM CDT hCG is not usually detected in healthy men and healthy non- women. However, hCG levels in will usually exceed 25 mIU/mL two to three days prior to the first missed menstrual period. us Lashae Rocha PA-C LAB BLOOD ORDERABLES Final R esult Performing Organization Address [facility] [place] [address] * Lipase (11/26/2024 9:30 PM CDT) Lipase Level 15 7 - 60 units/L 11/26/2024 9:[address] [facility] Blood Venous blood specimen / Unknown Venipuncture / Unknown 11/26/2024 9:30 PM CDT 11/26/2024 9:33 PM CDT Lashae RUIZ-C LAB BLOOD ORDERABLES Final R esult Performing Organization Address [facility] [place] [address] * (ABNORMAL) Comprehensive Metabolic Panel (11/26/2024 9:30 PM CDT) [facility] Signature Glucose Level 98 65 - 99 mg/dL 11/26/2024 9:57 PM [facility] Sodium 140 135 - 146 mmol/L 11/26/2024 9:57 PM [facility] Potassium, Serum 3.6 3.5 - 5.3 mmol/L 11/26/2024 9:57 PM [facility] Chloride 114(H) 98 - 110 mmol/L 11/26/2024 9:57 PM [facility] Carbon Dioxide Level 19 18 - 30 mmol/L 11/26/2024 9:57 PM [facility] Anion Gap-Calculated 7 4 - 16 mmol/L 11/26/2024 9:57 PM [facility] Calcium Level 9.0 8.5 - 10.4 mg/dL 11/26/2024 9:57 PM [facility] Blood Urea Nitrogen 13 7 - 25 mg/dL 11/26/2024 9:57 PM [facility] Creatinine 0.81 0.50 - 1.10 mg/dL 11/26/2024 9:57 PM [facility] eGFR (Lab Calc) >60 mL/min/1.73 m2 11/26/2024 9:57 PM [facility] BUN/Creatinine Ratio 16.0 6.0 - 25.0 (calc) 11/26/2024 9:57 PM [facility] Protein Total 7.2 6.0 - 8.3 g/dL 11/26/2024 9:57 PM [facility] Albumin Level 3.8 3.2 - 5.0 g/dL 11/26/2024 9:57 PM [facility] BKR ALBUMIN/GLOBULIN (G/G RATIO) IN SER/PLAS 1.1 0.8 - 2.0 ratio 11/26/2024 9:57 PM [facility] ALKALINE PHOSPHATASE (U/L) IN SER/PLAS 61 20 - 125 U/L 11/26/2024 9:57 PM [facility] AST (SGOT) 33 11 - 34 U/L 11/26/2024 9:57 PM [facility] ALT (SGPT) 13 7 - 34 U/L 11/26/2024 9:[address] [facility] Bilirubin, Total 0.3 0.2 - 1.3 mg/dL 11/26/2024 9:[address] [facility] MDRD GFR, Calculated 11/26/2024 9:[address] [facility] Osmolality (Calculated) 290.1 273.0 - 304.0 MOSMOL 11/26/2024 9:[address] [facility] Blood Venous blood specimen / Unknown Venipuncture / Unknown 11/26/2024 9:30 PM CDT 11/26/2024 9:[address] [facility] - 11/26/2024 9:57 PM CDT Total Bilirubin: [...] Cystatin C results, go to https://www.kidney.org/professionals/kdoqi/gfr%5Fcalculator us Lashae Rocha PA-C LAB BLOOD ORDERABLES Final R esult Performing Organization Address [facility]/[place] [address] * Blood Culture (11/13/2024 3:05 AM CDT) Blood Culture No growth at 120 hours 11/18/2024 4:[address] [facility] Blood Venipuncture / Unknown 11/13/2024 3:05 AM CDT 11/13/2024 3:07 AM CDT us Jose Eduardo Martinez DO LAB MICROBIOLOGY - GENERAL OR DERABLES Final Result [facility] [address] [place] [address] * Lactic Acid, Plasma (11/13/2024 3:05 AM CDT) Lactic Acid 1.09 0.50 - 2.20 mmol/L 11/13/2024 3:[address] [facility] Lactic Acid (Conv) 11/13/2024 3:[address] [facility] Blood Venous blood specimen / Unknown Venipuncture / Unknown 11/13/2024 3:05 AM CDT 11/13/2024 3:07 AM CDT us Jose Eduardo Martinez DO LAB BLOOD ORDERABLES Final Re sult [address] [address] * X-ray chest 1 view (11/13/2024 1:30 [...] D.O. 11/13/2024 - 10:05:29 L:521 R:bxw: T:bxw ([id number]) Narrative 11/13/2024 10:08 AM CDT Date of [...] the Central Timezone unless otherwise specified. By Mairano Doe D.O. (Radiologist) Electronically signed by MARIANO DOE D.O. 11/13/2024 - 10:05:29 L:521 R:bxw: T:bxw ([id number]) Jose Eduardo Martinez DO IMG DIAGNOSTIC IMAGING ORDERA BLES Final Result * ECG 12 lead (11/13/2024 1:19 AM CDT) Heart Rate ECG 101 bpm TRACEMASTER RR Interval ECG 592 ms TRACEMASTER Atrial Rate ECG 102 ms TRACEMASTER NV Interval 149 ms TRACEMASTER P Duration 103 ms TRACEMASTER P Horizontal [place] ECG 21 deg TRACEMASTER P Front [place] ECG 22 deg TRACEMASTER Q Onset ECG 505 ms TRACEMASTER QRSD Interval 77 ms TRACEMASTER QT Interval 360 ms TRACEMASTER QTcB ECG 468 ms TRACEMASTER QTcF ECG 428 ms TRACEMASTER QRS Horizontal [place] ECG -9 deg TRACEMASTER QRS [place] ECG 63 deg TRACEMASTER I-40 Horizontal [place] ECG 83 deg TRACEMASTER I-40 Front [place] ECG -32 deg TRACEMASTER T-40 Horizontal [place] ECG -16 deg TRACEMASTER T-40 Front [place] ECG 76 deg TRACEMASTER T Horizontal [place] ECG 12 deg TRACEMASTER T Wave [place] [address] Horizontal [place] ECG [address] Front [place] ECG 39 deg TRACEMASTER 11/13/2024 1:19 AM [...] at 120 hours 11/18/2024 2:[address] [facility] Blood Venipuncture / Unknown 11/13/2024 1:14 AM CDT 11/13/2024 1:21 AM CDT Jose Eduardo Martinez DO LAB MICROBIOLOGY - GENERAL OR DERABLES Final Result Performing Organization Address [facility] [place] [address] * (ABNORMAL) CBC (11/13/2024 1:14 AM CDT) WBC 10.5 3.8 - 10.8 X 10*3/uL 11/13/2024 1:28 AM [facility] Red Blood Cell Count 4.43 3.80 - 5.10 X 10*6/uL 11/13/2024 1:28 AM [facility] Hemoglobin 13.3 11.7 - 15.5 g/dL 11/13/2024 1:28 AM [facility] HEMATOCRIT 38.2 35.0 - 45.0 % 11/13/2024 1:28 AM [facility] Mean Cell Volume 86.1 80.0 - 100.0 fL 11/13/2024 1:[address] [facility] [place] MCH 29.9 27.0 - 33.0 pg 11/13/2024 1:28 AM [facility] [place] MCHC 34.8 32.0 - 36.0 g/dL 11/13/2024 1:28 AM [facility] RDW 13.9 11.0 - 15.0 % 11/13/2024 1:28 AM [facility] PLT 305 140 - 400 X 10*3/uL 11/13/2024 1:28 AM [facility] Mean Platelet Volume 8.3 7.5 - 11.5 fL 11/13/2024 1:28 AM [facility] Reviewed Differential Not Indicated 11/13/2024 1:28 AM [facility] Neutrophils 61.0 % 11/13/2024 1:28 AM [facility] Lymphocytes 23.7 % 11/13/2024 1:28 AM [facility] Monocytes 8.3 % 11/13/2024 1:28 AM [facility] Eosinophils 6.2 % 11/13/2024 1:28 AM [facility] Basophils 0.8 % 11/13/2024 1:28 AM [facility] Nucleated RBC 11/13/2024 1:28 AM [facility] Absolute Neutrophils 6.426 1.500 - 7.800 X 10*3/uL 11/13/2024 1:28 AM [facility] Absolute Lymphocytes 2.502 0.850 - 3.900 X 10*3/uL 11/13/2024 1:28 AM [facility] Absolute Monocytes 0.879 0.200 - 0.950 X 10*3/uL 11/13/2024 1:28 AM [facility] Absolute Eosinophils 0.655(H) 0.015 - 0.500 X 10*3/uL 11/13/2024 1:28 AM [facility] Absolute Basophils 0.081 0.000 - 0.200 X 10*3/uL 11/13/2024 1:28 AM [facility] Absolute Nucleated RBC 11/13/2024 1:28 AM [facility] Blood Venous blood specimen / Unknown Venipuncture / Unknown 11/13/2024 1:14 AM CDT 11/13/2024 1:21 AM CDT us Jose Eduardo Martinez DO LAB BLOOD ORDERABLES Final Re sult [facility] [address] [place] [address] * Lipase (11/13/2024 1:14 AM CDT) Lipase Level 15 7 - 60 units/L 11/13/2024 1:[address] [facility] Blood Venous blood specimen / Unknown Venipuncture / Unknown 11/13/2024 1:14 AM CDT 11/13/2024 1:21 AM CDT Jose Eduardo Martinez DO LAB BLOOD ORDERABLES Final Re sult Performing Organization Address [facility]/ZIP Co de Phone Number [facility] [address] [place] [address] * (ABNORMAL) Lactic Acid, Plasma (11/13/2024 1:14 AM CDT) Lactic Acid 2.94(H) 0.50 - 2.20 mmol/L 11/13/2024 1:[address] [facility] Lactic Acid (Conv) 11/13/2024 1:[address] [facility] Blood Venous blood specimen / Unknown Venipuncture / Unknown 11/13/2024 1:14 AM CDT 11/13/2024 1:21 AM CDT Jose Eduardo Martinez DO LAB BLOOD ORDERABLES Final Re sult [facility] [address] [place] [address] * (ABNORMAL) Blood gas, venous (11/13/2024 1:14 AM CDT) Venous pH 7.36 7.36 - 7.46 pH 11/13/2024 1:[address] [facility] Venous pCO2 44 35 - 48 mmHg 11/13/2024 1:[address] [facility] Venous pO2 59.1(H) 30.0 - 50.0 mmHg 11/13/2024 1:[address] [facility] Venous HCO3 24 22 - 28 mEq/L 11/13/2024 1:[address] [facility] Venous TCO2 26 24 - 30 mEq/L 11/13/2024 1:[address] [facility] Venous Base Excess -0.7 -2.0 - 2.0 mmol/L 11/13/2024 1:[address] [facility] Venous O2 Saturation 89.3 % 11/13/2024 1:[address] [facility] Patient Temperature 98.6 DegC 11/13/2024 1:[address] [facility] O2 Admin 21.0 11/13/2024 1:[address] [facility] Blood Venous blood specimen / Unknown Venipuncture / Unknown 11/13/2024 1:14 AM CDT 11/13/2024 1:21 AM CDT us Jose Eduardo Martinez DO LAB BLOOD ORDERABLES Final Re sult Performing Organization Address [facility]/[place] [address] * Ethanol, Serum (11/13/2024 1:14 AM CDT) Ethanol, Serum <10 <=10 mg/dL 11/13/2024 1:[address] [facility] Blood Venous blood specimen / Unknown Venipuncture / Unknown 11/13/2024 1:14 AM CDT 11/13/2024 1:[address] [facility] - 11/13/2024 1:42 AM CDT Ethanol Normal: Negative = 0 mg/dL Toxic: 50-100 mg/dL Depression of AUDITING SPECIALIST: Greater than 100 mg/dL Fatalities Reported: Greater than 400 mg/dL Interpret with caution. Elevated lactic acid concentration and lactate dehydrogenase activity may falsely elevate enzymatically determined ethanol levels. us Jose Eduardo Martinez DO LAB BLOOD ORDERABLES Final Re sult Performing Organization Address [facility] [place] [address] * (ABNORMAL) Acetaminophen Level (11/13/2024 1:14 AM CDT) Acetaminophen Level <3.0(L) 10.0 - 30.0 mcg/mL 11/13/2024 1:42 AM [facility] Blood Venous blood specimen / Unknown Venipuncture / Unknown 11/13/2024 1:14 AM CDT 11/13/2024 1:21 AM CDT us Jose Eduardo Martinez DO LAB BLOOD ORDERABLES Final Re sult [facility] [address], [place] [address] * (ABNORMAL) Comprehensive Metabolic Panel (11/13/2024 1:14 AM CDT) Glucose Level 114(H) 65 - 99 mg/dL 11/13/2024 1:42 AM [facility] Sodium 139 135 - 146 mmol/L 11/13/2024 1:42 AM [facility] Potassium, Serum 3.6 3.5 - 5.3 mmol/L 11/13/2024 1:42 AM [facility] Chloride 108 98 - 110 mmol/L 11/13/2024 1:42 AM [facility] Carbon Dioxide Level 22 18 - 30 mmol/L 11/13/2024 1:42 AM [facility] Anion Gap-Calculated 9 4 - 16 mmol/L 11/13/2024 1:42 AM [facility] Calcium Level 8.7 8.5 - 10.4 mg/dL 11/13/2024 1:42 AM [facility] Blood Urea Nitrogen 11 7 - 25 mg/dL 11/13/2024 1:42 AM [facility] Creatinine 0.80 0.50 - 1.10 mg/dL 11/13/2024 1:42 AM [facility] eGFR (Lab Calc) >60 mL/min/1.73 m2 11/13/2024 1:42 AM [facility] BUN/Creatinine Ratio 13.8 6.0 - 25.0 (calc) 11/13/2024 1:42 AM [facility] Protein Total 6.5 6.0 - 8.3 g/dL 11/13/2024 1:42 AM [facility] Albumin Level 3.3 3.2 - 5.0 g/dL 11/13/2024 1:42 AM [facility] BKR ALBUMIN/GLOBULIN (G/G RATIO) IN SER/PLAS 1.0 0.8 - 2.0 ratio 11/13/2024 1:42 AM [facility] ALKALINE PHOSPHATASE (U/L) IN SER/PLAS 69 20 - 125 U/L 11/13/2024 1:42 AM [facility] AST (SGOT) 22 11 - 34 U/L 11/13/2024 1:42 AM [facility] Comment:Interpret results wi th caution. Hemolyzed samples may cause interference with the assay. ALT (SGPT) 11 7 - 34 U/L 11/13/2024 1:42 AM [facility] Bilirubin, Total 0.3 0.2 - 1.3 mg/dL 11/13/2024 1:42 AM [facility] MDRD GFR, Calculated 11/13/2024 1:42 AM [facility] Osmolality (Calculated) 288.3 273.0 - 304.0 MOSMOL 11/13/2024 1:42 AM [facility] Blood Venous blood specimen / Unknown Venipuncture / Unknown 11/13/2024 1:14 AM T 11/13/2024 1:[address] [facility] - 11/13/2024 1:42 AM [facility] Total Bilirubin: A metabolite of Naproxen, O-desmethylnaproxen, has been shown to interfere with the Teddyik-Tarun method for measuring Total Bilirubin. Samples from patients who have taken Naproxen have shown spurious elevation in Total Bilirubin levels. (Alexa et al, J. Clin Biochem 42, 129-131). The eGFR is based on the CKD-EPI 202 equation. To calculate the new eGFR from previous Creatinine or Cystatin C results, go to https://www.kidney.org/professionals/kdoqi/gfr%5Fcalculator Jose Eduardo Martinez DO LAB BLOOD ORDERABLES Final Re sult [facility] [address], [place] [address] * SARS-CoV-2/FLU/RSV Cepheid RT-PCR Detection (11/13/2024 1:13 AM CDT) Pathologist [facility] SARS-CoV-2 Cepheid GeneXpert RT-PCR Detection Negative Negative 11/13/2024 2:[address] [facility] Flu A Cepheid RT PCR Detection Negative Negative 11/13/2024 2:[address] [facility] Flu B Cepheid RT PCR Detection Negative Negative 11/13/2024 2:[address] [facility] RSV Cepheid RT PCR Detection Negative Negative 11/13/2024 2:[address] [facility] Swab Nasal structure / Unknown 11/13/2024 1:13 AM CDT 11/13/2024 1:[address] [facility] - 11/13/2024 2:01 AM CDT This test [...] OR DERABLES Final Result Performing Organization Address City/[facility]/ZIP Co de Phone Number [facility] [address] [facility], [place] [address] * Fentanyl Screen, Urine (11/13/2024 1:10 AM CDT) Urine Fentanyl Screen Negative Negative 11/13/2024 1:[address] [facility] Urine Entire urinary tract proper / Unknown Collection / Unknown 11/13/2024 1:10 AM CDT 11/13/2024 1:13 AM CDT [facility] [place] [place] - 11/13/2024 1:37 AM CDT Urine Drug Screen specimen was not collected by any chain of custody procedure; The results have not been confirmed and are intended for medical use only. Jose Eduardo Martinez DO LAB URINE ORDERABLES Final Re sult Performing Organization Address [facility] de Phone Number [address] [address] * Oxycodone Screen, Urine (11/13/2024 1:10 AM CDT) Urine Oxycodone Screen Negative Negative 11/13/2024 1:[address] [facility] Urine Entire urinary tract proper / Unknown Collection / Unknown 11/13/2024 1:10 AM CDT 11/13/2024 1:13 AM CDT [facility] [place] [place] - 11/13/2024 1:37 AM CDT Urine Drug Screen specimen was not collected by any chain of custody procedure; The results have not been confirmed and are intended for medical use only. Jose Eduardo Martinez DO LAB URINE ORDERABLES Final Re sult Performing Organization Address [facility] Co de Phone Number [address] [address] * Urinalysis, Culture if Indicated (11/13/2024 1:10 AM CDT) Urine Color Straw Yellow, Light Yellow, Straw, Pale Yellow, Dark yellow, DKYELLOW, DARK YELLO 11/13/2024 1:[address] [facility] Urine Clarity Clear Clear 11/13/2024 1:[address] [facility] Urine pH 6.0 5.0, 5.5, 6.0, 6.5, 7.0, 7.5, 8.0 11/13/2024 1:[address] [facility] U Specific [place] 1.025 <=1.005 - 1.030 11/13/2024 1:[address] [facility] U Glucose Negative Negative 11/13/2024 1:[address] [facility] U Protein Negative Negative 11/13/2024 1:[address] [facility] U Bilirubin Negative Negative 11/13/2024 1:[address] [facility] U Leukocyte Esterase Negative Negative 11/13/2024 1:[address] [facility] U Ketone Negative Negative 11/13/2024 1:[address] [facility] U Blood Negative Negative 11/13/2024 1:[address] [facility] U Nitrite Negative Negative 11/13/2024 1:[address] [facility] Urine Urobilinogen 0.2 0.2 mg/dL mg/dL 11/13/2024 1:[address] [facility] Urine Comment 11/13/2024 1:[address] [facility] Urine Entire urinary tract proper / Unknown Collection / Unknown 11/13/2024 1:10 AM CDT 11/13/2024 1:[address] [facility] - 11/13/2024 1:27 AM CDT Consider positive bilirubin results as presumptive positive. Consider confirmation by serum bilirubin if clinically indicated. us Jose Eduardo Martinez DO LAB URINE ORDERABLES Final Re sult [address] [address] * (ABNORMAL) Urine Toxicology Screen (11/13/2024 1:10 AM CDT) Amphetamine Screen Urine Negative Negative 11/13/2024 1:[address] [facility] Urine Barbiturates Screen Negative Negative 11/13/2024 1:[address] [facility] Urine Benzodiazepine Screen Negative Negative 11/13/2024 1:[address] [facility] Urine Cocaine Screen Negative Negative 11/13/2024 1:[address] [facility] Urine Methadone Negative Negative 1:[address] [facility] Urine Opiates Screen Negative Negative 11/13/2024 1:[address] [facility] Urine Phencyclidine (PCP) Screen Negative Negative 11/13/2024 1:[address] [facility] Urine THC Screen Positive(A) Negative 025 1:[address] [facility] U Specific [place] 1.025 <=1.005 - 1.030 11/13/2024 1:[address] [facility] Entire urinary tract proper / Unknown 11/13/2024 1:10 AM CDT 11/13/2024 1:13 AM CDT [facility] [place] [place] - 11/13/2024 1:34 AM CDT Urine Drug Screen specimen was not collected by any chain of custody procedure; The results have not been confirmed and are intended for medical use only. us Jose Eduardo Martinez DO LAB URINE ORDERABLES Final Re sult [address] [address] * Urine (11/13/2024 1:10 AM CDT) hCG, Qual Urine Negative Negative 11/13/2024 1:[address] [facility] Urine Entire urinary tract proper / Unknown Collection / Unknown 11/13/2024 1:10 AM CDT 11/13/2024 1:13 AM CDT [facility] [place] [place] - 11/13/2024 1:22 AM CDT hCG is not usually detected in healthy men and healthy non- women. However, hCG levels in will usually exceed 25 mIU/mL two to three days prior to the first missed menstrual period. Jose Eduardo Martinez DO LAB URINE ORDERABLES Final Re sult Performing Organization Address [facility] Co de Phone Number [address] [address] * POC Glucometer Glucose (11/13/2024 12:55 AM CDT) Glucometer Glucose 99 65-99 mg/dL mg/dL 11/13/2024 12:[address] [facility] POC Employee ID [id number] 12:[address] [facility] Location SAL-ED 11/13/2024 12:[address] [facility] Blood 11/13/2024 12:5 5 AM CDT 11/13/2024 12:[address] [facility] - 11/13/2024 12:59 AM CDT Reliability of [...] ORDERA BLES Final Result Performing Organization Address [facility] Co de Phone Number [address] [address] * [facility] Screening (04/29/2024 2:35 PM CLASS A REGIONAL DRIVERS) Fantasma Brewer DO HEALTH MAINTENANCE Fin al Result * Thinprep Pap (08/12/2021 1:46 PM CDT) Clinical Information: [facility] [place]:None given Lmp: [facility] [place]:[id number] Prev. Pap: [facility] [place]:None given Prev. Bx: [facility] [place] Comment[place]None given Source [facility] [place]:Cervix Statement of Adequacy: [facility] [place] Comment: Satisfactory for evaluation. Endocervical/transformation zone component present. PAP Interpretation [facility] [place]:Negative for intraep ithelial lesion or malignancy. Comment [facility] [place] Comment: This Pap test has been evaluated with computer assisted technology. Solution Director: Di [facility] [place] Comment: MAYITO TOVAR(ASCP) CT Screening Location: [facility] Cytology [address], [facility] [address], [place] [address] Review Solution Director: [facility] [place]: MAYITO DRAKE(ASCP) CT Screening Location: [facility] Cytology [address], [facility] [address], [place] [address] Comment [facility] [place]: EXPLANATORY NOTE: The [...] 1:46 PM CDT 08/13/2021 12:33 AM CDT us Raghu aGyle MD LAB PATHOLOGY/CYTOLOGY ORDERABLE S Final Result [facility] [address] [place] [address], [facility] [address], [address] [place] [address] from Last 3 Months or Most Recently Relevant to Health Maintenance Insurance [facility] CHOICE Advance Directives For more information, please contact: [phone] * Full Code (Latest Code Status on [...] 7:29 PM 12/30/2021 11:56 PM Care Teams Welder Gas Relationship Specialty Start Date End Date Fantasma Brewer DO [address] [place] [id number] PCP - General Family Medicine 08/24/23
--- OUTSIDE RECORDS SUMMARY | 2024-11-30 10:52 | XMS_ITS | Encounter Summary ---
Author Organization [employer] Address [address] [place] [address] Care Team Providers Care Radiation Engineer Name Role Phone Fantasma Brewer DO Primary Care Provider Encounter Details Date Type Department Care Team (Late st Contact Info) Description 11/27/2024 Patient Outreach [facility] [place] [address] [place] [id number] Fantasma Brewer DO [address] [place] [phone] Emergency Department Follow-Up Social History Tobacco Use Types Packs/Day Years Used Date Smoking Tobacco: Never Passive Smoke Exposure: Never Smokeless Tobacco: Former Alcohol Use Standard Drinks/Week Comments Never 0 (1 standard drink = 0.6 oz pur e alcohol) [facility] Utilities Answer Date Recorded In the past 12 months has [employer], gas, oil, or water [employer] threatened to shut off services in your [...] money to get more. Never true 05/13/2024 [facility] - Transportation Answer Date Record ed In [...] your living situation today? [facility] 05/13/2024 Housing Problems Not on file 05/13/2024 Comments No Sex and Gender Information Value Date Recorded Sex Assigned at Not on file Legal Sex Female 9:57 AM GENERAL TECHNICIAN Gender Identity Not on file Sexual Orientation Not on file documented as of this encounter Functional Status * Is the person deaf or does he/she have serious difficulty hearing? Answer Date of Assessment Author No 05/13/2024 11:15 PM GENERAL TECHNICIAN * Is this person blind or does he/she have serious difficulty seeing even when wearing glasses? Answer Date of Assessment Author No 05/13/2024 11:15 PM GENERAL TECHNICIAN * Does this person have serious difficulty walking or climbing stairs? Answer Date of Assessment Author No 05/13/2024 11:15 PM GENERAL TECHNICIAN * Does this person have difficulty dressing or bathing? Answer Date of Assessment Author No 05/13/2024 11:15 PM GENERAL TECHNICIAN * Because of a physical, mental, or emotional condition, does this person have difficulty doing errands alone such as visiting a doctor's office or shopping? Answer Date of Assessment Author No 05/13/2024 11:15 PM GENERAL TECHNICIAN documented as of this encounter Mental Status * Because of a physical, mental, or emotional condition, does this person have serious difficulty concentrating, remembering, or making decisions? Answer Entry Date Author No 05/13/2024 11:15 PM GENERAL TECHNICIAN documented in this encounter Progress Notes * Ellie Kumar MA - 11/27/2024 10:54 AM CDT Patient called stating she was seen in the ER on 11/26/24 she was advised to schedule follow up appointment documented in this encounter Plan of Treatment Upcoming Encounters Date Type Department Care Team (Late st Contact Info) Description 03/04/2025 3:00 PM CDT Office Visit [facility] Women[facility] - OBGYN [address] [place] [address] Raghu Gayle MD [address] [place] [address] documented as of this encounter Visit Diagnoses Not on filedocumented in this encounter Additional Health Concerns Infection Onset Date Last Indicated Resolved Time MRSA Comment:Added from external infection. Source: [facility] Practices. 05/15/2024 025 1:23 PM CDT documented as of this encounter Care Teams Radiation Engineer Relationship Specialty Start Date End Date Fantasma Brewer DO [address] [place] [address] PCP - General Family Medicine 08/24/23 documented as of this encounter
--- OUTSIDE RECORDS SUMMARY | 2024-11-30 10:52 | XMS_ITS | Encounter Summary ---
Author Organization [employer] Address [address] [place] [address] Care Team Providers Care Spaghetti Machine Operator Name Role Phone Osman Fantasma Reeder DO Primary Care Provider Encounter Details Date Type Department Care Team (Latest Contact Info) Description 11/29/2024 Travel Social History Tobacco Use Types Packs/Day Years Used Date Smoking Tobacco: Never Passive Smoke Exposure: Never Smokeless Tobacco: Former Alcohol Use Standard Drinks/Week Comments Never 0 (1 standard drink = 0.6 oz pur e alcohol) [facility] Utilities Answer Date Recorded In [...] money to get more. Never true 05/13/2024 [facility] - Transportation Answer Date Record ed In the past 12 months, has l ack of reliable transportation kept you from medical appointments, meetings, work or from getting things needed for daily living? No 05/13/2024 [facility] - Personal Safety Answer Date [...] on file Legal Sex Female 9:57 AM AIRCRAFT ENGINE MECHANIC Gender Identity Not on file Sexual Orientation Not on file documented as of this encounter Functional Status * Is the person deaf or does he/she have serious difficulty hearing? Answer Date of Assessment Author No 05/13/2024 11:15 PM AIRCRAFT ENGINE MECHANIC * Is this person blind or does he/she have serious difficulty seeing even when wearing glasses? Answer Date of Assessment Author No 05/13/2024 11:15 PM AIRCRAFT ENGINE MECHANIC * Does this person have serious difficulty walking or climbing stairs? Answer Date of Assessment Author No 05/13/2024 11:15 PM AIRCRAFT ENGINE MECHANIC * Does this person have difficulty dressing or bathing? Answer Date of Assessment Author No 05/13/2024 11:15 PM AIRCRAFT ENGINE MECHANIC * Because of a physical, mental, or emotional condition, does this person have difficulty doing errands alone such as visiting a doctor's office or shopping? Answer Date of Assessment Author No 05/13/2024 11:15 PM AIRCRAFT ENGINE MECHANIC documented as of this encounter Mental Status * Because of a physical, mental, or emotional condition, does this person have serious difficulty concentrating, remembering, or making decisions? Answer Entry Date Author No 05/13/2024 11:15 PM AIRCRAFT ENGINE MECHANIC documented in this encounter Plan of Treatment Upcoming Encounters Date Type Department Care Team (Late st Contact Info) Description 03/04/2025 3:00 PM CDT Office Visit [facility] Women's Health - OBGYN [address] [place], [place] [address] Raghu Gayle MD [address] [place], [place] [address] documented as of this encounter Visit Diagnoses Not on filedocumented in this encounter Care Teams Spaghetti Machine Operator Relationship Specialty Start Date End Date Fantasma Brewer DO [address] [place] [id number] PCP - General Family Medicine 08/24/23 documented as of this encounter
--- OUTSIDE RECORDS SUMMARY | 2024-11-30 10:52 | XMS_ITS | Encounter Summary ---
Author Organization [employer] Address [address] [place] [address] Care Team Providers Care Home Theater Experience Expert Name Role Phone Fantasma Brewer DO Primary Care Provider Encounter Details Date Type Department Care Team (Late st Contact Info) Description 11/27/2024 Telephone [facility] [place] [address] [place] [id number] Fantasma Brewer DO [address] [place] [id number] Social History Tobacco Use Types Packs/Day Years Used Date Smoking Tobacco: Never Passive Smoke Exposure: Never Smokeless Tobacco: Former Alcohol Use Standard Drinks/Week Comments Never 0 (1 standard drink = 0.6 oz pur e alcohol) [facility] Utilities Answer Date Recorded In the past 12 months has e [employer], gas, oil, or water [employer] threatened to shut off services in your [...] money to get more. Never true 05/13/2024 [facility] - Transportation Answer Date Record ed [...] your living situation today? I have a [facility] place to live 05/13/2024 Housing Problems Not on file 05/13/2024 Comments No Sex and Gender Information Value Date Recorded Sex Assigned at Not on file Legal Sex Female 9:57 AM WATERFRONT DIRECTOR Gender Identity Not on file Sexual Orientation Not on file documented as of this encounter Functional Status * Is the person deaf or does he/she have serious difficulty hearing? Answer Date of Assessment Author No 05/13/2024 11:15 PM WATERFRONT DIRECTOR * Is this person blind or does he/she have serious difficulty seeing even when wearing glasses? Answer Date of Assessment Author No 05/13/2024 11:15 PM WATERFRONT DIRECTOR * Does this person have serious difficulty walking or climbing stairs? Answer Date of Assessment Author No 05/13/2024 11:15 PM WATERFRONT DIRECTOR * Does this person have difficulty dressing or bathing? Answer Date of Assessment Author No 05/13/2024 11:15 PM WATERFRONT DIRECTOR * Because of a physical, mental, or emotional condition, does this person have difficulty doing errands alone such as visiting a doctor's office or shopping? Answer Date of Assessment Author No 05/13/2024 11:15 PM WATERFRONT DIRECTOR documented as of this encounter Mental Status * Because of a physical, mental, or emotional condition, does this person have serious difficulty concentrating, remembering, or making decisions? Answer Entry Date Author No 05/13/2024 11:15 PM WATERFRONT DIRECTOR documented in this encounter Miscellaneous Notes * Telephone Encounter - Felipa Alvares - 11/27/2024 11:39 AM CDT Pt scheduled for Monday * Telephone Encounter - Fantasma Brewer DO - 11/27/2024 11:26 AM CDT She'd need ER follow up to arrange further care. * Telephone Encounter - Felipa Alvares - 11/27/2024 10:48 AM CDT Pt was in ER last night and states ER found cysts on her Ovaries and Kidneys. ER wanted her to callyou and make you aware. documented in this encounter Plan of Treatment Upcoming Encounters Date Type Department Care Team (Late st Contact Info) Description 03/04/2025 3:00 PM CDT Office Visit [facility] [address] [place] [address] Raghu Gayle MD [address] [place] [address] documented as of this encounter Visit Diagnoses Not on filedocumented in this encounter Additional Health Concerns Infection Onset Date Last Indicated Resolved Time MRSA Comment:Added from external infection. [facility] Practices. 05/15/2024 025 1:23 PM CDT documented as of this encounter Care Teams Home Theater Experience Expert Relationship Specialty Start Date End Date Fantasma Brewer DO [address] [place] [address] PCP - General Family Medicine 08/24/23 documented as of this encounter
--- OUTSIDE RECORDS SUMMARY | 2024-11-30 10:53 | XMS_ITS | Encounter Summary ---
Author Organization [facility] Address [address] [place] [address] Care Team Providers Care Preventative Maintenance Technician Name Role Phone Varinder Brewer DO Primary Care Provider Unava ilable Reason for Visit * Reason Onset Date Comments Advice Only 07/04/2024 Needing to sched [facility] follow up Encounter Details Date Type Department Care Team (Late st Contact Info) Description 07/04/2024 Telephone [facility] [address] [place] [address] Amber Dale MD [address] [facility] [place] [address] Advice Only (Needing to schedule hospital follow up ) Social History Tobacco Use Types Packs/Day Years Used Date Smoking Tobacco: Former Cigarettes Smokeless Tobacco: Never Alcohol Use Standard Drinks/Week Comments Never 0 (1 standard drink = 0.6 oz pur e alcohol) [facility] Utilities Answer Date Recorded In the past [...] any time in the past 12 m [facility], were you homeless or living in a correction (including now)? No 07/06/2024 Comments No Sex [...] requesting to schedule hospital follow up appointment. INATION MAN documented in this encounter Plan of Treatment Not on file documented as of this encounter Visit Diagnoses Not on filedocumented in this encounter Additional Health Concerns Infection Onset Date Last Indicated Resolved Time COVID 07/08/2024 07/08/2024 07/08/2024 11:3 4 PM COMBINATION MAN Potential Prion/CJD Comment:07/16/24: Dr. Rollins stated no concern for CJD. 07/15/2024 07/15/2024 07/17/2024 8:[address] documented as of this encounter Care Teams Preventative Maintenance Technician Relationship Specialty Start Date End Date Varinder Brewer DO [address] [place], [place] [id number] PCP - General Surgery General 07/06/24 documented as of this encounter
--- NOTE | 2024-11-30 11:24 | ED_ITS ---
HPI - Abdominal Pain 2 General: Chief Complaint: Abdominal Pain Stated Complaint: right side hip/lower back pain Time Seen by Provider: 11/30/24 11:11 History of Present Illness: 24-year-old female who presents emergenc y room with continued right sided pain. She has been seen here 3 times in the last couple of weeks and she is also been seen at a hospital in [place] and was told she had a cyst on her ovary. She was also treated for UTI recently. She says she has been eating large amounts of THC Gummies with no relief. No fever. No vomiting. No dysuria. Related Data Home Medications ?Medication ?Instructions ?Recorded ?Confirmed divalproex 500 mg tablet,extended 500 mg PO DAILY 11/1911/30/24 release 24 hr (Depakote ER) Previous Rx's ?Medication ?Instructions ?Recorded cefdinir 300 mg capsule 300 mg PO BID 5 days #10 cap s 11/30/24 dexamethasone 6 mg tablet 6 mg PO DAILY 5 days #5 tabs 11/30/24 diclofenac sodium 50 mg 50 mg PO BID PRN pain #14 ta bs 11/30/24 tablet,delayed release Allergies Allergy/AdvReac Type Severity Reaction Status Date / Time cinnamon Allergy ALGY-Rash Verified 11/30/24 10:54 Review of Systems 2 Narrative: Constitutional symptoms: Negative except as documented in HPI. Skin symptoms: Negative except as documented in HPI. Eye symptoms: Negative except as documented in HPI. ENMT symptoms: Negative except as documented in HPI. Respiratory symptoms: Negative except as documented in HPI. Cardiovascular symptoms: Negative except as documented in HPI. Gastrointestinal symptoms: Negative except as documented in HPI. Genitourinary symptoms: Negative except as documented in HPI. Musculoskeletal symptoms: Negative except as documented in HPI. Neurologic symptoms: Negative except as documented in HPI. Psychiatric symptoms: Negative except as documented in HPI. Endocrine symptoms: Negative except as documented in HPI. Physical Exam 2 Narrative: EXAM NARRATIVE: General: Alert, no acute distress. Skin: Warm, dry. Head: Normocephalic, atraumatic. Neck: Supple, trachea midline. Eye: Extraocular movements are intact. Ears, nose, mouth and throat: mucosa moist. Cardiovascular: Regular, Normal peripheral perfusion. Respiratory: Lungs are clear to auscultation, respirations are non-labored, breath sounds are equal, Symmetrical chest wall expansion. Gastrointestinal: Soft, complains of right-sided abdominal tenderness, Non distended Musculoskeletal: Normal ROM, no deformity. Neurological: Alert and oriented, No focal neurological deficit observed. Psychiatric: Cooperative, appropriate mood & affect. Course 2 Vital Signs: Vital signs: Vital Signs Temperature 97.6 F 11/30/24 10:51 Pulse Rate 75 11/30/24 14:00 Respiratory Rate 15 11/30/24 10:51 Blood Pressure 120/70 11/30/24 14:00 Pulse Oximetry 97 11/30/24 14:00 Oxygen Delivery Me thod Room Air 11/30/24 14:00 MDM - Abdominal Pain Medical Decision Making Medical decision making: Differential diagnosis for this patient with right lower quadrant abdominal pain including but not limited to and based on the above HPI, review of systems and physical exam: Ureterolithiasis. Urinary tract infection. Appendicitis. colitis. small bowel obstruction. Crohn's flare. Pancreatitis. Cholelithiasis or cholecystitis. Hepatitis. Diverticulitis. Constipation. ovarian cyst. ovarian torsion Workup: Orders were placed to evaluate differential diagnosis based on the above differential, HPI and exam: Lab Review: Laboratory results were reviewed and interpreted by myself the emergency room physician. No leukocytosis. No anemia. No renal failure. No UTI. Drug screen is positive for marijuana. Urinalysis is negative for leukocytosis but she does have 2+ bacteria so no send her home on some antibiotics. I reviewed the patient's medical record Ultrasound of the pelvis: Left-sided ovarian cyst. Some fluid on the right. Possible ruptured ovarian cyst. This was reviewed and interpreted by myself the emergency room physician. I also reviewed the radiology report. Reexamination: Patient remained stable. No increased work of breathing. No altered mental status. No focal motor deficits. Assessment and plan: Abdominal pain - Discharged home - Discussed plan with patient. Answered any questions. - Evaluation and treatment of this problem were appropriate in the emergency setting. Lab Data 11/30/24 11:58 11/30/24 11:58 Labs/Radiology: Laboratory Results WBC 10.96 10^3/uL (3.29-11.43) 11/30/24 11:58 RBC 4.47 10^6/uL (3.85-5.65) 11/30/24 11:58 Hgb 12.90 g/dL (11.27-16.99) 11/30/24 11:58 Hct 38.9 % (36-47) 11/30/24 11:58 MCV 87.0 fl (85-98) 11/30/24 11:58 MCH 28.9 pg (27-33) 11/30/24 11:58 MCHC 33.2 g/dL (30-55) 11/30/24 11:58 RDW 13.2 % (12.1-15.1) 11/30/24 11:58 Plt Count 361 10^3/cmm (157-399) 11/30/24 11:58 MPV 10.0 fL (7.4-10.4) 11/30/24 11:58 Neut % (Auto) 59.7 % 11/30/24 11:58 Lymph % (Auto) 26.9 % 11/30/24 11:58 [place] % (Auto) 8.0 % 11/30/24 11:58 Eos % (Auto) 4.7 % 11/30/24 11:58 Baso % (Auto) 0.5 % 11/30/24 11:58 Neut # (Auto) 6.54 10^3/uL (1.8-7.7) 11/30/24 11:58 Lymph # (Auto) 3.0 10^3/uL (0.8-4.8) 11/30/24 11:58 [place] # (Auto) 0.9 10^3/uL (0.2-0.9) 11/30/24 11:58 Eos # (Auto) 0.5 10^3/uL (0.0-0.8) 11/30/24 11:58 Baso # (Auto) 0.1 10^3/uL (0.0-0.1) 11/30/24 11:58 Nucleated RBC % (auto) 0 % 11/30/24 11:58 Nucleated RBCs # 0.0 /100WBC 11/30/24 11:58 Sodium 138 mmol/L (136-145) 11/30/24 11:58 Potassium 3.4 mmol/L (3.5-5.1) L 11/30/24 11:58 Chloride 106 mmol/L (98-107) 11/30/24 11:58 Carbon Dioxide 19 mmol/L (22-29) L 11/30/24 11:58 Anion Gap 16.4 (5-19) 11/30/24 11:58 BUN 14 mg/dL (6-20) 11/30/24 11:58 Creatinine 0.7 mg/dL (0.5-0.9) 11/30/24 11:58 GFR Calculation 102.8 mL/min (90-130) 11/30/24 11:58 Glucose 95 mg/dL (65-115) 11/30/24 11:58 Calculated Osmolality 286 mOsm/kg (285-295) 11/30/24 11:58 Calcium 8.8 mg/dL (8.5-10.5) 11/30/24 11:58 Total Bilirubin 0.2 mg/dL (0.15-1.2) 11/30/24 11:58 AST 12 U/L (0-32) 11/30/24 11:58 ALT 14 U/L (0-33) 11/30/24 11:58 Alkaline Phosphatase 65 U/L (35-105) 11/30/24 11:58 Total Protein 6.5 g/dL (6.6-8.7) L 11/30/24 11:58 Albumin 4.0 g/dL (3.5-5.2) 11/30/24 11:58 Globulin 2.5 g/dL (1.3-4.6) 11/30/24 11:58 HCG, Qual Negative (Negative) 11/30/24 12:10 Urine Color Yellow (Yellow) 11/30/24 12:10 Urine Appearance Cloudy (CLEAR) A 11/30/24 12:10 Urine pH 5.5 (5-7) 11/30/24 12:10 Ur Specific [place] 1.030 (1.005-1.030) 11/30/24 12:10 Urine Protein Negative (Negative) 11/30/24 12:10 Urine Glucose (UA) Negative (Normal) 11/30/24 12:10 Urine Ketones Trace (Negative) 11/30/24 12:10 Urine Blood Negative (Negative) 11/30/24 12:10 Urine Nitrate Negative (Negative) 11/30/24 12:10 Urine Bilirubin Negative (Negative) 11/30/24 12:10 Urine Urobilinogen 1.0 mg/dL (Negative) 11/30/24 12:10 Ur Leukocyte Esterase Negative (Negative) 11/30/24 12:10 Urine RBC 0-2 /hpf (0-2) 11/30/24 12:10 Urine WBC 0-5 /hpf (0-5) 11/30/24 12:10 Ur Squamous Epith Cells 11-20 /hpf (0-5) H 11/30/24 12:10 Amorphous Sediment Not Reportable 11/30/24 12:10 Urine Bacteria 2+ /hpf (NONE) H 11/30/24 12:10 Hyaline Casts 1.21 /lpf 11/30/24 12:10 Urine Opiates Screen Negative ng/mL (Negative) 11/30/24 12:10 Ur Barbiturates Screen Negative ng/mL (Negative) 11/30/24 12:10 Ur Phencyclidine Scrn Negative ng/mL (Negative) 11/30/24 12:10 Ur Amphetamines Screen Negative ng/mL (Negative) 11/30/24 12:10 U Benzodiazepines Scrn Negative ng/mL (Negative) 11/30/24 12:10 Urine Cocaine Screen Negative ng/mL (Negative) 11/30/24 12:10 U Marijuana (THC) Screen Positive ng/mL (Negative) H 11/30/24 12:10 All radiology interpretation(s) finalized by discharge Discharge Plan Discharge Patient Disposition: Home Clinical Impression: Abdominal pain, Ruptured ovarian cyst Condition: Stable Prescriptions: New dexamethasone 6 mg tablet 6 mg PO DAILY 5 Days Qty: 5 0RF diclofenac sodium 50 mg tablet,delayed release (DR/EC) 50 mg PO BID PRN (Reason: pain) Qty: 14 0RF cefdinir 300 mg capsule 300 mg PO BID 5 Days Qty: 10 0RF No Action divalproex [Depakote ER] 500 mg Tablet Extended Release 24 Hr 500 mg PO DAILY Discharge Orders: Discharge ED (Routine); Ordered 11/30/24 Ordered By: Yael Workman Discharge Diet: Usual diet Discharge Activity: Increase activity as tolerated Patient Instructions: Abdominal Pain (ED), Opioid Safety, Pain Management, Patient Portal & Selena Instructions Activity Restrictions/Additional Instructions: Thank you for choosing [facility] for your healthcare needs today. You have been screened and evaluated and felt safe for discharge. Health conditions do change or evolve sometimes and as such it is important that you follow up with your Primary Doctor to be re checked, 3-5 days is a general good time frame for follow up. You are always welcome to return to the ED for re assessment if your symptoms are worsening or you have new concerns Print Language: Lithuanian Coding Level of Care Code ED Parts Specialist for Shona Cody
--- NOTE | 2024-11-30 11:38 | PC.NURSE ---
this nurse asked pt for urine sample, pt stated no .
[2024-11-30 12:00] VITALS: BP 110/66; PULSE 76; O2SAT 94
[2024-11-30 12:10] LABS: Hematocrit 38.9 % (36-47); Hemoglobin 12.90 g/dL (11.27-16.99); Mean Corpuscular HGB Conc 33.2 g/dL (30-55); Mean Corpuscular Hemoglobin 28.9 pg (27-33); Mean Corpuscular Volume 87.0 fl (85-98); Nucleated Red Blood Cells % 0 %; Platelet Count 361 10^3/cmm (157-399); Red Blood Count 4.47 10^6/uL (3.85-5.65); White Blood Count 10.96 10^3/uL (3.29-11.43)
[2024-11-30 12:30] VITALS: PULSE 76; O2SAT 99
[2024-11-30 12:30] LABS: Alanine Aminotransferase 14 U/L (0-33); Albumin Level 4.0 g/dL (3.5-5.2); Alkaline Phosphatase 65 U/L (35-105); Anion Gap 16.4 (5-19); Aspartate Amino Transferase 12 U/L (0-32); Blood Urea Nitrogen 14 mg/dL (6-20); Calcium 8.8 mg/dL (8.5-10.5); Carbon Dioxide 19 mmol/L (22-29); Chloride 106 mmol/L (98-107); Creatinine Clr Calc Pharmacy 169.9942; Globulin 2.5 g/dL (1.3-4.6); Glucose 95 mg/dL (65-115); Osmolality Calculated 286 mOsm/kg (285-295); Potassium 3.4 mmol/L (3.5-5.1); Sodium 138 mmol/L (136-145); Total Protein 6.5 g/dL (6.6-8.7)
[2024-11-30 12:45] LABS: Glucose Urine UA Negative (Normal); Nitrate Urine Negative (Negative); Specific Gravity, Urine 1.030 (1.005-1.030)
[2024-11-30 12:52] LABS: PCP Screen Urine Negative (Negative)
[2024-11-30 13:00] VITALS: BP 122/78; PULSE 76; O2SAT 98
[2024-11-30 13:00] LABS: HCG Qualitative Urine. Negative (Negative)
--- NOTE | 2024-11-30 13:04 | USR_ITS ---
PROCEDURE INFORMATION: Exam: US Pelvis, Transvaginal, Non-Obstetric Exam date and time: 11/30/2024 1:50 PM Age: 24 years old Clinical indication: Pelvic pain; Prior surgery; Surgery date: 6+ months; Surgery type: C section; Additional info: Rlq pain. TECHNIQUE: Imaging protocol: Real-time transvaginal pelvic (non-obstetric) ultrasound with image documentation. Transvaginal imaging was used for better evaluation of the endometrium, adnexa, and/or cervix. COMPARISON: CT abdomen pelvis w con* [id number] 10/23/2024 2:48 AM FINDINGS: Uterus: Uterus is normal. Endometrial stripe is normal. Trace fluid within the endometrial canal. Right ovary/adnexa: Normal. No mass. Normal ovarian blood flow on color Doppler. Left ovary/adnexa: Normal. No mass. Normal ovarian blood flow on color Doppler. Urinary bladder: Urinary bladder is limited. Intraperitoneal space: There is a small/moderate amount of free fluid in the right adnexa. And cul-de-sac. US/US transvaginal [id number] IMPRESSION: Small volume free fluid in the right adnexa and cul-de-sac.
[2024-11-30 13:05] LABS: UA Slide Review UA Slide Review Perf
[2024-11-30 14:00] VITALS: BP 120/70; PULSE 75; O2SAT 97
[2024-11-30 14:33] VITALS: BP 119/72; PULSE 58; RESP 16; O2SAT 99
== END 2024-11-30 14:37 | disposition home or self-care (01) ==
PROVIDERS: Emergency Provider Emergency Medicine
DX: R10.9 Unspecified abdominal pain (principal); N83.292 Other ovarian cyst, left side
CPT/HCPCS: 36415; 76830; 80053; 80306; 81001; 81025; 85025; 96372; 99284; J1100; J1885